=== PATIENT | female | born 1950 | race Caucasian/White ===

== ENCOUNTER → 2018-04-30 15:40 | Outpatient (CLI) | payer MEDICARE, SELFPAY ==
[2018-04-30 18:08] LABS: Add Manual Diff / Slide Review NO; Basophils Percent Auto 0.4 % (0-2); Eosinophils Percent Auto 0.7 % (2-4); Hematocrit 41.1 % (36-46); Hemoglobin 13.7 g/dL (12.0-16.0); Lymphocytes Percent Auto 19.8 % (25-40); Mean Corpuscular HGB Conc 33.4 % (30-36); Mean Corpuscular Volume 89.8 fL (80-100); Monocytes Percent Auto 6.5 % (3-14); Neutrophils Absolute Auto 6800 /uL (3000-5900); Neutrophils Percent Auto 72.6 % (50-75); Platelet Count 391 X10^3/uL (150-400); Red Blood Cell Count 4.57 X10^6/uL (4.0-5.2); Red Cell Distribution Width 14.4 % (11.6-14.8); White Blood Cell Count 9.4 X10^3/uL (4.5-11.0)
[2018-04-30 18:11] LABS: Alanine Aminotransferase 37 IU/L (9-52); Albumin 4.5 g/dL (3.5-5.0); Albumin Globulin Ratio 1.7 (1.0-2.8); Alkaline Phosphatase 82 U/L (38-126); Aspartate Aminotransferase 29 IU/L (14-36); BUN Creatinine Ratio 13.8 (6-22); Bilirubin Total 0.7 mg/dL (0.2-1.3); Blood Urea Nitrogen 11 mg/dL (7-17); Carbon Dioxide 25 mmol/L (22-32); Chloride 104 mmol/L (98-107); Estimated Glomerular Filt Rate > 60.0 mL/min (>60); Globulin 2.6 g/dL (1.7-4.1); Glucose 99 mg/dL (80-110); HEMOLYSIS < 15 (0-50); Potassium 3.8 mmol/L (3.4-5.1); Sodium 144 mmol/L (137-145); Total Protein 7.1 g/dL (6.3-8.2)
[2018-04-30 18:25] LABS: Free T4, Direct Thyroxine 0.94 ng/dL (0.78-2.19)
[2018-04-30 18:31] LABS: C-Reactive Protein Quant < 0.5 mg/dL (<1.0)
[2018-04-30 18:39] LABS: Thyroid Stimulating Hormone 0.97 uIU/mL (0.47-4.68)
[2018-04-30 18:42] LABS: Erythrocyte Sedimentation Rate 8 MM/HR (0-20)
[2018-04-30 18:57] LABS: Vitamin B12 402 pg/mL (239-931)
[2018-05-03 10:58] LABS: RPR Screen Nonreactive (Nonreactive)
[2018-05-03 16:28] LABS: Arsenic < 2 mcg/L (< 23); Lead, Blood < 1 mcg/dL (< 5)
[2018-05-07 13:38] LABS: Mercury, Blood < 2
== END ==
PROVIDERS: PCP Internal Medicine; Visit Provider Internal Medicine
DX: G93.40 Encephalopathy, unspecified (principal)
CPT/HCPCS: 36415; 80053; 82607; 83825; 84439; 84443; 85025; 85651; 86140; 86592

== ENCOUNTER → 2018-05-01 16:37 | Outpatient (CLI) | payer MEDICARE, SELFPAY ==
[2018-05-01 16:46] LABS: Bacteria Urine None Seen
[2018-05-01 17:18] LABS: Appearance Urine UA CLEAR; Bilirubin Urine UA NEGATIVE (NEGATIVE); Color Urine UA YELLOW; Glucose Urine UA NEGATIVE (Normal); Ketones Urine UA NEGATIVE (NEGATIVE); Leukocyte Esterase Urine UA NEGATIVE (NEGATIVE); Nitrite Urine UA NEGATIVE (Negative); Occult Blood Urine UA NEGATIVE (Negative); Protein Urine UA NEGATIVE (Negative); Specific Gravity Urine UA 1.015 (1.000-1.035); Urobilinogen Urine UA 0.2 E.U./dL (0.2); pH Urine UA 5.5 (4.5-8.0)
[2018-05-01 17:32] LABS: Culture Indicated Urine Cult Not Indicated; RBC Urine 0-1/HPF (0-5/HPF); Squamous Epithelial Cell Urine 0-1 /HPF; Urine Comments Microscopic Normal; WBC Urine 0-1/HPF (0-5/HPF)
[2018-05-01 17:40] LABS: Urine Tetrahydrocannabinol Negative (Negative)
[2018-05-01 17:41] LABS: Urine Amphetamines Negative (Negative); Urine Barbiturates Negative (Negative); Urine Benzodiazepines Positive (Negative); Urine Cocaine Negative (Negative); Urine MDMA Negative (Negative); Urine Methadone Negative (Negative); Urine Methamphetamines Negative (Negative); Urine Morphine/Opi cutoff 2000 Positive (Negative); Urine Oxycodone Positive (Negative); Urine Phencyclidine Negative (Negative); Urine Tricyclic Antidepressant Positive (Negative)
== END ==
PROVIDERS: PCP Internal Medicine; Visit Provider Internal Medicine
DX: G93.40 Encephalopathy, unspecified (principal)
CPT/HCPCS: 80305; 81001

== ENCOUNTER → 2018-05-02 16:01 | Outpatient (CLI) | payer MEDICARE, SELFPAY ==
--- NOTE | 2018-05-02 16:07 | DI.MRI.S_ITS ---
PROCEDURE: MR STROKE Pre- and post-contrast brain MRI, non-contrast brain MR angiogram, pre- and postcontrast neck MR angiogram INDICATIONS: memory loss TECHNIQUE: Brain: Noncontrast axial T1 spin echo, axial T2 fast spin echo, sagittal and axial FLAIR, coronal T2 fast spin echo, axial gradient echo, axial diffusion and ADC through the brain. After the administration of contrast, axial 3D VIBE of the cranial vasculature and brain. Brain MRA: Non-contrast 3-D time of flight MR angiogram, with multiple ouehupm-oxkcxrezo-koikfzmton (MIP) reformats performed. Neck MRA: Axial and sagittal TruFISP through the neck. Coronal dynamic MR angiogram during administration of contrast in the arterial and venous phases, with 3-dimenstional xhbpylk-ucnivfhwr-jnbaadjzgv (MIP) reformats constructed from subtraction images. COMPARISON: [facility], CT, HEAD WITHOUT CONTRAST, 11/14/2015, 4:52. FINDINGS: Image quality: Diagnostic, with note made of motion artifact. BRAIN: CSF spaces: Ventricles are normal in size and shape. Basal cisterns are patent. No extra-axial fluid collections. Brain: No intracranial bleeds or mass effects. Sagastume-white matter interface is normal. Diffusion weighted images show no acute ischemic insults. Brain parenchymal volume loss and chronic small vessel ischemic changes are seen. Brainstem appears normal. Normal intravascular flow voids are present. No abnormal intracranial enhancement. Skull and face: Calvarial marrow signal is normal. Orbits appear normal. Sinuses: Sinuses and mastoids are clear. BRAIN MR ANGIOGRAM: Anterior circulation: Intracranial internal carotid arteries are normal in size and enhancement. The flow within the paired anterior cerebral arteries is normal and symmetric. The flow within the middle cerebral arteries is normal and symmetric. The anterior communicating artery is seen. No stenoses, occlusions, or aneurysms. Posterior circulation: The visualized portions of the vertebral arteries demonstrate normal caliber, and join to form a normal appearing basilar artery. The flow within the posterior cerebral arteries is normal and symmetric. No stenoses, occlusions, or aneurysms. NECK MR ANGIOGRAM: Carotids: Great vessels demonstrate a conventional anatomy as they arise from the aortic arch. The origins of the common carotid arteries appear patent. There is an approximate 50% narrowing seen in the left common carotid artery, just beyond its origin. The calibers and courses of both common carotid arteries are otherwise normal. The bifurcation regions appear normal bilaterally. The internal carotid arteries demonstrate normal course and caliber. Posterior circulation: The origins of the vertebral arteries appear patent. More superior portions of both vertebral arteries demonstrate normal course, and join to form a normal appearing basilar artery. The proximal left vertebral artery is tortuous. Miscellaneous: Subclavian arteries appear patent. Pre-contrast images through the neck show no soft tissue abnormalities. IMPRESSION: BRAIN MRI: No findings of acute or subacute infarction can be seen. Note is made of age-appropriate brain parenchymal volume loss and chronic small vessel ischemic changes. No masses or abnormal enhancement can be seen. BRAIN MR ANGIOGRAM: No significant intracranial arterial abnormality is seen. NECK MR ANGIOGRAM: There is an approximate 50% narrowing seen involving the left proximal common carotid artery. No additional hemodynamically significant stenosis can be seen involving the arteries of the neck Dictated by: Denis Shaw M.D. on 05/02/2018 at 16:46 Approved by: Denis Shaw M.D. on 05/02/2018 at 16:52
== END ==
PROVIDERS: Family Provider Internal Medicine; PCP Internal Medicine; Visit Provider Internal Medicine
DX: R41.3 Other amnesia (principal)
CPT/HCPCS: 70553; A9579

== ENCOUNTER 2018-12-09 08:29 | Emergency (ER) | payer MEDICARE, SELFPAY ==
[2018-12-09 08:30] VITALS: BP 150/73; PULSE 71; RESP 18; TEMP 36.8; O2SAT 93; BMI 32.3
--- NOTE | 2018-12-09 09:13 | DI.RAD.S_ITS ---
PROCEDURE: XR LUMBAR SPINE 2-3V INDICATIONS: fall/pain TECHNIQUE: 2 views of the lumbar spine were acquired. COMPARISON: [facility], CT, ABDOMEN/PELVIS WITH CONTRAST, 07/26/2017, 12:00. [facility], CR, XR PELVIS 1-2V, 12/09/2018, 9:17. [facility], CR, L-SPINE 2-3 VIEWS, 06/16/2017, 8:33. FINDINGS: Bones: Postoperative changes are seen, with bilateral pedicle screws at the L4, L5, and S1 levels. The L4 screws are superiorly angulated and the right S1 screw protrudes beyond the anterior cortex of S1. Vertical fixation rods are seen. Lucency is seen adjacent to the L4 screws. No other findings of hardware failure or hardware loosening are seen. Bone cement can be seen at the L1 level, as before. 5 nonrib-bearing, lumbar type vertebral bodies are seen. No acute appearing fractures are seen. No suspicious lytic or blastic lesions can be seen. Mild loss of disc height can be seen at L2-L3 at L3-L4, moderate loss of disc height at L5-S1. A right hip arthroplasty is partially seen. Soft tissues: Overlying bowel gas pattern is normal. No suspicious soft tissue calcifications. Atherosclerotic calcification is noted. Cholecystectomy clips are seen. IMPRESSION: No acute fractures are seen. If there is point tenderness (or other clinical suspicion for a fracture not seen on these images) then a dedicated CT could be considered for further evaluation, as clinically appropriate. Stable postoperative changes, with lucency adjacent to the L4 screws, which is suggestive of loosening. Dictated by: Denis Shaw M.D. on 12/09/2018 at 8:47 Approved by: Denis Shaw M.D. on 12/09/2018 at 8:52
--- NOTE | 2018-12-09 09:13 | DI.RAD.S_ITS ---
PROCEDURE: XR PELVIS 1-2V INDICATIONS: fall/pain TECHNIQUE: 1 view(s) of the pelvis acquired. COMPARISON: [facility], , ABDOMEN 2 VIEW, 03/26/2016, 14:05. [facility], , XR LUMBAR SPINE 2-3V, 12/09/2018, 9:17. [facility], , PELVIS 1 OR 2 VIEWS, 06/16/2017, 8:33. FINDINGS: Bones: No fractures or dislocations. No suspicious bony lesions. Right hip arthroplasty hardware is seen. Lumbosacral fixation hardware is seen. No findings of hardware failure or hardware loosening are seen. Soft tissues: There is a moderate amount of stool seen within the colon. Visualized bowel gas pattern is normal. No suspicious soft tissue calcifications. IMPRESSION: No displaced fractures are seen. If there is focal tenderness, or other clinical concern for a fracture not seen on these images in this patient with a given history of trauma, please consider a dedicated CT or a short-term followup plain film series (in 1-2 weeks) for further evaluation. Unremarkable postoperative changes are seen. Dictated by: Denis Shaw M.D. on 12/09/2018 at 8:46 Approved by: Denis Shaw M.D. on 12/09/2018 at 8:47
--- NOTE | 2018-12-09 09:22 | ED_ITS ---
HPI - Fall General Chief Complaint: Fall Stated Complaint: Fall, rt hip and back pain Time Seen by Provider: 12/09/18 08:36 Source: patient Mode of arrival: ambulatory Limitations: no limitations History of Present Illness HPI Narrative: Patient comes emergency department complaining of back pain after a fall 1 week ago. Patient states that she normally walks with a walker, because she does not have good balance, and states that she was walking in her home and lost her balance and fell to the ground, striking her right hip/thigh on the floor. Patient states that she had some low back pain at the time, but that this has gotten worse and worse over the last week. She states it is not the hip that is hurting but actually the low back. She indicates that her sciatic area also hurts. Patient denies numbness or tingling in her right lower extremity. No weakness. Patient states the pain does shoot down her leg somewhat. No fever chills. No injuries anywhere else. She did not hit her head or lose consciousness. Patient states that she has a history of low back problems, including compression fracture and herniated disc. No other complaints at this time. Related Data Home Medications Medication Instructions Recorded Confirmed erenumab-aooe 70 mg/mL 70 mg SUBCUT QMONTH 01/25/18 10/12/18 subcutaneous auto-injector naloxone 4 mg/actuation nasal spray NASAL 1 Days #2 each 04/30/18 10/12/18 promethazine 25 mg tablet 50 mg PO Q4-6H 22 Days #264 tab 04/30/18 10/12/18 oxycodone 15 mg tablet See Rx Instructions PO Q6H PRN tab 08/28/18 10/12/18 Previous Rx's Medication Instructions Recorded albuterol sulfate [Ventolin HFA] 0 ea INH Q3HP PRN #1 03/16/16 aspirin 81 mg PO BID #60 03/16/16 ACETAMINOPHEN 325 - 650 mg PO Q4HP PRN #150 tab 03/30/16 docusate sodium 200 mg PO BID #60 cap 03/30/16 Disabled Parking Permit ea #1 10/31/16 rizatriptan 10 mg tablet 10 mg PO .COMPLEX PRN #6 tab 11/16/17 simvastatin 20 mg PO QDAY #90 tab 03/09/18 nystatin [Nystop] 100,000 unit TOPICAL TIDP PRN #60 01/28/19 gm hydrochlorothiazide 25 mg PO QDAY #90 tab 07/06/18 gabapentin 100 mg capsule 100 mg PO DAILY #14 cap 08/07/18 lisinopril 40 mg tablet 40 mg PO BID #180 tab 08/09/18 desipramine 50 mg tablet 100 mg PO QDAY #60 tab 08/13/18 escitalopram oxalate [Lexapro] 20 mg PO QDAY #90 tab 09/18/18 metoclopramide 10 mg tablet 10 mg PO ACHS #90 tab 10/16/18 prednisone 20 mg tablet See Rx Instructions PO .COMPLEX #8 10/24/18 tab ondansetron HCl 8 mg tablet 8 mg PO QID PRN #120 tab 11/05/18 quetiapine 1 - 3 tab PO HS PRN #90 tab 11/26/18 diazepam 5 mg tablet 5 mg PO Q8HP PRN #30 tab 12/04/18 verapamil ER (PM) 300 mg capsule 300 mg PO BEDTIME #30 cap 12/04/[address],ext.release Allergies Allergy/AdvReac Type Severity Reaction Status Date / Time adhesive Allergy Mild BLISTERS, Verified 12/09/18 08:43 PULL SKIN OFF codeine [CODEINE] AdvReac Severe nausea, Verified 12/09/18 08:43 triggers migraines hydrocodone [HYDROCODONE] AdvReac Severe triggers Verified 12/09/18 08:43 migraines morphine [MORPHINE] AdvReac Severe n&v, can Verified 12/09/18 08:43 take if premedicated Review of Systems Constitutional Denies chills, Denies fever(s), Denies lethargy and Denies weakness Eyes Denies change in vision, Denies eye discharge, Denies irritation and Denies loss of vision ENT Ears, Nose, Mouth, and Throat: Denies change in voice, Denies neck pain and Denies sore throat Cardiovascular Denies chest pain, Denies irregular heart rhythm, Denies lightheadedness, Denies palpitations, Denies dyspnea, Denies dyspnea on exertion and Denies orthopnea Respiratory Denies cough, Denies dyspnea, Denies dyspnea on exertion and Denies wheezing Gastrointestinal Gastrointestinal: Denies abdominal pain, Denies change in bowel habits, Denies diarrhea, Denies nausea and Denies vomiting Genitourinary Denies hematuria, Denies flank pain, Denies urinary incontinence and Denies urinary urgency Musculoskeletal Reports back pain and Denies neck pain Integumentary/Breasts Denies pruritus, Denies erythema, Denies rash and Denies wounds Neurologic Denies confusion, Denies loss of vision and Denies weakness Psychiatric Denies anxiety, Denies confusion, Denies depression, Denies homicidal ideation and Denies suicidal ideation Endocrine Denies palpitations Hematologic/Lymphatic Denies easy bruising Allergic/Immunologic Denies wheezing Exam Initial Vital Signs Initial Vital Signs: Vital Signs Temperature 98.3 F 12/09/18 08:30 Pulse Rate 71 12/09/18 08:30 Respiratory Rate 18 12/09/18 08:30 Blood Pressure 150/73 H 12/09/18 08:30 Pulse Oximetry 93 12/09/18 08:30 Const General: cooperative and well developed Nutritional Appearance: well nourished Orientation: alert, awake, oriented x3 and not confused HENMT Head: normocephalic and atraumatic Ears: external ears normal and TM's normal bilaterally Nose: external nose normal and No nasal discharge Face and sinus: sinuses nontender, face symmetric, no sinus tenderness and No dry mucous membranes Mouth: oral mucosae normal and moist mucous membranes Teeth and gingiva: dentition normal Throat: tonsils normal and uvula midline Eyes General: appearance normal, both eyes and all related structures Eyelids: eyelids normal Conjunctivae: conjunctivae normal Sclera: sclerae normal Pupils: PERRL EOM: EOM intact bilaterally Neck Neck: normal visual inspection, trachea midline, No lymphadenopathy, No midline deformity and No JVD Lymphatic: No lymphedema Chest Chest: normal inspection of the chest Resp Effort & Inspection: normal respiratory effort, able to speak in complete sentences, no respiratory distress and no use of accessory muscles Auscultation: clear to auscultation bilaterally, no rales, no rhonchi and no wheezes Cardio Rate: regular rate Rhythm: regular rhythm Heart Sounds: no click, no gallops, no murmurs and no rubs Pulses: normal peripheral pulses GI Inspection: non-distended Palpation: soft, no hepatosplenomegaly, No guarding, No pulsatile mass and No tender Auscultation: normal bowel sounds Back/Spine/Pelvis Back: No CVA tenderness Cervical Spine: cervical ROM normal and No pain with cervical ROM Thoracic/Lumbar Spine: thoracic and lumbar spine normal to inspection Other: No tenderness or step-off at any level of the spine. Patient does have tenderness just adjacent to the lumbar spine on the right, extending from the L3-4 area down to the sciatic joint on that side. Patient does also have te nderness in a similar distribution on the left. Skin General: no rashes or lesions noted, No jaundice and No petechiae Other: Large right lateral thigh contusion, as noted. Contusion is approximately 10 cm x 8 cm. Neuro General: alert, oriented x3, gait normal and no focal motor deficits Speech: speech normal Extrem General: full ROM, no pedal edema and no calf tenderness Other: Patient has no tenderness over the hip itself. There is a large contusion on the patient right lateral thigh, inferior to the hip. Psych Appearance: well kempt Mental Status: mental status grossly normal Attitude: cooperative Thought Content: normal and suicidality Judgment: judgment good ON LICENSE OF [facility] Medical History Dorsalgia (Chronic 07/28/15) Chronic pain syndrome (Chronic) Hypertension (Chronic) Recurrent major depressive disorder, in partial remission (Chronic 02/10/11) Acquired hypothyroidism (Chronic 02/10/11) Chronic migraine without aura without status migrainosus, not intractable (Chronic) Fibromyalgia (Chronic 09/06/13) Gastroesophageal reflux disease without esophagitis (Chronic 02/10/11) Spinal stenosis at L4-L5 level (Chronic) Systemic lupus erythematosus (Chronic 02/10/11) Osteoporosis (Chronic 05/07/15) Uncomplicated opioid dependence (Chronic 12/14/15) Loosening of hardware in spine (Inactive) Surgical History Anesthesia (Resolved) History of surgery (Resolved) History of hip replacement Status post appendectomy Status post tubal ligation Family History Father Family history of polycythemia Mother Family history of CHF (congestive heart failure) Social History marital status: number of children: 2 household members: spouse lives independently: Yes caregiver/support person: No housing: apartment pets and animals: Yes education level: college 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 status: other (Retired) Previous 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 history: [employer] bc/worship: [employer] 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, 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) Smoking Status: Never smoker Tobacco: How many years used: 0 quit status: quit date established (Never Started) second hand exposure: No alcohol intake: never substance use type: does not use Family History Father Family history of polycythemia Mother Family history of CHF (congestive heart failure) Social History marital status: number of children: 2 household members: spouse lives independently: Yes caregiver/support person: No housing: apartment pets and animals: Yes education level: college 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 status: other (Retired) Previous 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 history: [employer] bc/worship: [employer] 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 She was worked up with x-ray series, and she stated she ?may need an MRI?. I did explain to the patient that we do not have MRI available on Sundays, and that her symptoms do not indicate an emergent MRI, but that this could be performed by her primary care physician as an outpatient. The patient was found to be feeling better after symptomatic treatment. I have discussed the usual indications for return with her. Orders Ordered: Discontinued Medications Hydromorphone HCl (Dilaudid) 1 mg IM NOW ONE Stop: 12/09/18 09:15 Last Admin: 12/09/18 09:35 Dose: 1 mg Ketorolac Tromethamine (Toradol) 60 mg IM NOW ONE Stop: 12/09/18 09:15 Last Admin: 12/09/18 09:35 Dose: 60 mg Ondansetron HCl (Zofran Odt) 4 mg SL NOW ONE Stop: 12/09/18 09:15 Last Admin: 12/09/18 09:35 Dose: 4 mg Vital Signs - 8 hr 12/09/18 08:30 Temperature 98.3 F Pulse Rate 71 Respiratory Rate 18 Blood Pressure 150/73 H Pulse Oximetry 93 MDM - Fall Medical Records Attestation: I reviewed the patient's medical records. Imaging Data Lumbar x-ray: Radiologist's impression: PROCEDURE: XR LUMBAR SPINE 2-3V INDICATIONS: fall/pain TECHNIQUE: 2 views of the lumbar spine were acquired. COMPARISON: [facility], CT, ABDOMEN/PELVIS WITH CONTRAST, 07/26/2017, 12:00. [facility], CR, XR PELVIS 1-2V, 12/09/2018, 9:17. [facility], CR, L-SPINE 2-3 VIEWS, 06/16/2017, 8:33. FINDINGS: Bones: Postoperative changes are seen, with bilateral pedicle screws at the L4, L5, and S1 levels. The L4 screws are superiorly angulated and the right S1 screw protrudes beyond the anterior cortex of S1. Vertical fixation rods are seen. Lucency is seen adjacent to the L4 screws. No other findings of hardware failure or hardware loosening are seen. Bone cement can be seen at the L1 level, as before. 5 nonrib-bearing, lumbar type vertebral bodies are seen. No acute appearing fractures are seen. No suspicious lytic or blastic lesions can be seen. Mild loss of disc height can be seen at L2-L3 at L3-L4, moderate loss of disc height at L5-S1. A right hip arthroplasty is partially seen. Soft tissues: Overlying bowel gas pattern is normal. No suspicious soft tissue calcifications. Atherosclerotic calcification is noted. Cholecystectomy clips are seen. IMPRESSION: No acute fractures are seen. If there is point tenderness (or other clinical suspicion for a fracture not seen on these images) then a dedicated CT could be considered for further evaluation, as clinically appropriate. Stable postoperative changes, with lucency adjacent to the L4 screws, which is suggestive of loosening. Dictated by: Denis Shaw M.D. on 12/09/2018 at 8:47 Approved by: Denis Shaw M.D. on 12/09/2018 at 8:52 Discharge Plan Departure Patient Disposition: Home Clinical Impression: Lumbar strain Qualifiers: Encounter type: initial encounter Qualified Code(s): S39.012A - Strain of muscle, fascia and tendon of lower back, initial encounter Discharge Date/Time: 12/09/18 11:14 Interventions: ED Discharge Assessment Last Done: 12/09/18 11:12 Instructions: DI for Back Strain or Sprain Activity Restrictions/Additional Instructions: Your x-rays do not show any new injuries. You have most likely strained your back and inflamed old injuries. You will need to follow up with your primary doctor, and you may discuss whether an MRI is warranted. At this point, no emergent cause of back pain is identified. Please take your pain medications, as needed. Prescriptions: No Action aspirin 81 MG tablet,delayed release (DR/EC) 81 mg PO BID Qty: 60 RF: 0 albuterol sulfate [Ventolin HFA] 90 MCG/PUFF HFA aerosol inhaler INH Q3HP PRNQty: 1 RF: 0 docusate sodium 100 MG capsule 200 mg PO BID Qty: 60 RF: 0 ACETAMINOPHEN 325 - 650 mg PO Q4HP PRNQty: 150 RF: 0 Disabled Parking Permit Qty: 1 RF: 0 simvastatin 20 mg tablet 20 mg PO QDAY Qty: 90 RF: 3 nystatin [Nystop] 100,000 unit/gram powder 100,000 unit Topical TIDP PRNQty: 60 RF: 3 hydrochlorothiazide 25 mg tablet 25 mg PO QDAY Qty: 90 RF: 3 lisinopril 40 mg tablet 40 mg PO BID Qty: 180 RF: 3 desipramine 50 mg tablet 100 mg PO QDAY Qty: 60 RF: 6 escitalopram oxalate [Lexapro] 20 mg tablet 20 mg PO QDAY Qty: 90 RF: 3 metoclopramide HCl 10 mg tablet 10 mg PO ACHS Qty: 90 RF: 1 prednisone 20 mg tablet See Rx Instructions PO .COMPLEX Qty: 8 RF: 0 ondansetron HCl [Zofran] 8 mg tablet 8 mg PO QID PRN (Reason: nausea and vomiting) Qty: 120 RF: 1 quetiapine 25 mg tablet 1 - 3 tab PO HS PRNQty: 90 RF: 1 verapamil 300 mg capsule, [address] 300 mg PO BEDTIME Qty: 30 RF: 11 diazepam 5 mg tablet 5 mg PO Q8HP PRN (Reason: muscle spasm) Qty: 30 RF: 0 oxycodone 15 mg tablet See Patient Comments PO Q6H PRNRF: 0 erenumab-aooe [Aimovig Autoinjector] 70 mg/mL auto-injector 70 mg SUBCUT QMONTH RF: 0 promethazine 25 mg tablet 50 mg PO Q4-6H 22 Days Qty: 264 RF: 0 naloxone 4 mg/actuation spray,non-aerosol NASAL 1 Days Qty: 2 RF: 0 gabapentin 100 mg capsule 100 mg PO DAILY Qty: 14 RF: 0 rizatriptan 10 mg tablet 10 mg PO .COMPLEX PRN (Reason: migraine headache) Qty: 6 RF: 11 Referrals: Pasquale Segura MD [Primary Care Provider] -
[2018-12-09] MEDS: ONDANSETRON 4 MG ODT SL (09:35)
[2018-12-09] MEDS: HYDROMORPHONE 1 MG INJ IM (09:35)
[2018-12-09] MEDS: KETOROLAC 60 MG/2 ML VIAL IM (09:35)
[2018-12-09 10:48] VITALS: BP 157/97; PULSE 61; RESP 18; O2SAT 96
== END 2018-12-09 11:14 | disposition home or self-care (01) ==
PROVIDERS: Emergency Provider Emergency Medicine; PCP Internal Medicine
DX: S39.012A Strain of muscle, fascia and tendon of lower back, initial encounter (principal); W19.XXXA Unspecified fall, initial encounter
CPT/HCPCS: 72100; 72170; 96372; 99282; 99283; J1170; J1885

== ENCOUNTER → 2018-12-10 14:30 | Outpatient (CLI) | payer MEDICARE, SELFPAY ==
[2018-12-10 16:16] LABS: BUN Creatinine Ratio 15.6 (6-22); Blood Urea Nitrogen 14 mg/dL (7-17); Calcium 9.5 mg/dL (8.4-10.2); Carbon Dioxide 33 mmol/L (22-32); Chloride 96 mmol/L (98-107); Estimated Glomerular Filt Rate > 60.0 mL/min (>60); Glucose 86 mg/dL (80-110); HEMOLYSIS < 15 (0-50); Potassium 3.9 mmol/L (3.4-5.1); Sodium 138 mmol/L (137-145)
== END ==
PROVIDERS: Registered Nurse; PCP Internal Medicine; Visit Provider Internal Medicine
DX: Z01.812 Encounter for preprocedural laboratory examination (principal)
CPT/HCPCS: 36415; 80048

== ENCOUNTER → 2018-12-17 09:03 | Outpatient (CLI) | payer MEDICARE, SELFPAY ==
--- NOTE | 2018-12-17 09:07 | DI.MRI.S_ITS ---
PROCEDURE: MR LUMBAR SPINE WO/W CON INDICATIONS: Back pain s/p ground level fall, prior surgical hx TECHNIQUE: Noncontrast sagittal T1 spin echo and T2 fast spin echo, sagittal STIR, axial T1 and T2 fast spin echo through the lumbar spine. In cases with scoliosis, additional coronal T2 fast spin echo may be performed. After the administration of contrast, sagittal and axial T1 spin echo with fat saturation through the lumbar spine. COMPARISON: [facility], MR, L-SPINE WITHOUT CONTRAST, 10/21/2016, 10:03. [facility], MR, L-SPINE WITHOUT CONTRAST, 03/22/2016, 12:58. [facility], MR, L-SPINE W&WO CONTRAST, 01/26/2016, 7:03. FINDINGS: Image quality: Excellent. Alignment and curvature: Posterior fusion is present at L4-S1 and is overall unchanged. There is trace retrolisthesis of L1 on L2, L3 on L4, trace anterolisthesis of L2 on L3. Marrow: Marrow is of normal overall signal. There is hypointense T1 and hyper intense STIR signal along the inferior aspect of the L3 vertebral body. L1 compression deformity is stable. No suspicious marrow enhancement. Spinal cord: Conus medullaris terminates at the L1 level. Visualized spinal cord demonstrates normal signal, without suspicious enhancement. Paraspinous soft tissues: No paravertebral masses or abnormal enhancement. Partially visualized liver and renal cysts. Discs: Moderate desiccation is present throughout the lumbar spine. L1-L2: Mild disc bulge with moderate spinal stenosis. There is mild flattening along the ventral aspect of the cord, unchanged. Moderate bilateral foraminal narrowing, slightly progressive compared to prior exam. Facet and ligamentum flavum hypertrophy as well as epidural lipomatosis are present. Minimal epidural lipomatosis. L2-L3: Mild disc bulge with minimal canal narrowing. Minimal to mild left foraminal narrowing, slightly progressive compared to prior exam. Facet and ligamentum flavum hypertrophy are present. Minimal epidural lipomatosis. L3-L4: Minimal disc bulge with minimal narrowing of the spinal canal. Moderate right foraminal narrowing with facet and ligamentum flavum hypertrophy. L4-L5: Postsurgical changes are present at this level with minimal appearance of canal narrowing. Mild left and minimal right foraminal narrowing, stable compared to prior exam. L5-S1: Postsurgical changes are present. No spinal stenosis or foraminal narrowing. IMPRESSION: 1. Linear hyperintense STIR focus within the L3 vertebral body suspicious for subacute fracture. No discernible compression deformity is identified. 2. Multilevel disc bulges. 3. Multilevel foraminal narrowing most notable at L1-L2 as well as L3-4 secondary to facet arthropathy. Dictated by: Jen Park M.D. on 12/17/2018 at 14:34 Approved by: Jen Park M.D. on 12/17/2018 at 15:18
== END ==
PROVIDERS: Family Provider Orthopaedic Surgery Orthopaedic Surgery of the Spine; PCP Internal Medicine; Visit Provider Registered Nurse
DX: M54.5 Low back pain (principal); Z98.1 Arthrodesis status; M48.061 Spinal stenosis, lumbar region without neurogenic claudication; E88.2 Lipomatosis, not elsewhere classified; M47.816 Spondylosis without myelopathy or radiculopathy, lumbar region
CPT/HCPCS: 72158; A9579

== ENCOUNTER 2019-01-04 16:34 | Emergency (ER) | payer MEDICARE, SELFPAY ==
[2019-01-04] VITALS (10 sets, daily range): BP systolic 149–188; BP diastolic 75–94; PULSE 70–84; RESP 15–20; TEMP 37.3; O2SAT 93–99; BMI 69.7
--- NOTE | 2019-01-04 16:43 | DI.RAD.S_ITS ---
PROCEDURE: XR WRIST RT MIN 3V INDICATIONS: fall, R wrist pain, deformity TECHNIQUE: 4 views of the wrist were acquired. COMPARISON: None. FINDINGS: Bones: Acute fracture of the distal radial metaphysis. There is moderate impaction measuring approximately 1.1 cm. There is dorsal angulation of the distal fracture fragment. No dislocation of the radiocarpal joint. The proximal and distal carpal rows demonstrate near anatomic alignment. No suspicious bony lesions. Scaphoid view: No scaphoid fracture demonstrated. Soft tissues: Moderate soft tissue swelling of the proximal wrist. No suspicious soft tissue calcifications. IMPRESSION: Right radial metaphyseal fracture with impaction and dorsal angulation of the distal fracture fragment. Dictated by: Raphael Tsang M.D. on 01/04/2019 at 17:20 Approved by: Raphael Tsang M.D. on 01/04/2019 at 17:25
--- NOTE | 2019-01-04 16:56 | ED.FALL ---
HPI - Fall General Chief Complaint: Fall Stated Complaint: GLF, thinks her right wrist is fractured Time Seen by Provider: 01/04/19 16:35 Source: patient and family Mode of arrival: ambulatory Limitations: no limitations History of Present Illness HPI Narrative: 68-year-old female nonsmoker with extensive medical history complains of pain and deformity in her right wrist after ground level fall onto an outstretched hand. She denies other injury such as head, neck, or back pain. She is not dizzy nor weak or lightheaded. She has increased pain with motion and improved with rest. She denies any numbness, tingling or weakness. complaint: fall Onset (ago): hour(s) Fall from: standing Fall witnessed: yes, by family Place fall occurred: home Loss of consciousness: none Prolonged down time: no Symptoms prior to fall: none Context: tripped/slipped Location of injury - extremities: Right: hand Severity: moderate Quality: burning and sharp Related Data Home Medications Medication Instructions Recorded Confirmed Disabled Parking Permit 1 ea MISCELLANEOUS DIRECTED 01/04/19 01/04/19 acetaminophen 325 - 650 mg PO Q4H PRN 01/04/19 01/04/19 baclofen 5 mg PO TID 01/04/19 01/04/19 desipramine 100 mg PO DAILY 01/04/19 01/04/19 diazepam 5 mg PO Q8H PRN 01/04/19 01/04/19 diphenhydramine HCl [Allergy 25 mg PO PRN PRN 01/04/19 01/04/19 Relief(diphenhydramin)] escitalopram oxalate [Lexapro] 20 mg PO DAILY 01/04/19 01/04/19 hydrochlorothiazide 25 mg PO DAILY 01/04/19 01/04/19 meloxicam 7.5 - 15 mg PO DAILY 01/04/19 01/04/19 omeprazole magnesium [Prilosec OTC] 1 tab PO PRN PRN 01/04/19 01/04/19 oxycodone 15 mg PO Q4-6H PRN MDD 6 01/04/19 01/04/19 prednisone 40 mg PO DAILYX4 01/04/19 01/04/19 promethazine 50 mg PO Q8H 01/04/19 01/04/19 quetiapine 25 - 75 mg PO BEDTIME PRN 01/04/19 01/04/19 sennosides [senna] 8.6 mg PO PRN PRN 01/04/19 01/04/19 simvastatin 20 mg PO DAILY 01/04/19 01/04/19 Previous Rx's Medication Instructions Recorded docusate sodium 200 mg PO BID #60 cap 03/30/16 rizatriptan 10 mg tablet 10 mg PO .COMPLEX PRN #6 tab 11/16/17 nystatin [Nystop] 100,000 unit TOPICAL TIDP PRN #60 06/25/18 gm lisinopril 40 mg tablet 40 mg PO BID #180 tab 08/09/18 verapamil ER (PM) 300 mg capsule 300 mg PO BEDTIME #30 cap 12/04/[address],ext.release ondansetron HCl 8 mg tablet 8 mg PO QID PRN #120 tab 12/24/18 Allergies Allergy/AdvReac Type Severity Reaction Status Date / Time adhesive Allergy Mild BLISTERS, Verified 12/28/18 11:47 PULL SKIN OFF codeine [CODEINE] AdvReac Severe nausea, Verified 12/28/18 11:47 triggers migraines hydrocodone [HYDROCODONE] AdvReac Severe triggers Verified 12/28/18 11:47 migraines morphine [MORPHINE] AdvReac Severe n&v, can Verified 12/28/18 11:47 take if premedicated Review of Systems Constitutional Denies chills, Denies fever(s), Denies lethargy and Denies weakness Eyes Denies change in vision, Denies eye discharge, Denies irritation and Denies loss of vision ENT Ears, Nose, Mouth, and Throat: Denies change in voice, Denies neck pain and Denies sore throat Cardiovascular Denies chest pain, Denies irregular heart rhythm, Denies lightheadedness, Denies palpitations, Denies dyspnea, Denies dyspnea on exertion and Denies orthopnea Respiratory Denies cough, Denies dyspnea, Denies dyspnea on exertion and Denies wheezing Gastrointestinal Gastrointestinal: Denies abdominal pain, Denies change in bowel habits, Denies diarrhea, Denies nausea and Denies vomiting Genitourinary Denies hematuria, Denies flank pain, Denies urinary incontinence and Denies urinary urgency Musculoskeletal Reports joint swelling, Reports limited range of motion and Denies neck pain Integumentary/Breasts Denies pruritus, Denies erythema, Denies rash and Denies wounds Neurologic Denies confusion, Denies loss of vision and Denies weakness Psychiatric Denies anxiety, Denies confusion, Denies depression, Denies homicidal ideation and Denies suicidal ideation Endocrine Denies palpitations Hematologic/Lymphatic Denies easy bruising Allergic/Immunologic Denies wheezing Exam Narrative Exam Narrative: GENERAL: 68-year-old female appears stated age, obviously in pain, right arm in sling. GCS 15 HEAD: Atraumatic. Normocephalic. No temporal or scalp tenderness. EYES: Pupils equal round and reactive. Extraocular motions intact. No scleral icterus. No injection or drainage. ENT: Nose without bleeding, purulent drainage or septal hematoma. Throat without erythema, tonsillar hypertrophy or exudate. Uvula midline. Airway patent. NECK: Trachea midline. No JVD or lymphadenopathy. Supple, nontender, no meningeal signs. CARDIOVASCULAR: Regular rate and rhythm without murmurs, gallops, or rubs. RESPIRATORY: Clear to auscultation. Breath sounds equal bilaterally. No wheezes, rales, or rhonchi. GASTROINTESTINAL: Abdomen soft, non-tender, nondistended. No hepato-splenomegaly, or palpable masses. No guarding. EXTREMITIES: Obvious deformity of right wrist with tenderness over the distal radius, closed, isolated, neurovascularly intact BACK: Nontender without deformity or crepitance. No flank tenderness. NEURO: AOx3. SKIN: No rash or erythema. Initial Vital Signs Initial Vital Signs: Vital Signs Temperature 99.2 F 01/04/19 16:40 Pulse Rate 84 01/04/19 16:40 Respiratory Rate 15 01/04/19 16:40 Blood Pressure 163/94 H 01/04/19 16:40 Pulse Oximetry 94 01/04/19 16:40 [facility] Medical History Dorsalgia (Chronic 07/28/15) Chronic pain syndrome (Chronic) Hypertension (Chronic) Recurrent major depressive disorder, in partial remission (Chronic 02/10/11) Acquired hypothyroidism (Chronic 02/10/11) Chronic migraine without aura without status migrainosus, not intractable (Chronic) Fibromyalgia (Chronic 09/06/13) Gastroesophageal reflux disease without esophagitis (Chronic 02/10/11) Spinal stenosis at L4-L5 level (Chronic) Systemic lupus erythematosus (Chronic 02/10/11) Osteoporosis (Chronic 05/07/15) Uncomplicated opioid dependence (Chronic 12/14/15) Loosening of hardware in spine (Inactive) Surgical History Anesthesia (Resolved) History of surgery (Resolved) History of hip replacement Status post appendectomy Status post tubal ligation Family History Father Family history of polycythemia Mother Family history of CHF (congestive heart failure) Social History marital status: number of children: 2 household members: spouse lives independently: Yes caregiver/support person: No housing: apartment pets and animals: Yes education level: college 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 status: other (Retired) 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: [employer] 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, 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) Smoking Status: Never smoker Tobacco: How many years used: 0 quit status: quit date established (Never Started) second hand exposure: No alcohol intake: never substance use type: does not use Family History Father Family history of polycythemia Mother Family history of CHF (congestive heart failure) Social History marital status: number of children: 2 household members: spouse lives independently: Yes caregiver/support person: No housing: apartment pets and animals: Yes education level: college 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 status: other (Retired) 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[employer] 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, 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) Smoking Status: Never smoker Tobacco: How many years used: 0 quit status: quit date established (Never Started) second hand exposure: No alcohol intake: never substance use type: does not use Procedures Orthopedic Fracture Reduction Fracture #1: Time Out Performed: Yes Side: right Fracture Reduction Location: radius Analgesia: procedural sedation Technique: traction/counter-traction Post Reduction X-rays Demonstrate: anatomical reduction Post-reduction neuro exam: intact Post-reduction vascular exam: intact Splint Applied: Yes Patient Tolerated Procedure: Well Orthopedic Splinting/Casting Injury #1: Side: right Upper Extremity Injury Location: wrist Upper Extremity Immobilizer: sling/shoulder immobilizer and sugar tong splint Post splinting neuro exam: intact Post splinting vascular exam: intact Placed by: Nursing Procedural Sedation Patient Age: Patient is 5yrs or older Consent signed: Yes Time out performed: Yes Indication: fracture/dislocation reduction ASA Class: II Mallampati Airway Classification: Class II Preparation: cardiac catheterization technologist applied, pulse oximeter, capnometry used, supplemental O2 applied, suction/airway equipment at bedside and IV secured IV Propofol dose (mg): 80 Intraservice time/total sedation time (min): 10 ED Sedation Level: Moderate (Concious) Patient Tolerated Procedure: Well Complications: none Course Orders Ordered: ED Orders 01/04/19 16:43 XR wrist RT min 3V Stat 01/04/19 18:04 XR wrist RT 2V Stat Discontinued Medications Propofol (Diprivan) 100 mg 0.5 mg/kg (100 mg) IV NOW ONE Stop: 01/04/19 17:45 Last Admin: 01/04/19 17:55 Dose: 80 mg Consultations Consultation #1: Mike Time: 18:07 Vital Signs - 8 hr 01/04/19 16:40 01/04/19 17:48 01/04/19 17:55 Temperature 99.2 F Pulse Rate 84 70 80 Respiratory Rate 15 20 18 Blood Pressure 163/94 H Blood Pressure [Left Arm] 170/80 H 175/75 H Pulse Oximetry 94 96 96 01/04/19 18:00 01/04/19 18:05 01/04/19 18:10 Temperature Pulse Rate 75 77 76 Respiratory Rate 20 19 20 Blood Pressure Blood Pressure [Left Arm] 173/76 H 185/76 H 149/81 H Pulse Oximetry 99 94 95 01/04/19 18:23 01/04/19 18:30 Temperature Pulse Rate 76 76 Respiratory Rate 18 18 Blood Pressure Blood Pressure [Left Arm] 174/83 H 185/89 H Pulse Oximetry 95 95 MDM - Fall Lab Data Point of Care Testing Test Results Not applicable Imaging Data Wrist Xray: Radiologist's impression: [address] [address] XRay Report Signed Patient: Melanie Barclay BMR#: [id number] : 9Acct:[id number] Age/Sex: 68 / FDate of Service: 01/04/19 Loc: ED Accession Number: [id number] Procedure: XR wrist RT min 3V Ordering Provider: Dustin Albarado D.O. PROCEDURE: XR WRIST RT MIN 3V INDICATIONS: fall, R wrist pain, deformity TECHNIQUE: 4 views of the wrist were acquired. COMPARISON: None. FINDINGS: Bones: Acute fracture of the distal radial metaphysis. There is moderate impaction measuring approximately 1.1 cm. There is dorsal angulation of the distal fracture fragment. No dislocation of the radiocarpal joint. The proximal and distal carpal rows demonstrate near anatomic alignment. No suspicious bony lesions. Scaphoid view: No scaphoid fracture demonstrated. Soft tissues: Moderate soft tissue swelling of the proximal wrist. No suspicious soft tissue calcifications. IMPRESSION: Right radial metaphyseal fracture with impaction and dorsal angulation of the distal fracture fragment. Dictated by: Raphael Tsang M.D. on 01/04/2019 at 17:20 Approved by: Raphael Tsang M.D. on 01/04/2019 at 17:25 Discharge Plan Departure Patient Disposition: Home Clinical Impression: Distal radial fracture Qualifiers: Encounter type: initial encounter Fracture type: closed Fracture morphology: Colles' Laterality: right Qualified Code(s): S52.531A - Colles' fracture of right radius, initial encounter for closed fracture Instructions: DI for Distal Radius Fracture Activity Restrictions/Additional Instructions: *You have been diagnosed with [acute right distal radius fracture] *What to do: *Take medications as directed *Follow up with [facility], call Monday for follow-up *Return to ER if you should have any new, worsening or concerning symptoms, such as [increasing pain, numbness, tingling, discoloration of year fingers or other bothersome symptoms] Prescriptions: No Action docusate sodium 100 MG capsule 200 mg PO BID Qty: 60 RF: 0 nystatin [Nystop] 100,000 unit/gram powder 100,000 unit Topical TIDP PRNQty: 60 RF: 3 lisinopril 40 mg tablet 40 mg PO BID Qty: 180 RF: 3 verapamil 300 mg capsule, [address] 300 mg PO BEDTIME Qty: 30 RF: 11 ondansetron HCl [Zofran] 8 mg tablet 8 mg PO QID PRN (Reason: nausea and vomiting) Qty: 120 RF: 1 baclofen 5 mg tablet 5 mg PO TID RF: 0 desipramine 50 mg tablet 100 mg PO DAILY RF: 0 oxycodone 15 mg tablet 15 mg PO Q4-6H MDD 6 PRN (Reason: PAIN) RF: 0 meloxicam 7.5 mg tablet 7.5 - 15 mg PO DAILY RF: 0 diazepam 10 mg tablet 5 mg PO Q8H PRN (Reason: Muscle Spasm) RF: 0 quetiapine 25 mg tablet 25 - 75 mg PO BEDTIME PRN (Reason: Insomnia) RF: 0 prednisone 20 mg tablet 40 mg PO DAILYX4 RF: 0 simvastatin 20 mg tablet 20 mg PO DAILY RF: 0 escitalopram oxalate [Lexapro] 20 mg tablet 20 mg PO DAILY RF: 0 hydrochlorothiazide 25 mg tablet 25 mg PO DAILY RF: 0 Disabled Parking Permit 1 ea miscellaneous DIRECTED RF: 0 acetaminophen 325 mg Tablet 325 - 650 mg PO Q4H PRN (Reason: pain) RF: 0 promethazine 50 mg tablet 50 mg PO Q8H RF: 0 diphenhydramine HCl [Allergy Relief(diphenhydramin)] 25 mg Capsule 25 mg PO PRN PRN (Reason: Allergy Symptoms) RF: 0 sennosides [senna] 8.6 mg Tablet 8.6 mg PO PRN PRN (Reason: Constipation) RF: 0 Prilosec OTC 20 mg Tablet,Delayed Release (Dr/Ec) 1 tab PO PRN PRN (Reason: Acid Reflux) RF: 0 rizatriptan 10 mg tablet 10 mg PO .COMPLEX PRN (Reason: migraine headache) Qty: 6 RF: 11 Referrals: Pasquale Segura MD [Primary Care Provider] - Rigo Mckeon MD [Physician] -
--- NOTE | 2019-01-04 17:41 | PC.NURSE ---
right radial good pulses.
[2019-01-04] MEDS: PROPOFOL 200 MG/20 ML VIAL 100 MG IV (17:55)
--- NOTE | 2019-01-04 18:04 | DI.RAD.S_ITS ---
PROCEDURE: XR WRIST RT 2V INDICATIONS: post reduction TECHNIQUE: 2 views of the wrist were acquired. COMPARISON: [facility], CR, XR WRIST RT MIN 3V, 01/04/2019, 16:51. FINDINGS: New casting material obscures fine bony detail. Distal radial metaphyseal fracture. There is mild improvement in the impaction and improved alignment in the dorsal angulation. Ulnar styloid fracture is more conspicuous on this projection. No suspicious bony lesions. IMPRESSION: Interval improvement in the alignment and impaction of the distal radial fracture post casting. Ulnar styloid fracture is more conspicuous. Dictated by: Raphael Tsang M.D. on 01/04/2019 at 18:54 Approved by: Raphael Tsang M.D. on 01/04/2019 at 18:57
== END 2019-01-04 19:05 | disposition home or self-care (01) ==
PROVIDERS: Emergency Provider Emergency Medicine; Family Provider Orthopaedic Surgery Orthopaedic Surgery of the Spine; PCP Internal Medicine
DX: S52.501A Unspecified fracture of the lower end of right radius, initial encounter for closed fracture (principal); W18.30XA Fall on same level, unspecified, initial encounter
CPT/HCPCS: 25605; 29105; 29240; 73100; 73110; 94770; 96374; 99284; 99285; J2704

== ENCOUNTER 2019-01-09 14:01 | Day surgery (SDC) | payer MEDICARE, SELFPAY ==
[2019-01-08 10:47] VITALS: BMI 32.9
[2019-01-09] VITALS (8 sets, daily range): BP systolic 148–184; BP diastolic 63–85; PULSE 74–80; RESP 15–18; TEMP 36.4–37; O2SAT 88–98; BMI 32.9
[2019-01-09] MEDS: CEFAZOLIN VIAL 1 GM in SODIUM CHLORIDE 0.9% 100 ML 200 ML IV (15:46)
--- NOTE | 2019-01-09 16:23 | SUR.OPER ---
pillow under knees and head
--- NOTE | 2019-01-09 16:30 | SUR.OPER ---
right arm on hand table, left on armboard
[2019-01-09] MEDS: BUPIVACAINE 0.5% W/ EPI (PF) VIAL 10 ML INJ (16:44)
--- NOTE | 2019-01-09 16:46 | PM.OP.1 ---
Operative Date/Time/Diagnoses Date of procedure: 01/09/19 Time of procedure: 16:30 Pre-op diagnosis: Right closed displaced distal radius fracture Post-op diagnosis: same Procedure & Clinicians Procedure: Right wrist closed reduction and percutaneous pin fixation Same procedure as scheduled: Yes Indications: The patient is a 68-year-old woman who recently fell, injuring her right wrist. The radiographs revealed a displaced right wrist fracture. She has agreed to closed reduction and percutaneous pin fixation after discussion the risks benefits and alternatives. This is detailed in my history and physical note. Surgeon: Rigo Mckeon Click Yes if Unassisted: Yes Anesthesia Type: General and Local Operative Notes Findings: Dorsal angulation of the distal radius with very osteoporotic bone. After reduction an acceptable alignment was achieved. Closure Type: primary Specimen(s): none sent Prosthetic devices, grafts, tissues, transplants, or devices: Three 0.062 inch K-wires were used. Applied: implant(s) Estimated Blood Loss (mL): 1 Blood products transfused: none Tourniquet time (min): 0 Procedure in detail: The patient was seen in the preoperative area where she confirmed her right wrist was the operative site and her hand was marked with my initials distal to the splint. She received preoperative antibiotics and was taken to the operating room and placed on the operating room table in the supine position. She underwent the induction of a general anesthetic. A tourniquet was placed about her proximal right arm and the right arm was prepared from the fingertips to the tourniquet with ChloraPrep in the usual fashion and draped through sterile drapes. A reduction maneuver was performed. The position of the distal radius was confirmed as satisfactory on the AP and lateral views of fluoroscopy with the small C-arm. Three pins were then placed across the fracture. The initial pin was placed from Raheel's tubercle proximally with a volar directed force to load the fracture. The 2nd was placed from the ulnar distal radius to wards the radial side of the shaft. A 3rd pin was placed from the radial styloid. Each of these was placed by making a small skin incision with the scalpel and spreading to bone using the hemostats. The position of the fracture and all the pins was verified as being satisfactory in the AP and lateral views of fluoroscopy. The pins were bent and cut. Xeroform was used to dress the small incisions. Sterile 4x4s were then applied followed by cast padding and dorsal and volar slab splints. After the splints had hardened the patient was awaken from anesthesia and taken to the recovery room in good condition having tolerated the procedure well. Complications: none Condition: stable Disposition: PACU Plan for aftercare: The patient will be discharged today. She will be followed up in my office in 2 weeks at which time her wounds will be examined and a cast will be placed. The pins will be removed at 4 weeks in the office.
[2019-01-09] MEDS: fentaNYL 100 MCG/2 ML INJ IV ×2 (16:52→17:02)
[2019-01-09] MEDS: ONDANSETRON 4 MG/2 ML INJ IV (17:07)
[2019-01-09] MEDS: OXYCODONE IR 5 MG TABLET PO (17:16)
== END 2019-01-09 17:50 | disposition home or self-care (01) ==
PROVIDERS: Family Provider Orthopaedic Surgery Orthopaedic Surgery of the Spine; PCP Internal Medicine; Visit Provider Orthopaedic Surgery
PROC: (CPT 25606; principal; 2019-01-09 15:30)
DX: S52.501A Unspecified fracture of the lower end of right radius, initial encounter for closed fracture (principal); M81.0 Age-related osteoporosis without current pathological fracture; M32.9 Systemic lupus erythematosus, unspecified; J45.909 Unspecified asthma, uncomplicated; E03.9 Hypothyroidism, unspecified; M79.7 Fibromyalgia; K21.9 Gastro-esophageal reflux disease without esophagitis; I10 Essential (primary) hypertension; F32.9 Major depressive disorder, single episode, unspecified; W01.0XXA Fall on same level from slipping, tripping and stumbling without subsequent striking against object, initial encounter; Y92.019 Unspecified place in single-family (private) house as the place of occurrence of the external cause
CPT/HCPCS: 25606; J0690; J1100; J2405; J2704; J3010

== ENCOUNTER → 2019-01-15 09:03 | Outpatient (CLI) | payer MEDICARE, SELFPAY ==
--- NOTE | 2019-01-15 09:09 | DI.MRI.S_ITS ---
PROCEDURE: MR KNEE RT WO CON INDICATIONS: Right knee pain TECHNIQUE: Noncontrast sagittal PD fast spin echo and T2 fast spin echo with fat saturation, sagittal 3-D FLASH with fat saturation; coronal T1 spin echo and PD fast spin echo with fat saturation, and axial PD fast spin echo with fat saturation through the knee. COMPARISON: None. FINDINGS: Image quality: Excellent. Menisci: The is a stable and all wall is thickened and is in all as is the low as the expression of disease there is dried and an os and is thought to as a good os there is was perfect images of the BP at Cruciate ligaments: The anterior and posterior cruciate ligaments appear intact. The TLI procedure light there is a hiatus last is a slight oozing at the areas of lipoma or osteophyte or is so as might be added that is isolated and is not lower right renal assistance Kevin slight epicondyle is bibasilar ary are in good spirits is a 70-99 at peak and elevated lipase but is probably at the apices there is certainly is suspicious because age and he's had as they there is ECMO are in their lungs is worse as well there is a little difficult with a mean of pelvic bulky hilar or carotid arteries are all these are Medial structures: The medial collateral ligament appears intact. The posterior oblique ligament, semimembranosus tendon insertions, oblique popliteal ligament, and meniscocapsular junction appear intact. Visualized portions of the pes anserinus tendons appear normal. No abnormal bursal fluid. Lateral structures: The lateral collateral ligament, long and short heads of the biceps femoris tendon appear intact. The popliteus tendon appears normal; the popliteofibular ligament appears intact. The posterosuperior and anteroinferior popliteomeniscal fascicles appear intact. The arcuate and fabellofibular ligaments appear intact, on either side of the lateral inferior geniculate artery. Iliotibial band appears normal. Anterior structures: The quadriceps and patellar tendons appear intact. Patellar alignment is normal. No femoral trochlear dysplasia or ventral trochlear prominence. No edema in the infrapatellar fat pad. Bones and cartilage: No bone marrow contusions or fractures. The cartilage of the medial and lateral femorotibial compartments, as well as the patellofemoral compartment, appears normal in thickness. Joint space: There is physiologic knee joint fluid. No Gray's cyst. Normal appearing synovial plicae are incidentally noted. IMPRESSION: Knee and appear patent and well as a child or or sorry she received is in the ureter with lesion that it is just at he's tear and using surgery of right we do note there is a right cardiopulmonary and pulmonary muscle tear or sorry I have directly below she is No acute disease Dictated by: Marcos Rosario M.D. on 01/15/2019 at 12:56 Approved by: Marcos Rosario M.D. on 01/15/2019 at 13:01
== END ==
PROVIDERS: Family Provider Orthopaedic Surgery Orthopaedic Surgery of the Spine; PCP Internal Medicine; Visit Provider Registered Nurse
DX: S82.831A Other fracture of upper and lower end of right fibula, initial encounter for closed fracture (principal); S83.511A Sprain of anterior cruciate ligament of right knee, initial encounter; S83.241A Other tear of medial meniscus, current injury, right knee, initial encounter
CPT/HCPCS: 73721

== ENCOUNTER 2019-02-06 07:07 | Day surgery (SDC) | payer MEDICARE, SELFPAY ==
--- NOTE | 2019-02-04 18:12 | PM.PREOP ---
Pre-operative Note Interval Note History & Physical reviewed/Exam performed by Physician: Yes Changes to H&P: Yes H&P completed within 30 days and has changed as indicated here:: Patient fell in the last 30 days rebreaking her back, breaking right arm which had surgery and had a knee injury. She has a right arm cast. She states she has been cleared for surgery.
--- NOTE | 2019-02-04 18:30 | PM.OP.1 ---
Operative Date/Time/Diagnoses Date of procedure: 02/06/19 Time of procedure: 07:45 Procedure & Clinicians Procedure: Preoperative diagnoses: 1. Right nuclear sclerotic and cortical cataract. 2. S/p LASIK 3. Recent back fracture. 4. Anxiety 5. Osteporosis 6. Falling injury with right arm back and knee injuries and right arm fracture surgical repair with a cast in place. Postoperative diagnoses: 1. Cataract removed by phacoemulsification with placement of posterior chamber intraocular lens. Procedure: Phacoemulsification with posterior chamber intraocular lens implant Surgeon: Yeimi Barrera MD Complications: None Specimen: None Implant: ZCBOO+19.0 Blood loss: None Anesthesia: Retrobulbar with monitored standby Description of procedure: Patient presents with a complaint of decreased vision due to cataract which is affecting activities of daily living. This is preventing her from driving and she is having difficulty reading. She has had recent back fracture and states she is now clinically stable and can lie flat. She has also had previous LASIK surgery which could alter her ultimate result with a posterior chamber intraocular lens implant. The patient wants surgery to improve vision. She desires a distance target The patient was taken to the operating room and given IV sedation. A retrobulbar block consisting of 6 cc of 2% xylocaine without epinephrine mixed half and half with 0.5% Marcaine with 1 cc of hyaluronidase added is placed between the medial and lateral 1/3 of the inferior orbital rim. The eye is manually massaged for 30 sec, prepped using Betadine solution, and draped in the usual sterile fashion. Temporal approach was made, a 1 mm side-port incision was made 90? from the proposed clear corneal incision position. Phenylephrine 1.5% mixed with 1% xylocaine 0.2 cc was placed into the anterior chamber. Viscoat followed by Ivett was then placed. A 2.6 mm clear incision with a 2.6 mm blade was placed. A 360 degree capsulorrhexis style capsulotomy was then performed with a cystitome needle on a Perlstein Labon. Hydrodelineation and hydrodissection were performed. The phacoemulsification unit is introduced, and sculpting notice used to groove the central lens. It is then removed in chopping mode. Epi nucleus is removed with epinuclear mode and irrigation aspiration was used to remove the peripheral cortex. The posterior capsule is polished. The intraocular lens is selected, inspected, power confirmed, and placed in the posterior chamber. The wound was stromally hydrated and tested for leaks, there was none and it was left sutureless. Vigamox 0.1 cc was placed into the anterior chamber. Kenalog 0.2 cc was placed in the superior subconjunctival space. A drop of antibiotic and was placed and the eye was patched and shielded. The patient was stable and returned to the recovery room in excellent condition. She had persistent back pain through surgery and 3 doses of analgesia core given along with Zofran. She will continue her oral medication at home. Dictated by: Yeimi Barrera MD Copy to: [facility]
[2019-02-06] MEDS: PROPARACAINE 0.5% OPHTH SOL 2 DROPS EYE-OP (07:20)
[2019-02-06] MEDS: CATARACT EYE COMPOUND (10 DROPS/SYRINGE) 3 DROPS EYE-OP (07:34)
[2019-02-06 07:36] VITALS: BP 152/81; PULSE 79; RESP 16; TEMP 36.4; O2SAT 94
--- NOTE | 2019-02-06 07:59 | SUR.PREOP ---
PT DRANK TEA WITH CREAM WITH HER AM MEDS THIS AM AT 5:00 , DR DE GUZMAN AND DR PARIS NOTIFIED, WILL DELAY START OF PROCEDURE ACCORDINGLY.
[2019-02-06] MEDS: PHENYLEPHRINE/LIDOCAINE VIAL (OR) 0.2 ML EYE-OP (11:47)
[2019-02-06] MEDS: TRIAMCINOLONE 50 MG/5 ML VIAL INJ (11:48)
[2019-02-06] MEDS: BALANCED SALT IRRIG SOLN NO.2 15 ML IRR (11:48)
[2019-02-06] MEDS: CHONDROIDTIN/SOD HYALURONATE 1.05 ML SYRINGE INTRAOCULA (11:48)
[2019-02-06] MEDS: HYALURONATE SODIUM 10 MG/ML SYRINGE INJ (11:48)
[2019-02-06] MEDS: MOXIFLOXACIN INJ 5 MG/ML VIAL EYE-OP (11:48)
[2019-02-06] MEDS: BALANCED SALT IRRIG SOLN NO.2 500 ML, EPINEPHrine 1 MG IRR (11:49)
[2019-02-06] MEDS: LIDOCAINE 2% 4 ML, BUPIVACAINE 0.5% (PF) 4 ML, HYALURONIDASE 150 UNIT INJ (11:50)
[2019-02-06] MEDS: NEOMYCIN/POLY/DEX OPHTH OINT 1 APPLIC EYE-RIGHT (11:51)
[2019-02-06 12:27] VITALS: BP 160/79; PULSE 96; RESP 16; TEMP 36.7; O2SAT 99
== END 2019-02-06 12:27 | disposition home or self-care (01) ==
LOC: OR 07:10
PROVIDERS: Family Provider Orthopaedic Surgery Orthopaedic Surgery of the Spine; PCP Internal Medicine; Visit Provider Ophthalmology
PROC: (CPT 66984; principal; 2019-02-06 07:45)
DX: H25.811 Combined forms of age-related cataract, right eye (principal); F41.9 Anxiety disorder, unspecified
CPT/HCPCS: 66984; J0171; J2405; J2704; J3010; J3301; J3470

== ENCOUNTER 2019-02-20 06:44 | Day surgery (SDC) | payer MEDICARE, SELFPAY ==
--- NOTE | 2019-02-16 12:18 | PM.PREOP ---
Pre-operative Note Interval Note History & Physical reviewed/Exam performed by Physician: Yes Changes to H&P: No H&P completed within 30 days and has changed as indicated here:: Stable back pain
--- NOTE | 2019-02-16 12:19 | P.OP_ITS ---
Operative Date/Time/Diagnoses Date of procedure: 02/20/19 Time of procedure: 07:45 Procedure & Clinicians Procedure: Preoperative diagnoses: 1. Left nuclear sclerotic and cortical cataract. 2. Recent back fracture. 3. Right arm fracture in a cast. 4. Knee injury 5. Previous LASIK 6. Lupus 7. Pain from back fracture 8. Anxiety Postoperative diagnoses: 1. Cataract removed by phacoemulsification with placement of posterior chamber intraocular lens. Myopic target. Procedure: Phacoemulsification with posterior chamber intraocular lens implant Surgeon: Yeimi Barrera MD Complications: None Specimen: None Implant: ZCBOO+23.0 Blood loss: None Anesthesia: Retrobulbar with monitored standby Description of procedure: Patient presents with a complaint of decreased vision due to cataract which is affecting activities of daily living. She has had previous LASIK. She is recovering well from recent right cataract surgery although she has back pain from back knee and arm fractures from a recent fall. She has been cleared for surgery. She is having trouble with both distance and near vision but especially near with some myopic target. Her previous LASIK may affect the outcome of her intra-ocular lens calculation and she is aware of this . The patient wants surgery to improve vision. The patient was taken to the operating room and given IV sedation. She was prepped and draped in the usual sterile physician. A lid anesthetic using 1% xylocaine with epinephrine was infiltrated along the lateral lid margin A retrobulbar block consisting of 6 cc of 2% xylocaine without epinephrine mixed half and half with 0.5% Marcaine with 1 cc of hyaluronidase added is placed between the medial and lateral 1/3 of the inferior orbital rim. The eye is manually massaged for 30 sec, prepped using Betadine solution, and draped in the usual sterile fashion. Temporal approach was made, a 1 mm side-port incision was made 90? from the proposed clear corneal incision position. Phenylephrine 1.5% mixed with 1% xylocaine 0.2 cc was placed into the anterior chamber. Viscoat followed by Ivett was then placed. A 2.6 mm clear incision with a 2.6 mm blade was placed. A 360 degree capsulorrhexis style capsulotomy was then performed with a cysti tome needle on a Healon. Hydrodelineation and hydrodissection were performed. The phacoemulsification unit is introduced, and sculpting notice used to groove the central lens. It is then removed in chopping mode. Epi nucleus is removed with epinuclear mode and irrigation aspiration was used to remove the peripheral cortex. The posterior capsule is polished. The intraocular lens is selected, inspected, power confirmed, and placed in the posterior chamber. TThe wound was stromally hydrated and tested for leaks, there was none and it was left sutureless. Vigamox 0.1 cc was placed into the anterior chamber. Kenalog 0.2 cc was placed in the superior subconjunctival space. A drop of antibiotic and was placed and the eye was patched and shielded. The patient was stable and returned to the recovery room in excellent condition. She was given Zofran for nausea and 2 doses of pain medication due to her chronic back fracture but was otherwise comfortable during the procedure. Dictated by: Yeimi Barrera MD Copy to: [facility]
[2019-02-20] MEDS: PROPARACAINE 0.5% OPHTH SOL 2 DROPS EYE-OP (07:10)
[2019-02-20 07:11] VITALS: BMI 31.6
[2019-02-20 07:15] VITALS: BP 146/73; PULSE 74; RESP 12; TEMP 36.3; O2SAT 95
[2019-02-20] MEDS: CATARACT EYE COMPOUND (10 DROPS/SYRINGE) 3 DROPS EYE-OP (07:16)
[2019-02-20] MEDS: LIDOCAINE 2% 4 ML, BUPIVACAINE 0.5% (PF) 4 ML, HYALURONIDASE 150 UNIT INJ (08:01)
[2019-02-20] MEDS: BALANCED SALT IRRIG SOLN NO.2 15 ML IRR (08:16)
[2019-02-20] MEDS: CHONDROIDTIN/SOD HYALURONATE 1.05 ML SYRINGE INTRAOCULA (08:17)
[2019-02-20] MEDS: HYALURONATE SODIUM 10 MG/ML SYRINGE INJ (08:17)
[2019-02-20] MEDS: LIDOCAINE 1% W/EPI 20 ML INJ (08:18)
[2019-02-20] MEDS: MOXIFLOXACIN INJ 5 MG/ML VIAL EYE-OP (08:19)
[2019-02-20] MEDS: NEOMYCIN/POLY/DEX OPHTH OINT 1 APPLIC EYE-LEFT (08:19)
[2019-02-20] MEDS: PHENYLEPHRINE/LIDOCAINE VIAL (OR) 0.2 ML EYE-OP (08:20)
[2019-02-20] MEDS: TRIAMCINOLONE 50 MG/5 ML VIAL INJ (08:20)
[2019-02-20] MEDS: BALANCED SALT IRRIG SOLN NO.2 500 ML, EPINEPHrine 1 MG IRR (08:25)
[2019-02-20 08:44] VITALS: BP 154/79; PULSE 72; RESP 18; TEMP 36.2; O2SAT 98
== END 2019-02-20 08:52 | disposition home or self-care (01) ==
LOC: OR 06:46
PROVIDERS: PCP Internal Medicine; Visit Provider Ophthalmology
PROC: (CPT 66984; principal; 2019-02-20 07:45)
DX: H25.812 Combined forms of age-related cataract, left eye (principal)
CPT/HCPCS: 66984; J0171; J2405; J2704; J3010; J3301; J3470

== ENCOUNTER → 2019-03-13 07:06 | Outpatient (CLI) | payer MEDICARE, SELFPAY ==
[2019-03-13 08:34] LABS: Alanine Aminotransferase 36 IU/L (9-52); Albumin Globulin Ratio 1.4 (1.0-2.8); Alkaline Phosphatase 91 U/L (38-126); Aspartate Aminotransferase 37 IU/L (14-36); Bilirubin Total 0.4 mg/dL (0.2-1.3); Blood Urea Nitrogen 7 mg/dL (7-17); Calcium 9.3 mg/dL (8.4-10.2); Carbon Dioxide 34 mmol/L (22-32); Chloride 94 mmol/L (98-107); Cholesterol 209 mg/dL (140-199); Estimated Glomerular Filt Rate > 60.0 mL/min (>60); Globulin 2.8 g/dL (1.7-4.1); Glucose 95 mg/dL (80-110); HDL Cholesterol 81 mg/dL (40-60); HEMOLYSIS < 15 (0-50); LDL Cholesterol Calculated 110 mg/dL (<100); Potassium 4.4 mmol/L (3.4-5.1); Sodium 134 mmol/L (137-145); Total Protein 6.8 g/dL (6.3-8.2); Triglycerides 89 mg/dL (35-150)
[2019-03-13 11:30] LABS: Thyroid Stimulating Hormone 1.95 uIU/mL (0.47-4.68)
[2019-03-14 16:33] LABS: Free T4, Direct Thyroxine 1.03 ng/dL (0.78-2.19)
== END ==
PROVIDERS: PCP Internal Medicine; Visit Provider Internal Medicine
DX: Z13.6 Encounter for screening for cardiovascular disorders (principal); E03.9 Hypothyroidism, unspecified; M79.7 Fibromyalgia
CPT/HCPCS: 36415; 80053; 80061; 84439; 84443

== ENCOUNTER 2019-05-09 11:24 | Emergency (ER) | payer MEDICARE, SELFPAY ==
[2019-05-09 11:35] VITALS: BP 159/89; PULSE 81; RESP 18; TEMP 36.8; O2SAT 96; BMI 29.8
--- NOTE | 2019-05-09 12:23 | ED.HA ---
HPI - Headache <Sisi Galeano PA-C - Last Filed: 05/09/19 20:59> General Chief Complaint: Headache Stated Complaint: migrane Time Seen by Provider: 05/09/19 11:40 Source: patient and family Mode of arrival: Wheelchair Limitations: no limitations History of Present Illness HPI Narrative: This 69-year-old female comes to ED secondary to migraine headache. She states that /10 times, her Rizatriphtan works well for her headaches. She states this is day 2 of headache.. She took 2 doses of her medication yesterday, 2 hours apart, another this morning, but not helping. She states that she even tried a Percocet which she does not typically take for her headache but it will not break. She states this is very typical of her headaches with generalized pain, nausea, photo and phonophobia. She denies any vision changes or scotoma. She states she has vomited 3 times since yesterday due to nausea. She denies any new weakness, difficulty with speech or coordination. Her has not noted any focal weakness. She denies any chest pain or dyspnea, or other new features to her headache and feels like this is a typical bad migraine. She states that when headaches get this severe, she has been treated with success with fluids, Zofran, Dilaudid. Related Data Home Medications Medication Instructions Recorded Confirmed Disabled Parking Permit 1 ea MISCELLANEOUS DIRECTED 01/04/19 04/05/19 Prilosec OTC 1 tab PO PRN PRN 01/04/19 04/05/19 acetaminophen 325 - 650 mg PO Q4H PRN 01/04/19 04/05/19 baclofen 5 mg PO TID 01/04/19 04/05/19 diphenhydramine HCl [Allergy 25 mg PO PRN PRN 01/04/19 04/05/19 Relief(diphenhydramin)] escitalopram oxalate [Lexapro] 20 mg PO DAILY 01/04/19 04/05/19 hydrochlorothiazide 25 mg PO DAILY 01/04/19 04/05/19 meloxicam 7.5 - 15 mg PO DAILY 01/04/19 04/05/19 oxycodone 15 mg PO Q4-6H PRN MDD 6 01/04/19 04/05/19 sennosides [senna] 8.6 mg PO PRN PRN 01/04/19 04/05/19 Previous Rx's Medication Instructions Recorded docusate sodium 200 mg PO BID #60 cap 03/30/16 lisinopril 40 mg tablet 40 mg PO BID #180 tab 08/09/18 verapamil 300 mg capsule 24hr 300 mg PO BEDTIME #30 cap 12/04/[address],ext.release risedronate 150 mg tablet 150 mg PO QMONTH #12 tab 01/11/19 rizatriptan 10 mg tablet 10 mg PO .COMPLEX PRN #30 tab 01/11/19 nystatin 100,000 unit/gram topical 1 applictn TOP BID PRN #60 gram 01/25/19 powder simvastatin 20 mg tablet See Rx Instructions .ROUTE 02/25/19 .COMPLEX #90 tablet desipramine 50 mg tablet See Rx Instructions .ROUTE 03/18/19 .COMPLEX #60 tablet prednisone 20 mg tablet See Rx Instructions PO DAILY #16 04/05/19 tab metoclopramide HCl 5 mg tablet See Rx Instructions .ROUTE 04/16/19 .COMPLEX #90 tablet diazepam 5 mg tablet See Rx Instructions PO BID PRN #60 04/30/19 tab ondansetron HCl 8 mg tablet See Rx Instructions .ROUTE 04/30/19 .COMPLEX #120 tablet quetiapine 25 mg tablet 25 - 75 mg PO BEDTIME PRN #90 tab 05/07/19 Allergies Allergy/AdvReac Type Severity Reaction Status Date / Time adhesive Allergy Mild BLISTERS, Verified 04/05/19 10:30 PULL SKIN OFF codeine [CODEINE] AdvReac Severe nausea, Verified 04/05/19 10:30 triggers migraines hydrocodone [HYDROCODONE] AdvReac Severe triggers Verified 04/05/19 10:30 migraines morphine [MORPHINE] AdvReac Severe n&v, can Verified 04/05/19 10:30 take if premedicated alendronate sodium AdvReac Intermediate Stomach Verified 04/05/19 10:30 [From Fosamax] issues Review of Systems <Sisi Galeano PA-C - Last Filed: 05/09/19 20:59> Review of Systems ROS Unobtainable: All systems reviewed & are unremarkable except as noted in HPI and below Patient History <Sisi Galeano PA-C - Last Filed: 05/09/19 20:59> Medical History (Updated 05/09/19 @ 13:51 by Sisi Galeano PA-C) Acquired hypothyroidism (Chronic 02/10/11) Asthma (Acute) Chronic migraine without aura without status migrainosus, not intractable (Chronic) Chronic pain syndrome (Chronic) Depression (Acute) Dorsalgia (Chronic 07/28/15) Fibromyalgia (Chronic 09/06/13) Gastroesophageal reflux disease without esophagitis (Chronic 02/10/11) HLD (hyperlipidemia) (Acute) Hypertension (Chronic) Loosening of hardware in spine (Inactive) Osteoporosis (Chronic 05/07/15) Recurrent major depressive disorder, in partial remission (Chronic 02/10/11) Spinal stenosis at L4-L5 level (Chronic) Systemic lupus erythematosus (Chronic 02/10/11) Uncomplicated opioid dependence (Chronic 12/14/15) Surgical History (Updated 01/08/19 @ 10:53 by Josi Duval RN) Anesthesia (Resolved) History of arthroplasty of left shoulder (Acute ~2013) History of hip replacement (Deleted) History of surgery (Resolved) History of total right hip arthroplasty (Acute ~2009) Hx of arthroscopy of left knee (Acute) Hx of lumbosacral spine surgery (Acute ~05/2015) Hx of spinal fusion (Acute ~1984) S/P LASIK surgery of both eyes (Acute) Status post appendectomy Status post tubal ligation Social History marital status: number of children: 2 household members: spouse lives independently: Yes caregiver/support person: No housing: apartment pets and animals: Yes education level: college 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 status: other (Retired) Previous 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 history: [employer]: [employer] 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, 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) Smoking Status: Never smoker Tobacco: How many years used: 0 quit status: quit date established (Never Started) second hand exposure: No alcohol intake: never substance use type: does not use Smoking Status: Never smoker Substance Use Type: does not use Exam <Sisi Galeano PA-C - Last Filed: 05/09/19 20:59> Narrative Exam Narrative: GENERAL APPEARANCE: Patient sitting comfortably, in darkened room, in no distress. HEENT: PERRL, EOMI, normal TMs and oropharynx NECK: Supple, no masses LUNGS: Clear to auscultation bilaterally. HEART: Rate and rhythm regular without murmur, normal S1 and S2, no S3 or S4. ABDOMEN: Soft, NT, ND, + BS x 4 quadrants NEUROLOGIC: Alert and oriented, normal speech, and coordination. MUSCULOSKELETAL: Full Csp AROM Initial Vital Signs Initial Vital Signs: Vital Signs Temperature 98.3 F 05/09/19 11:35 Pulse Rate 81 05/09/19 11:35 Respiratory Rate 18 05/09/19 11:35 Blood Pressure 159/89 H 05/09/19 11:35 Pulse Oximetry 96 05/09/19 11:35 <Eugenia Tavares DO - Last Filed: 05/12/19 05:52> Initial Vital Signs Initial Vital Signs: Vital Signs Temperature 98.3 F 05/09/19 11:35 Pulse Rate 81 05/09/19 11:35 Respiratory Rate 18 05/09/19 11:35 Blood Pressure 159/89 H 05/09/19 11:35 Pulse Oximetry 96 05/09/19 11:35 Course <Sisi Galeano PA-C - Last Filed: 05/09/19 20:59> Course Additional Information: Patient is feeling markedly improved after fluids and medications, tolerating fluids and crackers and wishes to go home. She states she will rest as she usually does with her headaches. She agrees to return if acutely worsening again, or any new symptoms such as vision change, focal weakness, etc.. Orders Ordered: Discontinued Medications Dexamethasone (Decadron) 10 mg IV NOW ONE Stop: 05/09/19 12:49 Last Admin: 05/09/19 13:00 Dose: 10 mg Documented by: JOVANY Hydromorphone HCl (Dilaudid) 1 mg IV NOW ONE Stop: 05/09/19 12:49 Last Admin: 05/09/19 13:00 Dose: 1 mg Documented by: JOVANY Sodium Chloride (Normal Saline 0.9%) 1,000 mls @ 1,000 mls/hr IV BOLUS PRN PRN Reason: Fluid replacement Last Infusion: 05/09/19 14:05 Dose: 0 mls/hr Documented by: Admin: 05/09/19 12:59 Dose: 1,000 mls/hr Documented by: JOVANY Ondansetron HCl (Zofran) 4 mg IV NOW ONE Stop: 05/09/19 12:49 Last Admin: 05/09/19 13:00 Dose: 4 mg Documented by: JOVANY Vital Signs Vital signs: Vital Signs - 8 hr 05/09/19 14:12 Pulse Rate 77 Blood Pressure [Left Arm] 194/92 H Pulse Oximetry 98 <Eugenia Amena Tavares, - Last Filed: 05/12/19 05:52> Orders Ordered: Discontinued Medications Dexamethasone (Decadron) 10 mg IV NOW ONE Stop: 05/09/19 12:49 Last Admin: 05/09/19 13:00 Dose: 10 mg Documented by: JOVANY Hydromorphone HCl (Dilaudid) 1 mg IV NOW ONE Stop: 05/09/19 12:49 Last Admin: 05/09/19 13:00 Dose: 1 mg Documented by: JOVANY Sodium Chloride (Normal Saline 0.9%) 1,000 mls @ 1,000 mls/hr IV BOLUS PRN PRN Reason: Fluid replacement Last Infusion: 05/09/19 14:05 Dose: 0 mls/hr Documented by: Admin: 05/09/19 12:59 Dose: 1,000 mls/hr Documented by: JOVANY Ondansetron HCl (Zofran) 4 mg IV NOW ONE Stop: 05/09/19 12:49 Last Admin: 05/09/19 13:00 Dose: 4 mg Documented by: JOVANY Vital Signs Vital signs: Vital Signs - 8 hr 05/09/19 14:12 Pulse Rate 77 Blood Pressure [Left Arm] 194/92 H Pulse Oximetry 98 Discharge Plan Departure Patient Disposition: Home Clinical Impression: Migraine Qualifiers: Migraine type: unspecified Status migrainosus presence: without status migrainosus Intractability: not intractable Qualified Code(s): G43.909 - Migraine, unspecified, not intractable, without status migrainosus Discharge Date/Time: 05/09/19 14:20 Activity Restrictions/Additional Instructions: As we talked about, you should return if you have any acutely worsening symptoms again, or new symptoms such as weakness, vision change or difficulty with speech. Otherwise please rest in a dark quiet place today, avoid bright lights, screen time, etc. as you normally would take care of your migraine. Follow up with your PCP as planned Prescriptions: No Action docusate sodium 100 MG capsule 200 mg PO BID Qty: 60 RF: 0 lisinopril 40 mg tablet 40 mg PO BID Qty: 180 RF: 3 verapamil 300 mg capsule, [address] 300 mg PO BEDTIME Qty: 30 RF: 11 nystatin [Nystop] 100,000 unit/gram powder 1 applictn TOP BID PRN (Reason: Yeast infection) Qty: 60 RF: 3 simvastatin 20 mg tablet See Rx Instructions .ROUTE .COMPLEX Qty: 90 RF: 1 desipramine 50 mg tablet See Rx Instructions .ROUTE .COMPLEX Qty: 60 RF: 3 metoclopramide HCl 5 mg tablet See Rx Instructions .ROUTE .COMPLEX Qty: 90 RF: 0 ondansetron HCl 8 mg tablet See Rx Instructions .ROUTE .COMPLEX Qty: 120 RF: 0 diazepam 5 mg tablet See Rx Instructions PO BID PRN (Reason: sleep) Qty: 60 RF: 3 quetiapine 25 mg tablet 25 - 75 mg PO BEDTIME PRN (Reason: Insomnia) Qty: 90 RF: 3 prednisone 20 mg tablet See Rx Instructions PO DAILY Qty: 16 RF: 0 rizatriptan 10 mg tablet 10 mg PO .COMPLEX PRN (Reason: migraine headache) Qty: 30 RF: 11 risedronate 150 mg tablet 150 mg PO QMONTH Qty: 12 RF: 3 baclofen 5 mg tablet 5 mg PO TID RF: 0 oxycodone 15 mg tablet 15 mg PO Q4-6H MDD 6 PRN (Reason: PAIN) RF: 0 meloxicam 7.5 mg tablet 7.5 - 15 mg PO DAILY RF: 0 escitalopram oxalate [Lexapro] 20 mg tablet 20 mg PO DAILY RF: 0 hydrochlorothiazide 25 mg tablet 25 mg PO DAILY RF: 0 Disabled Parking Permit 1 ea miscellaneous DIRECTED RF: 0 acetaminophen 325 mg Tablet 325 - 650 mg PO Q4H PRN (Reason: pain) RF: 0 diphenhydramine HCl [Allergy Relief(diphenhydramin)] 25 mg Capsule 25 mg PO PRN PRN (Reason: Allergy Symptoms) RF: 0 sennosides [senna] 8.6 mg Tablet 8.6 mg PO PRN PRN (Reason: Constipation) RF: 0 Prilosec OTC 20 mg Tablet,Delayed Release (Dr/Ec) 1 tab PO PRN PRN (Reason: bedtime) RF: 0 Referrals: Segura,Pasquale R, MD [Primary Care Provider] -
[2019-05-09] MEDS: SODIUM CHLORIDE 0.9% 1,000 ML 1000 ML IV (12:59)
[2019-05-09] MEDS: ONDANSETRON 4 MG/2 ML INJ IV (13:00)
[2019-05-09] MEDS: HYDROMORPHONE 1 MG INJ IV (13:00)
[2019-05-09] MEDS: DEXAMETHASONE 10 MG/ML VIAL IV (13:00)
[2019-05-09 14:12] VITALS: BP 194/92; PULSE 77; O2SAT 98
== END 2019-05-09 14:20 | disposition home or self-care (01) ==
PROVIDERS: Emergency Provider Internal Medicine; PCP Internal Medicine
DX: G43.909 Migraine, unspecified, not intractable, without status migrainosus (principal); R11.2 Nausea with vomiting, unspecified
CPT/HCPCS: 36415; 96361; 96374; 96375; 99283; 99284; J1100; J1170; J2405

== ENCOUNTER → 2019-08-08 10:08 | Outpatient (CLI) | payer MEDICARE, SELFPAY | PROVIDERS: PCP Internal Medicine; Referring Provider Internal Medicine; Visit Provider Internal Medicine | DX: M81.0 Age-related osteoporosis without current pathological fracture (principal); Z78.0 Asymptomatic menopausal state; Z82.62 Family history of osteoporosis | CPT/HCPCS: 77080 ==

== ENCOUNTER → 2019-08-15 13:38 | Outpatient (CLI) | payer MEDICARE, SELFPAY ==
--- NOTE | 2019-08-15 | DI.CT.S_ITS ---
PROCEDURE: CT LUMBAR SPINE WO CON INDICATIONS: LUMBAR FRACTURE TECHNIQUE: Noncontrast 3 mm thick sections acquired from the T12 level to the sacrum. Sagittal and coronal reformats were constructed. For radiation dose reduction, the following was used: automated exposure control. COMPARISON: [facility], MR, MR LUMBAR SPINE WO/W CON, 12/17/2018, 9:29. [facility], MR, MR LUMBAR SPINE WO CON, 08/15/2019, 13:46. [facility], CT, L-SPINE WITHOUT CONTRAST, 03/11/2016, 12:25. FINDINGS: Image quality: Excellent. Bones: There is mild straightening of normal lumbar curvature. There is trace retrolisthesis of L1 on L2, L3 on L4, trace anterolisthesis of L2 on L3. Posterior fusion is present from L4-S1. There is no visualized hardware fracture. There is a slight appearance of periprosthetic lucency surrounding the pedicular screws, left greater than right at L4. Vertebral/kyphoplasty changes are present within previous L1 compression fracture. There is wedge deformity along the inferior endplate of L3 corresponding to area of minimally increased signal on MRI of 08/15/19. Mild disc bulges are present at L1-L2, L2-3, L3-4. Moderate spinal stenosis is present at L1-L2, mild L2-3, mild to moderate L3-4. Moderate bilateral foraminal narrowing is present at L1-L2, mild left L2-3, moderate right, mild to moderate left L3-4, mild left and minimal right L4-5. Multilevel uncovertebral hypertrophy is also present. Soft tissues: No retroperitoneal masses or hematomas. Visualized aorta is normal in caliber. IMPRESSION: 1. Old L1 compression fracture. Late subacute/early chronic compression fracture at L3. Please see MR report for further details. 2. Multilevel degenerative changes including spinal stenosis and foraminal narrowing as above. Dictated by: Jen Park M.D. on 08/16/2019 at 11:27 Approved by: Jen Park M.D. on 08/16/2019 at 12:30
--- NOTE | 2019-08-15 | DI.MRI.S_ITS ---
PROCEDURE: MR LUMBAR SPINE WO CON INDICATIONS: LUMBAR FRACTURE TECHNIQUE: Noncontrast sagittal T1 spin echo and T2 fast echo, sagittal STIR, axial T1 and T2 fast spin echo through the lumbar spine. In cases with scoliosis, additional coronal T2 fast spin echo may be performed. COMPARISON: [facility], CT, CT LUMBAR SPINE WO CON, 08/15/2019, 14:10. [facility], MR, L-SPINE WITHOUT CONTRAST, 10/21/2016, 10:03. [facility], MR, MR LUMBAR SPINE WO/W CON, 12/17/2018, 9:29. FINDINGS: Image quality: Excellent. Alignment and Curvature: There is retrolisthesis of L1 on L2, L3 on L4, trace anterolisthesis of L2 on L3, unchanged. Posterior fusion is present from L4-S1. Bone Marrow: Marrow is of normal overall signal. There is moderate reactive endplate changes at L3-4. L1 compression fracture is unchanged. Minimal appearance of wedge deformity along the inferior endplate of L3 appearing late subacute/early chronic. Spinal Cord: Conus medullaris terminates at the L1 level. Visualized cord demonstrates normal signal and size. Paraspinous Soft Tissues: No paravertebral masses. Hepatic and renal T2 hyperintensities are present most suggestive of cysts. Discs: Moderate to severe desiccation is present throughout the lumbar spine. L1-L2: The mild disc bulge with moderate final stenosis. Moderate bilateral foraminal narrowing with facet and ligamentum flavum hypertrophy. Epidural lipomatosis is present. No interval change. L2-L3: Mild disc bulge with mild spinal stenosis, slightly progressive. Mild left foraminal narrowing with facet and ligamentum flavum hypertrophy. Minimal epidural lipomatosis. L3-L4: Mild disc bulge with mild to moderate spinal stenosis, progressive. There is moderate right and mild to moderate left foraminal narrowing slightly progressive on the left with facet and ligamentum flavum hypertrophy. L4-L5: Postsurgical changes are present at this level. Minimal spinal stenosis. Mild left and minimal right foraminal narrowing, unchanged. L5-S1: Postsurgical changes are present. No spinal stenosis or foraminal narrowing. No interval change. IMPRESSION: 1. Multilevel degenerative changes and there is minimal progression as above. 2. Old L1 compression deformity unchanged. 3. Mild wedge deformity along the inferior endplate of L3 felt to be late subacute/early chronic. Dictated by: Jen Park M.D. on 08/15/2019 at 16:08 Approved by: Jen Park M.D. on 08/15/2019 at 16:16
== END ==
PROVIDERS: PCP Internal Medicine; Referring Provider Physician Assistant; Visit Provider Physician Assistant
DX: S32.038A Other fracture of third lumbar vertebra, initial encounter for closed fracture (principal); M51.26 Other intervertebral disc displacement, lumbar region; M48.061 Spinal stenosis, lumbar region without neurogenic claudication; Z98.1 Arthrodesis status
CPT/HCPCS: 72131; 72148

== ENCOUNTER → 2019-11-18 11:25 | Outpatient (CLI) | payer MEDICARE, SELFPAY ==
[2019-11-18 12:15] LABS: Add Manual Diff / Slide Review NO; Basophils Absolute Auto 0 /uL (0-100); Basophils Percent Auto 0.6 % (0-2); Eosinophils Absolute Auto 300 /uL (0-450); Eosinophils Percent Auto 4.4 % (2-4); Hematocrit 39.3 % (36-46); Hemoglobin 13.2 g/dL (12.0-16.0); Lymphocytes Absolute Auto 1200 /uL (1100-4500); Lymphocytes Percent Auto 15.5 % (25-40); Mean Corpuscular HGB Conc 33.7 % (30-36); Mean Corpuscular Hemoglobin 30.5 PG (26-34); Mean Corpuscular Volume 90.4 fL (80-100); Monocytes Absolute Auto 400 /uL (0-900); Monocytes Percent Auto 5.6 % (3-14); Neutrophils Absolute Auto 5500 /uL (1500-7000); Neutrophils Percent Auto 73.9 % (50-75); Platelet Count 282 X10^3/uL (150-400); Red Blood Cell Count 4.34 X10^6/uL (4.0-5.2); White Blood Cell Count 7.5 X10^3/uL (4.5-11.0)
[2019-11-18 12:39] LABS: Erythrocyte Sedimentation Rate 14 MM/HR (0-20)
[2019-11-18 12:58] LABS: Alanine Aminotransferase 24 IU/L (<35); Albumin 4.4 g/dL (3.5-5.0); Albumin Globulin Ratio 1.4 (1.0-2.8); Alkaline Phosphatase 74 U/L (38-126); Aspartate Aminotransferase 37 IU/L (14-36); BUN Creatinine Ratio 15.5 (6-22); Bilirubin Total 0.7 mg/dL (0.2-1.3); Blood Urea Nitrogen 11 mg/dL (7-17); Calcium 10.1 mg/dL (8.4-10.2); Carbon Dioxide 33 mmol/L (22-32); Chloride 97 mmol/L (98-107); Creatine Kinase 30 U/L (30-135); Estimated Glomerular Filt Rate > 60.0 mL/min (>60); Globulin 3.1 g/dL (1.7-4.1); Glucose 95 mg/dL (80-110); HEMOLYSIS < 15 (0-50); Potassium 3.6 mmol/L (3.4-5.1); Sodium 136 mmol/L (137-145); Total Protein 7.5 g/dL (6.3-8.2)
[2019-11-18 13:01] LABS: C-Reactive Protein Quant < 0.5 mg/dL (<1.0)
[2019-11-18 13:20] LABS: TSH w/ Reflex to FT4 1.75 uIU/mL (0.47-4.68)
== END ==
PROVIDERS: PCP Internal Medicine; Referring Provider Internal Medicine; Visit Provider Internal Medicine
DX: E03.9 Hypothyroidism, unspecified (principal); G24.01 Drug induced subacute dyskinesia; I10 Essential (primary) hypertension; K21.9 Gastro-esophageal reflux disease without esophagitis; M79.7 Fibromyalgia
CPT/HCPCS: 36415; 80053; 82550; 84443; 85025; 85651; 86140

== ENCOUNTER 2019-12-21 10:20 | Inpatient (IN) | payer MEDICARE, SELFPAY ==
[2019-12-21] VITALS (14 sets, daily range): BP systolic 142–200; BP diastolic 72–105; PULSE 76–86; RESP 17–51; TEMP 36.2–37.1; O2SAT 92–99; BMI 29.6
--- NOTE | 2019-12-21 10:34 | DI.RAD.S_ITS ---
PROCEDURE: XR CHEST 1V INDICATIONS: suspected sepsis TECHNIQUE: One view of the chest was acquired. COMPARISON: [facility], , CHEST 2 VIEW, 03/26/2016, 14:05. FINDINGS: Surgical changes and devices: Left shoulder arthroplasty. Lungs and pleura: Lungs are clear. No pleural effusions or pneumothorax. Mediastinum: Mediastinal contours appear normal. Heart size is normal. Bones and chest wall: No suspicious bony lesions. Overlying soft tissues appear unremarkable. IMPRESSION: No acute process. Dictated by: Preeti Lilly M.D. on 12/21/2019 at 10:10 Approved by: Preeti Lilly M.D. on 12/21/2019 at 10:11
--- NOTE | 2019-12-21 10:45 | DI.CT.S_ITS ---
PROCEDURE: CT HEAD/BRAIN WO CON INDICATIONS: acute confusion, agitation TECHNIQUE: Noncontrast 4.5 mm thick angled axial sections acquired from the foramen magnum to the vertex, with coronal and sagittal reformats. For radiation dose reduction, the following was used: automated exposure control, adjustment of mA and/or kV according to patient size. COMPARISON: [facility], CT, HEAD WITHOUT CONTRAST, 11/14/2015, 4:52. FINDINGS: Image quality: Partially degraded by motion artifact. CSF spaces: Basal cisterns are patent. No extra-axial fluid collections. The ventricles are symmetric in size and shape. Brain: No intracranial bleeds or masses. There is cerebral volume loss for age, with resultant ventricular and sulcal prominence. There are periventricular and deep white matter chronic small vessel ischemic changes. There is intracranial internal carotid artery atherosclerosis. Skull and face: Calvarium and visualized facial bones appear intact, without suspicious lesions. Sinuses: Visualized sinuses and mastoids are clear. IMPRESSION: No acute process. Dictated by: Preeti Lilly M.D. on 12/21/2019 at 10:30 Approved by: Preeti Lilly M.D. on 12/21/2019 at 10:31
[2019-12-21 10:47] LABS: Add Manual Diff / Slide Review NO; Basophils Absolute Auto 100 /uL (0-100); Basophils Percent Auto 1.1 % (0-2); Eosinophils Absolute Auto 100 /uL (0-450); Eosinophils Percent Auto 0.9 % (2-4); Hematocrit 40.6 % (36-46); Hemoglobin 13.6 g/dL (12.0-16.0); Lymphocytes Absolute Auto 1600 /uL (1100-4500); Lymphocytes Percent Auto 16.3 % (25-40); Mean Corpuscular HGB Conc 33.5 % (30-36); Mean Corpuscular Hemoglobin 29.9 PG (26-34); Mean Corpuscular Volume 89.3 fL (80-100); Monocytes Absolute Auto 600 /uL (0-900); Monocytes Percent Auto 6.4 % (3-14); Neutrophils Absolute Auto 7500 /uL (1500-7000); Neutrophils Percent Auto 75.3 % (50-75); Platelet Count 298 X10^3/uL (150-400); Red Blood Cell Count 4.54 X10^6/uL (4.0-5.2); Red Cell Distribution Width 14.5 % (11.6-14.8)
[2019-12-21] MEDS: LORazepam 2 MG/ML INJ 1 MG IV (10:51)
[2019-12-21 10:57] LABS: Prothrombin Time 11.7 SECONDS (10.1-12.7)
[2019-12-21 11:00] LABS: PTT Partial Thromboplastin Tim 27 SECONDS (26.4-36.2)
[2019-12-21 11:03] LABS: Lactate (Lactic Acid) 1.1 mmol/L (0.7-2.1)
[2019-12-21 11:04] LABS: Alanine Aminotransferase 32 IU/L (<35); Albumin 4.4 g/dL (3.5-5.0); Albumin Globulin Ratio 1.5 (1.0-2.8); Alkaline Phosphatase 87 U/L (38-126); Aspartate Aminotransferase 39 IU/L (14-36); BUN Creatinine Ratio 18.4 (6-22); Bilirubin Total 0.9 mg/dL (0.2-1.3); Blood Urea Nitrogen 14 mg/dL (7-17); Calcium 10.1 mg/dL (8.4-10.2); Carbon Dioxide 27 mmol/L (22-32); Chloride 96 mmol/L (98-107); Estimated Glomerular Filt Rate > 60.0 mL/min (>60); Glucose 106 mg/dL (80-110); HEMOLYSIS < 15 (0-50); Lipase 35 U/L (23-300); Potassium 2.8 mmol/L (3.4-5.1); Sodium 135 mmol/L (137-145); Total Protein 7.4 g/dL (6.3-8.2)
[2019-12-21] MEDS: BENZTROPINE 2 MG/2 ML AMPUL IV (11:19)
[2019-12-21 11:24] LABS: Procalcitonin < 0.05 ng/mL (<0.5)
--- NOTE | 2019-12-21 13:02 | ED.AMS ---
HPI - Altered Mental Status General Chief Complaint: Altered Mental Status Stated Complaint: Infection ability to function Time Seen by Provider: 12/21/19 10:35 Source: family Mode of arrival: Wheelchair Limitations: altered mental status History of Present Illness HPI narrative: CC: acute confusion and agitation HPI: The patient is a 69-year-old female who has recently been on terbinafine for a fungal infection. The patient is opioid dependent and has been on chronic oxycodone. On 2 days ago the patient became acutely agitated and confused. The patient has had severe back pain for the last 5 years and has been on oxycodone which has recently been discontinued because of her confusion and agitation. The patient has a rhythmic attic 0 movement of her head with bobbing as well as twitching of her feet and legs which is consistent with tardive dyskinesia. The patient has been on Seroquel which has been discontinued. The patient has never had a stroke or myocardial infarction. She is not a diabetic but has a history of hypertension. The family states that this is totally completely unlike her personality she has never been this confused and disoriented. The patient is unable to provide any history herself. The history is being provided by the patient's and peripherally by her daughter they deny that she has had any fever chills sweats complaints of headache cough shortness of breath palpitations or dizziness. There is some question that she has had chest pain. There has been no complaints of vomiting or abdominal pain as well as diarrhea but she has pain intensely nauseous. There has been no urinary frequency urgency or complaints. The patient is a former smoker does not drink alcohol or use any drugs or marijuana. Related Data Home Medications Medication Instructions Recorded Confirmed baclofen 5 mg PO TID 01/04/19 12/21/19 oxycodone 15 mg PO Q4-6H PRN MDD 6 01/04/19 12/21/19 desipramine 100 mg PO DAILY 12/21/19 12/21/19 lisinopril 40 mg PO BID 12/21/19 12/21/19 Previous Rx's Medication Instructions Recorded hydrochlorothiazide 25 mg tablet 25 mg PO DAILY #90 tab 08/07/19 escitalopram oxalate 10 mg tablet 30 mg PO DAILY #270 tab 10/31/19 diazepam 5 mg tablet 5 mg PO BID PRN #60 tab 11/18/19 nystatin 100,000 unit/gram topical 1 applictn TOP BID PRN #60 gram 11/18/19 powder nystatin 100,000 unit/mL oral 5 ml PO TID #250 ml 11/18/19 suspension ondansetron HCl 8 mg tablet 8 mg PO QID PRN #120 tab 11/25/19 metoprolol tartrate 25 mg tablet 25 mg PO BID #60 tab 12/13/19 Allergies Allergy/AdvReac Type Severity Reaction Status Date / Time adhesive Allergy Mild BLISTERS, Verified 12/21/19 10:35 PULL SKIN OFF codeine [CODEINE] AdvReac Severe nausea, Verified 12/21/19 10:35 triggers migraines hydrocodone [HYDROCODONE] AdvReac Severe triggers Verified 12/21/19 10:35 migraines morphine [MORPHINE] AdvReac Severe n&v, can Verified 12/21/19 10:35 take if premedicated trazodone AdvReac Severe nausea/altered Verified 12/21/19 10:35 mental status zolpidem [From Ambien] AdvReac Severe sleep Verified 12/21/19 10:35 eating, strange behavior alendronate sodium AdvReac Intermediate Stomach Verified 12/21/19 10:35 [From Fosamax] issues Review of Systems Review of Systems Narrative: Review of systems were all negative except for those mentioned in the history of present illness. Patient History Medical History Acquired hypothyroidism (Chronic 02/10/11) Asthma (Acute) Chronic migraine without aura without status migrainosus, not intractable (Chronic) Chronic pain syndrome (Chronic) Depression (Acute) Dorsalgia (Chronic 07/28/15) Fibromyalgia (Chronic 09/06/13) Gastroesophageal reflux disease without esophagitis (Chronic 02/10/11) Generalized anxiety disorder (Chronic) HLD (hyperlipidemia) (Acute) Hypertension (Chronic) Loosening of hardware in spine (Inactive) Osteoporosis (Chronic 05/07/15) Recurrent major depressive disorder, in partial remission (Chronic 02/10/11) Spinal stenosis at L4-L5 level (Chronic) Systemic lupus erythematosus (Chronic 02/10/11) Tardive dyskinesia (Chronic) Uncomplicated opioid dependence (Chronic 12/14/15) Surgical History Anesthesia (Resolved) History of arthroplasty of left shoulder (Acute ~2013) History of hip replacement (Deleted) History of surgery (Resolved) History of total right hip arthroplasty (Acute ~2009) Hx of arthroscopy of left knee (Acute) Hx of lumbosacral spine surgery (Acute ~05/2015) Hx of spinal fusion (Acute ~1984) S/P LASIK surgery of both eyes (Acute) Status post appendectomy Status post tubal ligation Family History Father Family history of polycythemia Mother Family history of CHF (congestive heart failure) Social History marital status: number of children: 2 household members: spouse lives independently: Yes caregiver/support person: No housing: apartment pets and animals: Yes education level: college 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 status: other (Retired) Previous 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 history: [employer]: [employer] 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, 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) Smoking Status: Never smoker Tobacco: How many years used: 0 quit status: quit date established (Never Started) second hand exposure: No alcohol intake: never substance use type: does not use Smoking Status: Never smoker alcohol intake frequency: 0-2 drinks per day Substance Use Type: does not use Exam Narrative Exam Narrative: PHYSICAL EXAM: CONSTITUTIONAL: Awake, disoriented but cooperative. The patient does not appear to be in any acute distress, does not appear to be toxic or ill. The patient has spontaneous rhythm at a cool head bobbing and movement and twitching of her feet and lower legs consistent with tardive dyskinesia. HEAD: AT/NC EENT: PERRL, FROM of eyes, no discharge, no nystagmus NOSE:No epistaxis or nasal drainage MOUTH:Oral mucosa is moist and pink. NECK: Supple, no obvious JVD, Trachea is midline without stridor,. SPINE: Palpation of the cervical, Thoracic, Lumbar or Sacral spine reveals no gross deformity or tenderness. There is mild left costovertebral angle tenderness. THORAX: No deformity, retractions, chest wall tenderness. LUNGS: Patient has crackles in both bases of her long with the upper lung dominguez being clear. Breath sounds are symmetrical.. HEART: Normal heart tones, regular rhythm and rate with a very soft grade 1/6 systolic ejection murmur. ABDOMEN: Soft, non-tender, normal bowel sounds without guarding, rebound, rigidity or palpable mass. EXTREMITIES: No edema, deformity, tenderness or cyanosis. SKIN: No rash, bruising, petechiae or purpura. NEURO: Awake, cranial nerves II-XII are symmetrical , moves all 4 extremities. Initial Vital Signs Initial Vital Signs: Vital Signs Temperature 98.8 F 12/21/19 10:30 Pulse Rate 78 12/21/19 10:30 Respiratory Rate 24 12/21/19 10:30 Blood Pressure 200/105 H 12/21/19 10:30 Pulse Oximetry 98 12/21/19 10:30 Course Course Course Narrative: 1255: CXR revealed: IMPRESSION: No acute process. CT of head revealed: IMPRESSION: No acute process 1305: Dr. Segura admits his own patients, Dr. Simeon rowley to admit observation status. 1400 patient has not provided a urine sample. The patient will be given a L of normal saline IV in an attempt to obtain urine to rule out a urinary tract infection. The family states that she was being admitted for further evaluation and workup the family states that this is totally completely out of character for her. Her tardive dyskinesia did not improve with the Cogentin. The patient's urinalysis and urine drug screen were not obtained before the patient was admitted to the hospital. The patient was unable to urinate. The patient was given a L of fluid and then placed on a continuous rate of 150 cc/hour. Orders Ordered: Acetaminophen (Tylenol) 650 mg PO Q4HR PRN PRN Reason: Fever/Mild Pain (1-3) Enoxaparin Sodium (Lovenox) 40 mg SUBCUT DAILY BETTIE Escitalopram Oxalate (Lexapro) 30 mg PO DAILY BETTIE Dextrose/Sodium Chloride (Dextrose 5%-0.9% Ns) 1,000 mls @ 100 mls/hr IV CONT BETTIE Last Admin: 12/22/19 02:32 Dose: 100 mls/hr Documented by: Infusion: 12/22/19 02:32 Dose: 100 mls/hr Documented by: Admin: 12/21/19 17:06 Dose: 100 mls/hr Documented by: ALVARO Lisinopril (Zestril) 40 mg PO BID [facility] Last Admin: 12/21/19 21:21 Dose: 40 mg Documented by: ALVARO Magnesium Hydroxide (Milk Of Magnesia) 30 ml PO DAILY PRN PRN Reason: Constipation Last Admin: 12/21/19 21:21 Dose: 30 ml Documented by: ALVARO Metoprolol Tartrate (Lopressor) 25 mg PO BID BETTIE Last Admin: 12/21/19 21:21 Dose: 25 mg Documented by: ALVARO Naloxone HCl (Narcan) 0.2 mg IV Q2MIN PRN PRN Reason: Opiate Reversal Ondansetron HCl (Zofran Odt) 8 mg PO QID PRN PRN Reason: nausea and vomiting Discontinued Medications Benztropine Mesylate (Cogentin) 2 mg IV NOW ONE Stop: 12/21/19 10:46 Last Admin: 12/21/19 11:19 Dose: 2 mg Documented by: MAXIMUS Sodium Chloride (Normal Saline 0.9%) 1,000 mls @ 1,000 mls/hr IV BOLUS ONE Stop: 12/21/19 15:04 Last Infusion: 12/21/19 15:05 Dose: 0 mls/hr Documented by: Admin: 12/21/19 14:13 Dose: 1,000 mls/hr Documented by: MAXIMUS Lorazepam (Ativan) 1 mg IV NOW ONE Stop: 12/21/19 10:46 Last Admin: 12/21/19 10:51 Dose: 1 mg Documented by: MAXIMUS Potassium Chloride (Klor-Con M20) 40 meq PO NOW ONE Stop: 12/21/19 13:08 Last Admin: 12/21/19 13:11 Dose: 40 meq Documented by: MAXIMUS Vital Signs Vital signs: Vital Signs - 8 hr 12/21/19 10:30 12/21/19 10:57 12/21/19 11:00 Temperature 98.8 F Pulse Rate 78 83 82 Respiratory Rate 24 39 H 28 H Blood Pressure 200/105 H Pulse Oximetry 98 95 92 12/21/19 11:30 12/21/19 12:00 12/21/19 12:16 Temperature Pulse Rate 81 79 Respiratory Rate 51 H 31 H Blood Pressure 142/98 H Pulse Oximetry 94 93 12/21/19 12:30 12/21/19 13:00 12/21/19 13:30 Temperature Pulse Rate 77 78 80 Respiratory Rate 39 H 38 H Blood Pressure 159/103 H 193/93 H 193/92 H Pulse Oximetry 94 94 99 MDM - Altered Mental Status Medical Records Attestation: I reviewed the patient's medical records. Lab Data Attestation: I reviewed the patient's lab results. Result diagrams: 12/21/19 10:27 12/22/19 05:18 Labs: Lab Results 12/21/19 12/21/19 12/21/19 Range/Units 10:22 10:27 10:27 WBC 10.0 (4.5-11.0) X10^3/uL RBC 4.54 (4.0-5.2) X10^6/uL Hgb 13.6 (12.0-16.0) g/dL Hct 40.6 (36-46) % MCV 89.3 (80-100) fL MCH 29.9 (26-34) PG MCHC 33.5 (30-36) % RDW 14.5 (11.6-14.8) % Plt Count 298 (150-400) X10^3/uL Neut % (Auto) 75.3 H (50-75) % Lymph % (Auto) 16.3 L (25-40) % Hettinger % (Auto) 6.4 (3-14) % Eos % (Auto) 0.9 L (2-4) % Baso % (Auto) 1.1 (0-2) % Neut # (Auto) 7500 H (3659-0626) /uL Lymph # (Auto) 1600 (4058-9221) /uL Hettinger # (Auto) 600 (0-900) /uL Eos # (Auto) 100 (0-450) /uL Baso # (Auto) 100 (0-100) /uL PT 11.7 (10.1-12.7) SECONDS INR 1.0 (0.9-1.3) APTT 27 (26.4-36.2) SECONDS Sodium (137-145) mmol/L Potassium (3.4-5.1) mmol/L Chloride (98-107) mmol/L Carbon Dioxide (22-32) mmol/L BUN (7-17) mg/dL Creatinine (0.52-1.04) mg/dL Estimated GFR (>60) mL/min BUN/Creatinine Ratio (6-22) Glucose (80-110) mg/dL Lactate (0.7-2.1) mmol/L Calcium (8.4-10.2) mg/dL Total Bilirubin (0.2-1.3) mg/dL AST (14-36) IU/L ALT (<35) IU/L Alkaline Phosphatase (38-126) U/L Total Protein (6.3-8.2) g/dL Albumin (3.5-5.0) g/dL Globulin (1.7-4.1) g/dL Albumin/Globulin Ratio (1.0-2.8) Lipase (23-300) U/L Procalcitonin (<0.5) ng/mL Ethyl Alcohol < 10 ( - 10) mg/dL 12/21/19 12/21/19 12/21/19 Range/Units 10:27 10:27 10:27 WBC (4.5-11.0) X10^3/uL RBC (4.0-5.2) X10^6/uL Hgb (12.0-16.0) g/dL Hct (36-46) % MCV (80-100) fL MCH (26-34) PG MCHC (30-36) % RDW (11.6-14.8) % Plt Count (150-400) X10^3/uL Neut % (Auto) (50-75) % Lymph % (Auto) (25-40) % Hettinger % (Auto) (3-14) % Eos % (Auto) (2-4) % Baso % (Auto) (0-2) % Neut # (Auto) (3893-0959) /uL Lymph # (Auto) (6715-8367) /uL Hettinger # (Auto) (0-900) /uL Eos # (Auto) (0-450) /uL Baso # (Auto) (0-100) /uL PT (10.1-12.7) SECONDS INR (0.9-1.3) APTT (26.4-36.2) SECONDS Sodium 135 L (137-145) mmol/L Potassium 2.8 L (3.4-5.1) mmol/L Chloride 96 L (98-107) mmol/L Carbon Dioxide 27 (22-32) mmol/L BUN 14 (7-17) mg/dL Creatinine 0.76 (0.52-1.04) mg/dL Estimated GFR > 60.0 (>60) mL/min BUN/Creatinine Ratio 18.4 (6-22) Glucose 106 (80-110) mg/dL Lactate 1.1 (0.7-2.1) mmol/L Calcium 10.1 (8.4-10.2) mg/dL Total Bilirubin 0.9 (0.2-1.3) mg/dL AST 39 H (14-36) IU/L ALT 32 (<35) IU/L Alkaline Phosphatase 87 (38-126) U/L Total Protein 7.4 (6.3-8.2) g/dL Albumin 4.4 (3.5-5.0) g/dL Globulin 3.0 (1.7-4.1) g/dL Albumin/Globulin Ratio 1.5 (1.0-2.8) Lipase 35 (23-300) U/L Procalcitonin < 0.05 (<0.5) ng/mL Ethyl Alcohol ( - 10) mg/dL ECG Data Attestation: I personally reviewed and interpreted this ECG as follows: Interpretation: The patient's EKG obtained at 10:54 a.m. reveals a sinus rhythm with a ventricular rate of 80. NH interval is 152 QRS is 82 milliseconds QTC is slightly prolonged at 461 milliseconds. Redford is normal. The patient has a left ventricular hypertrophy by voltage criteria. She has occasional premature supraventricular contractions. The patient has nonspecific nondiagnostic ST segment changes. She appears to have ST segment depressions in leads I II V2 V3 V4 V5 and V6 with questionable biphasic T-waves in leads V3 V4 V5 and V6 which may represent some lateral wall ischemia. Discharge Plan Departure Patient Disposition: Admitted as Observation Clinical Impression: Tardive dyskinesia, Acute confusion Opiate dependence Qualifiers: Substance use status: with unspecified opioid-induced disorder Qualified Code(s): F11.29 - Opioid dependence with unspecified opioid-induced disorder Altered mental status Qualifiers: Altered mental status type: unspecified Qualified Code(s): R41.82 - Altered mental status, unspecified Discharge Date/Time: 12/21/19 15:06 Referrals: Pasquale Segura MD [Primary Care Provider] - Admit Date/Time: 12/21/19 13:45 Admit Provider: Humphrey Hendrix
[2019-12-21] MEDS: POTASSIUM CHLORIDE 20 MEQ TAB 40 MEQ PO (13:11)
[2019-12-21 13:16] LABS: Ethanol (ETOH) < 10 mg/dL
[2019-12-21] MEDS: SODIUM CHLORIDE 0.9% 1,000 ML 1000 ML IV (14:13)
[2019-12-21 15:25] LABS: COVID19 -Nasal RAPID Negative (Negative)
--- NOTE | 2019-12-21 15:50 | PC.ADMIT ---
[id number] [facility] Admission Note: The patient,Melanie Barclay,69 y/o, was given written information regarding hospital policies, unit procedures and contact persons. Patient's smoking status: Never smoker. Pt arrived to Room 214 via stretcher. Able to transfer to bed with 2 PA. Unsteady gait noted. Confused and disoriented. Oriented to room and call system. Supportive spouse at bedside. Bed alarm placed on. Call light within reach. Vital Signs - 8 hr 12/21/19 10:30 12/21/19 10:57 12/21/19 11:00 Temperature 98.8 F Pulse Rate 78 83 82 Respiratory Rate 24 39 H 28 H Blood Pressure 200/105 H Pulse Oximetry 98 95 92 12/21/19 11:30 12/21/19 12:00 12/21/19 12:16 Temperature Pulse Rate 81 79 Respiratory Rate 51 H 31 H Blood Pressure 142/98 H Pulse Oximetry 94 93 12/21/19 12:30 12/21/19 13:00 12/21/19 13:30 Temperature Pulse Rate 77 78 80 Respiratory Rate 39 H 38 H Blood Pressure 159/103 H 193/93 H 193/92 H Pulse Oximetry 94 94 99 12/21/19 14:00 12/21/19 14:58 Temperature Pulse Rate 80 79 Respiratory Rate 36 H 18 Blood Pressure 200/98 H 193/100 H Pulse Oximetry 96 98
--- NOTE | 2019-12-21 16:51 | P.HP_ITS ---
History of Present Illness History of Present Illness Date Patient Seen: 12/21/19 Time Patient Seen: 16:52 Date of Onset of Symptoms: 12/19/19 Chief complaint: Infection ability to function Narrative: Confusion. Patient admitted through the ER this this afternoon because of change in mental status. History is basically from the . This past week she had been her usual self. On he left her to go cramping. Normally he is with her and dispense his medications. When he returned from [facility] [place] which was later in the day a he felt that she was confused disoriented and very lethargic. He thought perhaps this might well have been a extra oxycodone which she has done in the past so he withheld anymore oxycodone since then. Apparently in the past she has had difficulties with the medication usage. He did give her the nighttime Seroquel that is help her sleep and he has given her no other her medications since other than the nighttime Seroquel. On Monday she was unchanged still confused lethargic seemingly disoriented and this morning he brought her to the emergency room because it had persisted. He was hoping that was excess oxycodone and that eventually the effects wear off and her mental status would improve but apparently has not. He also thinks that there may well be a urinary tract infection that she has had these in the past and a affected her mental status. He mentions that she was supposed to be taking doxycycline for some unknown reason he wonders if that may have affected her mental status. Her baseline medications as best I can tell the chart include the following baclofen does it per main diazepam escitalopram hydrochlorothiazide lisinopril metoprolol she had been using nystatin swish and swallow and pallor for used apparently that is resolved. Zofran as needed nausea and oxycodone 15 mg every 4-6 hours as needed back pain. relates that she is basically nonambulatory she can walk with a walker from her bed to the bathroom and from her bed to the kitchen does not do this very often. When he needs her to move he has a wheelchair that she uses and he uses a. It is unclear to me what her psychiatric diagnosis is chart relates of severe depression apparently she has not seen any sort of neurologic/psychiatric providers. She does have chronic back pain apparently has had several back surgeries she has osteoporosis the screws of working himself lives in the really has no treatment options. There for the oxycodone. does admit that since she has been here as since she has not given any oxycodone on she has not complained of back pain Other medical history apparently includes hypertension, a muscle spasm,. He has been relates that she also has a off times a constipated which case he gets enema as needed. Patient History Medical History Acquired hypothyroidism (Chronic 02/10/11) Asthma (Acute) Chronic migraine without aura without status migrainosus, not intractable (Chronic) Chronic pain syndrome (Chronic) Depression (Acute) Dorsalgia (Chronic 07/28/15) Fibromyalgia (Chronic 09/06/13) Gastroesophageal reflux disease without esophagitis (Chronic 02/10/11) Generalized anxiety disorder (Chronic) HLD (hyperlipidemia) (Acute) Hypertension (Chronic) Loosening of hardware in spine (Inactive) Osteoporosis (Chronic 05/07/15) Recurrent major depressive disorder, in partial remission (Chronic 02/10/11) Spinal stenosis at L4-L5 level (Chronic) Systemic lupus erythematosus (Chronic 02/10/11) Tardive dyskinesia (Chronic) Uncomplicated opioid dependence (Chronic 12/14/15) Surgical History Anesthesia (Resolved) History of arthroplasty of left shoulder (Acute ~2013) History of hip replacement (Deleted) History of surgery (Resolved) History of total right hip arthroplasty (Acute ~2009) Hx of arthroscopy of left knee (Acute) Hx of lumbosacral spine surgery (Acute ~05/2015) Hx of spinal fusion (Acute ~1984) S/P LASIK surgery of both eyes (Acute) Status post appendectomy Status post tubal ligation Family & Social History Family History Father Family history of polycythemia Mother Family history of CHF (congestive heart failure) Social History: household members spouse lives independently Yes caregiver/support person No Safety & Behavioral: Feels Safe in Current Yes Environment Been Physically Hurt or No Threatened By a Person Tobacco & Substance use: Smoking Status Never smoker alcohol intake never alcohol intake frequency 0-2 drinks per day Substance Use Type does not use Meds Home Medications and Allergies Home Medications Medication Instructions Recorded Confirmed Type baclofen 5 mg PO TID 01/04/19 12/21/19 History oxycodone 15 mg PO Q4-6H PRN MDD 6 01/04/19 12/21/19 History hydrochlorothiazide 25 mg tablet 25 mg PO DAILY #90 tab 08/07/19 12/21/19 Rx escitalopram oxalate 10 mg tablet 30 mg PO DAILY #270 tab 10/31/19 12/21/19 Rx diazepam 5 mg tablet 5 mg PO BID PRN #60 tab 11/18/19 12/21/19 Rx nystatin 100,000 unit/gram topical 1 applictn TOP BID PRN #60 gram 11/18/19 12/21/19 Rx powder nystatin 100,000 unit/mL oral 5 ml PO TID #250 ml 11/18/19 12/21/19 Rx suspension ondansetron HCl 8 mg tablet 8 mg PO QID PRN #120 tab 11/25/19 12/21/19 Rx metoprolol tartrate 25 mg tablet 25 mg PO BID #60 tab 12/13/19 12/21/19 Rx desipramine 100 mg PO DAILY 12/21/19 12/21/19 History lisinopril 40 mg PO BID 12/21/19 12/21/19 History Allergies Allergy/AdvReac Type Severity Reaction Status Date / Time adhesive Allergy Mild BLISTERS, Verified 12/21/19 10:35 PULL SKIN OFF codeine [CODEINE] AdvReac Severe nausea, Verified 12/21/19 10:35 triggers migraines hydrocodone [HYDROCODONE] AdvReac Severe triggers Verified 12/21/19 10:35 migraines morphine [MORPHINE] AdvReac Severe n&v, can Verified 12/21/19 10:35 take if premedicated trazodone AdvReac Severe nausea/altered Verified 12/21/19 10:35 mental status zolpidem [From Ambien] AdvReac Severe sleep Verified 12/21/19 10:35 eating, strange behavior alendronate sodium AdvReac Intermediate Stomach Verified 12/21/19 10:35 [From Fosamax] issues Review of Systems Review of Systems ROS: Yes All systems reviewed with the patient and are negative except as otherwise documented Exam Vital Signs (past 8 hours): - 12/21/19 10:30 12/21/19 10:57 12/21/19 11:00 Temperature 98.8 F Pulse Rate 78 83 82 Respiratory Rate 24 39 H 28 H Blood Pressure 200/105 H Pulse Oximetry 98 95 92 12/21/19 11:30 12/21/19 12:00 12/21/19 12:16 Temperature Pulse Rate 81 79 Respiratory Rate 51 H 31 H Blood Pressure 142/98 H Pulse Oximetry 94 93 12/21/19 12:30 12/21/19 13:00 12/21/19 13:30 Temperature Pulse Rate 77 78 80 Respiratory Rate 39 H 38 H Blood Pressure 159/103 H 193/93 H 193/92 H Pulse Oximetry 94 94 99 12/21/19 14:00 12/21/19 14:58 Temperature Pulse Rate 80 79 Respiratory Rate 36 H 18 Blood Pressure 200/98 H 193/100 H Pulse Oximetry 96 98 Oxygen Delivery Method Room Air Narrative Exam Narrative: Gen.: Patient is resting quietly in hospital bed appears in no distress. She does have an irregular 2 to itching of her head arms and feet as certainly consistent with the diagnosis of tardive dyskinesia as per 's her report this is unchanged from her usual Skin: Warm well perfused. No prominent lesions. Nonicteric. HEENT: PERRL., normal EOM, external ears canals TMs normal, nasal mucosa normal and midline septum, oropharynx without lesions. Neck: Trachea midline. Thyroid nontender and not enlarged. Carotids without bruits. No lymphadenopathy Back: No obvious deformity or tenderness. Chest: Clear to P&A. Symmetric. CV: RRR no murmur or gallop. No JVD. Abdomen: No masses bruits tenderness or visceromegaly. Neuro: Cranial nerves II through XII grossly intact. Sensory and motor exams intact. Gait not tested Mental status: Confused as stated Extremities: No cyanosis clubbing or edema Musculoskeletal: No gross deformities Lymphatics: Negative for lymphadenopathy, supraclavicular axillary or inguinal Neurological exam she thinks the the the we are in [place] and unknown town or state nose at this hospital. Does not know the president. Did not does the month the date or the year. She was able to spell world backwards as she has done in the clinic apparently. She was unable to count backwards from 100 which was another performance that she was able to do normally. Objective Labs Result Diagrams: 12/21/19 10:27 12/21/19 10:27 Labs: Laboratory Results - last 24 hr 12/21/19 12/21/19 12/21/19 10:22 10:27 10:27 WBC 10.0 RBC 4.54 Hgb 13.6 Hct 40.6 MCV 89.3 MCH 29.9 MCHC 33.5 RDW 14.5 Plt Count 298 Neut % (Auto) 75.3 H Lymph % (Auto) 16.3 L [place] % (Auto) 6.4 Eos % (Auto) 0.9 L Baso % (Auto) 1.1 Neut # (Auto) 7500 H Lymph # (Auto) 1600 [place] # (Auto) 600 Eos # (Auto) 100 Baso # (Auto) 100 PT 11.7 INR 1.0 APTT 27 Sodium Potassium Chloride Carbon Dioxide BUN Creatinine Estimated GFR BUN/Creatinine Ratio Glucose Lactate Calcium Total Bilirubin AST ALT Alkaline Phosphatase Total Protein Albumin Globulin Albumin/Globulin Ratio Lipase Procalcitonin Ethyl Alcohol < 10 COVID-19 PCR 12/21/19 12/21/19 12/21/19 10:27 10:27 10:27 WBC RBC Hgb Hct MCV MCH MCHC RDW Plt Count Neut % (Auto) Lymph % (Auto) [place] % (Auto) Eos % (Auto) Baso % (Auto) Neut # (Auto) Lymph # (Auto) [place] # (Auto) Eos # (Auto) Baso # (Auto) PT INR APTT Sodium 135 L Potassium 2.8 L Chloride 96 L Carbon Dioxide 27 BUN 14 Creatinine 0.76 Estimated GFR > 60.0 BUN/Creatinine Ratio 18.4 Glucose 106 Lactate 1.1 Calcium 10.1 Total Bilirubin 0.9 AST 39 H ALT 32 Alkaline Phosphatase 87 Total Protein 7.4 Albumin 4.4 Globulin 3.0 Albumin/Globulin Ratio 1.5 Lipase 35 Procalcitonin < 0.05 Ethyl Alcohol COVID-19 PCR 12/21/19 14:15 WBC RBC Hgb Hct MCV MCH MCHC RDW Plt Count Neut % (Auto) Lymph % (Auto) [place] % (Auto) Eos % (Auto) Baso % (Auto) Neut # (Auto) Lymph # (Auto) [place] # (Auto) Eos # (Auto) Baso # (Auto) PT INR APTT Sodium Potassium Chloride Carbon Dioxide BUN Creatinine Estimated GFR BUN/Creatinine Ratio Glucose Lactate Calcium Total Bilirubin AST ALT Alkaline Phosphatase Total Protein Albumin Globulin Albumin/Globulin Ratio Lipase Procalcitonin Ethyl Alcohol COVID-19 PCR Negative labs reviewed of significance is a potassium 2.8. CBC was normal CMP was negative and normal head CT no acute changes chest x-ray normal Assessment & Plan Assessment & Plan narrative: 1. Patient with obvious mental status changes and encephalopathy a presumably is metabolic. Suspect the medication miss management on page patient's part. Yet to be determined. It is unclear but medication may be doing this but the she is certainly on several that could We have withheld her maintenance meds except for the antihypertensives and we will monitor her mental status over the next day or 2. MRI would be area at unsuccessful due to her tardive dyskinesia random motion of her head that she would not able to keep still. So this is put on hold for the time being. She may well have urinary tract infection which apparently she has had in the past catheter urine is is forthcoming. 2. Dr. mayorga they gave her some Cogentin in the ER did seem to help it is a chronic problem and is not affected by what is happening today. 3. She hypokalemia probably secondary to hydrochlorothiazide we will replace this pending the results of the recent blood test. We will withhold hydrochlorothiazide for the time being. 4. History of hypertension borderline right now. 5. Pre-existing neurologic/psychiatric diagnosis presumably some sort of severe depression unclear exactly. 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 aguilar to turn on Monday and assume care
[2019-12-21] MEDS: DEXTROSE 5%-0.9% NS 1,000 ML 100 ML IV (17:06)
[2019-12-21 17:59] LABS: RBC Urine None Seen (0-5/HPF)
[2019-12-21 18:05] LABS: Appearance Urine UA CLEAR; Bilirubin Urine UA NEGATIVE (NEGATIVE); Color Urine UA YELLOW; Glucose Urine UA NEGATIVE (Negative); Ketones Urine UA 1+ (NEGATIVE); Leukocyte Esterase Urine UA TRACE (NEGATIVE); Nitrite Urine UA NEGATIVE (Negative); Occult Blood Urine UA NEGATIVE (Negative); Protein Urine UA NEGATIVE (Negative); Urobilinogen Urine UA 0.2 E.U./dL (0.2)
[2019-12-21 18:11] LABS: UR Morphine/Opiate cutoff 300 Negative (Negative); Ur Creatinine Normal (Normal); Ur Specific Gravity Normal (Normal); Urine Cocaine Negative (Negative); Urine Tetrahydrocannabinol Negative (Negative); Urine pH Normal (Normal)
[2019-12-21 18:12] LABS: Urine Amphetamines Negative (Negative); Urine Barbiturates Negative (Negative); Urine Benzodiazepines Positive (Negative); Urine MDMA Negative (Negative); Urine Methadone Negative (Negative); Urine Methamphetamines Negative (Negative); Urine Oxycodone Negative (Negative); Urine Phencyclidine Negative (Negative); Urine Tricyclic Antidepressant Positive (Negative)
[2019-12-21 18:18] LABS: Bacteria Urine Many (>30); Culture Indicated Urine Cult Not Indicated; Squamous Epithelial Cell Urine 10-30 /HPF (0-5/HPF); WBC Urine 1-5/HPF (0-5/HPF)
[2019-12-21 19:19] LABS: BUN Creatinine Ratio 21.2 (6-22); Blood Urea Nitrogen 14 mg/dL (7-17); Calcium 9.9 mg/dL (8.4-10.2); Carbon Dioxide 28 mmol/L (22-32); Chloride 99 mmol/L (98-107); Estimated Glomerular Filt Rate > 60.0 mL/min (>60); Glucose 155 mg/dL (80-110); HEMOLYSIS 39 (0-50); Potassium 3.5 mmol/L (3.4-5.1); Sodium 136 mmol/L (137-145)
[2019-12-21] MEDS: METOPROLOL IR 25 MG TABLET PO (21:21)
[2019-12-21] MEDS: MAGNESIUM HYDROXIDE 30 ML UDC PO (21:21)
[2019-12-21] MEDS: lisinopriL 20 MG TABLET 40 MG PO (21:21)
--- NOTE | 2019-12-21 22:48 | PC.NURSE ---
Spouse has alerted this technical report writer that pt is having visual and auditory hallucinations. When pt quested by this technical report writer she does not give answer. Pt does note to continue to be confused and disoriented. Occasional Twitching of BUEs and face noted. Supportive spouse rooming in for the night.
[2019-12-22] VITALS (11 sets, daily range): BP systolic 122–207; BP diastolic 82–98; PULSE 58–89; RESP 15–18; TEMP 36.2–37.4; O2SAT 95–97
[2019-12-22] MEDS: DEXTROSE 5%-0.9% NS 1,000 ML 100 ML IV (02:32)
[2019-12-22 06:05] LABS: Blood Urea Nitrogen 13 mg/dL (7-17); Calcium 9.1 mg/dL (8.4-10.2); Carbon Dioxide 30 mmol/L (22-32); Chloride 104 mmol/L (98-107); Estimated Glomerular Filt Rate > 60.0 mL/min (>60); Glucose 119 mg/dL (80-110); HEMOLYSIS < 15 (0-50); Potassium 3.3 mmol/L (3.4-5.1); Sodium 136 mmol/L (137-145)
[2019-12-22] MEDS: ENOXAPARIN 40 MG/0.4 ML SYRINGE SUBCUT (07:54)
[2019-12-22] MEDS: ESCITALOPRAM 10 MG TABLET 30 MG PO (07:55)
[2019-12-22] MEDS: lisinopriL 20 MG TABLET 40 MG PO ×2 (07:55→20:05)
[2019-12-22] MEDS: METOPROLOL IR 25 MG TABLET PO ×2 (07:58→20:05)
[2019-12-22] MEDS: MAGNESIUM HYDROXIDE 30 ML UDC PO (08:12)
--- NOTE | 2019-12-22 09:52 | CM.DANOTE ---
Addendum entered by Tish Miranda LPN 12/22/19 10:07: Met with pt and her Pasquale after discussion this morning with Dr. Hendrix. Introduced self and role. Pt is a 69 year old female who admitted yesterday afternoon to care of A physician team. PCP: Dr. Segura. Dr. Hendrix is seeing pt today. PT and OT have been ordered. Pt and Pasquale confirm her prior level of function as very limited: she is basically bedbound. Uses a FWW when she wishes to go outside to sit. Gets up to go to the kitchen. She and Pasquale explain that she has been severely limited by pain: they attribute this to multiple back surgeries with Dr. Rosario/ last one 4 years ago which failed in part due to pt's severe osteoporosis. She also suffers from migraines. She does go to a [facility] Clinic in [facility]. Pt is expected to be here until at least tomorrow and at this point plan is return to home setting. Asked about HH history. Pt says she did have this after her last ortho/spinal surgery and is open to same. Pasquale says he would very much welcome this as she does not always take my suggestions. Dr. Hendrix agrees to same and the referral is now into [facility] for RN/OT/PT. (see DCP template below for more details) Face/Face will be completed and faxed along with the HH orders and clinical to [facility] this morning. P: home when stable for same with spouse support and [facility]. Original Note: Discharge Planning/Care Management DCP: assessment: case received. CM Discharge Assessment Start: 12/22/19 09:28 Freq: Status: Active Protocol: Document 12/22/19 09:28 ITV (Rec: 12/22/19 09:52 IT [id number]) Discharge Planning Assessment Advance Directives? Yes History Provided By Medical Record Has Patient been admitted in last 30 No days? Household Members spouse Type of transporation used prior to Relies on Others admit Is patient alert and oriented? No Document 12/22/19 09:49 ITV (Rec: 12/22/19 09:52 ITV [id number]) Discharge Planning Assessment Advance Directives? Yes History Provided By Patient,Family Member Has Patient been admitted in last 30 No days? Prior Living Arrangements House Comment address on [address] is correct/ not the [address] address Household Members spouse Type of transporation used prior to Relies on Others admit Needs Assistance With Managing Medications,Home Chores / Shopping Caregiver for Another No DME Already Rented / Owned Wheelchair,FWW / Walker Referrals Initiated Home Health If patient plan is home with home health Yes : Has signed face to face form been completed? Medicare Choice List Provided Yes SNF/HH Preference [facility] accepted by Mariela Jimenez Updated in Patient Room with Yes name and ext. # of Plaster Tender Review Status In Process
[2019-12-22] MEDS: ACETAMINOPHEN 325 MG TABLET 650 MG PO ×2 (09:58→16:33)
--- NOTE | 2019-12-22 10:33 | PM.PN.1 ---
Subjective Subjective Date Patient Seen: 12/22/19 Time Patient Seen: 10:34 Interval history: Confusion. Patient much more alert today. She does relate she had a difficult time sleeping because of all the racquet. apparently slept on the bed nearby. She is requesting return of her migraine headache pills she has migraine now would like 1. She takes Maxalt for that. Additionally requesting resuming of the use medication the oral nystatin and the topical nystatin as that seemed to help her improve significantly. Otherwise she is getting out of bed and and he going upright. She has a Lanier catheter in. thinks she is close to back to her usual. She feels like she is back to her usual. Exam Vital Signs (past 8 hours): - 12/22/19 04:00 12/22/19 07:55 12/22/19 08:00 Temperature 97.1 F L 98.1 F Pulse Rate 61 64 67 Respiratory Rate 18 18 Blood Pressure 153/89 H 122/82 122/82 Pulse Oximetry 95 97 12/22/19 08:17 Temperature Pulse Rate Respiratory Rate Blood Pressure Pulse Oximetry 95 Oxygen Delivery Method Room Air Oxygen Flow Rate 0 Narrative Exam Narrative: Patient is resting quietly in hospital bed appears in no distress has of mass got because the virus. Chest exam is entirely clear. Blood pressure elevation is no doubt normal. Cardiac exam regular rhythm no murmur gallop. Abdomen is benign. Her neurologic exam cranial nerves 2-12 intact. Mental status exam is clearly improved too much more alert and aware. She knew today's date the president is the [facility]. Objective Labs Result Diagrams: 12/21/19 10:27 12/22/19 05:18 Labs: Laboratory Results - last 24 hr 12/21/19 12/21/19 12/21/19 10:22 10:27 10:27 WBC 10.0 RBC 4.54 Hgb 13.6 Hct 40.6 MCV 89.3 MCH 29.9 MCHC 33.5 RDW 14.5 Plt Count 298 Neut % (Auto) 75.3 H Lymph % (Auto) 16.3 L [place] % (Auto) 6.4 Eos % (Auto) 0.9 L Baso % (Auto) 1.1 Neut # (Auto) 7500 H Lymph # (Auto) 1600 [place] # (Auto) 600 Eos # (Auto) 100 Baso # (Auto) 100 PT 11.7 INR 1.0 APTT 27 Sodium Potassium Chloride Carbon Dioxide BUN Creatinine Estimated GFR BUN/Creatinine Ratio Glucose Lactate Calcium Total Bilirubin AST ALT Alkaline Phosphatase Total Protein Albumin Globulin Albumin/Globulin Ratio Lipase Procalcitonin Urine Color Urine Appearance Urine pH Ur Specific [place] Urine Protein Urine Glucose (UA) Urine Ketones Urine Occult Blood Urine Nitrate Urine Bilirubin Urine Urobilinogen Ur Leukocyte Esterase Urine RBC Urine WBC Ur Squamous Epith Cells Urine Bacteria Ur Culture Indicated? U Opiates 300ng/mL cut Ur Oxycodone Screen Urine Methadone Screen Ur Barbiturates Screen U Tricyclic Antidepress Ur Phencyclidine Scrn Ur Amphetamines Screen U Methamphetamines Scrn Ur MDMA Scrn (Ecstasy) U Benzodiazepines Scrn Urine Cocaine Screen U Marijuana (THC) Screen Ethyl Alcohol < 10 COVID- [facility] 12/21/19 12/21/19 12/21/19 10:27 10:27 10:27 WBC RBC Hgb Hct MCV MCH MCHC RDW Plt Count Neut % (Auto) Lymph % (Auto) [place] % (Auto) Eos % (Auto) Baso % (Auto) Neut # (Auto) Lymph # (Auto) [place] # (Auto) Eos # (Auto) Baso # (Auto) PT INR APTT Sodium 135 L Potassium 2.8 L Chloride 96 L Carbon Dioxide 27 BUN 14 Creatinine 0.76 Estimated GFR > 60.0 BUN/Creatinine Ratio 18.4 Glucose 106 Lactate 1.1 Calcium 10.1 Total Bilirubin 0.9 AST 39 H ALT 32 Alkaline Phosphatase 87 Total Protein 7.4 Albumin 4.4 Globulin 3.0 Albumin/Globulin Ratio 1.5 Lipase 35 Procalcitonin < 0.05 Urine Color Urine Appearance Urine pH Ur Specific [place] Urine Protein Urine Glucose (UA) Urine Ketones Urine Occult Blood Urine Nitrate Urine Bilirubin Urine Urobilinogen Ur Leukocyte Esterase Urine RBC Urine WBC Ur Squamous Epith Cells Urine Bacteria Ur Culture Indicated? U Opiates 300ng/mL cut Ur Oxycodone Screen Urine Methadone Screen Ur Barbiturates Screen U Tricyclic Antidepress Ur Phencyclidine Scrn Ur Amphetamines Screen U Methamphetamines Scrn Ur MDMA Scrn (Ecstasy) U Benzodiazepines Scrn Urine Cocaine Screen U Marijuana (THC) Screen Ethyl Alcohol COVID- [facility] 12/21/19 12/21/19 12/21/19 14:15 15:40 15:40 WBC RBC Hgb Hct MCV MCH MCHC RDW Plt Count Neut % (Auto) Lymph % (Auto) [place] % (Auto) Eos % (Auto) Baso % (Auto) Neut # (Auto) Lymph # (Auto) [place] # (Auto) Eos # (Auto) Baso # (Auto) PT INR APTT Sodium Potassium Chloride Carbon Dioxide BUN Creatinine Estimated GFR BUN/Creatinine Ratio Glucose Lactate Calcium Total Bilirubin AST ALT Alkaline Phosphatase Total Protein Albumin Globulin Albumin/Globulin Ratio Lipase Procalcitonin Urine Color Yellow Urine Appearance Clear Urine pH 6.0 Ur Specific [place] 1.020 Urine Protein Negative Urine Glucose (UA) Negative Urine Ketones 1+ H Urine Occult Blood Negative Urine Nitrate Negative Urine Bilirubin Negative Urine Urobilinogen 0.2 Ur Leukocyte Esterase Trace H Urine RBC None seen Urine WBC 1-5/hpf Ur Squamous Epith Cells 10-30 /hpf H D Urine Bacteria Many (>30) H Ur Culture Indicated? Cult not indicated U Opiates 300ng/mL cut Negative Ur Oxycodone Screen Negative Urine Methadone Screen Negative Ur Barbiturates Screen Negative U Tricyclic Antidepress Positive H Ur Phencyclidine Scrn Negative Ur Amphetamines Screen Negative U Methamphetamines Scrn Negative Ur MDMA Scrn (Ecstasy) Negative U Benzodiazepines Scrn Positive H Urine Cocaine Screen Negative U Marijuana (THC) Screen Negative Ethyl Alcohol COVID-19 PCR Negative 12/21/19 12/22/19 18:48 05:18 WBC RBC Hgb Hct MCV MCH MCHC RDW Plt Count Neut % (Auto) Lymph % (Auto) [place] % (Auto) Eos % (Auto) Baso % (Auto) Neut # (Auto) Lymph # (Auto) [place] # (Auto) Eos # (Auto) Baso # (Auto) PT INR APTT Sodium 136 L 136 L Potassium 3.5 3.3 L Chloride 99 104 Carbon Dioxide 28 30 BUN 14 13 Creatinine 0.66 0.59 Estimated GFR > 60.0 > 60.0 BUN/Creatinine Ratio 21.2 22.0 Glucose 155 H 119 H Lactate Calcium 9.9 9.1 Total Bilirubin AST ALT Alkaline Phosphatase Total Protein Albumin Globulin Albumin/Globulin Ratio Lipase Procalcitonin Urine Color Urine Appearance Urine pH Ur Specific [place] Urine Protein Urine Glucose (UA) Urine Ketones Urine Occult Blood Urine Nitrate Urine Bilirubin Urine Urobilinogen Ur Leukocyte Esterase Urine RBC Urine WBC Ur Squamous Epith Cells Urine Bacteria Ur Culture Indicated? U Opiates 300ng/mL cut Ur Oxycodone Screen Urine Methadone Screen Ur Barbiturates Screen U Tricyclic Antidepress Ur Phencyclidine Scrn Ur Amphetamines Screen U Methamphetamines Scrn Ur MDMA Scrn (Ecstasy) U Benzodiazepines Scrn Urine Cocaine Screen U Marijuana (THC) Screen Ethyl Alcohol COVID-19 PCR Labs reviewed from this morning potassium has been loaded increasing we will replace potassium intravenously. Urine is noted of having benzos and tricyclics. Assessment & Plan Assessment & Plan narrative: 1. Encephalopathy improved significantly. She seems to be her usual self based on her reported . She is much more alert and aware and responds appropriate than she was yesterday. 2. It appears it was clearly a polypharmacy phenomenon unclear what medications she will be discharged on yet to be determined by Dr. Segura. 3. We get another urine culture as she may well have urinary tract infection. 4. Will resume the nystatin medications per patient request unclear however all it is but does he was convinced that made a big difference as is has not. Will change IV fluids to normal saline with potassium. Cut down on the rate. Anticipate being discharged 1 or 2 more days. As stated above because of her tardive dyskinesia and her movement disorder a MRI of the head would not be successful Quality VTE Deep Vein Thrombosis/Pulmonary Embolism Present on Admission: No
--- NOTE | 2019-12-22 11:12 | PT.IIE ---
Surgical History (Last Reviewed 12/21/19 @ 17:19 by Pasquale Bermudez MD) Anesthesia (Resolved) History of arthroplasty of left shoulder (Acute ~2013) History of hip replacement (Deleted) History of surgery (Resolved) History of total right hip arthroplasty (Acute ~2009) Hx of arthroscopy of left knee (Acute) Hx of lumbosacral spine surgery (Acute ~05/2015) Hx of spinal fusion (Acute ~1984) S/P LASIK surgery of both eyes (Acute) Status post appendectomy Status post tubal ligation Medical History (Last Reviewed 12/21/19 @ 17:19 by Pasquale Bermudez MD) Acquired hypothyroidism (Chronic 02/10/11) Asthma (Acute) Chronic migraine without aura without status migrainosus, not intractable (Chronic) Chronic pain syndrome (Chronic) Depression (Acute) Dorsalgia (Chronic 07/28/15) Fibromyalgia (Chronic 09/06/13) Gastroesophageal reflux disease without esophagitis (Chronic 02/10/11) Generalized anxiety disorder (Chronic) HLD (hyperlipidemia) (Acute) Hypertension (Chronic) Loosening of hardware in spine (Inactive) Osteoporosis (Chronic 05/07/15) Recurrent major depressive disorder, in partial remission (Chronic 02/10/11) Spinal stenosis at L4-L5 level (Chronic) Systemic lupus erythematosus (Chronic 02/10/11) Tardive dyskinesia (Chronic) Uncomplicated opioid dependence (Chronic 12/14/15) Physical Therapy Inpatient Evaluation/Re-Eval M1 PT/OT-IP Prior Functional Status Start: 12/22/19 08:53 Freq: NEEDED Status: Active Protocol: Document 12/22/19 10:29 AW (Rec: 12/22/19 11:12 AW [id number]) Medical Review Prior Functional Status Medical History Reviewed Yes Communication Pt is able to make needs known . Mobility and Gait Pt has limited mobility at baseline. She states and her confirms that she typically spends most of her time in the bed (which is adjustable). She is able to use a FWW to walk ~20 feet from the bed to the toilet. She is pushed in a manual wheelchair when she leaves the house. Activities of Daily Living and IADL's IND for dressing and toileting . The couple have a walk-in tub with a swing out door. The pt requires her 's assist to get in and out of the tub which she sits in and for washing. Prior Functional Level (Other details) Pt's does all driving, cooking, shopping. He typically manages her meds. Per H&P, pt is opioid dependent with a history of chronic back pain and depression. Social History Household Members spouse Living Arrangements House Number of Floors (Floors) One Floor Number of Stairs To Enter/Railing? 3 ELIZABETH through the garage with R rail ascending. Pt's provides assist for stairs. Home Environment Standard Height Toilet,Tub/ Shower Home Equipment Front Wheel Walker,Manual Wheelchair,Hospital Bed,Grab Bars In Shower Employment Status Retired Additional Social History Comment Pt lives in [place] with her supportive spouse who provides all care. Their daughter lives nearby. 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 M2 PT-IP Current Condition Start: 12/22/19 08:53 Freq: NEEDED Status: Active Protocol: Document 12/22/19 10:29 AW (Rec: 12/22/19 11:12 AW [id number]) Physical Therapy Current Condition Current Condition Evaluation Date 12/22/19 Treatment Diagnosis acute encephalopathy; difficulty in walking Onset Date 12/21/19 Precautions Other Precautions high falls risk, osteoporosis M3 PT-IP Subjective Start: 12/22/19 08:53 Freq: NEEDED Status: Active Protocol: Document 12/22/19 10:29 AW (Rec: 12/22/19 11:12 AW [id number]) Subjective Physical Therapy Visit Type Type Initial Evaluation Visit Start Time 09:46 Visit Stop Time 10:28 Total Visit Minutes 18 Notes Split visits to accommodate scheduled caregiver training with another patient. Physical Therapy Visit Comments Patient Comments I just want to stay in the bed. Patient Goals To return home Therapy Pain Assessment Pain When Pain Assessed At Rest Pain Present Pain Present Denied Pain M4 PT-IP Mobility and Gait Start: 12/22/19 08:53 Freq: NEEDED Status: Active Protocol: Document 12/22/19 10:29 AW (Rec: 12/22/19 11:12 AW [id number]) PT-Bed Mobility Assessment Sit to Supine Sit to Supine Minimal Assistance,1 Person Assistance,Head of Bed Elevated Scooting Scooting to Edge of Bed Minimal Assistance PT-Transfer Assessment Sit to and From Stand Sit to and from Stand Contact Guard Assistance,1 Person Assistance,Use of Upper Extremities Equipment Transfer Assistive Device Gait Belt,Front Wheeled Walker Transfers Transfer Destination Bed Transfer Technique Forward/Backward Scoot Transfer Ability Level of Assist Contact Guard Assistance Comments Mobility Comments With HOB elevated, pt completed supine to sit by swinging her legs to exit the bed to her left side. With her legs dangling, pt required min A x 1 to right her trunk and to scoot toward EOB. She was able to sit EOB with UE support during strength assessment. Pt then stood CGA and used the FWW to ambulate ~ 3 feet forward and backward before insisting she was going back to bed. Pt completed sit to supine SBA and was repositioned on the bed with call light within reach and her spouse at bedside. Gait Assessment Gait Gait Assistance Required: Contact Guard Assist Distance (Feet) 6 Assistive Devices Assistive Device Gait Belt,Front Wheeled Walker Gait Deviations General Gait Pattern Antalgic,Decreased Stride Length,Decreased Feet Clearance,Flexed Trunk Factors Limiting Gait Function Factors Limiting Gait Function Decreased Activity Tolerance, Decreased Sensation,Decreased Strength,Pain,Poor Balance, Poor Safety Awareness Comments Gait Comments Pt walked forward and backward with FWW CGA. According to her , her current movement and activity tolerance is 90% of her baseline. Stair Climbing Assessment Comments Stair Climbing Comments Not assessed. PT-Balance Assessment Sitting Balance and Reactions Static Sitting Balance Ability Good Dynamic Sitting Balance Ability Fair Standing Balance and Reactions Static Standing Balance Ability Fair Dynamic Standing Balance Ability Fair Device Used FWW M5 PT-IP Objective Assessments Start: 12/22/19 08:53 Freq: NEEDED Status: Active Protocol: Document 12/22/19 10:29 AW (Rec: 12/22/19 11:12 AW [id number]) Orientation Orientation/Cognition Level of Alertness Confusional State Orientation Name,Birthday,Year,Place Safety Awareness Decreased Safety Awareness Memory Description Short Term Impaired Comments Pt appears somewhat confused and lethargic. She is oriented to self, year, and could state she was in the hospital but not which hospital. Gross Range of Motion Lower Extremity ROM Assessment Within Functional Limits Strength Upper Extremity Strength Assessment Bilaterally Impaired Lower Extremity Strength Assessment Bilaterally Impaired Hip 3-/5 Knee 3+/5 Ankle 3+/5 Coordination Assessment Gross Coordination Gross Coordination Impaired Assessment Coordination Comments Pt with extraneous movements consistent with tardive dyskinesia. She was unable to perform finger to nose. Sensation Assessment Sensation Proprioception (Position) Impaired Comments Sensation Comments Intact light sensation on exam . Muscle Tone Muscle Tone WNL Yes Muscle Tone Location Bilateral Upper Extremity Severity of Tone Moderate Comments Muscle Tone Comments Extraneous uncontrolled movements consistent with tardive dyskinesia. M6 PT-IP Treatment Start: 12/22/19 08:53 Freq: NEEDED Status: Active Protocol: Document 12/22/19 10:29 AW (Rec: 12/22/19 11:12 AW [id number]) Physical Therapy Treatment Education Education Provided Safety Other Treatments Other Treatment Performed Provided education on the role of PT, rationale for selection of an assistive device, and the importance of continued mobility/risks of immobility. M7 PT-IP Assessment and Plan Start: 12/22/19 08:53 Freq: NEEDED Status: Active Protocol: Document 12/22/19 10:29 AW (Rec: 12/22/19 11:12 AW [id number]) PT Summary Assessment and Plan Potential Status of Condition at Evaluation Stable Summary Assessment Summary Eliza is a 69 yo woman with limited mobility at baseline. She presents to acute PT as a low complexity eval. She typically spends most of her time in the bed and has limited tolerance for sitting or walking. She is able to walk ~20 feet with FWW and has a wheelchair for community mobility. On evaluation, pt has significantly impaired strength and required min assist for bed mobility, CGA for short bout ambulation with FWW. Her spouse is able to provide all assist safely. He states her mobility on evaluation is 90% of baseline ability. No acute PT needs identified. PT will remain available for re-consult if pt 's condition should change. Frequency of Treatment Frequency Of Treatment Discharge Discharge Recommendations PT Discharge Recommendations Home with 19/12 Assist Transportation Needs at Discharge Private Vehicle
--- NOTE | 2019-12-22 11:16 | PT.IIE ---
Surgical History (Last Reviewed 12/21/19 @ 17:19 by Pasquale Bermudez MD) Anesthesia (Resolved) History of arthroplasty of left shoulder (Acute ~2013) History of hip replacement (Deleted) History of surgery (Resolved) History of total right hip arthroplasty (Acute ~2009) Hx of arthroscopy of left knee (Acute) Hx of lumbosacral spine surgery (Acute ~05/2015) Hx of spinal fusion (Acute ~1984) S/P LASIK surgery of both eyes (Acute) Status post appendectomy Status post tubal ligation Medical History (Last Reviewed 12/21/19 @ 17:19 by Pasquale Bermudez MD) Acquired hypothyroidism (Chronic 02/10/11) Asthma (Acute) Chronic migraine without aura without status migrainosus, not intractable (Chronic) Chronic pain syndrome (Chronic) Depression (Acute) Dorsalgia (Chronic 07/28/15) Fibromyalgia (Chronic 09/06/13) Gastroesophageal reflux disease without esophagitis (Chronic 02/10/11) Generalized anxiety disorder (Chronic) HLD (hyperlipidemia) (Acute) Hypertension (Chronic) Loosening of hardware in spine (Inactive) Osteoporosis (Chronic 05/07/15) Recurrent major depressive disorder, in partial remission (Chronic 02/10/11) Spinal stenosis at L4-L5 level (Chronic) Systemic lupus erythematosus (Chronic 02/10/11) Tardive dyskinesia (Chronic) Uncomplicated opioid dependence (Chronic 12/14/15) Physical Therapy Inpatient Evaluation/Re-Eval M1 PT/OT-IP Prior Functional Status Start: 12/22/19 08:53 Freq: NEEDED Status: Active Protocol: Document 12/22/19 10:29 AW (Rec: 12/22/19 11:12 AW [id number]) Medical Review Prior Functional Status Medical History Reviewed Yes Communication Pt is able to make needs known . Mobility and Gait Pt has limited mobility at baseline. She states and her confirms that she typically spends most of her time in the bed (which is adjustable). She is able to use a FWW to walk ~20 feet from the bed to the toilet. She is pushed in a manual wheelchair when she leaves the house. Activities of Daily Living and IADL's IND for dressing and toileting . The couple have a walk-in tub with a swing out door. The pt requires her 's assist to get in and out of the tub which she sits in and for washing. Prior Functional Level (Other details) Pt's does all driving, cooking, shopping. He typically manages her meds. Per H&P, pt is opioid dependent with a history of chronic back pain and depression. Social History Household Members spouse Living Arrangements House Number of Floors (Floors) One Floor Number of Stairs To Enter/Railing? 3 ELIZABETH through the garage with R rail ascending. Pt's provides assist for stairs. Home Environment Standard Height Toilet,Tub/ Shower Home Equipment Front Wheel Walker,Manual Wheelchair,Hospital Bed,Grab Bars In Shower Employment Status Retired Additional Social History Comment Pt lives in [place] with her supportive spouse who provides all care. Their daughter lives nearby. 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 M2 PT-IP Current Condition Start: 12/22/19 08:53 Freq: NEEDED Status: Active Protocol: Document 12/22/19 10:29 AW (Rec: 12/22/19 11:12 AW [id number]) Physical Therapy Current Condition Current Condition Evaluation Date 12/22/19 Treatment Diagnosis acute encephalopathy; difficulty in walking Onset Date 12/21/19 Precautions Other Precautions high falls risk, osteoporosis M3 PT-IP Subjective Start: 12/22/19 08:53 Freq: NEEDED Status: Active Protocol: Document 12/22/19 10:29 AW (Rec: 12/22/19 11:12 AW [id number]) Subjective Physical Therapy Visit Type Type Initial Evaluation Visit Start Time 09:46 Visit Stop Time 10:28 Total Visit Minutes 18 Notes Split visits to accommodate scheduled caregiver training with another patient. Physical Therapy Visit Comments Patient Comments I just want to stay in the bed. Patient Goals To return home Therapy Pain Assessment Pain When Pain Assessed At Rest Pain Present Pain Present Denied Pain M4 PT-IP Mobility and Gait Start: 12/22/19 08:53 Freq: NEEDED Status: Active Protocol: Document 12/22/19 10:29 AW (Rec: 12/22/19 11:12 AW [id number]) PT-Bed Mobility Assessment Sit to Supine Sit to Supine Minimal Assistance,1 Person Assistance,Head of Bed Elevated Scooting Scooting to Edge of Bed Minimal Assistance PT-Transfer Assessment Sit to and From Stand Sit to and from Stand Contact Guard Assistance,1 Person Assistance,Use of Upper Extremities Equipment Transfer Assistive Device Gait Belt,Front Wheeled Walker Transfers Transfer Destination Bed Transfer Technique Forward/Backward Scoot Transfer Ability Level of Assist Contact Guard Assistance Comments Mobility Comments With HOB elevated, pt completed supine to sit by swinging her legs to exit the bed to her left side. With her legs dangling, pt required min A x 1 to right her trunk and to scoot toward EOB. She was able to sit EOB with UE support during strength assessment. Pt then stood CGA and used the FWW to ambulate ~ 3 feet forward and backward before insisting she was going back to bed. Pt completed sit to supine SBA and was repositioned on the bed with call light within reach and her spouse at bedside. Gait Assessment Gait Gait Assistance Required: Contact Guard Assist Distance (Feet) 6 Assistive Devices Assistive Device Gait Belt,Front Wheeled Walker Gait Deviations General Gait Pattern Antalgic,Decreased Stride Length,Decreased Feet Clearance,Flexed Trunk Factors Limiting Gait Function Factors Limiting Gait Function Decreased Activity Tolerance, Decreased Sensation,Decreased Strength,Pain,Poor Balance, Poor Safety Awareness Comments Gait Comments Pt walked forward and backward with FWW CGA. According to her , her current movement and activity tolerance is 90% of her baseline. Stair Climbing Assessment Comments Stair Climbing Comments Not assessed. PT-Balance Assessment Sitting Balance and Reactions Static Sitting Balance Ability Good Dynamic Sitting Balance Ability Fair Standing Balance and Reactions Static Standing Balance Ability Fair Dynamic Standing Balance Ability Fair Device Used FWW M5 PT-IP Objective Assessments Start: 12/22/19 08:53 Freq: NEEDED Status: Active Protocol: Document 12/22/19 10:29 AW (Rec: 12/22/19 11:12 AW [id number]) Orientation Orientation/Cognition Level of Alertness Confusional State Orientation Name,Birthday,Year,Place Safety Awareness Decreased Safety Awareness Memory Description Short Term Impaired Comments Pt appears somewhat confused and lethargic. She is oriented to self, year, and could state she was in the hospital but not which hospital. Gross Range of Motion Lower Extremity ROM Assessment Within Functional Limits Strength Upper Extremity Strength Assessment Bilaterally Impaired Lower Extremity Strength Assessment Bilaterally Impaired Hip 3-/5 Knee 3+/5 Ankle 3+/5 Coordination Assessment Gross Coordination Gross Coordination Impaired Assessment Coordination Comments Pt with extraneous movements consistent with tardive dyskinesia. She was unable to perform finger to nose. Sensation Assessment Sensation Proprioception (Position) Impaired Comments Sensation Comments Intact light sensation on exam . Muscle Tone Muscle Tone WNL Yes Muscle Tone Location Bilateral Upper Extremity Severity of Tone Moderate Comments Muscle Tone Comments Extraneous uncontrolled movements consistent with tardive dyskinesia. M6 PT-IP Treatment Start: 12/22/19 08:53 Freq: NEEDED Status: Active Protocol: Document 12/22/19 10:29 AW (Rec: 12/22/19 11:12 AW [id number]) Physical Therapy Treatment Education Education Provided Safety Other Treatments Other Treatment Performed Provided education on the role of PT, rationale for selection of an assistive device, and the importance of continued mobility/risks of immobility. M7 PT-IP Assessment and Plan Start: 12/22/19 08:53 Freq: NEEDED Status: Active Protocol: Document 12/22/19 10:29 AW (Rec: 12/22/19 11:12 AW [id number]) PT Summary Assessment and Plan Potential Status of Condition at Evaluation Stable Summary Assessment Summary Eliza is a 69 yo woman with limited mobility at baseline. She presents to acute PT as a low complexity eval. She typically spends most of her time in the bed and has limited tolerance for sitting or walking. She is able to walk ~20 feet with FWW and has a wheelchair for community mobility. On evaluation, pt has significantly impaired strength and required min assist for bed mobility, CGA for short bout ambulation with FWW. Her spouse is able to provide all assist safely. He states her mobility on evaluation is 90% of baseline ability. No acute PT needs identified. PT will remain available for re-consult if pt 's condition should change. Pt would possibly benefit from PT if she is amenable. Frequency of Treatment Frequency Of Treatment Discharge Discharge Recommendations PT Discharge Recommendations Home with 19/12 Assist,Home Health Transportation Needs at Discharge Private Vehicle
[2019-12-22] MEDS: KCL 40 MEQ IN NS 1,000 ML 84 MEQ IV (11:21)
--- NOTE | 2019-12-22 12:01 | PC.NURSE ---
Patient did not want to eat her Breakfast, stated that she was having a Migraine Attack.
--- NOTE | 2019-12-22 12:03 | PC.NURSE ---
Patient does not want her Lunch Tray, not hungry.
[2019-12-22] MEDS: NYSTATIN POWDER 15GM 1 APPLIC TOP ×2 (12:14→20:05)
[2019-12-22] MEDS: NYSTATIN SUSP 500,000 UNIT/5 ML UDC 500000 UNIT PO ×3 (12:14→20:08)
[2019-12-22] MEDS: SUMAtriptan 25 MG TABLET 50 MG PO ×2 (12:49→16:34)
--- NOTE | 2019-12-22 13:16 | PC.NURSE ---
Addendum entered by Linda Antonio R.N. 12/22/19 13:20: Patients Left AC IV infiltrated. Removed. Started IV in Right wrist. Patient tolerated. 40K/NS restarted at 84ml/hour. Patient had large BM. Reports she is not hungry r/t oral thrush. Nystatin PO given. Patient c/o headache, given prescribed migraine medication, room darkened. Call light in reach, remains at bedside, bed alarm on. Original Note: Patient resting in bed this AM. A/O to self and situation. C/O headache, 01/05. Tylenol given. Patient on RA, 95%, denies chest pain, pulses equal bilaterally, bowel sounds active x3, hypoactive in LLQ, patient reports LLQ tenderness when palpitated. Gave patient PRN mirilax. Spontaneous movement of head and feet has lessened. Patient appears to be resting comfortably. Lanier in place, draining clear dark yellow urine, UA sent to lab. This RN set patient up with bed bath to be preformed by .
--- NOTE | 2019-12-22 23:59 | PC.NURSE ---
[employer] DEVEL[employer] note: bed alarm not on, patient's spouse is at bed side.
[2019-12-23] MEDS: KCL 40 MEQ IN NS 1,000 ML 84 MEQ IV (00:22)
[2019-12-23 04:39] VITALS: BP 185/88; PULSE 56; RESP 16; TEMP 36.9; O2SAT 96
[2019-12-23 06:12] LABS: BUN Creatinine Ratio 13.8 (6-22); Blood Urea Nitrogen 8 mg/dL (7-17); Calcium 9.1 mg/dL (8.4-10.2); Carbon Dioxide 27 mmol/L (22-32); Chloride 105 mmol/L (98-107); Estimated Glomerular Filt Rate > 60.0 mL/min (>60); Glucose 109 mg/dL (80-110); HEMOLYSIS < 15 (0-50); Potassium 3.6 mmol/L (3.4-5.1); Sodium 135 mmol/L (137-145)
[2019-12-23] MEDS: ENOXAPARIN 40 MG/0.4 ML SYRINGE SUBCUT (07:29)
[2019-12-23] MEDS: ACETAMINOPHEN 325 MG TABLET 650 MG PO (07:30)
[2019-12-23] MEDS: METOPROLOL IR 25 MG TABLET PO (07:30)
[2019-12-23] MEDS: lisinopriL 20 MG TABLET 40 MG PO (07:30)
[2019-12-23] MEDS: AMLODIPINE 5 MG TABLET PO (07:30)
[2019-12-23] MEDS: SUMAtriptan 25 MG TABLET 50 MG PO (07:30)
[2019-12-23] MEDS: hydroCHLOROthiazide 25 MG TABLET PO (07:30)
[2019-12-23 07:37] VITALS: BP 164/90; PULSE 72; RESP 18; TEMP 36.4; O2SAT 94
--- NOTE | 2019-12-23 08:28 | PM.DS.1 ---
History of Present Illness History of Present Illness Date Patient Seen: 12/23/19 Time Patient Seen: 08:28 Chief complaint: Infection ability to function Narrative: History is basically from the . This past week she had been her usual self. On he left her to go cramping. Normally he is with her and dispense his medications. When he returned from [facility] which was later in the day a he felt that she was confused disoriented and very lethargic. He thought perhaps this might well have been a extra oxycodone which she has done in the past so he withheld anymore oxycodone since then. Apparently in the past she has had difficulties with the medication usage. He did give her the nighttime Seroquel that is help her sleep and he has given her no other her medications since other than the nighttime Seroquel. On Monday she was unchanged still confused lethargic seemingly disoriented and this morning he brought her to the emergency room because it had persisted. He was hoping that was excess oxycodone and that eventually the effects wear off and her mental status would improve but apparently has not. He also thinks that there may well be a urinary tract infection that she has had these in the past and a affected her mental status. He mentions that she was supposed to be taking doxycycline for some unknown reason he wonders if that may have affected her mental status. Her baseline medications as best I can tell the chart include the following baclofen does it per main diazepam escitalopram hydrochlorothiazide lisinopril metoprolol she had been using nystatin swish and swallow and pallor for used apparently that is resolved. Zofran as needed nausea and oxycodone 15 mg every 4-6 hours as needed back pain. relates that she is basically nonambulatory she can walk with a walker from her bed to the bathroom and from her bed to the kitchen does not do this very often. When he needs her to move he has a wheelchair that she uses and he uses a. It is unclear to me what her psychiatric diagnosis is chart relates of severe depression apparently she has not seen any sort of neurologic/psychiatric providers. She does have chronic back pain apparently has had several back surgeries she has osteoporosis the screws of working himself lives in the really has no treatment options. There for the oxycodone. does admit that since she has been here as since she has not given any oxycodone on she has not complained of back pain {from Dr. Hendrix's H&P 12/21/19} Discharge Providers Provider Date of admission: 12/21/19 13:45 Discharge Date: 12/23/19 Primary care physician: Pasquale Segura MD Consults: 12/21/19 16:34 Consult to Discharge Planning Routine Comment: Consult to Occupational Therapy Evaluate & Treat Comment: Physician Instructions: Evaluate and treat Consult to Physical Therapy Evaluate & Treat Comment: Physician Instructions: Evaluate and Treat 12/21/19 17:59 Consult to Dietitian, Adult Routine Comment: Reason For Exam: Mini nutritional score 12/22/19 10:21 Consult to Home Health Routine Comment: [facility] has accepted the referral Reason For Exam: RN/OT/PT at d/c Discharge provider: Pasquale Segura MD Summary Hospital Course Discharge Diagnosis: 1. Metabolic encephalopathy 2. Opiate dependence 3. Tardive dyskinesia 4. Chronic migraine disorder 5. Generalized anxiety disorder 6. Hypertension 7. Depression 8. Hypothyroidism on replacement 9. Chronic back pain with spinal stenosis 10. Systemic lupus 11. Osteoporosis 12. UTI with gram-negative bacilli 13. Insomnia, chronic, primary Hospital Course: Patient was admitted to the hospital after presenting basically with a altered mental status. Workup in the ER and subsequent did not show any evidence of any specific etiology other than patient's probable polypharmacy or medication mismanagement. Of note this is the 3rd or 4th time patient has presented in this fashion although certainly this is the most severe. Has been felt in the past to be due to probably her opiates although perhaps a combination of medication. Patient does far better when spouse is controlling medications but as in this case at times she has access to meds and then seems to become incoherent/altered. Any event after sufficient time in the hospital and some rehydration patient became much much improved. She returned to baseline as far as cognitive function. All of her opiates and other potentially REDUCING SALON ATTENDANT affecting medications were held. Patient did not have issues with significant back pain that was uncontrolled did not have issues with anxiety or other particular problems. She was not having difficulty with sleep. Her tardive dyskinesia was present and did not change much Patient had Lanier catheter placed upon admission to monitor fluids and sample obtained did grow Gram-negative rods. This was empirically treated with nitrofurantoin and final culture is pending at time of discharge but will be treated. Has not felt as though this infection contributed to her cognitive dysfunction since antibiotic therapy was not started until after she had return of normal mental status Patient was also hypertensive throughout the course of her hospital stay. Has not felt as though she had a malignant hypertension that was the cause of her mental status changes given that she improved without any real significant change in blood pressure. Additional antihypertensive therapy was initiated will be continued as an outpatient as well with close follow-up Upon discharge patient's medications will be minimized entirely and in the future drugs only be restarted when the benefit is felt to clearly outweigh risk! Exam Vital Signs (past 8 hours): - 12/23/19 04:39 Temperature 98.5 F Pulse Rate 56 L Respiratory Rate 16 Blood Pressure 185/88 H Pulse Oximetry 96 Oxygen Delivery Method Room Air Oxygen Flow Rate 0 Objective Labs Result Diagrams: 12/21/19 10:27 12/23/19 05:31 Labs: Laboratory Results - last 24 hr 12/23/19 05:31 Sodium 135 L Potassium 3.6 Chloride 105 Carbon Dioxide 27 BUN 8 Creatinine 0.58 Estimated GFR > 60.0 BUN/Creatinine Ratio 13.8 Glucose 109 Calcium 9.1 Discharge Assessment & Plan Assessment and Plan Plan of Treatment: Patient will remain off of her oxycodone. Should remain off of her diazepam. She remain off of her generic Seroquel which is used for sleep. She will remain off of her baclofen. She will continue on her April for bladder issues and ondansetron for chronic nausea. Nitrofurantoin was initiated on day of discharge and will be continued for a 1 week course in total. Final cultures were still pending but will be evaluated when available Patient also be started on additional antihypertensive therapy given her persistent hypertension in the hospital. Patient be seen in the outpatient clinic by her PCP Dr. Segura in approximately 1 weeks time Discharge Plan Discharge Plan Patient Disposition: Home Discharge orders & Medications Prescriptions: New amlodipine [Norvasc] 5 mg Tablet 5 mg PO DAILY Qty: 30 RF: 3 nitrofurantoin macrocrystal 100 mg capsule 100 mg PO BID Qty: 13 RF: 0 Continued hydrochlorothiazide 25 mg tablet 25 mg PO DAILY Qty: 90 RF: 3 escitalopram oxalate 10 mg tablet 30 mg PO DAILY Qty: 270 RF: 3 ondansetron HCl 8 mg tablet 8 mg PO QID PRN (Reason: nausea and vomiting) Qty: 120 RF: 0 rizatriptan 10 mg tablet 10 mg PO .COMPLEX PRN (Reason: migraine headache) Qty: 6 RF: 11 nystatin [Nystop] 100,000 unit/gram powder 1 applictn TOP BID PRN (Reason: Yeast infection) Qty: 60 RF: 3 nystatin 100,000 unit/mL suspension 5 ml PO TID Qty: 250 RF: 3 metoprolol tartrate 25 mg tablet 25 mg PO BID Qty: 60 RF: 3 desipramine 50 mg tablet 100 mg PO DAILY RF: 0 lisinopril 40 mg tablet 40 mg PO BID RF: 0 Discontinued quetiapine 100 mg tablet 100 mg PO BEDTIME Qty: 90 RF: 3 diazepam 5 mg tablet 5 mg PO BID PRN (Reason: sleep/anxiety) Qty: 60 RF: 3 baclofen 5 mg tablet 5 mg PO TID RF: 0 oxycodone 15 mg tablet 15 mg PO Q4-6H MDD 6 PRN (Reason: PAIN) RF: 0 Follow up/Referrals: Pasquale Segura MD [Primary Care Provider] - 1 Week (tell [facility] staff 15 min appt okay) Discharge Health Status Multidrug resistant organism: No MDRO Diet/Activity/Treatments Diet: Diet as Tolerated Visit Report/Discharge Packet Visit Report Forms: Patient Portal/API, Stroke Signs & Symptoms Discharge Data Primary Care Provider: Pasquale Segura Quality VTE Deep Vein Thrombosis/Pulmonary Embolism Present on Admission: No
[2019-12-23] MEDS: NITROFURANTOIN ER 100 MG CAPSULE PO (09:09)
[2019-12-23] MEDS: NYSTATIN POWDER 15GM 1 APPLIC TOP (09:09)
[2019-12-23] MEDS: NYSTATIN SUSP 500,000 UNIT/5 ML UDC 500000 UNIT PO (09:10)
[2019-12-23] MEDS: ESCITALOPRAM 10 MG TABLET 30 MG PO (09:11)
--- NOTE | 2019-12-23 09:20 | CM.DPC ---
DCP Cont: Patient is being discharged home today. Went ahead and left a message with Mariela at [facility] to give her an update. Faxed over DC summary, orders, and face to face to [facility]. She will be getting nursing, P.T, O.T. P: Patient is discharging home today with [facility]. Kelly Gray RN/Patrol Commander
--- NOTE | 2019-12-23 09:29 | OT.IP.EVAL ---
Current Diagnoses Metabolic encephalopathy (12/21/19) Past Medical History (Last Reviewed 12/21/19 @ 17:19 by Pasquale Bermudez MD) Acquired hypothyroidism (Chronic 02/10/11) Asthma (Acute) Chronic migraine without aura without status migrainosus, not intractable (Chronic) Chronic pain syndrome (Chronic) Depression (Acute) Dorsalgia (Chronic 07/28/15) Fibromyalgia (Chronic 09/06/13) Gastroesophageal reflux disease without esophagitis (Chronic 02/10/11) Generalized anxiety disorder (Chronic) HLD (hyperlipidemia) (Acute) Hypertension (Chronic) Loosening of hardware in spine (Inactive) Osteoporosis (Chronic 05/07/15) Recurrent major depressive disorder, in partial remission (Chronic 02/10/11) Spinal stenosis at L4-L5 level (Chronic) Systemic lupus erythematosus (Chronic 02/10/11) Tardive dyskinesia (Chronic) Uncomplicated opioid dependence (Chronic 12/14/15) Surgical History (Last Reviewed 12/21/19 @ 17:19 by Pasquale Bermudez MD) Anesthesia (Resolved) History of arthroplasty of left shoulder (Acute ~2013) History of hip replacement (Deleted) History of surgery (Resolved) History of total right hip arthroplasty (Acute ~2009) Hx of arthroscopy of left knee (Acute) Hx of lumbosacral spine surgery (Acute ~05/2015) Hx of spinal fusion (Acute ~1984) S/P LASIK surgery of both eyes (Acute) Status post appendectomy Status post tubal ligation Occupational Therapy Inpatient Evaluation/Re-Eval M1 PT/OT-IP Prior Functional Status Start: 12/22/19 08:53 Freq: NEEDED Status: Active Protocol: Document 12/23/19 10:16 CGR (Rec: 12/23/19 10:24 CGR [email or web address]) Medical Review Prior Functional Status Medical History Reviewed Yes Communication Pt is able to make needs known . Mobility and Gait Pt has limited mobility at baseline. She states and her confirms that she typically spends most of her time in the bed (which is adjustable). She is able to use a FWW to walk ~20 feet from the bed to the toilet. She is pushed in a manual wheelchair when she leaves the house. Activities of Daily Living and IADL's IND for dressing and toileting . The couple have a walk-in tub with a swing out door. The pt requires her 's assist to get in and out of the tub which she sits in and for washing. Prior Functional Level (Other details) Pt's does all driving, cooking, shopping. He typically manages her meds. Per H&P, pt is opioid dependent with a history of chronic back pain and depression. All information obtained from P.T. note and pt confirmed. Social History Household Members spouse Living Arrangements House Number of Floors (Floors) One Floor Number of Stairs To Enter/Railing? 3 ELIZABETH through the garage with R rail ascending. Pt's provides assist for stairs. Home Environment Standard Height Toilet,Tub/ Shower Home Equipment Front Wheel Walker,Manual Wheelchair,Hospital Bed,Grab Bars In Shower Employment Status Retired Additional Social History Comment Pt lives in [place] with her supportive spouse who provides all care. Their daughter lives nearby. 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 M2 OT-IP Current Condition Start: 12/23/19 10:16 Freq: Status: Active Protocol: Document 12/23/19 10:16 CGR (Rec: 12/23/19 10:24 CGR [email or web address]) Occupational Therapy Current Condition Current Condition Evaluation Date 12/23/19 Treatment Diagnosis AMS Diagnosis Onset Date 12/21/19 M3 OT- IP Subjective and Pain Start: 12/23/19 10:16 Freq: Status: Active Protocol: Document 12/23/19 10:16 CGR (Rec: 12/23/19 10:24 CGR [email or web address]) OT- Subjective Occupational Therapy Visit Type Type Initial Evaluation Visit Start Time 09:21 Visit Stop Time 09:29 Total Visit Minutes 8 Occupational Therapy Visit Comments Patient Comments I can do all of this stuff without help but the nurses want me to call for them. OT Pain Assessment Pain When Pain Assessed At Rest Pain Present Pain Present Denied Pain M4 OT- IP ADL's Start: 12/23/19 10:16 Freq: Status: Active Protocol: Document 12/23/19 10:16 CGR (Rec: 12/23/19 10:24 CGR [email or web address]) OT GSP-[id number] Comments OT Self-Feeding Comments Not meal time OT ADL-Grooming Comments OT Grooming Comments Pt declined, states she will do when she gets home. OT ADL-Oral Care Comments Oral Care Comments Pt declined, states that she will do when she gets home. OT ADL-Dressing General Eval Lower Body Dressing Ability Independent Areas Needing Assistance Socks Comments OT Dressing Comments Demonstrated to BLE seated EOB OT ADL-Toileting General Evaluation Toileting Ability Standby Assistance Devices Toileting Assistive Devices Grab Bars Comments OT Toileting Comments seated on toilet OT ADL-Bathing Comments OT Bathing Comments Pt declined, states she plans to shower when she gets home. M5 OT- IP IADL's Start: 12/23/19 10:16 Freq: Status: Active Protocol: Document 12/23/19 10:16 CGR (Rec: 12/23/19 10:24 CGR [email or web address]) OT-Instrumental Activities of Daily Living Deficits IADL Deficits Identified Deficits Home Safety Awareness Awareness of Need for Assistance at Home Decreased Awareness Medication Management Medication Management Caregiver Administers Money Management Money Management Caregiver Provides Assistance Meal Preparation Meal Preparation Caregiver Provides Assist Assistant Store Director Assistant Store Director Caregiver Provides Assist M6 OT- IP Functional Cognition Start: 12/23/19 10:16 Freq: Status: Active Protocol: Document 12/23/19 10:16 CGR (Rec: 12/23/19 10:24 CGR [email or web address]) Cognitive Factors Limiting Selfcare Function Cognitive Ability Level of Alertness Alert Patient Orientation Name Attention Span Ability Capable of Focused Attention, Capable of Sustained Attention Ability to Follow Commands Able to Follow One Step Commands OT- Vision and Hearing OT- Hearing Assessment OT- Hearing Assessment WFL OT- Vision Assessment Visual Acuity WFL Visual Attentiveness WFL Occular Pursuits WFL M7 OT- IP Mobility and Balance Start: 12/23/19 10:16 Freq: Status: Active Protocol: Document 12/23/19 10:16 CGR (Rec: 12/23/19 10:24 CGR [email or web address]) OT- Bed Mobility Assessment Supine to Sit Supine to Sit Assist Standby Assistance Sit to Supine Sit to Supine Assist Standby Assistance Scooting Scooting to Edge of Bed Standby Assistance OT-Transfer Assessment Sit to and From Stand Sit to and from Stand Standby Assistance Transfers Transfer Ability Standby Assistance Technique Transfer Destination Bed,Toilet Transfer Technique Stand Step Pivot Devices Transfer Assistive Devices Gait Belt,Front Wheeled Walker Comments Mobility Comments Pt with poor safety using walker with toileting. Educated on safety. OT- Gait Assessment Gait Gait Assistance Required: Standby Assistance Assistive Devices Assistive Device Gait Belt,Front Wheeled Walker Comments Gait Ability Comments Mobility around the room and bathroom only. OT- Balance Assessment Sitting Balance and Reactions Static Sitting Balance Ability Good Dynamic Sitting Balance Ability Good M8 OT- IP Objective Assessments Start: 12/23/19 10:16 Freq: Status: Active Protocol: Document 12/23/19 10:16 CGR (Rec: 12/23/19 10:24 CGR [email or web address]) OT Strength Upper Extremity Strength Assessment Within Functional Limits Comments Strength Comments 4/5 throughout except shoulders 4 -/5 OT- Coordination Assessment Upper Extremity Finger to Nose Test Within Functional Limits Finger Tapping Test Within Functional Limits OT-Muscle Tone Assessment Muscle Tone WNL Yes OT Sensation Assessment Edema Edema Absent M9 OT- IP Assessment and Plan Start: 12/23/19 10:16 Freq: Status: Active Protocol: Document 12/23/19 10:16 CGR (Rec: 12/23/19 10:24 CGR [email or web address]) OT Summary Assessment and Plan Potential Rehabilitation Potential Excellent Analytic Complexity at Evaluation Low Summary OT Impairments Strength,Activity Tolerance Progress Towards Goals Safe For Discharge Assessment Summary Pt presents at her baseline for ADLs and functional mobility at this time. Pt is a low complexity evaluation. Pt safe for discharge home with family support. Frequency of Treatment Frequency Of Treatment Discharge Discharge Recommendations OT Discharge Recommendations Home with Assistance Transportation Needs at Discharge Private Vehicle
--- NOTE | 2019-12-23 10:38 | DIET.PN ---
Dietary Progress Note Assessment: 69y F admitted for changes in mental status found due to polypharmacy referred to nutrition for MNA score 9 (at risk for malnutrition). Pt is d/c'ing without opioids or benzodiazepines as px was well controlled without them during stay. Pt has chronic back px and OA in spine. Pt transfers from bed to bathroom or kitchen but otherwise using wheelchair for mobility or in bed. HT: 167.6cm WT: 82kg BMI: 29.2 Labs:high tricyclic antidepressants, high benzodiazepines MNA: 9 Cory: 17 Interventions: 1. Educated pt on anti-inflammatory diet using patient education handout. This is indicated for her chronic px c hx of opioid dependence secondary to multiple back surgeries and OA as well as her dx of the autoimmune dz Lupus. Encouraged high intake colorful F/V, fiber, omega 3s and olive oil while avoiding most ultraprocessed foods. Diet Order: General
--- NOTE | 2019-12-23 10:44 | PC.NURSE ---
Day shift: Pt taken to car by ELECTRICAL PROSPECTING OBSERVER in . Pt driven home by spouse. Paperwork signed and all questions answered. Pt has all personal belongings. MD scripts sent by electronic to Pt's pharmacy. Pt and spouse said they did not want home health services at this time. They feel they can handle things. Pt and her spouse also said they would make f/u appointment today and ask Dr Segura what med to take for sleeping as the narc was discontinued.
== END 2019-12-23 10:47 | disposition home or self-care (01) | DRG 92 ==
LOC: ED 13:25 → AC 13:56
PROVIDERS: Admitting Provider Family Medicine; Emergency Provider Emergency Medicine; PCP Internal Medicine; Referring Provider Emergency Medicine; Visit Provider Internal Medicine
DX: G92 Toxic encephalopathy (principal); N39.0 Urinary tract infection, site not specified; F11.20 Opioid dependence, uncomplicated; G24.01 Drug induced subacute dyskinesia; E87.6 Hypokalemia; B96.20 Unspecified Escherichia coli [E. coli] as the cause of diseases classified elsewhere; G89.4 Chronic pain syndrome; F32.9 Major depressive disorder, single episode, unspecified; K21.9 Gastro-esophageal reflux disease without esophagitis; E78.5 Hyperlipidemia, unspecified; I10 Essential (primary) hypertension; G43.809 Other migraine, not intractable, without status migrainosus; F41.9 Anxiety disorder, unspecified; E03.8 Other specified hypothyroidism; M32.9 Systemic lupus erythematosus, unspecified; B96.89 Other specified bacterial agents as the cause of diseases classified elsewhere
CPT/HCPCS: 36415; 70450; 71045; 80048; 80053; 80305; 80320; 81001; 83605; 83690; 84145; 85025; 85610; 85730; 87040; 87077; 87086; 87186; 87635; 93005; 96361; 96374; 96375; 97161; 97165; 99223; 99233; 99238; 99285; 99406; J0515; J1650; J2060; J3480

== ENCOUNTER → 2020-01-06 15:17 | Outpatient (CLI) | payer MEDICARE, SELFPAY ==
[2019-12-25 14:35] VITALS: BMI 29.6
== END ==
PROVIDERS: PCP Internal Medicine; Visit Provider Internal Medicine
DX: R30.0 Dysuria (principal)
CPT/HCPCS: 87077; 87086; 87186

== ENCOUNTER 2020-01-17 15:26 | Emergency (ER) | payer MEDICARE, SELFPAY ==
[2019-12-25 14:35] VITALS: BMI 29.6
[2020-01-17] VITALS (24 sets, daily range): BP systolic 118–206; BP diastolic 61–86; PULSE 62–80; RESP 14–37; TEMP 36.4; O2SAT 94–99; BMI 28.8
--- NOTE | 2020-01-17 16:52 | DI.CT.S_ITS ---
PROCEDURE: CT LUMBAR SPINE WO CON INDICATIONS: fall, back pain with ecchymosis on left lower back TECHNIQUE: Noncontrast 3 mm thick sections acquired from the T12 level to the sacrum. Sagittal and coronal reformats were constructed. For radiation dose reduction, the following was used: automated exposure control. COMPARISON: [facility], CT, CT LUMBAR SPINE WO CON, 08/15/2019, 14:10. FINDINGS: Image quality: Excellent. Postsurgical changes of L4-S1 posterior fixation by means of bilateral rods and pedicle screws with interbody device at the L4-L5 level. There is no osseous fusion across the intervertebral disc spaces. Morselized bone graft material was placed amongst the posterior elements with varying degrees of mild osseous fusion between the facets. There is no hardware fracture or other acute complicating hardware feature. There is also postprocedural change of C mint augmentation at L1. Height loss of the L1 vertebral body is similar to the August 15, 2019 exam. Remaining vertebral body heights are also unchanged with regard to height. There is mild wedging of the L3 vertebral body which is unchanged. The remaining vertebral bodies are normal in height. There is diffuse osteopenia with no evidence of an acute compression fracture. No suspicious lytic or blastic osseous lesion. Extensive degenerative changes in the lumbar spine are similar. Varying degrees of spinal canal or neural foraminal stenosis have not significantly progressed when compared with 08/15/2019 exam. Prevertebral and paraspinous soft tissues unremarkable other than edema and hematoma in the subcutaneous fat overlying the left paraspinal musculature, consistent with provided history. IMPRESSION: No lumbar spine fracture or acute finding of the vertebral column. Soft tissue edema and small hematoma consistent with provided history of left flank ecchymosis. Dictated by: Tree Cano M.D. on 01/17/2020 at 17:40 Approved by: Tree Cano M.D. on 01/17/2020 at 17:45
--- NOTE | 2020-01-17 16:53 | DI.CT.S_ITS ---
PROCEDURE: CT HEAD/BRAIN WO CON INDICATIONS: falls x4 last 5 days, dizziness TECHNIQUE: Noncontrast 4.5 mm thick angled axial sections acquired from the foramen magnum to the vertex, with coronal and sagittal reformats. For radiation dose reduction, the following was used: automated exposure control, adjustment of mA and/or kV according to patient size. COMPARISON: [facility], CT, HEAD WITHOUT CONTRAST, 11/14/2015, 4:52. [facility], MR, MR STROKE, 05/02/2018, 16:22 age. [facility], CT, CT LUMBAR SPINE WO CON, , 17:02[facility], CT, CT HEAD/BRAIN WO CON, 12/21/2019, 10:56. FINDINGS: Image quality: This examination is limited by involuntary motion artifact. Streak artifact from the patient's hearing aids can be seen. CSF spaces: Basal cisterns are patent. No extra-axial fluid collections. The ventricles are symmetric in size and shape. Brain: No intracranial bleeds or masses. There is cerebral volume loss for age, with resultant ventricular and sulcal prominence. There are periventricular and deep white matter chronic small vessel ischemic changes. There is intracranial internal carotid artery atherosclerosis. Skull and face: Calvarium and visualized facial bones appear intact, without suspicious lesions. Incidental note is made of hyperostosis frontalis. This is not considered to be pathologic in a woman of this age. Sinuses: Visualized sinuses and mastoids are clear. IMPRESSION: Limited study demonstrating no yesenia intracranial hemorrhage. No definite intracranial abnormality is seen for age. Dictated by: Denis Shaw M.D. on 01/17/2020 at 16:47 Approved by: Denis Shaw M.D. on 01/17/2020 at 16:48
[2020-01-17] MEDS: SODIUM CHLORIDE 0.9% 1,000 ML 150 ML IV (17:30)
[2020-01-17] MEDS: LIDOCAINE VISCOUS 2% 15 ML SOLUTION 10 ML PO (17:31)
[2020-01-17] MEDS: MAG HYDROX/ALUM/SIMETH 30 ML UDC 15 ML PO (17:31)
[2020-01-17 17:44] LABS: Add Manual Diff / Slide Review NO; Basophils Absolute Auto 100 /uL (0-100); Basophils Percent Auto 0.6 % (0-2); Eosinophils Absolute Auto 300 /uL (0-450); Eosinophils Percent Auto 2.1 % (2-4); Hematocrit 37.5 % (36-46); Hemoglobin 12.9 g/dL (12.0-16.0); Lymphocytes Absolute Auto 1500 /uL (1100-4500); Lymphocytes Percent Auto 8.8 % (25-40); Mean Corpuscular HGB Conc 34.3 % (30-36); Mean Corpuscular Volume 87.3 fL (80-100); Monocytes Absolute Auto 1000 /uL (0-900); Monocytes Percent Auto 6.2 % (3-14); Neutrophils Absolute Auto 13800 /uL (1500-7000); Neutrophils Percent Auto 82.3 % (50-75); Platelet Count 475 X10^3/uL (150-400); Red Cell Distribution Width 14.8 % (11.6-14.8); White Blood Cell Count 16.7 X10^3/uL (4.5-11.0)
[2020-01-17 17:51] LABS: INR 0.9 (0.9-1.3); Prothrombin Time 10.6 SECONDS (10.1-12.7)
[2020-01-17 17:54] LABS: PTT Partial Thromboplastin Tim 27 SECONDS (26.4-36.2)
[2020-01-17 17:55] LABS: Alanine Aminotransferase 17 IU/L (<35); Albumin 4.2 g/dL (3.5-5.0); Albumin Globulin Ratio 1.3 (1.0-2.8); Alkaline Phosphatase 79 U/L (38-126); Aspartate Aminotransferase 21 IU/L (14-36); BUN Creatinine Ratio 15.8 (6-22); Bilirubin Total 0.4 mg/dL (0.2-1.3); Blood Urea Nitrogen 18 mg/dL (7-17); Calcium 10.5 mg/dL (8.4-10.2); Carbon Dioxide 25 mmol/L (22-32); Chloride 94 mmol/L (98-107); Estimated Glomerular Filt Rate 47.1 mL/min (>60); Globulin 3.2 g/dL (1.7-4.1); Glucose 106 mg/dL (80-110); HEMOLYSIS < 15 (0-50); Total Protein 7.4 g/dL (6.3-8.2)
[2020-01-17 17:59] LABS: Sodium 131 mmol/L (137-145)
[2020-01-17 18:18] LABS: Procalcitonin < 0.05 ng/mL (<0.5)
[2020-01-17] MEDS: POTASSIUM CHLORIDE 20 MEQ TAB 40 MEQ PO (18:24)
[2020-01-17] MEDS: POTASSIUM CHLORIDE 40 MEQ in SODIUM CHLORIDE 0.9% 500 ML 130 ML IV (18:25)
--- NOTE | 2020-01-17 18:35 | ED_ITS ---
HPI - Fall <[place] MADAI Hensley - Last Filed: 01/18/20 00:34> General Chief Complaint: Fall Stated Complaint: FALL HURT BACK Time Seen by Provider: 01/17/20 16:07 Source: patient Mode of arrival: Wheelchair Limitations: altered mental status History of Present Illness HPI Narrative: This is a 6-year-old female, nonsmoker, who has history of UTI for last 3 months and is currently being treated with Cipro, osteoporosis, back surgery presents to ED with chief complain of low back pain after had 4 falls during last 5 days with dizziness, balance difficulty and shakiness. Patient is not currently on anticoagulants or aspirin. Patient also currently has oral lesion/thrush in her mouth and has not been able to tolerate p.o. fluids or food much due to discomfort in her mouth. She reports currently taking terbinafine fine, Diflucan, nystatin for last couple of weeks without much improvement. Patient denies fever, chills and no acute urinary symptoms at this time. According to urine culture in the past had E coli growth and was treated with nitrofurantoin. Also reports has been having nausea for last 4 months and has been experiencing some confusion and short-term memory last several months. She was hospitalized for 4 days with acute confusion in end of November. Related Data Home Medications Medication Instructions Recorded Confirmed desipramine 100 mg PO DAILY 12/21/19 01/17/20 lisinopril 40 mg PO BID 12/21/19 01/17/20 quetiapine [Seroquel] 100 mg PO BEDTIME 01/17/20 01/17/20 Previous Rx's Medication Instructions Recorded hydrochlorothiazide 25 mg tablet 25 mg PO DAILY #90 tab 08/07/19 escitalopram oxalate 10 mg tablet 30 mg PO DAILY #270 tab 10/31/19 nystatin 100,000 unit/gram topical 1 applictn TOP BID PRN #60 gram 11/18/19 powder metoprolol tartrate 25 mg tablet 25 mg PO BID #60 tab 12/13/19 nitrofurantoin macrocrystal 100 mg PO BID #13 cap 12/23/19 ondansetron HCl 8 mg tablet 8 mg PO QID PRN #120 tab 12/23/19 simvastatin 20 mg tablet See Rx Instructions .ROUTE 12/24/19 .COMPLEX #90 tablet fluconazole 150 mg tablet 150 mg PO DAILY #14 tab 08/10/20 ciprofloxacin HCl 500 mg tablet 500 mg PO BID #20 tab 01/08/20 terbinafine HCl 250 mg tablet 250 mg PO DAILY #14 tab 01/08/20 amlodipine 10 mg tablet 10 mg PO DAILY #90 tab 01/13/20 rizatriptan 10 mg tablet 10 mg PO .COMPLEX PRN #6 tab 01/13/20 nystatin 100,000 unit/mL oral 5 ml PO TID #250 ml 01/14/20 suspension Allergies Allergy/AdvReac Type Severity Reaction Status Date / Time adhesive Allergy Mild BLISTERS, Verified 01/13/20 15:55 PULL SKIN OFF codeine [CODEINE] AdvReac Severe nausea, Verified 01/13/20 15:55 triggers migraines hydrocodone [HYDROCODONE] AdvReac Severe triggers Verified 01/13/20 15:55 migraines morphine [MORPHINE] AdvReac Severe n&v, can Verified 01/13/20 15:55 take if premedicated trazodone AdvReac Severe nausea/altered Verified 01/13/20 15:55 mental status zolpidem [From Ambien] AdvReac Severe sleep Verified 01/13/20 15:55 eating, strange behavior alendronate sodium AdvReac Intermediate Stomach Verified 01/13/20 15:55 [From Fosamax] issues Review of Systems <MADAI Lama - Last Filed: 01/18/20 00:34> Review of Systems Narrative: General: Denies fever, chills, fatigue, malaise, sweats. HEENT: Denies sinus pain, ear pain, sore throat, (+) difficulty swallowing from discomfort in her mouth, dizziness. Respiratory: Denies dyspnea, cough, wheezing, hemoptysis, sputum. Cardiovascular: Denies chest pain, palpitations, orthopnea, edema. Gastrointestinal: Denies (+) nausea, vomiting, abdominal pain, diarrhea, constipation, melena. : Denies dysuria, frequency, incontinence, hematuria, urinary retention. Musculoskeletal: See HPI Skin: Denies rash, skin lesions, or other. Neurologic: Denies weakness, headache, numbness, change in speech, (+) confusion, seizures, incoordination. Psychiatric: No concerning psychosocial issues. 12-point review of systems is negative except for those stated above. Patient History <MADAI Lama - Last Filed: 01/18/20 00:34> Medical History (Updated 01/17/20 @ 22:04 by MADAI Lama) Acquired hypothyroidism (Chronic 02/10/11) Asthma (Acute) Chronic migraine without aura without status migrainosus, not intractable (Chronic) Chronic pain syndrome (Chronic) Depression (Acute) Dorsalgia (Chronic 07/28/15) Fibromyalgia (Chronic 09/06/13) Gastroesophageal reflux disease without esophagitis (Chronic 02/10/11) Generalized anxiety disorder (Chronic) HLD (hyperlipidemia) (Acute) Hypertension (Chronic) Loosening of hardware in spine (Inactive) Osteoporosis (Chronic 05/07/15) Recurrent major depressive disorder, in partial remission (Chronic 02/10/11) Spinal stenosis at L4-L5 level (Chronic) Systemic lupus erythematosus (Chronic 02/10/11) Tardive dyskinesia (Chronic) Uncomplicated opioid dependence (Chronic 12/14/15) Surgical History Anesthesia (Resolved) History of arthroplasty of left shoulder (Acute ~2013) History of hip replacement (Deleted) History of surgery (Resolved) History of total right hip arthroplasty (Acute ~2009) Hx of arthroscopy of left knee (Acute) Hx of lumbosacral spine surgery (Acute ~05/2015) Hx of spinal fusion (Acute ~1984) S/P LASIK surgery of both eyes (Acute) Status post appendectomy Status post tubal ligation Family History Father Family history of polycythemia Mother Family history of CHF (congestive heart failure) Social History marital status: number of children: 2 household members: spouse lives independently: Yes caregiver/support person: No housing: apartment pets and animals: Yes education level: college 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 status: other Previous 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 history: [employer] 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 Head: Normal cephalic, atraumatic. No scalp or temporal tenderness, palpable mass or rash. EYES: Pupils are equal, round, and reactive to light and accommodation. Extraocular muscles are intact bilaterally. There is no subconjunctival hemorrhage, exudate and sclera non-icteric. ENT: Bilateral auditory canals and tympanic membranes clear but hematoma panel more drainage. Hearing difficulty. Nose without bleeding, purulent discharge or deviation. Facial sinuses nontender to palpate. Mucous membrane dry, scant white mucosal lesion which appears to be thrush on the tongue. Throat without erythema, tonsillar hypertrophy or exudate. Uvula in midline, airway patent. Neck: Trachea in midline. No JVD, non-tender without lymphadenopathy. No masses or thyroid megaly. Supple, non-tender and no meningeal signs. CARDIAC: Normal regular rate and rhythm without murmurs, gallops, or rubs. No chest wall tenderness. No peripheral edema, cyanosis or pallor. Capillary refill is less than 2 seconds. RESPIRATORY: Lungs are clear to auscultate bilaterally. No cough, wheezes, rales, or rhonchi. No stridor, respiratory distress, increase work of breathing, or accessary muscle used. ABD: Abdomen soft, nontender and non-distended. No guarding or rebound tenderness to palpate. Bowel sounds are normal in all 4 quadrants. There is no palpable masses or organomegaly. EXT: Full painless ROM of all extremities with no loss of sensation, strength, effusion or edema. SKIN: Warm, dry, normal color for patient. No erythema, lesions or rash over visible areas. BACK: Tender to palpate in left low back without deformity or crepitance. Purplish ecchymosis on left lower back. NEUROLOGICAL: Alert and oriented to place, time and person. Sensation and motor function intact bilaterally. No facial droops, dysphasia. PSYCHIATRIC: Good judgement and reason, without hallucinations, abnormal affect or abnormal behaviors during the examination. Patient is not suicidal. Initial Vital Signs Initial Vital Signs: Vital Signs Temperature 97.5 F L 01/17/20 15:45 Pulse Rate 63 01/17/20 15:45 Respiratory Rate 20 01/17/20 15:45 Blood Pressure 118/61 01/17/20 15:45 Pulse Oximetry 98 01/17/20 15:45 <Emilee Elizalde DO - Last Filed: 01/18/20 07:21> Initial Vital Signs Initial Vital Signs: Vital Signs Temperature 97.5 F L 01/17/20 15:45 Pulse Rate 63 01/17/20 15:45 Respiratory Rate 20 01/17/20 15:45 Blood Pressure 118/61 01/17/20 15:45 Pulse Oximetry 98 01/17/20 15:45 Scores <MADAI Lama - Last Filed: 01/18/20 00:34> GCS [place] coma scale eye opening: Spontaneous [place] coma scale verbal response: Confused (Not oriented to time) Yuriy coma scale motor response: Obey commands [place] coma scale total score: 14 qSOFA Altered Mental Status (GCS <15): Yes Respiratory rate greater than/equal to 22: No Systolic blood pressure less than or equal to 100: No qSOFA Total: 1 0-1 Not High Risk 1-3 High risk Course <MADAI Lama - Last Filed: 01/18/20 00:34> Orders Ordered: Discontinued Medications Acetaminophen (Tylenol) 650 mg PO NOW ONE Stop: 01/17/20 18:43 Last Admin: 01/17/20 18:55 Dose: 650 mg Documented by: NEO Al Hydrox/Mg Hydrox/Simethicone (Maalox Plus) 15 ml PO NOW ONE Stop: 01/17/20 16:57 Last Admin: 01/17/20 17:31 Dose: 15 ml Documented by: NEO Fluconazole (Diflucan) 250 mg PO NOW ONE Stop: 01/17/20 21:24 Last Admin: 01/17/20 21:53 Dose: Not Given Documented by: RMARTIN Sodium Chloride (Normal Saline 0.9%) 1,000 mls @ 150 mls/hr IV CONT BETTIE Last Infusion: 01/17/20 22:56 Dose: 0 mls/hr Documented by: Infusion: 01/17/20 19:50 Dose: 150 mls/hr Documented by: Infusion: 01/17/20 18:30 Dose: 500 mls/hr Documented by: Admin: 01/17/20 17:30 Dose: 150 mls/hr Documented by: NEO Potassium Chloride 40 meq/ (Sodium Chloride) 520 mls @ 130 mls/hr IV NOW ONE Stop: 01/17/20 21:58 Last Infusion: 01/17/20 22:56 Dose: 0 mls/hr Documented by: PRINCE Cosigned by: ARNIE Admin: 01/17/20 18:25 Dose: 130 mls/hr Documented by: NEO Cosigned by: CHARLETTE Sodium Chloride (Normal Saline 0.9%) 1,000 mls @ 125 mls/hr IV CONT BETTIE Last Infusion: 01/18/20 00:48 Dose: 0 mls/hr Documented by: Admin: 01/17/20 23:48 Dose: 125 mls/hr Documented by: PRINCE Lidocaine HCl (Viscous Lidocaine 2%) 10 ml PO NOW ONE Stop: 01/17/20 16:57 Last Admin: 01/17/20 17:31 Dose: 10 ml Documented by: NEO Lidocaine HCl (Viscous Lidocaine 2%) 15 ml PO NOW ONE Stop: 01/17/20 23:35 Last Admin: 01/17/20 23:48 Dose: 15 ml Documented by: PRINCE Morphine Sulfate (Morphine) 2 mg IV NOW ONE Stop: 01/17/20 19:36 Last Admin: 01/17/20 19:50 Dose: 2 mg Documented by: ARNIE Ondansetron HCl (Zofran) 4 mg IV NOW ONE Stop: 01/17/20 19:36 Last Admin: 01/17/20 19:50 Dose: 4 mg Documented by: ARNIE Ondansetron HCl (Zofran) 4 mg IV NOW ONE Stop: 01/17/20 20:46 Last Admin: 01/17/20 20:52 Dose: 4 mg Documented by: PRINCE Potassium Chloride (Klor-Con M20) 40 meq PO NOW ONE Stop: 01/17/20 18:00 Last Admin: 01/17/20 18:24 Dose: 40 meq Documented by: NEO Reevaluation(s) Reevaluation #1: Patient declined ice strips for hydration due to discomfort in her mouth. Lidocaine was offered again. Patient reports her back pain has improved. Patient is waiting for ALS transfer team Time: 23:50 Consultations Consultation #1: Dr. Segura consulted for an admission and he recommended patient be transferred to acute facility with ENT specialty evaluation and possible GI scope over the weekend and reports patient is not able to managed at [facility]. Dr. Segura attempted to manage patient's oral lesion and to hydrate patient at home but this has failed and appears to be patient's dehydrated with acute renal injury and fluid electrolytes imbalance. Time: 19:10 Consultation #2: Dr. Wing (ENT) specialist, Dr. Braun (GI specialist) and (hospitalist) consulted at [facility] for transfer but is not accepted. Time: 21:10 Consultation #3: Spoke with Dr. Segura once again for an admission but he declined and requesting a transfer to higher level of care with GI specialist for upper GI scope or ENT specialist evaluation which [facility] could not provide. The patient is receiving treatments with nystatin, terbinifine, and Diflucan treatments without improvement for thrush and the oral lesions may not have fungal/yeast etiology. Time: 21:25 Additional Consultation(s): 2199-Spoke with Dr. Montes at [facility] kindly accepted the patient's care for admission for dehydration and acute renal injury with abnormal electrolytes likely from oral lesions and pain. 2204-[facility] called back to inform that no Tele bed is available at this time. 2254-Dr. Emmanuel (hospitalist) at [facility] consulted and he kindly accepted patient's care as long as GI specialist agrees with the plan for scope. Waiting for GI specialist call. 4-[facility] GI specialist, Dr. Ngo consulted for possible endoscope procedure and he kindly agrees to assess her tomorrow with hospitalist's acceptance and requests for consult. Vital Signs Vital signs: Vital Signs - 8 hr 01/17/20 23:31 01/18/20 00:01 Pulse Rate 68 Respiratory Rate 29 H Blood Pressure 193/82 H 178/77 H Pulse Oximetry 96 <Emilee Elizalde DO - Last Filed: 01/18/20 07:21> Orders Ordered: Discontinued Medications Acetaminophen (Tylenol) 650 mg PO NOW ONE Stop: 01/17/20 18:43 Last Admin: 01/17/20 18:55 Dose: 650 mg Documented by: NEO Flowers Hydrox/Mg Hydrox/Simethicone (Maalox Plus) 15 ml PO NOW ONE Stop: 01/17/20 16:57 Last Admin: 01/17/20 17:31 Dose: 15 ml Documented by: NEO Fluconazole (Diflucan) 250 mg PO NOW ONE Stop: 01/17/20 21:24 Last Admin: 01/17/20 21:53 Dose: Not Given Documented by: PRINCE Sodium Chloride (Normal Saline 0.9%) 1,000 mls @ 150 mls/hr IV CONT BETTIE Last Infusion: 01/17/20 22:56 Dose: 0 mls/hr Documented by: Infusion: 01/17/20 19:50 Dose: 150 mls/hr Documented by: Infusion: 01/17/20 18:30 Dose: 500 mls/hr Documented by: Admin: 01/17/20 17:30 Dose: 150 mls/hr Documented by: NEO Potassium Chloride 40 meq/ (Sodium Chloride) 520 mls @ 130 mls/hr IV NOW ONE Stop: 01/17/20 21:58 Last Infusion: 01/17/20 22:56 Dose: 0 mls/hr Documented by: PRINCE Cosigned by: ARNIE Admin: 01/17/20 18:25 Dose: 130 mls/hr Documented by: NEO Cosigned by: CHARLETTE Sodium Chloride (Normal Saline 0.9%) 1,000 mls @ 125 mls/hr IV CONT BETTIE Last Infusion: 01/18/20 00:48 Dose: 0 mls/hr Documented by: Admin: 01/17/20 23:48 Dose: 125 mls/hr Documented by: PRINCE Lidocaine HCl (Viscous Lidocaine 2%) 10 ml PO NOW ONE Stop: 01/17/20 16:57 Last Admin: 01/17/20 17:31 Dose: 10 ml Documented by: NEO Lidocaine HCl (Viscous Lidocaine 2%) 15 ml PO NOW ONE Stop: 01/17/20 23:35 Last Admin: 01/17/20 23:48 Dose: 15 ml Documented by: PRINCE Morphine Sulfate (Morphine) 2 mg IV NOW ONE Stop: 01/17/20 19:36 Last Admin: 01/17/20 19:50 Dose: 2 mg Documented by: ARNIE Ondansetron HCl (Zofran) 4 mg IV NOW ONE Stop: 01/17/20 19:36 Last Admin: 01/17/20 19:50 Dose: 4 mg Documented by: ARNIE Ondansetron HCl (Zofran) 4 mg IV NOW ONE Stop: 01/17/20 20:46 Last Admin: 01/17/20 20:52 Dose: 4 mg Documented by: PRINCE Potassium Chloride (Klor-Con M20) 40 meq PO NOW ONE Stop: 01/17/20 18:00 Last Admin: 01/17/20 18:24 Dose: 40 meq Documented by: NEO Vital Signs Vital signs: Vital Signs - 8 hr 01/17/20 23:31 01/18/20 00:01 Pulse Rate 68 Respiratory Rate 29 H Blood Pressure 193/82 H 178/77 H Pulse Oximetry 96 MDM - Fall <[place] MADAI Hensley - Last Filed: 01/18/20 00:34> Differential Diagnosis Differential diagnosis: Likely other (fall, lumbar strain/fracture, dehydration, acute kidney injury, intracranial hemorrhage, altered mental status, UTI, thrush) Medical Records Attestation: I reviewed the patient's medical records. Lab Data Attestation: I reviewed the patient's lab results. Result diagrams: 01/17/20 17:38 01/17/20 17:38 Labs: Lab Results 01/17/20 01/17/20 01/17/20 Range/Units 17:38 17:38 17:38 WBC 16.7 H (4.5-11.0) X10^3/uL RBC 4.30 (4.0-5.2) X10^6/uL Hgb 12.9 (12.0-16.0) g/dL Hct 37.5 (36-46) % MCV 87.3 (80-100) fL MCH 30.0 (26-34) PG MCHC 34.3 (30-36) % RDW 14.8 (11.6-14.8) % Plt Count 475 H (150-400) X10^3/uL Neut % (Auto) 82.3 H (50-75) % Lymph % (Auto) 8.8 L (25-40) % [place] % (Auto) 6.2 (3-14) % Eos % (Auto) 2.1 (2-4) % Baso % (Auto) 0.6 (0-2) % Neut # (Auto) 62124 H (7474-0363) /uL Lymph # (Auto) 1500 (7534-8618) /uL [place] # (Auto) 1000 H (0-900) /uL Eos # (Auto) 300 (0-450) /uL Baso # (Auto) 100 (0-100) /uL PT 10.6 (10.1-12.7) SECONDS INR 0.9 (0.9-1.3) APTT 27 (26.4-36.2) SECONDS Sodium (137-145) mmol/L Potassium (3.4-5.1) mmol/L Chloride (98-107) mmol/L Carbon Dioxide (22-32) mmol/L BUN (7-17) mg/dL Creatinine (0.52-1.04) mg/dL Estimated GFR (>60) mL/min BUN/Creatinine Ratio (6-22) Glucose (80-110) mg/dL Lactate (0.7-2.1) mmol/L Calcium (8.4-10.2) mg/dL Total Bilirubin (0.2-1.3) mg/dL AST (14-36) IU/L ALT (<35) IU/L Alkaline Phosphatase (38-126) U/L NT-Pro-B Natriuret Pep (<125) pg/mL Total Protein (6.3-8.2) g/dL Albumin (3.5-5.0) g/dL Globulin (1.7-4.1) g/dL Albumin/Globulin Ratio (1.0-2.8) Procalcitonin < 0.05 (<0.5) ng/mL Urine RBC (0-5/HPF) Urine WBC (0-5/HPF) Ur Squamous Epith Cells (0-5/HPF) Urine Bacteria (None) Ur Culture Indicated? COVID-19 PCR (Negative) 01/17/20 01/17/20 01/17/20 Range/Units 17:38 17:38 17:38 WBC (4.5-11.0) X10^3/uL RBC (4.0-5.2) X10^6/uL Hgb (12.0-16.0) g/dL Hct (36-46) % MCV (80-100) fL MCH (26-34) PG MCHC (30-36) % RDW (11.6-14.8) % Plt Count (150-400) X10^3/uL Neut % (Auto) (50-75) % Lymph % (Auto) (25-40) % [place] % (Auto) (3-14) % Eos % (Auto) (2-4) % Baso % (Auto) (0-2) % Neut # (Auto) (3709-2643) /uL Lymph # (Auto) (3007-0100) /uL [place] # (Auto) (0-900) /uL Eos # (Auto) (0-450) /uL Baso # (Auto) (0-100) /uL PT (10.1-12.7) SECONDS INR (0.9-1.3) APTT (26.4-36.2) SECONDS Sodium 131 L (137-145) mmol/L Potassium 2.5 L* (3.4-5.1) mmol/L Chloride 94 L (98-107) mmol/L Carbon Dioxide 25 (22-32) mmol/L BUN 18 H (7-17) mg/dL Creatinine 1.14 H (0.52-1.04) mg/dL Estimated GFR 47.1 L (>60) mL/min BUN/Creatinine Ratio 15.8 (6-22) Glucose 106 (80-110) mg/dL Lactate 1.0 (0.7-2.1) mmol/L Calcium 10.5 H (8.4-10.2) mg/dL Total Bilirubin 0.4 (0.2-1.3) mg/dL AST 21 (14-36) IU/L ALT 17 (<35) IU/L Alkaline Phosphatase 79 (38-126) U/L NT-Pro-B Natriuret Pep 231 H (<125) pg/mL Total Protein 7.4 (6.3-8.2) g/dL Albumin 4.2 (3.5-5.0) g/dL Globulin 3.2 (1.7-4.1) g/dL Albumin/Globulin Ratio 1.3 (1.0-2.8) Procalcitonin (<0.5) ng/mL Urine RBC (0-5/HPF) Urine WBC (0-5/HPF) Ur Squamous Epith Cells (0-5/HPF) Urine Bacteria (None) Ur Culture Indicated? COVID-19 PCR (Negative) 01/17/20 01/17/20 Range/Units 18:52 19:27 WBC (4.5-11.0) X10^3/uL RBC (4.0-5.2) X10^6/uL Hgb (12.0-16.0) g/dL Hct (36-46) % MCV (80-100) fL MCH (26-34) PG MCHC (30-36) % RDW (11.6-14.8) % Plt Count (150-400) X10^3/uL Neut % (Auto) (50-75) % Lymph % (Auto) (25-40) % [place] % (Auto) (3-14) % Eos % (Auto) (2-4) % Baso % (Auto) (0-2) % Neut # (Auto) (1116-4837) /uL Lymph # (Auto) (3951-1507) /uL [place] # (Auto) (0-900) /uL Eos # (Auto) (0-450) /uL Baso # (Auto) (0-100) /uL PT (10.1-12.7) SECONDS INR (0.9-1.3) APTT (26.4-36.2) SECONDS Sodium (137-145) mmol/L Potassium (3.4-5.1) mmol/L Chloride (98-107) mmol/L Carbon Dioxide (22-32) mmol/L BUN (7-17) mg/dL Creatinine (0.52-1.04) mg/dL Estimated GFR (>60) mL/min BUN/Creatinine Ratio (6-22) Glucose (80-110) mg/dL Lactate (0.7-2.1) mmol/L Calcium (8.4-10.2) mg/dL Total Bilirubin (0.2-1.3) mg/dL AST (14-36) IU/L ALT (<35) IU/L Alkaline Phosphatase (38-126) U/L NT-Pro-B Natriuret Pep (<125) pg/mL Total Protein (6.3-8.2) g/dL Albumin (3.5-5.0) g/dL Globulin (1.7-4.1) g/dL Albumin/Globulin Ratio (1.0-2.8) Procalcitonin (<0.5) ng/mL Urine RBC 0-1/hpf (0-5/HPF) Urine WBC None seen (0-5/HPF) Ur Squamous Epith Cells 1-5 /hpf D (0-5/HPF) Urine Bacteria None seen (None) Ur Culture Indicated? Cult not indicated COVID-19 PCR Negative (Negative) Urine Dip Bedside Urine Glucose Negative Bedside Urine Bilirubin - Negative Bedside Urine Ketone - Negative Urine Specific [place] 1.015 Bedside Urine Occult Blood - Negative Bedside Urine pH 6.0 Bedside Urine Protein +/- 15 Bedside Urine Urobilinogen - Negative Bedside Urine Nitrite - Negative Bedside Urine Leukocytes +/- [address] scan - head: Radiologist's Impression: [address] [address] [address] Scan Report Signed Patient: Melanie Barclay BMR#: [id number] : [id number]:[id number] Age/Sex: 69 / FDate of Service: 01/17/20 Loc: ED Accession Number: [id number] Procedure: CT head/brain wo con Ordering Provider: London Hensley PROCEDURE: CT HEAD/BRAIN WO CON INDICATIONS: falls x4 last 5 days, dizziness TECHNIQUE: Noncontrast 4.5 mm thick angled axial sections acquired from the foramen magnum to the vertex, with coronal and sagittal reformats. For radiation dose reduction, the following was used: automated exposure control, adjustment of mA and/or kV according to patient size. COMPARISON: [facility], CT, HEAD WITHOUT CONTRAST, 11/14/2015, 4:52. [facility], MR, MR STROKE, 05/02/2018, 16:22 age. [facility], CT, CT LUMBAR SPINE WO CON, , 17:02[facility], CT, CT HEAD/BRAIN WO CON, 12/21/2019, 10:56. FINDINGS: Image quality: This examination is limited by involuntary motion artifact. Streak artifact from the patient's hearing aids can be seen. CSF spaces: Basal cisterns are patent. No extra-axial fluid collections. The ventricles are symmetric in size and shape. Brain: No intracranial bleeds or masses. There is cerebral volume loss for age, with resultant ventricular and sulcal prominence. There are periventricular and deep white matter chronic small vessel ischemic changes. There is intracranial internal carotid artery atherosclerosis. Skull and face: Calvarium and visualized facial bones appear intact, without suspicious lesions. Incidental note is made of hyperostosis frontalis. This is not considered to be pathologic in a woman of this age. Sinuses: Visualized sinuses and mastoids are clear. IMPRESSION: Limited study demonstrating no yesenia intracranial hemorrhage. No definite intracranial abnormality is seen for age. Dictated by: Denis Shaw M.D. on 01/17/2020 at 16:47 Approved by: Denis Shaw M.D. on 01/17/2020 at 16:48 CT-Lumbar: Radiologist's Impression: [place] [address] CT Scan Report Signed Patient: Melanie Barclay BMR#: [id number] : [id number]:[id number] Age/Sex: 69 / FDate of Service: 01/17/20 Loc: ED Accession Number: [id number] Procedure: CT lumbar spine wo con Ordering Provider: London Hensley PROCEDURE: CT LUMBAR SPINE WO CON INDICATIONS: fall, back pain with ecchymosis on left lower back TECHNIQUE: Noncontrast 3 mm thick sections acquired from the T12 level to the sacrum. Sagittal and coronal reformats were constructed. For radiation dose reduction, the following was used: automated exposure control. COMPARISON: [facility], CT, CT LUMBAR SPINE WO CON, 08/15/2019, 14:10. FINDINGS: Image quality: Excellent. Postsurgical changes of L4-S1 posterior fixation by means of bilateral rods and pedicle screws with interbody device at the L4-L5 level. There is no osseous fusion across the intervertebral disc spaces. Morselized bone graft material was placed amongst the posterior elements with varying degrees of mild osseous fusion between the facets. There is no hardware fracture or other acute complicating hardware feature. There is also postprocedural change of C mint augmentation at L1. Height loss of the L1 vertebral body is similar to the August 15, 2019 exam. Remaining vertebral body heights are also unchanged with regard to height. There is mild wedging of the L3 vertebral body which is unchanged. The remaining vertebral bodies are normal in height. There is diffuse osteopenia with no evidence of an acute compression fracture. No suspicious lytic or blastic osseous lesion. Extensive degenerative changes in the lumbar spine are similar. Varying degrees of spinal canal or neural foraminal stenosis have not significantly progressed when compared with 08/15/2019 exam. Prevertebral and paraspinous soft tissues unremarkable other than edema and hematoma in the subcutaneous fat overlying the left paraspinal musculature, consistent with provided history. IMPRESSION: No lumbar spine fracture or acute finding of the vertebral column. Soft tissue edema and small hematoma consistent with provided history of left flank ecchymosis. Dictated by: Tree Cano M.D. on 01/17/2020 at 17:40 Approved by: Tree Cano M.D. on 01/17/2020 at 17:45 ECG Data Attestation: I personally reviewed and interpreted this ECG as follows: Prior ECG tracings: available for review Interpretation: Sinus rhythm with sinus arrhythmia. Normal [place]. CO interval 169, QRS duration 99, QT/QTC 307/319 Left ventricular hypertrophy MDM Narrative Medical decision making narrative: This is a 69-year-old female who presents to ED with chief complain of low back pain after frequent fall this week with dizz iness, balance problem, shakiness. Patient is currently being treated with Cipro for frequent UTI and 3 different antifungal medications for oral adrien for last a couple of weeks. Patient denies fever or chills. Patient has history of multiple back surgeries in the past, osteoporosis and back pain. The patient is oriented to place and person but not time. According to patient has been having trouble with memory/confusion last 3 months. No focal neurological deficit appreciated. qSOFA score is 1. Back exam appreciated ecchymotic contusion on left lower back. No acute findings in head CT. Lumbar CT test was obtained and shows no new lumbar spine fractures but small appreci ated soft tissue edema and hematoma on left flank with postsurgical changes. EKG shows sinus rhythm with sinus arrhythmia with left ventricular. ProBNP is 231. Leukocytosis of 16.7 with neutrophil of 82.3%. Normal lactate of 1.0 and procalcitonin of less than 0.05. Patient is afebrile. Slight hypertensive with within normal heart rate. Hypokalemia of 2.5, hyponatremia of 131 with hypo chloride of 94. Acutely decreased renal function today with Creatinine level is 1.14 with estimated GFR of 47.1 and BUN of 18 and the previous Cr range is from 0.58-0.90 with normal eGFR. It is likely patient is dehydrated from not taking p.o. fluids or food due to oral lesions and discomfort in her mouth. Patient's states it is difficulty to have her drink or eat because of the pain. Patient was medicated with IV potassium 40 mEq and oral potassium 40 mEq to replace hypo kalemia and had received 1 L IV fluid infusion. She is currently receiving gentle IV hydration 150 mL/hour. She had small amount of urine ouput. Today's urine test still shows small amount of leukoesterase of +/- 15 without nitrite. Urine culture is pending. Patient received 2 mg of morphine for pain and GI cocktail for oral discomfort. Covid 19 test was negative in anticipation for admission. Multiple phone called made for admission/transfer for this patient. Dr. Emmanuel kindly accepted patient's care with Dr. Ngo's consultation for possible upper GI scope for dehydration, decreased renal function, hypokalemia and oral lesion and pain. Micro urine test shows no WBC or bacteria. Appears to be urine is not a source of infection or elevated WBC of 16.7 and it is likely related to oral lesion/GI infection. [id number] transfer is being arranged and informed the patient of pending transfer to [facility] for continuation of care. Patient reports she is feeling improved at this time. <Emilee Elizalde, - Last Filed: 01/18/20 07:21> Lab Data Labs: Lab Results 01/17/20 01/17/20 01/17/20 Range/Units 17:38 17:38 17:38 WBC 16.7 H (4.5-11.0) X10^3/uL RBC 4.30 (4.0-5.2) X10^6/uL Hgb 12.9 (12.0-16.0) g/dL Hct 37.5 (36-46) % MCV 87.3 (80-100) fL MCH 30.0 (26-34) PG MCHC 34.3 (30-36) % RDW 14.8 (11.6-14.8) % Plt Count 475 H (150-400) X10^3/uL Neut % (Auto) 82.3 H (50-75) % Lymph % (Auto) 8.8 L (25-40) % [place] % (Auto) 6.2 (3-14) % Eos % (Auto) 2.1 (2-4) % Baso % (Auto) 0.6 (0-2) % Neut # (Auto) 06895 H (5252-0979) /uL Lymph # (Auto) 1500 (9701-2478) /uL [place] # (Auto) 1000 H (0-900) /uL Eos # (Auto) 300 (0-450) /uL Baso # (Auto) 100 (0-100) /uL PT 10.6 (10.1-12.7) SECONDS INR 0.9 (0.9-1.3) APTT 27 (26.4-36.2) SECONDS Sodium (137-145) mmol/L Potassium (3.4-5.1) mmol/L Chloride (98-107) mmol/L Carbon Dioxide (22-32) mmol/L BUN (7-17) mg/dL Creatinine (0.52-1.04) mg/dL Estimated GFR (>60) mL/min BUN/Creatinine Ratio (6-22) Glucose (80-110) mg/dL Lactate (0.7-2.1) mmol/L Calcium (8.4-10.2) mg/dL Total Bilirubin (0.2-1.3) mg/dL AST (14-36) IU/L ALT (<35) IU/L Alkaline Phosphatase (38-126) U/L NT-Pro-B Natriuret Pep (<125) pg/mL Total Protein (6.3-8.2) g/dL Albumin (3.5-5.0) g/dL Globulin (1.7-4.1) g/dL Albumin/Globulin Ratio (1.0-2.8) Procalcitonin < 0.05 (<0.5) ng/mL Urine RBC (0-5/HPF) Urine WBC (0-5/HPF) Ur Squamous Epith Cells (0-5/HPF) Urine Bacteria (None) Ur Culture Indicated? COVID-19 PCR (Negative) 01/17/20 01/17/20 01/17/20 Range/Units 17:38 17:38 17:38 WBC (4.5-11.0) X10^3/uL RBC (4.0-5.2) X10^6/uL Hgb (12.0-16.0) g/dL Hct (36-46) % MCV (80-100) fL MCH (26-34) PG MCHC (30-36) % RDW (11.6-14.8) % Plt Count (150-400) X10^3/uL Neut % (Auto) (50-75) % Lymph % (Auto) (25-40) % [place] % (Auto) (3-14) % Eos % (Auto) (2-4) % Baso % (Auto) (0-2) % Neut # (Auto) (2242-9335) /uL Lymph # (Auto) (1453-3251) /uL [place] # (Auto) (0-900) /uL Eos # (Auto) (0-450) /uL Baso # (Auto) (0-100) /uL PT (10.1-12.7) SECONDS INR (0.9-1.3) APTT (26.4-36.2) SECONDS Sodium 131 L (137-145) mmol/L Potassium 2.5 L* (3.4-5.1) mmol/L Chloride 94 L (98-107) mmol/L Carbon Dioxide 25 (22-32) mmol/L BUN 18 H (7-17) mg/dL Creatinine 1.14 H (0.52-1.04) mg/dL Estimated GFR 47.1 L (>60) mL/min BUN/Creatinine Ratio 15.8 (6-22) Glucose 106 (80-110) mg/dL Lactate 1.0 (0.7-2.1) mmol/L Calcium 10.5 H (8.4-10.2) mg/dL Total Bilirubin 0.4 (0.2-1.3) mg/dL AST 21 (14-36) IU/L ALT 17 (<35) IU/L Alkaline Phosphatase 79 (38-126) U/L NT-Pro-B Natriuret Pep 231 H (<125) pg/mL Total Protein 7.4 (6.3-8.2) g/dL Albumin 4.2 (3.5-5.0) g/dL Globulin 3.2 (1.7-4.1) g/dL Albumin/Globulin Ratio 1.3 (1.0-2.8) Procalcitonin (<0.5) ng/mL Urine RBC (0-5/HPF) Urine WBC (0-5/HPF) Ur Squamous Epith Cells (0-5/HPF) Urine Bacteria (None) Ur Culture Indicated? COVID-19 PCR (Negative) 01/17/20 01/17/20 Range/Units 18:52 19:27 WBC (4.5-11.0) X10^3/uL RBC (4.0-5.2) X10^6/uL Hgb (12.0-16.0) g/dL Hct (36-46) % MCV (80-100) fL MCH (26-34) PG MCHC (30-36) % RDW (11.6-14.8) % Plt Count (150-400) X10^3/uL Neut % (Auto) (50-75) % Lymph % (Auto) (25-40) % [place] % (Auto) (3-14) % Eos % (Auto) (2-4) % Baso % (Auto) (0-2) % Neut # (Auto) (2751-4541) /uL Lymph # (Auto) (0185-6312) /uL [place] # (Auto) (0-900) /uL Eos # (Auto) (0-450) /uL Baso # (Auto) (0-100) /uL PT (10.1-12.7) SECONDS INR (0.9-1.3) APTT (26.4-36.2) SECONDS Sodium (137-145) mmol/L Potassium (3.4-5.1) mmol/L Chloride (98-107) mmol/L Carbon Dioxide (22-32) mmol/L BUN (7-17) mg/dL Creatinine (0.52-1.04) mg/dL Estimated GFR (>60) mL/min BUN/Creatinine Ratio (6-22) Glucose (80-110) mg/dL Lactate (0.7-2.1) mmol/L Calcium (8.4-10.2) mg/dL Total Bilirubin (0.2-1.3) mg/dL AST (14-36) IU/L ALT (<35) IU/L Alkaline Phosphatase (38-126) U/L NT-Pro-B Natriuret Pep (<125) pg/mL Total Protein (6.3-8.2) g/dL Albumin (3.5-5.0) g/dL Globulin (1.7-4.1) g/dL Albumin/Globulin Ratio (1.0-2.8) Procalcitonin (<0.5) ng/mL Urine RBC 0-1/hpf (0-5/HPF) Urine WBC None seen (0-5/HPF) Ur Squamous Epith Cells 1-5 /hpf D (0-5/HPF) Urine Bacteria None seen (None) Ur Culture Indicated? Cult not indicated COVID-19 PCR Negative (Negative) Urine Dip Bedside Urine Glucose Negative Bedside Urine Bilirubin - Negative Bedside Urine Ketone - Negative Urine Specific [place] 1.015 Bedside Urine Occult Blood - Negative Bedside Urine pH 6.0 Bedside Urine Protein +/- 15 Bedside Urine Urobilinogen - Negative Bedside Urine Nitrite - Negative Bedside Urine Leukocytes +/- 15 Esterase Discharge Plan Departure Patient Disposition: [facility] Clinical Impression: Dehydration, Lesion of mouth, Hypokalemia, Decreased renal function Discharge Date/Time: 01/18/20 00:20 Prescriptions: No Action hydrochlorothiazide 25 mg tablet 25 mg PO DAILY Qty: 90 RF: 3 escitalopram oxalate 10 mg tablet 30 mg PO DAILY Qty: 270 RF: 3 ondansetron HCl 8 mg tablet 8 mg PO QID PRN (Reason: nausea and vomiting) Qty: 120 RF: 0 simvastatin 20 mg tablet See Rx Instructions .ROUTE .COMPLEX Qty: 90 RF: 1 terbinafine HCl 250 mg tablet 250 mg PO DAILY Qty: 14 RF: 0 ciprofloxacin HCl 500 mg tablet 500 mg PO BID Qty: 20 RF: 0 rizatriptan 10 mg tablet 10 mg PO .COMPLEX PRN (Reason: migraine headache) Qty: 6 RF: 11 nystatin 100,000 unit/mL suspension 5 ml PO TID Qty: 250 RF: 3 amlodipine 10 mg tablet 10 mg PO DAILY Qty: 90 RF: 3 fluconazole 150 mg tablet 150 mg PO DAILY Qty: 14 RF: 0 nystatin [Nystop] 100,000 unit/gram powder 1 applictn TOP BID PRN (Reason: Yeast infection) Qty: 60 RF: 3 metoprolol tartrate 25 mg tablet 25 mg PO BID Qty: 60 RF: 3 quetiapine [Seroquel] 100 mg Tablet 100 mg PO BEDTIME RF: 0 desipramine 50 mg tablet 100 mg PO DAILY RF: 0 lisinopril 40 mg tablet 40 mg PO BID RF: 0 nitrofurantoin macrocrystal 100 mg capsule 100 mg PO BID Qty: 13 RF: 0 Referrals: Pasquale Segura MD [Primary Care Provider] - <Emilee Elizalde DO - Last Filed: 01/18/20 07:21> Cosign ED Attending Cosignature Attestation: I was immediately available in the de partment for consultation. Documentation has been reviewed. I agree with assessment and plan.
[2020-01-17] MEDS: ACETAMINOPHEN 325 MG TABLET 650 MG PO (18:55)
[2020-01-17] MEDS: ONDANSETRON 4 MG/2 ML INJ IV ×2 (19:50→20:52)
[2020-01-17] MEDS: MORPHINE 2 MG/ML INJ IV (19:50)
[2020-01-17 20:16] LABS: NT-proBNP (BNP-Adult 18+) 231 pg/mL (<125)
[2020-01-17 20:34] LABS: COVID19 -Nasal RAPID Negative (Negative)
[2020-01-17 23:12] LABS: Bacteria Urine None Seen
[2020-01-17 23:20] LABS: Culture Indicated Urine Cult Not Indicated; RBC Urine 0-1/HPF (0-5/HPF); Squamous Epithelial Cell Urine 1-5 /HPF (0-5/HPF); WBC Urine None Seen (0-5/HPF)
[2020-01-17] MEDS: LIDOCAINE VISCOUS 2% 15 ML SOLUTION PO (23:48)
[2020-01-17] MEDS: SODIUM CHLORIDE 0.9% 1,000 ML 125 ML IV (23:48)
[2020-01-18 00:01] VITALS: BP 178/77; PULSE 68; RESP 29; O2SAT 96
[2020-02-11 18:26] LABS: Potassium 2.5 mmol/L (3.4-5.1)
== END 2020-01-18 00:20 | disposition short-term general hospital (02) ==
PROVIDERS: Emergency Provider Nurse Practitioner Family; PCP Internal Medicine
DX: E87.6 Hypokalemia (principal); E86.0 Dehydration; K13.70 Unspecified lesions of oral mucosa; N28.9 Disorder of kidney and ureter, unspecified; R42 Dizziness and giddiness
CPT/HCPCS: 36415; 70450; 72131; 80053; 81003; 81015; 83605; 83880; 84145; 85025; 85610; 85730; 87635; 93005; 93010; 96361; 96365; 96366; 96375; 96376; 99284; J2270; J2405; J3480

== ENCOUNTER → 2020-01-21 15:45 | Outpatient (CLI) | payer MEDICARE, SELFPAY ==
[2019-12-25 14:35] VITALS: BMI 29.6
[2020-01-21 17:00] LABS: BUN Creatinine Ratio 19.2 (6-22); Blood Urea Nitrogen 14 mg/dL (7-17); Calcium 10.8 mg/dL (8.4-10.2); Carbon Dioxide 23 mmol/L (22-32); Chloride 98 mmol/L (98-107); Estimated Glomerular Filt Rate > 60.0 mL/min (>60); Glucose 114 mg/dL (80-110); HEMOLYSIS 16 (0-50); Potassium 3.4 mmol/L (3.4-5.1); Sodium 133 mmol/L (137-145)
== END ==
PROVIDERS: PCP Internal Medicine; Referring Provider Internal Medicine; Visit Provider Internal Medicine
DX: E86.0 Dehydration (principal); E87.6 Hypokalemia; N28.9 Disorder of kidney and ureter, unspecified
CPT/HCPCS: 36415; 80048

== ENCOUNTER → 2020-02-17 10:30 | Outpatient (CLI) | payer MEDICARE, SELFPAY ==
[2019-12-25 14:35] VITALS: BMI 29.6
[2020-02-17 11:09] LABS: Add Manual Diff / Slide Review NO; Basophils Absolute Auto 100 /uL (0-100); Basophils Percent Auto 0.6 % (0-2); Eosinophils Absolute Auto 200 /uL (0-450); Eosinophils Percent Auto 1.7 % (2-4); Hematocrit 39.4 % (36-46); Hemoglobin 13.3 g/dL (12.0-16.0); Lymphocytes Absolute Auto 1300 /uL (1100-4500); Lymphocytes Percent Auto 10.9 % (25-40); Mean Corpuscular HGB Conc 33.6 % (30-36); Mean Corpuscular Hemoglobin 30.1 PG (26-34); Mean Corpuscular Volume 89.6 fL (80-100); Monocytes Absolute Auto 800 /uL (0-900); Monocytes Percent Auto 6.6 % (3-14); Neutrophils Absolute Auto 9900 /uL (1500-7000); Neutrophils Percent Auto 80.2 % (50-75); Platelet Count 347 X10^3/uL (150-400); Red Cell Distribution Width 15.4 % (11.6-14.8); White Blood Cell Count 12.4 X10^3/uL (4.5-11.0)
[2020-02-17 11:30] LABS: Alanine Aminotransferase 18 IU/L (<35); Albumin 4.1 g/dL (3.5-5.0); Albumin Globulin Ratio 1.4 (1.0-2.8); Alkaline Phosphatase 78 U/L (38-126); Amylase 31 U/L (30-110); Aspartate Aminotransferase 26 IU/L (14-36); BUN Creatinine Ratio 13.6 (6-22); Bilirubin Total 0.6 mg/dL (0.2-1.3); Blood Urea Nitrogen 11 mg/dL (7-17); Calcium 10.5 mg/dL (8.4-10.2); Carbon Dioxide 27 mmol/L (22-32); Chloride 100 mmol/L (98-107); Estimated Glomerular Filt Rate > 60.0 mL/min (>60); Globulin 2.9 g/dL (1.7-4.1); Glucose 98 mg/dL (80-110); HEMOLYSIS 26 (0-50); Potassium 3.2 mmol/L (3.4-5.1); Sodium 138 mmol/L (137-145)
[2020-02-17 11:36] LABS: C-Reactive Protein Quant < 0.5 mg/dL (<1.0)
[2020-02-17 11:57] LABS: Erythrocyte Sedimentation Rate 17 MM/HR (0-20)
== END ==
PROVIDERS: PCP Internal Medicine; Referring Provider Internal Medicine; Visit Provider Internal Medicine
DX: I10 Essential (primary) hypertension (principal); R10.11 Right upper quadrant pain; R10.9 Unspecified abdominal pain
CPT/HCPCS: 36415; 80053; 82150; 85025; 85651; 86140

== ENCOUNTER → 2020-02-24 10:56 | Outpatient (CLI) | payer MEDICARE, SELFPAY ==
[2019-12-25 14:35] VITALS: BMI 29.6
--- NOTE | 2020-02-24 11:48 | DI.CT.S_ITS ---
PROCEDURE: CT ABDOMEN PELVIS W CON INDICATIONS: ruq abd pain TECHNIQUE: After the administration of intravenous contrast, 5 mm thick sections acquired from the diaphragm to the symphysis. 5 mm coronal and sagittal reformats were acquired. For radiation dose reduction, the following was used: automated exposure control, adjustment of mA and/or kV according to patient size. COMPARISON: [facility], CT, ABDOMEN/PELVIS WITH CONTRAST, 07/26/2017, 12:00. FINDINGS: Image quality: Excellent. ABDOMEN: Lung bases: Lung bases are clear. Heart size is normal. Solid organs: Liver is normal in size and enhancement. Gallbladder surgically absent. . Prominence of the intra and extra extrahepatic bile ducts although grossly unchanged appearance and could be related to prior surgery Ill-defined peripancreatic hazy attenuation in the region of the tail. Spleen is normal in size and enhancement. No adrenal nodules. Kidneys demonstrate normal size and enhancement, without hydronephrosis. A presumed simple appearing left renal cyst. Large amount of stool is present. No bowel wall thickening identified. No free fluid or air. Appendix is not clearly identified however no suspicious pericecal inflammatory changes are seen. Nodes and vessels: No retroperitoneal or mesenteric adenopathy by size criteria. Aorta and inferior vena cava are normal in size. Miscellaneous: No ventral hernias. PELVIS: Genitourinary: Bladder wall thickness is normal. Miscellaneous: No inguinal hernias or adenopathy. Unchanged L1 compression fracture. Spondylosis and facet arthropathy IMPRESSION: Ill-defined peripancreatic hazy attenuation in the region of the tail raising possibility of acute pancreatitis. Please correlate with pancreatic enzymes. Status post cholecystectomy. Intra and extrahepatic bile duct dilatation although grossly unchanged since 2018 could be related to prior cholecystectomy Additional chronic and incidental findings as above. Dictated by: Marcos Rosario M.D. on 02/24/2020 at 13:02 Approved by: Marcos Rosario M.D. on 02/24/2020 at 13:11
== END ==
PROVIDERS: PCP Internal Medicine; Referring Provider Internal Medicine; Visit Provider Internal Medicine
DX: R10.11 Right upper quadrant pain (principal); Z90.49 Acquired absence of other specified parts of digestive tract
CPT/HCPCS: 74177; Q9967

== ENCOUNTER 2020-05-05 07:55 | Emergency (ER) | payer MEDICARE, SELFPAY ==
[2019-12-25 14:35] VITALS: BMI 29.6
[2020-05-05 08:11] VITALS: BP 152/83; PULSE 90; RESP 20; TEMP 37; O2SAT 100; BMI 24.2
--- NOTE | 2020-05-05 08:22 | DI.RAD.S_ITS ---
PROCEDURE: XR CHEST 1V INDICATIONS: Shortness of breath with chest tightness TECHNIQUE: One view of the chest was acquired. COMPARISON: [facility], CHEST 1 VIEW, 03/14/2016, 14:35. [facility], CHEST 1 VIEW, 03/22/2016, 12:51. [facility], , XR CHEST 1V, 12/21/2019, 10:51. FINDINGS: Surgical changes and devices: Left shoulder arthroplasty hardware is seen. Upper lumbar vertebroplasty cement is seen. Lungs and pleura: Lungs are clear. No pleural effusions or pneumothorax. Mediastinum: The cardiac contours are within normal limits. The aorta demonstrates calcification and tortuosity. Bones and chest wall: Age-appropriate bony degenerative changes are seen. No suspicious bony lesions. Overlying soft tissues appear unremarkable. IMPRESSION: No acute abnormality is detected. Postoperative and degenerative changes are seen. Dictated by: Denis Shaw M.D. on 05/05/2020 at 8:20 Approved by: Denis Shaw M.D. on 05/05/2020 at 8:21
[2020-05-05 08:28] VITALS: PULSE 87; O2SAT 98
[2020-05-05 08:30] VITALS: PULSE 87; O2SAT 99
[2020-05-05 08:49] LABS: COVID19 -Nasal RAPID Negative (Negative)
[2020-05-05 09:00] VITALS: PULSE 83; O2SAT 98
--- NOTE | 2020-05-05 09:06 | ED.GENADULT ---
HPI - General Adult General Chief complaint: Shortness of Breath/Dyspnea Stated complaint: coughing/chest tightness Time Seen by Provider: 05/05/20 08:22 Source: patient Mode of arrival: Wheelchair Limitations: no limitations Related Data Previous Rx's Medication Instructions Recorded escitalopram oxalate 10 mg tablet 30 mg PO DAILY #270 tab 10/31/19 nystatin 100,000 unit/gram topical 1 applictn TOP BID PRN #60 gram 11/18/19 powder simvastatin 20 mg tablet See Rx Instructions .ROUTE 12/24/19 .COMPLEX #90 tablet amlodipine 10 mg tablet 10 mg PO DAILY #90 tab 01/13/20 rizatriptan 10 mg tablet 10 mg PO .COMPLEX PRN #6 tab 01/13/20 potassium chloride 8 mEq 8 meq PO BID #60 tab 02/18/20 tablet,extended release desipramine 50 mg tablet 100 mg PO DAILY #180 tab 02/21/20 lisinopril 40 mg tablet 40 mg PO BID #180 tab 02/21/20 ondansetron HCl 8 mg tablet 8 mg PO QID PRN #120 tab 03/16/20 oxycodone 10 mg tablet 10 mg PO QID PRN #180 tab 03/16/20 prednisone 20 mg tablet See Rx Instructions PO .COMPLEX #8 03/16/20 tab quetiapine 100 mg tablet 100 mg PO BEDTIME #90 tab 03/16/20 metoprolol tartrate 25 mg tablet 25 mg PO BID #60 tab 03/19/20 Allergies Allergy/AdvReac Type Severity Reaction Status Date / Time adhesive Allergy Mild BLISTERS, Verified 05/05/20 08:15 PULL SKIN OFF codeine [CODEINE] AdvReac Severe nausea, Verified 05/05/20 08:15 triggers migraines hydrocodone [HYDROCODONE] AdvReac Severe triggers Verified 05/05/20 08:15 migraines morphine [MORPHINE] AdvReac Severe n&v, can Verified 05/05/20 08:15 take if premedicated trazodone AdvReac Severe nausea/altered Verified 05/05/20 08:15 mental status zolpidem [From Ambien] AdvReac Severe sleep Verified 05/05/20 08:15 eating, strange behavior alendronate sodium AdvReac Intermediate Stomach Verified 05/05/20 08:15 [From Fosamax] issues Patient History Medical History (Updated 02/02/20 @ 00:01 by ) Acquired hypothyroidism (02/10/11) Asthma Chronic migraine without aura without status migrainosus, not intractable Chronic pain syndrome Depression Dorsalgia (07/28/15) Fibromyalgia (09/06/13) Gastroesophageal reflux disease without esophagitis (02/10/11) Generalized anxiety disorder HLD (hyperlipidemia) Hypertension Loosening of hardware in spine Osteoporosis (05/07/15) Recurrent major depressive disorder, in partial remission (02/10/11) Spinal stenosis at L4-L5 level Systemic lupus erythematosus (02/10/11) Tardive dyskinesia Uncomplicated opioid dependence (12/14/15) Surgical History (Updated 02/17/20 @ 10:15 by Pasquale Segura MD) Anesthesia History of arthroplasty of left shoulder (~2013) History of hip replacement History of surgery History of total right hip arthroplasty (~2009) Hx of arthroscopy of left knee Hx of lumbosacral spine surgery (~05/2015) Hx of spinal fusion (~1984) S/P cholecystectomy (~1993) S/P LASIK surgery of both eyes Status post appendectomy Status post tubal ligation Family History Father Family history of polycythemia Mother Family history of CHF (congestive heart failure) Social History marital status: number of children: 2 household members: spouse lives independently: Yes caregiver/support person: No housing: apartment pets and animals: Yes education level: college 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 status: other Previous 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 history: zerved bc/religious: Confucianism leisure activities: other Smoking Status: Never smoker Tobacco: How many years used: 0 quit status: quit date established second hand exposure: No alcohol intake: never substance use type: does not use Smoking Status: Never smoker alcohol intake frequency: 0-2 drinks per day Substance Use Type: does not use Exam Initial Vital Signs Initial Vital Signs: Vital Signs Temperature 98.6 F 05/05/20 08:11 Pulse Rate 90 05/05/20 08:11 Respiratory Rate 20 05/05/20 08:11 Blood Pressure 152/83 H 05/05/20 08:11 Pulse Oximetry 100 05/05/20 08:11 Course Orders Ordered: ED Orders 12/08/20 08:00 COVID19 Stat 05/05/20 08:20 EKG-12 Lead Stat 05/05/20 08:22 XR chest 1V Stat Complete Blood Count AUTO DIFF Stat Comprehensive Metabolic Panel Stat Lipase Stat NT-proBNP (BNP-Adult 18+) Stat Partial Thromboplastin Time Stat Prothrombin Time INR Stat Troponin & CK Cardiac Panel Stat Vital Signs Vital signs: Vital Signs - 8 hr 05/05/20 08:11 Temperature 98.6 F Pulse Rate 90 Respiratory Rate 20 Blood Pressure 152/83 H Pulse Oximetry 100 Medical Decision Making Lab Data Labs: Lab Results 05/05/20 Range/Units 08:00 COVID-19 PCR Negative (Negative) Discharge Plan Departure Prescriptions: No Action escitalopram oxalate 10 mg tablet 30 mg PO DAILY Qty: 270 RF: 3 simvastatin 20 mg tablet See Rx Instructions .ROUTE .COMPLEX Qty: 90 RF: 1 rizatriptan 10 mg tablet 10 mg PO .COMPLEX PRN (Reason: migraine headache) Qty: 6 RF: 11 potassium chloride 8 mEq tablet extended release 8 meq PO BID Qty: 60 RF: 3 desipramine 50 mg tablet 100 mg PO DAILY Qty: 180 RF: 1 lisinopril 40 mg tablet 40 mg PO BID Qty: 180 RF: 1 metoprolol tartrate 25 mg tablet 25 mg PO BID Qty: 60 RF: 3 amlodipine 10 mg tablet 10 mg PO DAILY Qty: 90 RF: 3 quetiapine [Seroquel] 100 mg tablet 100 mg PO BEDTIME Qty: 90 RF: 3 oxycodone 10 mg tablet 10 mg PO QID PRN (Reason: pain) Qty: 180 RF: 0 prednisone 20 mg tablet See Rx Instructions PO .COMPLEX Qty: 8 RF: 0 ondansetron HCl 8 mg tablet 8 mg PO QID PRN (Reason: nausea and vomiting) Qty: 120 RF: 0 nystatin [Nystop] 100,000 unit/gram powder 1 applictn TOP BID PRN (Reason: Yeast infection) Qty: 60 RF: 3
--- NOTE | 2020-05-05 09:09 | ED.GENADULT ---
HPI - General Adult General Chief complaint: Shortness of Breath/Dyspnea Stated complaint: coughing/chest tightness Time Seen by Provider: 05/05/20 08:22 Source: patient Mode of arrival: Wheelchair Limitations: no limitations History of Present Illness HPI narrative: Patient is a 70-year-old female here for evaluation of cough chest tightness. She states has been going on for the past several weeks. She did recently have travel from [place] however the symptoms were present prior to that. She also has longstanding history of lesions in her mouth for which she is seeing multiple providers at the [facility]. She was supposed to have a consultation yesterday however this was canceled secondary to her reported cough. She was told to come to the emergency department for evaluation. She denies any fevers. Has been using [id number] guaifenesin without any improvement. Related Data Previous Rx's Medication Instructions Recorded escitalopram oxalate 10 mg tablet 30 mg PO DAILY #270 tab 10/31/19 nystatin 100,000 unit/gram topical 1 applictn TOP BID PRN #60 gram 11/18/19 powder simvastatin 20 mg tablet See Rx Instructions .ROUTE 12/24/19 .COMPLEX #90 tablet amlodipine 10 mg tablet 10 mg PO DAILY #90 tab 01/13/20 rizatriptan 10 mg tablet 10 mg PO .COMPLEX PRN #6 tab 01/13/20 potassium chloride 8 mEq 8 meq PO BID #60 tab 02/18/20 tablet,extended release desipramine 50 mg tablet 100 mg PO DAILY #180 tab 02/21/20 lisinopril 40 mg tablet 40 mg PO BID #180 tab 02/21/20 ondansetron HCl 8 mg tablet 8 mg PO QID PRN #120 tab 03/16/20 oxycodone 10 mg tablet 10 mg PO QID PRN #180 tab 03/16/20 prednisone 20 mg tablet See Rx Instructions PO .COMPLEX #8 03/16/20 tab quetiapine 100 mg tablet 100 mg PO BEDTIME #90 tab 03/16/20 metoprolol tartrate 25 mg tablet 25 mg PO BID #60 tab 03/19/20 benzonatate [Tessalon Perles] 100 mg PO TID PRN #30 cap 05/05/20 Allergies Allergy/AdvReac Type Severity Reaction Status Date / Time adhesive Allergy Mild BLISTERS, Verified 05/05/20 08:15 PULL SKIN OFF codeine [CODEINE] AdvReac Severe nausea, Verified 05/05/20 08:15 triggers migraines hydrocodone [HYDROCODONE] AdvReac Severe triggers Verified 05/05/20 08:15 migraines morphine [MORPHINE] AdvReac Severe n&v, can Verified 05/05/20 08:15 take if premedicated trazodone AdvReac Severe nausea/altered Verified 05/05/20 08:15 mental status zolpidem [From Ambien] AdvReac Severe sleep Verified 05/05/20 08:15 eating, strange behavior alendronate sodium AdvReac Intermediate Stomach Verified 05/05/20 08:15 [From Fosamax] issues Review of Systems Constitutional Constitutional: Denies fever(s) ENT Comments: Sores on her tongue Cardiovascular Comments: Chest tightness causing her to cough Respiratory Respiratory: Reports cough Gastrointestinal Gastrointestinal: Denies abdominal pain, Denies nausea and Denies vomiting Musculoskeletal Musculoskeletal: Denies arthralgias and Denies myalgias Integumentary/Breasts Skin/Breast: Denies rash Neurologic Neurologic: Denies behavioral changes Psychiatric Psychiatric: Denies behavioral changes Hematologic/Lymphatic Hematologic/Lymphatic: Denies easy bleeding and Denies easy bruising Allergic/Immunologic Allergic/Immunologic: Denies urticaria Patient History Medical History Acquired hypothyroidism (02/10/11) Asthma Chronic migraine without aura without status migrainosus, not intractable Chronic pain syndrome Depression Dorsalgia (07/28/15) Fibromyalgia (09/06/13) Gastroesophageal reflux disease without esophagitis (02/10/11) Generalized anxiety disorder HLD (hyperlipidemia) Hypertension Loosening of hardware in spine Osteoporosis (05/07/15) Recurrent major depressive disorder, in partial remission (02/10/11) Spinal stenosis at L4-L5 level Systemic lupus erythematosus (02/10/11) Tardive dyskinesia Uncomplicated opioid dependence (12/14/15) Surgical History (Updated 02/17/20 @ 10:15 by Pasquale Segura MD) Anesthesia History of arthroplasty of left shoulder (~2013) History of hip replacement History of surgery History of total right hip arthroplasty (~2009) Hx of arthroscopy of left knee Hx of lumbosacral spine surgery (~05/2015) Hx of spinal fusion (~1984) S/P cholecystectomy (~1993) S/P LASIK surgery of both eyes Status post appendectomy Status post tubal ligation Family History Father Family history of polycythemia Mother Family history of CHF (congestive heart failure) Social History marital status: number of children: 2 household members: spouse lives independently: Yes caregiver/support person: No housing: apartment pets and animals: Yes education level: college 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 status: other Previous 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 history: [employer]/budd[employer]: [employer] leisure activities: other Smoking Status: Never smoker Tobacco: How many years used: 0 quit status: quit date established second hand exposure: No alcohol intake: never substance use type: does not use Smoking Status: Never smoker alcohol intake frequency: 0-2 drinks per day Substance Use Type: does not use Exam Initial Vital Signs Initial Vital Signs: Vital Signs Temperature 98.6 F 05/05/20 08:11 Pulse Rate 90 05/05/20 08:11 Respiratory Rate 20 05/05/20 08:11 Blood Pressure 152/83 H 05/05/20 08:11 Pulse Oximetry 100 05/05/20 08:11 Const General: cooperative and comfortable Limitations: mental status not altered HENMT Head: normal to inspection and normocephalic Mouth: No tongue normal Resp Effort & Inspection: normal respiratory effort Auscultation: clear to auscultation bilaterally Cardio Rate: regular rate Heart Sounds: murmur Skin Lesions: no lesions Rashes: no rashes Neuro General: patient alert, patient awake and patient oriented x3 Extrem General: capillary refill normal and No edema Psych Appearance: grossly normal and well kempt Course Orders Ordered: ED Orders 05/05/20 08:00 COVID19 Stat 05/05/20 08:20 EKG-12 Lead Stat 05/05/20 08:22 XR chest 1V Stat Complete Blood Count AUTO DIFF Stat Comprehensive Metabolic Panel Stat Lipase Stat NT-proBNP (BNP-Adult 18+) Stat Partial Thromboplastin Time Stat Prothrombin Time INR Stat Troponin & CK Cardiac Panel Stat Vital Signs Vital signs: Vital Signs - 8 hr 05/05/20 08:11 Temperature 98.6 F Pulse Rate 90 Respiratory Rate 20 Blood Pressure 152/83 H Pulse Oximetry 100 Medical Decision Making Lab Data Labs: Lab Results 05/05/20 Range/Units 08:00 COVID-19 PCR Negative (Negative) Imaging Data Chest x-ray: Radiologist's Impression: No acute changes, postoperative degenerative changes ECG Data Attestation: I personally reviewed and interpreted this ECG as follows: Prior ECG tracings: not available for review Interpretation: Sinus rhythm Ventricular rate 85 Normal axis QTC [address] T wave changes MDM Narrative Medical decision making narrative: Patient states the symptoms she is having today are not new and have been going on for the past several weeks. Cough is not any better after [id number] medications. She is here for a coronavirus test so that she can follow up with her providers at the [facility]. Has nonspecific changes on her EKG and no acute changes on her chest x-ray however patient states she would like to just go home since her coronavirus test is negative. We did discuss return precautions and follow-up instructions. She is taking lisinopril and was told that if the Tessalon Perles do not help that she should talk with her primary doctor about potentially switching her off of this medication. She expressed understanding and agreement. Discharge Plan Departure Patient Disposition: Home Clinical Impression: Cough Instructions: DI for Cough -- Adult Activity Restrictions/Additional Instructions: Your coronavirus test was negative. Recommend that you take the Tessalon Perle/benzoate prescription as directed. If this does not improve your symptoms I do recommend that you talk with your primary doctor about switching you off of your lisinopril. This medication can cause you to have a cough. Return to the emergency department for any new or worsening symptoms Prescriptions: New benzonatate [Tessalon Perles] 100 mg capsule 100 mg PO TID PRN (Reason: cough) Qty: 30 RF: 0 No Action escitalopram oxalate 10 mg tablet 30 mg PO DAILY Qty: 270 RF: 3 simvastatin 20 mg tablet See Rx Instructions .ROUTE .COMPLEX Qty: 90 RF: 1 rizatriptan 10 mg tablet 10 mg PO .COMPLEX PRN (Reason: migraine headache) Qty: 6 RF: 11 potassium chloride 8 mEq tablet extended release 8 meq PO BID Qty: 60 RF: 3 desipramine 50 mg tablet 100 mg PO DAILY Qty: 180 RF: 1 lisinopril 40 mg tablet 40 mg PO BID Qty: 180 RF: 1 metoprolol tartrate 25 mg tablet 25 mg PO BID Qty: 60 RF: 3 amlodipine 10 mg tablet 10 mg PO DAILY Qty: 90 RF: 3 quetiapine [Seroquel] 100 mg tablet 100 mg PO BEDTIME Qty: 90 RF: 3 oxycodone 10 mg tablet 10 mg PO QID PRN (Reason: pain) Qty: 180 RF: 0 prednisone 20 mg tablet See Rx Instructions PO .COMPLEX Qty: 8 RF: 0 ondansetron HCl 8 mg tablet 8 mg PO QID PRN (Reason: nausea and vomiting) Qty: 120 RF: 0 nystatin [Nystop] 100,000 unit/gram powder 1 applictn TOP BID PRN (Reason: Yeast infection) Qty: 60 RF: 3 Referrals: Pasquale Segura MD [Primary Care Provider] -
[2020-05-05 09:40] VITALS: BP 136/68
--- NOTE | 2020-05-05 09:40 | PC.NURSE ---
provider verbal stop on IV placement and labs.
== END 2020-05-05 09:49 | disposition home or self-care (01) ==
PROVIDERS: Emergency Provider Emergency Medicine; PCP Internal Medicine
DX: R05 Cough (principal); R07.9 Chest pain, unspecified
CPT/HCPCS: 71045; 87635; 93005; 93010; 99283; 99284

== ENCOUNTER → 2020-05-19 11:13 | Outpatient (CLI) | payer MEDICARE, SELFPAY ==
[2019-12-25 14:35] VITALS: BMI 29.6
[2020-05-19 11:35] LABS: Add Manual Diff / Slide Review NO; Basophils Absolute Auto 100 /uL (0-100); Basophils Percent Auto 0.5 % (0-2); Eosinophils Absolute Auto 500 /uL (0-450); Eosinophils Percent Auto 3.8 % (2-4); Hematocrit 39.4 % (36-46); Hemoglobin 13.1 g/dL (12.0-16.0); Lymphocytes Absolute Auto 2100 /uL (1100-4500); Lymphocytes Percent Auto 15.8 % (25-40); Mean Corpuscular HGB Conc 33.4 % (30-36); Mean Corpuscular Hemoglobin 29.8 PG (26-34); Mean Corpuscular Volume 89.5 fL (80-100); Monocytes Absolute Auto 1000 /uL (0-900); Monocytes Percent Auto 7.3 % (3-14); Neutrophils Absolute Auto 9800 /uL (1500-7000); Neutrophils Percent Auto 72.6 % (50-75); Platelet Count 293 X10^3/uL (150-400); Red Cell Distribution Width 14.5 % (11.6-14.8); White Blood Cell Count 13.5 X10^3/uL (4.5-11.0)
[2020-05-19 11:53] LABS: Alanine Aminotransferase 17 IU/L (<35); Albumin 3.8 g/dL (3.5-5.0); Albumin Globulin Ratio 1.3 (1.0-2.8); Alkaline Phosphatase 65 U/L (38-126); Aspartate Aminotransferase 19 IU/L (14-36); BUN Creatinine Ratio 16.7 (6-22); Bilirubin Total 0.2 mg/dL (0.2-1.3); Blood Urea Nitrogen 12 mg/dL (7-17); Calcium 9.4 mg/dL (8.4-10.2); Carbon Dioxide 31 mmol/L (22-32); Chloride 100 mmol/L (98-107); Estimated Glomerular Filt Rate > 60.0 mL/min (>60); Glucose 105 mg/dL (80-110); HEMOLYSIS 17 (0-50); Sodium 134 mmol/L (137-145); Total Protein 6.8 g/dL (6.3-8.2)
== END ==
PROVIDERS: PCP Internal Medicine; Referring Provider Internal Medicine; Visit Provider Internal Medicine
DX: R05 Cough (principal)
CPT/HCPCS: 36415; 80053; 85025

== ENCOUNTER → 2020-05-20 10:43 | Outpatient (CLI) | payer MEDICARE, SELFPAY ==
[2019-12-25 14:35] VITALS: BMI 29.6
--- NOTE | 2020-05-20 10:44 | DI.CT.S_ITS ---
PROCEDURE: CT ANGIO CHEST INDICATIONS: cough TECHNIQUE: After the administration of intravenous contrast, 2 mm thick sections acquired from the pulmonary apices to the posterior costophrenic angles. 3-dimensional maximum intensity projection (MIP) coronal and sagittal reformats were then acquired through the thorax. For radiation dose reduction, the following was used: automated exposure control, adjustment of mA and/or kV according to patient size. COMPARISON: None. FINDINGS: Image quality: Degraded by suboptimal contrast bolus . Pulmonary arteries: Pulmonary arteries are normal in size, and demonstrate no definite intraluminal filling defects to suggest central pulmonary embolism. Lungs and pleura: There is a mild degree of scattered ground-glass pulmonary densities within the bilateral lungs, predominantly affecting the bilateral upper lobes.. No pleural effusions or pneumothorax. Central and peripheral airways are patent. Mediastinum: Heart size is enlarged, without pericardial effusion. There is calcification of the coronary vasculature. No mediastinal or hilar adenopathy. Thoracic aorta is normal in caliber and enhancement. Esophagus is normal in caliber. Small hiatal hernia. Bones and chest wall: No suspicious bony lesions. Ribs and thoracic spine appear intact throughout. Thyroid gland demonstrates calcified bilateral nodules . No axillary or supraclavicular adenopathy. Abdomen: Visualized upper abdominal solid organs appear normal in the early arterial phase of enhancement. IMPRESSION: 1. Mild bilateral upper lobe predominant atypical pneumonia. 2. No pulmonary embolus. 3. Coronary artery disease. Dictated by: Preeti Lilly M.D. on 05/20/2020 at 11:40 Approved by: Preeti Lilly M.D. on 05/20/2020 at 11:43
== END ==
PROVIDERS: PCP Internal Medicine; Referring Provider Internal Medicine; Visit Provider Internal Medicine
DX: R05 Cough (principal); J18.9 Pneumonia, unspecified organism; I25.10 Atherosclerotic heart disease of native coronary artery without angina pectoris; I51.7 Cardiomegaly; K44.9 Diaphragmatic hernia without obstruction or gangrene
CPT/HCPCS: 71275; Q9967

== ENCOUNTER → 2020-07-02 17:18 | Outpatient (CLI) | payer MEDICARE, SELFPAY ==
[2019-12-25 14:35] VITALS: BMI 29.6
[2020-07-02 19:51] LABS: COVID19 -Nasal RAPID Negative (Negative)
== END ==
PROVIDERS: PCP Internal Medicine; Visit Provider Physician Assistant
DX: R05 Cough (principal); R06.02 Shortness of breath; R09.89 Other specified symptoms and signs involving the circulatory and respiratory systems; Z20.822 Contact with and (suspected) exposure to COVID-19
CPT/HCPCS: 87635

== ENCOUNTER → 2020-07-03 09:28 | Outpatient (CLI) | payer MEDICARE, SELFPAY ==
[2019-12-25 14:35] VITALS: BMI 29.6
--- NOTE | 2020-07-03 09:30 | DI.RAD.S_ITS ---
PROCEDURE: XR CHEST 2V INDICATIONS: cough TECHNIQUE: 2 views of the chest were acquired. COMPARISON: [facility], CR, XR CHEST 1V, 05/05/2020, 9:07. [facility], CR, XR CHEST 1V, 12/21/2019, 10:51. FINDINGS: Surgical changes and devices: Humeral arthroplasty on the left. Lungs and pleura: Lungs are mildly abnormal with a mild interstitial prominence previously present. No pleural effusions or pneumothorax. Mediastinum: Mediastinal contours are normal. Heart size is normal. Bones and chest wall: No suspicious bony abnormalities. Soft tissues appear unremarkable. IMPRESSION: Mild chronic interstitial prominence, no sign of pneumonia, source of new cough is not identified. Dictated by: Osmar Healy M.D. on 07/03/2020 at 10:21 Approved by: Osmar Healy M.D. on 07/03/2020 at 11:08
== END ==
PROVIDERS: PCP Internal Medicine; Referring Provider Internal Medicine; Visit Provider Internal Medicine
DX: R05 Cough (principal)
CPT/HCPCS: 71046

== ENCOUNTER → 2020-07-17 10:39 | Outpatient (CLI) | payer MEDICARE, SELFPAY ==
[2019-12-25 14:35] VITALS: BMI 29.6
--- NOTE | 2020-07-17 10:52 | DI.CT.S_ITS ---
PROCEDURE: CT CHEST WO CON INDICATIONS: Atypical pneumonia TECHNIQUE: Noncontrast 5 mm thick sections acquired from the pulmonary apices to the posterior costophrenic angles. 1 mm lung window, 5 mm thick coronal and sagittal and 7 mm axial MIP reformats were then acquired. For radiation dose reduction, the following was used: automated exposure control, adjustment of mA and/or kV according to patient size. COMPARISON: [facility], CR, XR CHEST 1V, 12/21/2019, 10:51. [facility], CT, CT ANGIO CHEST, 05/20/2020, 11:16. FINDINGS: Image quality: Excellent. Lungs and pleura: Patchy ground-glass infiltrates are decreased but not resolved. There is a 7 mm cavitary ground-glass nodule in the superior segment of the right lower lobe (image 3/153). A 5 mm nodule with ground-glass halo is seen in the left upper lobe (image 3/76). Both nodules are stable in size. No acute air space opacities. No pleural effusions or pneumothorax. Central and peripheral airways are patent and normal in caliber. Mediastinum: Heart size is normal. No pericardial effusion. Mild coronary artery calcification. Mildly enlarged mediastinal lymph nodes are present. For example, there is a 1 cm precarinal lymph node. Thoracic aorta and central pulmonary arteries are normal in size. Esophagus is normal in caliber. Small hiatal hernia. Bones and chest wall: No suspicious bony lesions. No vertebral body compression fractures. No axillary or supraclavicular adenopathy by size criteria. Bilateral thyroid nodules are present. Abdomen: Visualized upper abdominal solid organs and bowel loops appear normal in the absence of contrast. IMPRESSION: 1. Decreased but not resolved bilateral atypical pneumonia. 2. A 7 mm cavitary ground-glass nodule in the right lower lobe and a 5 mm ground-glass nodule in the left upper lobe. Recommend continued CT follow-up. Next follow-up CT may be obtained in 3 months. 3. Mild mediastinal lymphadenopathy is most likely reactive. 4. Mild coronary artery calcification. 5. Small hiatal hernia. Dictated by: Ange Beck M.D. on 07/17/2020 at 13:05 Approved by: Ange Beck M.D. on 07/17/2020 at 13:31
== END ==
PROVIDERS: PCP Internal Medicine; Referring Provider Internal Medicine; Visit Provider Internal Medicine
DX: J18.9 Pneumonia, unspecified organism (principal); R91.8 Other nonspecific abnormal finding of lung field; R59.0 Localized enlarged lymph nodes; I25.10 Atherosclerotic heart disease of native coronary artery without angina pectoris; K44.9 Diaphragmatic hernia without obstruction or gangrene
CPT/HCPCS: 71250

== ENCOUNTER → 2021-03-29 14:01 | Outpatient (CLI) | payer MEDICARE, SELFPAY ==
[2019-12-25 14:35] VITALS: BMI 29.6
[2021-03-29 14:29] LABS: Add Manual Diff / Slide Review NO; Basophils Absolute Auto 0 /uL (0-100); Basophils Percent Auto 0.4 % (0-2); Eosinophils Absolute Auto 200 /uL (0-450); Eosinophils Percent Auto 2.5 % (2-4); Hematocrit 39.4 % (36-46); Hemoglobin 12.9 g/dL (12.0-16.0); Lymphocytes Absolute Auto 1800 /uL (1100-4500); Lymphocytes Percent Auto 19.1 % (25-40); Mean Corpuscular HGB Conc 32.8 % (30-36); Mean Corpuscular Hemoglobin 26.8 PG (26-34); Monocytes Absolute Auto 600 /uL (0-900); Monocytes Percent Auto 6.4 % (3-14); Neutrophils Absolute Auto 6700 /uL (1500-7000); Neutrophils Percent Auto 71.6 % (50-75); Platelet Count 305 X10^3/uL (150-400); Red Cell Distribution Width 15.9 % (11.6-14.8); White Blood Cell Count 9.4 X10^3/uL (4.5-11.0)
[2021-03-29 14:45] LABS: Appearance Urine UA CLEAR; Bilirubin Urine UA NEGATIVE (NEGATIVE); Color Urine UA YELLOW; Glucose Urine UA NEGATIVE (Negative); Ketones Urine UA NEGATIVE (NEGATIVE); Leukocyte Esterase Urine UA NEGATIVE (NEGATIVE); Nitrite Urine UA NEGATIVE (Negative); Occult Blood Urine UA NEGATIVE (Negative); Protein Urine UA TRACE (Negative); Urobilinogen Urine UA 0.2 E.U./dL (0.2)
[2021-03-29 14:48] LABS: Bacteria Urine None Seen; Culture Indicated Urine Cult Not Indicated; RBC Urine None Seen (0-5/HPF); Urine Comments Microscopic Normal; WBC Urine None Seen (0-5/HPF)
[2021-03-29 14:55] LABS: Alanine Aminotransferase 16 IU/L (<35); Albumin 4.4 g/dL (3.5-5.0); Albumin Globulin Ratio 1.4 (1.0-2.8); Alkaline Phosphatase 96 U/L (38-126); Aspartate Aminotransferase 24 IU/L (14-36); BUN Creatinine Ratio 18.5 (6-22); Bilirubin Total 0.4 mg/dL (0.2-1.3); Blood Urea Nitrogen 15 mg/dL (7-17); C-Reactive Protein Quant < 0.5 mg/dL (<1.0); Calcium 9.7 mg/dL (8.4-10.2); Carbon Dioxide 25 mmol/L (22-32); Chloride 104 mmol/L (98-107); Estimated Glomerular Filt Rate > 60.0 mL/min (>60); Globulin 3.1 g/dL (1.7-4.1); Glucose 123 mg/dL (80-110); HEMOLYSIS < 15 (0-50); Potassium 3.7 mmol/L (3.4-5.1); Sodium 138 mmol/L (137-145); Total Protein 7.5 g/dL (6.3-8.2)
[2021-03-29 15:12] LABS: TSH w/ Reflex to FT4 1.86 uIU/mL (0.47-4.68)
[2021-03-29 15:42] LABS: Erythrocyte Sedimentation Rate 12 MM/HR (0-20)
== END ==
PROVIDERS: PCP Internal Medicine; Referring Provider Internal Medicine; Visit Provider Internal Medicine
DX: E03.9 Hypothyroidism, unspecified (principal); F33.41 Major depressive disorder, recurrent, in partial remission; F41.1 Generalized anxiety disorder; I10 Essential (primary) hypertension
CPT/HCPCS: 36415; 80053; 81001; 84443; 85025; 85651; 86140

== ENCOUNTER 2021-04-03 05:32 | Inpatient (IN) | payer MEDICARE, SELFPAY ==
[2019-12-25 14:35] VITALS: BMI 29.6
[2021-04-03] VITALS (25 sets, daily range): BP systolic 117–229; BP diastolic 74–107; PULSE 70–103; RESP 15–20; TEMP 35.8–37.3; O2SAT 92–99; BMI 30.5
--- NOTE | 2021-04-03 05:37 | DI.CT.S_ITS ---
PROCEDURE: CT HEAD/BRAIN WO CON INDICATIONS: confusion TECHNIQUE: Noncontrast 4.5 mm thick angled axial sections acquired from the foramen magnum to the vertex, with coronal and sagittal reformats. For radiation dose reduction, the following was used: automated exposure control, adjustment of mA and/or kV according to patient size. COMPARISON: [facility]ed With [facility], MR, MR STROKE, 05/02/2018, 16:22. Merged With [facility], CT, CT HEAD/BRAIN WO CON, 12/21/2019, 10:56. Merged With [facility], CT, HEAD WITHOUT CONTRAST, 11/14/2015, 4:52. Merged With [facility], CR, XR CHEST 1V, 04/03/2021, 5:34. Merged With [facility], CT, CT HEAD/BRAIN WO CON, 01/17/2020, 17:02. FINDINGS: Image quality: This examination is limited by involuntary motion artifact. CSF spaces: Basal cisterns are patent. No extra-axial fluid collections. The ventricles are symmetric in size and shape. Brain: No intracranial bleeds or masses. There is cerebral volume loss for age, with resultant ventricular and sulcal prominence. There are periventricular and deep white matter chronic small vessel ischemic changes. There is intracranial internal carotid artery atherosclerosis. Skull and face: Calvarium and visualized facial bones appear intact, without suspicious lesions. Incidental note is made of hyperostosis frontalis. This is not considered to be pathologic in a woman of this age. Sinuses: Visualized sinuses and mastoids are clear. IMPRESSION: Limited study demonstrating no acute intracranial process. Note is made of age-appropriate brain parenchymal volume loss and chronic small vessel ischemic changes. No significant active paranasal sinus disease is now seen. Note: No significant discrepancy from the preliminary report. Dictated by: Denis Shaw M.D. on 04/03/2021 at 7:36 Approved by: Denis Shaw M.D. on 04/03/2021 at 7:39
--- NOTE | 2021-04-03 05:37 | DI.RAD.S_ITS ---
PROCEDURE: XR CHEST 1V INDICATIONS: confusion TECHNIQUE: One view of the chest was acquired. COMPARISON: [facility], CT, CT CHEST WO CON, 07/17/2020, 10:43. [facility], CT, CT ANGIO CHEST, 05/20/2020, 11:16. [facility], CT, CT HEAD/BRAIN WO CON, 04/03/2021, 6:06. [facility], CR, XR CHEST 2V, 07/03/2020, 10:28. FINDINGS: Surgical changes and devices: Since the prior examination, a thoracic spine stimulator has been placed. There is partial visualization of left shoulder arthroplasty hardware. Lungs and pleura: Generalized interstitial prominence can be seen. Low lung volumes are noted. This causes a crowded appearance to the lung markings and limits evaluation. No pneumothorax or large pleural effusion can be seen. Mediastinum: The cardiac contours are mildly enlarged. The aorta demonstrates calcification and tortuosity. Bones and chest wall: No suspicious bony lesions. Age-appropriate bony degenerative changes are seen. Overlying soft tissues appear unremarkable. IMPRESSION: Low lung volumes with generalized interstitial prominence. Please consider COVID pneumonia versus pulmonary edema. Artifact and fibrosis are also possible. Mild cardiomegaly. If clinically appropriate, a short-term followup chest series (with PA and lateral views) performed in deep inspiration is suggested for further evaluation. Postoperative and degenerative changes are seen. Note: No significant discrepancy from the preliminary report. Dictated by: Denis Shaw M.D. on 04/03/2021 at 7:33 Approved by: Denis Shaw M.D. on 04/03/2021 at 7:35
--- NOTE | 2021-04-03 05:38 | ED.AMS ---
HPI - Altered Mental Status <Eugenia Tavares, DO - Last Filed: 04/11/21 09:43> General Chief Complaint: Altered Mental Status Stated Complaint: Confusion Time Seen by Provider: 04/03/21 05:34 Source: patient and EMS Mode of arrival: EMS Limitations: altered mental status History of Present Illness HPI narrative: This is a 71-year-old female who is unable to give history. She can tell me her name although she gives her made name but confirms that she does go by her name as well. She can tell me her date of . She otherwise denies pain, fevers chills, nausea or vomiting, GI or urinary symptoms but when asked specific questions about her past medical history she is quite confused and answers with nonsensical answers. Her arrive and states that for about a day she had a sudden decline and seemed to become more confused. She had 1 episode in the past when she had some luck to light abnormalities and UTI and he thought this may be the case. He contacted her primary care physician and she had a lab drawn urine sample on MondayMarch 29. He was contacted with results on Monday and was told they were negative. He states she was quite confused this evening. She was able to ambulate around the house without any issue but he would have to try to hurt her and at times was difficult to control. He states she does seem to have had some cognitive issues but this is a significant change from her normal baseline. She is normally conversant and he states quite with it. He has not appreciated any other symptoms such as fevers or chills. She has not had complaints of chest pain or shortness of breath. She has not had any nausea or vomiting. No diarrhea constipation. No urinary symptoms. She does have a history of chronic back pain and has a stimulator in place. She has depressive disorder, generalized anxiety and thyroid disorder. Related Data Previous Rx's Medication Instructions Recorded quetiapine 100 mg tablet (Seroquel) 100 mg PO BEDTIME #90 tab 03/16/20 risedronate 150 mg tablet 150 mg PO QMONTH #12 tab 08/10/20 rizatriptan 10 mg tablet 10 mg PO .COMPLEX PRN #6 tab 11/24/20 potassium chloride 8 mEq 8 meq PO BID #60 tab 12/01/20 tablet,extended release omeprazole 40 mg capsule,delayed 40 mg PO BID #60 cap 12/10/20 release verapamil 180 mg 24 hr 180 mg PO DAILY #90 cap 12/10/20 capsule,extended release valsartan 160 mg tablet 160 mg PO DAILY #90 tab 01/22/21 nystatin 100,000 unit/gram topical 1 applic TOP BID PRN #60 gram 02/08/21 powder (Nystop) benzonatate 100 mg capsule 100 mg PO TID PRN #60 cap 02/24/21 (Tessalon Perles) simvastatin 20 mg tablet See Rx Instructions .ROUTE 02/24/21 .COMPLEX #90 tablet desipramine 50 mg tablet 50 mg PO DAILY #180 tab 04/06/21 escitalopram oxalate 10 mg tablet 10 mg PO DAILY #270 tab 04/06/21 metoprolol tartrate 25 mg tablet 25 mg PO TID #90 tab 04/06/21 oxycodone 10 mg tablet 10 mg PO BID #180 tab 04/06/21 ondansetron HCl 8 mg tablet 8 mg PO QID PRN #30 tab 04/07/21 Allergies Allergy/AdvReac Type Severity Reaction Status Date / Time adhesive Allergy Mild BLISTERS, Verified 03/17/21 18:58 PULL SKIN OFF codeine [CODEINE] AdvReac Severe nausea, Verified 03/17/21 18:58 triggers migraines hydrocodone [HYDROCODONE] AdvReac Severe triggers Verified 03/17/21 18:58 migraines morphine [MORPHINE] AdvReac Severe n&v, can Verified 03/17/21 18:58 take if premedicated trazodone AdvReac Severe nausea/altered Verified 03/17/21 18:58 mental status zolpidem [From Ambien] AdvReac Severe sleep Verified 03/17/21 18:58 eating, strange behavior alendronate sodium AdvReac Intermediate Stomach Verified 03/17/21 18:58 [From Fosamax] issues Review of Systems <Eugenia Tavares DO - Last Filed: 04/11/21 09:43> Review of Systems ROS Unobtainable: All systems reviewed & are unremarkable except as noted in HPI and below Patient History <Eugenia Tavares DO - Last Filed: 04/11/21 09:43> Medical History Acquired hypothyroidism (02/10/11) Asthma Chronic migraine without aura without status migrainosus, not intractable Chronic pain syndrome Depression Depression Dorsalgia (07/28/15) Fibromyalgia (09/06/13) Gastroesophageal reflux disease without esophagitis (02/10/11) Generalized anxiety disorder HLD (hyperlipidemia) Hypertension Loosening of hardware in spine Osteoporosis (05/07/15) Recurrent major depressive disorder, in partial remission (02/10/11) Spinal stenosis at L4-L5 level Systemic lupus erythematosus (02/10/11) Tardive dyskinesia Uncomplicated opioid dependence (12/14/15) Surgical History Anesthesia History of arthroplasty of left shoulder (~2013) History of hip replacement History of surgery History of total right hip arthroplasty (~2009) Hx of arthroscopy of left knee Hx of lumbosacral spine surgery (~05/2015) Hx of spinal fusion (~1984) S/P cholecystectomy (~1993) S/P LASIK surgery of both eyes Status post appendectomy Status post tubal ligation Family History Father Family history of polycythemia Mother Family history of CHF (congestive heart failure) Social History marital status: number of children: 2 household members: spouse lives independently: Yes caregiver/support person: No housing: apartment pets and animals: Yes education level: college 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 status: other Previous 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 history: [employer]ism: [employer] leisure activities: other Smoking Status: Never smoker Tobacco: How many years used: 0 quit status: quit date established second hand exposure: No alcohol intake: never substance use type: does not use Smoking Status: Never smoker alcohol intake frequency: 0-2 drinks per day Substance Use Type: does not use Exam <Eugenia Tavares, - Last Filed: 04/11/21 09:43> Narrative Exam Narrative: GEN: Elderly female, alert, confused,patient appears to be in mild distress. HEENT: Atraumatic, pupils are equal round reactive to light, extraocular movements are intact, nares are clear, TMs are clear with no fluid, there is no conjunctival pallor. Throat is clear without any exudates, erythema, tonsillar enlargement or uvular deviation, no facial droop. HEART: Regular rate and rhythm without murmur, clicks, rubs. Pulses are equal in upper and lower extremities LUNGS:Lungs clear to auscultation, no wheezes, rales, crackles, chest moves symmetrically, no tachypnea accessory muscle use. 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 NEURO:CN 2-12 intact, sensation normal, reflexes 2/4 upper and lower extremities. SKIN: No rash, erythema or other skin changes noted. Initial Vital Signs Initial Vital Signs: Vital Signs Temperature 97.0 F L 04/03/21 05:33 Pulse Rate 73 04/03/21 05:33 Respiratory Rate 18 04/03/21 05:33 Blood Pressure 177/79 H 04/03/21 05:33 Pulse Oximetry 97 04/03/21 05:33 <Emilee Elizalde DO - Last Filed: 04/03/21 14:17> Initial Vital Signs Initial Vital Signs: Vital Signs Temperature 97.0 F L 04/03/21 05:33 Pulse Rate 73 04/03/21 05:33 Respiratory Rate 18 04/03/21 05:33 Blood Pressure 177/79 H 04/03/21 05:33 Pulse Oximetry 97 04/03/21 05:33 Scores <Eugenia Tavares DO - Last Filed: 04/11/21 09:43> GCS Yuriy coma scale eye opening: Spontaneous [place] coma scale verbal response: Confused [place] coma scale motor response: Obey commands (some commands, requires a lot of prompting.) Yuriy coma scale total score: 14 <Emilee Elizalde DO - Last Filed: 04/03/21 14:17> GCS Yuriy coma scale total score: 14 Course <Eugenia Tavares DO - Last Filed: 04/11/21 09:43> Orders Ordered: Discontinued Medications Acetaminophen (Acetaminophen 325 Mg Tablet) 650 mg PO Q6HR PRN PRN Reason: Fever/Mild Pain (1-3) Calcium Carbonate (Calcium Carbonate 500 Mg Tab) 1,000 mg PO Q4HR PRN PRN Reason: Dyspepsia Desipramine HCl (Desipramine 25 Mg Tablet) 50 mg PO DAILY [facility] Last Admin: 04/04/21 10:04 Dose: Not Given Documented by: BLATAZAR Diazepam (Diazepam 5 Mg Tablet) 5 mg PO BID PRN PRN Reason: sleep/anxiety Last Admin: 04/03/21 20:53 Dose: 5 mg Documented by: RAFAEL Escitalopram Oxalate (Escitalopram 10 Mg Tablet) 30 mg PO DAILY [facility] Last Admin: 04/03/21 14:42 Dose: 30 mg Documented by: JAYESH Escitalopram Oxalate (Escitalopram 10 Mg Tablet) 20 mg PO DAILY [facility] Last Admin: 04/05/21 08:53 Dose: 20 mg Documented by: Admin: 04/04/21 09:59 Dose: 20 mg Documented by: BALTAZAR Escitalopram Oxalate (Escitalopram 10 Mg Tablet) 10 mg PO DAILY [facility] Last Admin: 04/06/21 09:10 Dose: 10 mg Documented by: BALTAZAR Haloperidol (Haloperidol 5 Mg/Ml Vial) 1 mg IV Q4HR PRN PRN Reason: Delerium Sodium Chloride (Normal Saline 0.9%) 1,000 mls @ 150 mls/hr IV CONT BETTIE Stop: 04/03/21 12:39 Last Infusion: 04/03/21 13:30 Dose: 0 mls/hr Documented by: Admin: 04/03/21 08:20 Dose: 150 mls/hr Documented by: MAXIMUS Dextrose/Sodium Chloride (Dextrose 5%-0.45% Ns) 1,000 mls @ 100 mls/hr IV CONT BETTIE Last Infusion: 04/03/21 22:24 Dose: 0 mls/hr Documented by: Infusion: 04/03/21 20:45 Dose: 125 mls/hr Documented by: Admin: 04/03/21 14:37 Dose: 100 mls/hr Documented by: JAYESH Potassium Chloride/Dextrose/Sod Cl (Dextrose 5%-0.45%Ns W/Kcl 10meq) 1,000 mls @ 125 mls/hr IV CONT BETTIE Last Infusion: 04/04/21 05:33 Dose: 125 mls/hr Documented by: Admin: 04/03/21 22:25 Dose: 125 mls/hr Documented by: CTRNORBERTO Potassium Chloride 10 meq/ (Sodium Chloride) 1,005 mls @ 100 mls/hr IV CONT [facility] Last Admin: 04/04/21 21:41 Dose: 100 mls/hr Documented by: MADELEINE Cosigned by: BELLO Infusion: 04/04/21 21:41 Dose: 100 mls/hr Documented by: MADELEINE Cosigned by: BELLO Admin: 04/04/21 11:52 Dose: 100 mls/hr Documented by: MADELEINE Cosigned by: JEROMY Ibuprofen (Ibuprofen 600 Mg Tablet) 600 mg PO Q6HR PRN PRN Reason: Fever/Mild Pain (1-3) Last Admin: 04/04/21 16:11 Dose: 600 mg Documented by: MADELEINE Metoprolol Succinate (Metoprolol Er 25 Mg Tablet) 25 mg PO NOW ONE Stop: 04/03/21 09:59 Last Admin: 04/03/21 10:27 Dose: 25 mg Documented by: MAXIMUS Metoprolol Tartrate (Metoprolol Ir 25 Mg Tablet) 25 mg PO BID [facility] Last Admin: 04/06/21 09:10 Dose: 25 mg Documented by: Admin: 04/05/21 21:12 Dose: 25 mg Documented by: Admin: 04/05/21 08:53 Dose: 25 mg Documented by: Admin: 04/04/21 20:30 Dose: 25 mg Documented by: Admin: 04/04/21 09:59 Dose: 25 mg Documented by: Admin: 04/03/21 20:53 Dose: 25 mg Documented by: Admin: 04/03/21 13:37 Dose: Not Given Documented by: JAYESH Naloxone HCl (Naloxone 0.4 Mg/Ml Vial) 0.2 mg IV Q2MIN PRN PRN Reason: Opiate Reversal Nf - Desipramine 50 (Mg) 50 mg PO DAILY [facility] Last Admin: 04/06/21 09:10 Dose: Not Given Documented by: Admin: 04/05/21 08:48 Dose: Not Given Documented by: BALTAZAR Nystatin (Nystatin Powder 15gm) 1 applic TOP BID [facility] Last Admin: 04/06/21 09:11 Dose: 1 applic Documented by: Admin: 04/05/21 21:12 Dose: 1 applic Documented by: Admin: 04/05/21 08:55 Dose: 1 applic Documented by: Admin: 04/04/21 20:31 Dose: 1 applic Documented by: Admin: 04/04/21 10:00 Dose: 1 applic Documented by: Admin: 04/03/21 14:42 Dose: 1 applic Documented by: JAYESH Ondansetron HCl (Ondansetron 4 Mg/2 Ml Inj) 4 mg IV Q8HR PRN PRN Reason: Nausea And Vomiting Oxycodone HCl (Oxycodone Ir 5 Mg Tablet) 10 mg PO NOW ONE Stop: 04/03/21 10:24 Last Admin: 04/03/21 11:38 Dose: 10 mg Documented by: ABIMAEL Oxycodone HCl (Oxycodone Ir 10 Mg Tablet) 10 mg PO QID PRN PRN Reason: pain Last Admin: 04/05/21 19:09 Dose: 10 mg Documented by: Admin: 04/05/21 08:54 Dose: 10 mg Documented by: Admin: 04/05/21 02:36 Dose: 10 mg Documented by: Admin: 04/04/21 20:30 Dose: 10 mg Documented by: Admin: 04/04/21 14:45 Dose: 10 mg Documented by: Admin: 04/04/21 09:58 Dose: 10 mg Documented by: Admin: 04/03/21 22:12 Dose: 10 mg Documented by: Admin: 04/03/21 16:10 Dose: 10 mg Documented by: JAYESH Quetiapine Fumarate (Quetiapine 100 Mg Tablet) 100 mg PO BEDTIME [facility] Last Admin: 04/05/21 21:13 Dose: 100 mg Documented by: Admin: 04/04/21 20:30 Dose: 100 mg Documented by: Admin: 04/03/21 20:53 Dose: 100 mg Documented by: RAFAEL Sumatriptan Succinate (Sumatriptan 25 Mg Tablet) 100 mg PO Q4H PRN PRN Reason: Headache Last Admin: 04/06/21 09:10 Dose: 100 mg Documented by: Admin: 04/05/21 13:06 Dose: 100 mg Documented by: BALTAZAR Valsartan (Valsartan 80 Mg Tablet) 160 mg PO DAILY [facility] Last Admin: 04/06/21 09:10 Dose: 160 mg Documented by: Admin: 04/05/21 08:53 Dose: 160 mg Documented by: Admin: 04/04/21 09:59 Dose: 160 mg Documented by: Admin: 04/03/21 14:41 Dose: 160 mg Documented by: JAYESH Verapamil HCl (Verapamil Sr 180 Mg Tablet) 180 mg PO DAILY [facility] Last Admin: 04/06/21 09:10 Dose: 180 mg Documented by: Admin: 04/05/21 08:53 Dose: 180 mg Documented by: Admin: 04/04/21 09:59 Dose: 180 mg Documented by: Admin: 04/03/21 10:28 Dose: 180 mg Documented by: MAXIMUS Vital Signs Vital signs: Vital Signs - 8 hr 04/03/21 06:44 04/03/21 07:00 04/03/21 07:30 Pulse Rate 76 77 80 Blood Pressure Pulse Oximetry 96 96 04/03/21 08:02 04/03/21 08:39 04/03/21 09:00 Pulse Rate 74 81 74 Blood Pressure Pulse Oximetry 95 99 93 04/03/21 09:30 04/03/21 09:49 04/03/21 10:00 Pulse Rate 84 103 H 85 Blood Pressure 229/107 H Pulse Oximetry 97 96 99 04/03/21 10:06 Pulse Rate 82 Blood Pressure Pulse Oximetry 98 <Emilee Elizalde, - Last Filed: 04/03/21 14:17> Orders Ordered: Discontinued Medications Acetaminophen (Acetaminophen 325 Mg Tablet) 650 mg PO Q6HR PRN PRN Reason: Fever/Mild Pain (1-3) Calcium Carbonate (Calcium Carbonate 500 Mg Tab) 1,000 mg PO Q4HR PRN PRN Reason: Dyspepsia Desipramine HCl (Desipramine 25 Mg Tablet) 50 mg PO DAILY [facility] Last Admin: 04/04/21 10:04 Dose: Not Given Documented by: BALTAZAR Diazepam (Diazepam 5 Mg Tablet) 5 mg PO BID PRN PRN Reason: sleep/anxiety Last Admin: 04/03/21 20:53 Dose: 5 mg Documented by: RAFAEL Escitalopram Oxalate (Escitalopram 10 Mg Tablet) 30 mg PO DAILY [facility] Last Admin: 04/03/21 14:42 Dose: 30 mg Documented by: JAYESH Escitalopram Oxalate (Escitalopram 10 Mg Tablet) 20 mg PO DAILY [facility] Last Admin: 04/05/21 08:53 Dose: 20 mg Documented by: Admin: 04/04/21 09:59 Dose: 20 mg Documented by: BALTAZAR Escitalopram Oxalate (Escitalopram 10 Mg Tablet) 10 mg PO DAILY [facility] Last Admin: 04/06/21 09:10 Dose: 10 mg Documented by: BALTAZAR Haloperidol (Haloperidol 5 Mg/Ml Vial) 1 mg IV Q4HR PRN PRN Reason: Delerium Sodium Chloride (Normal Saline 0.9%) 1,000 mls @ 150 mls/hr IV CONT BETTIE Stop: 04/03/21 12:39 Last Infusion: 04/03/21 13:30 Dose: 0 mls/hr Documented by: Admin: 04/03/21 08:20 Dose: 150 mls/hr Documented by: MAXIMUS Dextrose/Sodium Chloride (Dextrose 5%-0.45% Ns) 1,000 mls @ 100 mls/hr IV CONT BETTIE Last Infusion: 04/03/21 22:24 Dose: 0 mls/hr Documented by: Infusion: 04/03/21 20:45 Dose: 125 mls/hr Documented by: [email or web address] Admin: 04/03/21 14:37 Dose: 100 mls/hr Documented by: JAYESH Potassium Chloride/Dextrose/Sod Cl (Dextrose 5%-0.45%Ns W/Kcl 10meq) 1,000 mls @ 125 mls/hr IV CONT BETTIE Last Infusion: 04/04/21 05:33 Dose: 125 mls/hr Documented by: Admin: 04/03/21 22:25 Dose: 125 mls/hr Documented by: RAFAEL Potassium Chloride 10 meq/ (Sodium Chloride) 1,005 mls @ 100 mls/hr IV CONT [facility] Last Admin: 04/04/21 21:41 Dose: 100 mls/hr Documented by: MADELEINE Cosigned by: CWHITE Infusion: 04/04/21 21:41 Dose: 100 mls/hr Documented by: MADELEINE Cosigned by: CWHITE Admin: 04/04/21 11:52 Dose: 100 mls/hr Documented by: MADELEINE Cosigned by: TPIERSO Ibuprofen (Ibuprofen 600 Mg Tablet) 600 mg PO Q6HR PRN PRN Reason: Fever/Mild Pain (1-3) Last Admin: 04/04/21 16:11 Dose: 600 mg Documented by: MADELEINE Metoprolol Succinate (Metoprolol Er 25 Mg Tablet) 25 mg PO NOW ONE Stop: 04/03/21 09:59 Last Admin: 04/03/21 10:27 Dose: 25 mg Documented by: MAXIMUS Metoprolol Tartrate (Metoprolol Ir 25 Mg Tablet) 25 mg PO BID [facility] Last Admin: 04/06/21 09:10 Dose: 25 mg Documented by: Admin: 04/05/21 21:12 Dose: 25 mg Documented by: Admin: 04/05/21 08:53 Dose: 25 mg Documented by: Admin: 04/04/21 20:30 Dose: 25 mg Documented by: Admin: 04/04/21 09:59 Dose: 25 mg Documented by: Admin: 04/03/21 20:53 Dose: 25 mg Documented by: WWENDTam Admin: 04/03/21 13:37 Dose: Not Given Documented by: JAYESH Naloxone HCl (Naloxone 0.4 Mg/Ml Vial) 0.2 mg IV Q2MIN PRN PRN Reason: Opiate Reversal Nf - Desipramine 50 (Mg) 50 mg PO DAILY [facility] Last Admin: 04/06/21 09:10 Dose: Not Given Documented by: Admin: 04/05/21 08:48 Dose: Not Given Documented by: BALTAZAR Nystatin (Nystatin Powder 15gm) 1 applic TOP BID [facility] Last Admin: 04/06/21 09:11 Dose: 1 applic Documented by: Admin: 04/05/21 21:12 Dose: 1 applic Documented by: Admin: 04/05/21 08:55 Dose: 1 applic Documented by: Admin: 04/04/21 20:31 Dose: 1 applic Documented by: Admin: 04/04/21 10:00 Dose: 1 applic Documented by: Admin: 04/03/21 14:42 Dose: 1 applic Documented by: JAYESH Ondansetron HCl (Ondansetron 4 Mg/2 Ml Inj) 4 mg IV Q8HR PRN PRN Reason: Nausea And Vomiting Oxycodone HCl (Oxycodone Ir 5 Mg Tablet) 10 mg PO NOW ONE Stop: 04/03/21 10:24 Last Admin: 04/03/21 11:38 Dose: 10 mg Documented by: ABIMAEL Oxycodone HCl (Oxycodone Ir 10 Mg Tablet) 10 mg PO QID PRN PRN Reason: pain Last Admin: 04/05/21 19:09 Dose: 10 mg Documented by: Admin: 04/05/21 08:54 Dose: 10 mg Documented by: Admin: 04/05/21 02:36 Dose: 10 mg Documented by: Admin: 04/04/21 20:30 Dose: 10 mg Documented by: Admin: 04/04/21 14:45 Dose: 10 mg Documented by: Admin: 04/04/21 09:58 Dose: 10 mg Documented by: Admin: 04/03/21 22:12 Dose: 10 mg Documented by: Admin: 04/03/21 16:10 Dose: 10 mg Documented by: JAYESH Quetiapine Fumarate (Quetiapine 100 Mg Tablet) 100 mg PO BEDTIME [facility] Last Admin: 04/05/21 21:13 Dose: 100 mg Documented by: Admin: 04/04/21 20:30 Dose: 100 mg Documented by: Admin: 04/03/21 20:53 Dose: 100 mg Documented by: [email or web address] Sumatriptan Succinate (Sumatriptan 25 Mg Tablet) 100 mg PO Q4H PRN PRN Reason: Headache Last Admin: 04/06/21 09:10 Dose: 100 mg Documented by: Admin: 04/05/21 13:06 Dose: 100 mg Documented by: BALTAZAR Valsartan (Valsartan 80 Mg Tablet) 160 mg PO DAILY [facility] Last Admin: 04/06/21 09:10 Dose: 160 mg Documented by: Admin: 04/05/21 08:53 Dose: 160 mg Documented by: Admin: 04/04/21 09:59 Dose: 160 mg Documented by: Admin: 04/03/21 14:41 Dose: 160 mg Documented by: JAYESH Verapamil HCl (Verapamil Sr 180 Mg Tablet) 180 mg PO DAILY [facility] Last Admin: 04/06/21 09:10 Dose: 180 mg Documented by: Admin: 04/05/21 08:53 Dose: 180 mg Documented by: Admin: 04/04/21 09:59 Dose: 180 mg Documented by: Admin: 04/03/21 10:28 Dose: 180 mg Documented by: MAXIMUS Vital Signs Vital signs: Vital Signs - 8 hr 04/03/21 06:44 04/03/21 07:00 04/03/21 07:30 Pulse Rate 76 77 80 Blood Pressure Pulse Oximetry 96 96 04/03/21 08:02 04/03/21 08:39 04/03/21 09:00 Pulse Rate 74 81 74 Blood Pressure Pulse Oximetry 95 99 93 04/03/21 09:30 04/03/21 09:49 04/03/21 10:00 Pulse Rate 84 103 H 85 Blood Pressure 229/107 H Pulse Oximetry 97 96 99 04/03/21 10:06 Pulse Rate 82 Blood Pressure Pulse Oximetry 98 MDM - Altered Mental Status <Eugenia Tavares, - Last Filed: 04/11/21 09:43> Lab Data Result diagrams: 04/06/21 04:50 04/06/21 04:50 Labs: Lab Results 04/03/21 04/03/21 04/03/21 Range/Units 05:45 05:45 05:45 WBC 7.0 (4.5-11.0) X10^3/uL RBC 4.43 (4.0-5.2) X10^6/uL Hgb 11.8 L (12.0-16.0) g/dL Hct 36.4 (36-46) % MCV 82.2 (80-100) fL MCH 26.6 (26-34) PG MCHC 32.4 (30-36) % RDW 16.6 H (11.6-14.8) % Plt Count 282 (150-400) X10^3/uL Neut % (Auto) 74.6 (50-75) % Lymph % (Auto) 15.8 L (25-40) % [place] % (Auto) 6.8 (3-14) % Eos % (Auto) 2.4 (2-4) % Baso % (Auto) 0.4 (0-2) % Neut # (Auto) 5200 (5977-3004) /uL Lymph # (Auto) 1100 (0253-4969) /uL [place] # (Auto) 500 (0-900) /uL Eos # (Auto) 200 (0-450) /uL Baso # (Auto) 0 (0-100) /uL Sodium 136 L (137-145) mmol/L Potassium 3.7 (3.4-5.1) mmol/L Chloride 103 (98-107) mmol/L Carbon Dioxide 26 (22-32) mmol/L BUN 13 (7-17) mg/dL Creatinine 0.76 (0.52-1.04) mg/dL Estimated GFR > 60.0 (>60) mL/min BUN/Creatinine Ratio 17.1 (6-22) Glucose 108 (80-110) mg/dL Lactate 1.2 (0.7-2.1) mmol/L Calcium 9.6 (8.4-10.2) mg/dL Phosphorus (2.8-4.1) mg/dL Magnesium (1.6-2.3) mg/dL Total Bilirubin 0.3 (0.2-1.3) mg/dL AST 21 (14-36) IU/L ALT 15 (<35) IU/L Alkaline Phosphatase 90 (38-126) U/L Total Creatine Kinase (30-135) U/L CK-MB (CK-2) CK-MB (CK-2) Rel Index Troponin I (0.01-0.034) ng/mL NT-Pro-B Natriuret Pep (<125) pg/mL Total Protein 6.7 (6.3-8.2) g/dL Albumin 4.0 (3.5-5.0) g/dL Globulin 2.7 (1.7-4.1) g/dL Albumin/Globulin Ratio 1.5 (1.0-2.8) Procalcitonin (<0.5) ng/mL TSH (0.47-4.68) uIU/mL Urine Color Urine Appearance Urine pH (4.5-8.0) Ur Specific [place] (1.000-1.035) Urine Protein (Negative) Urine Glucose (UA) (Negative) g/dL Urine Ketones (NEGATIVE) Urine Occult Blood (Negative) Urine Nitrate (Negative) Urine Bilirubin (NEGATIVE) Urine Urobilinogen (0.2) E.U./dL Ur Leukocyte Esterase (NEGATIVE) Urine RBC (0-5/HPF) Urine WBC (0-5/HPF) Urine Bacteria (None) Ur Culture Indicated? U Opiates 300ng/mL cut (Negative) Ur Oxycodone Screen (Negative) Urine Methadone Screen (Negative) Ur Barbiturates Screen (Negative) U Tricyclic Antidepress (Negative) Ur Phencyclidine Scrn (Negative) Ur Amphetamines Screen (Negative) U Methamphetamines Scrn (Negative) Ur MDMA Scrn (Ecstasy) (Negative) U Benzodiazepines Scrn (Negative) Urine Cocaine Screen (Negative) U Marijuana (THC) Screen (Negative) Ethyl Alcohol < 10 ( - 10) mg/dL SARS-CoV-2 (PCR) (Negative) 04/03/21 04/03/21 04/03/21 Range/Units 05:45 05:45 05:45 WBC (4.5-11.0) X10^3/uL RBC (4.0-5.2) X10^6/uL Hgb (12.0-16.0) g/dL Hct (36-46) % MCV (80-100) fL MCH (26-34) PG MCHC (30-36) % RDW (11.6-14.8) % Plt Count (150-400) X10^3/uL Neut % (Auto) (50-75) % Lymph % (Auto) (25-40) % [place] % (Auto) (3-14) % Eos % (Auto) (2-4) % Baso % (Auto) (0-2) % Neut # (Auto) (6275-4939) /uL Lymph # (Auto) (5095-1250) /uL [place] # (Auto) (0-900) /uL Eos # (Auto) (0-450) /uL Baso # (Auto) (0-100) /uL Sodium (137-145) mmol/L Potassium (3.4-5.1) mmol/L Chloride (98-107) mmol/L Carbon Dioxide (22-32) mmol/L BUN (7-17) mg/dL Creatinine (0.52-1.04) mg/dL Estimated GFR (>60) mL/min BUN/Creatinine Ratio (6-22) Glucose (80-110) mg/dL Lactate (0.7-2.1) mmol/L Calcium (8.4-10.2) mg/dL Phosphorus (2.8-4.1) mg/dL Magnesium (1.6-2.3) mg/dL Total Bilirubin (0.2-1.3) mg/dL AST (14-36) IU/L ALT (<35) IU/L Alkaline Phosphatase (38-126) U/L Total Creatine Kinase 35 (30-135) U/L CK-MB (CK-2) TNP CK-MB (CK-2) Rel Index TNP Troponin I < 0.012 (0.01-0.034) ng/mL NT-Pro-B Natriuret Pep 97 (<125) pg/mL Total Protein (6.3-8.2) g/dL Albumin (3.5-5.0) g/dL Globulin (1.7-4.1) g/dL Albumin/Globulin Ratio (1.0-2.8) Procalcitonin 0.04 (<0.5) ng/mL TSH 1.77 (0.47-4.68) uIU/mL Urine Color Urine Appearance Urine pH (4.5-8.0) Ur Specific [place] (1.000-1.035) Urine Protein (Negative) Urine Glucose (UA) (Negative) g/dL Urine Ketones (NEGATIVE) Urine Occult Blood (Negative) Urine Nitrate (Negative) Urine Bilirubin (NEGATIVE) Urine Urobilinogen (0.2) E.U./dL Ur Leukocyte Esterase (NEGATIVE) Urine RBC (0-5/HPF) Urine WBC (0-5/HPF) Urine Bacteria (None) Ur Culture Indicated? U Opiates 300ng/mL cut (Negative) Ur Oxycodone Screen (Negative) Urine Methadone Screen (Negative) Ur Barbiturates Screen (Negative) U Tricyclic Antidepress (Negative) Ur Phencyclidine Scrn (Negative) Ur Amphetamines Screen (Negative) U Methamphetamines Scrn (Negative) Ur MDMA Scrn (Ecstasy) (Negative) U Benzodiazepines Scrn (Negative) Urine Cocaine Screen (Negative) U Marijuana (THC) Screen (Negative) Ethyl Alcohol ( - 10) mg/dL SARS-CoV-2 (PCR) (Negative) 04/03/21 04/03/21 04/03/21 Range/Units 05:45 06:09 06:15 WBC (4.5-11.0) X10^3/uL RBC (4.0-5.2) X10^6/uL Hgb (12.0-16.0) g/dL Hct (36-46) % MCV (80-100) fL MCH (26-34) PG MCHC (30-36) % RDW (11.6-14.8) % Plt Count (150-400) X10^3/uL Neut % (Auto) (50-75) % Lymph % (Auto) (25-40) % [place] % (Auto) (3-14) % Eos % (Auto) (2-4) % Baso % (Auto) (0-2) % Neut # (Auto) (9320-1003) /uL Lymph # (Auto) (8727-0287) /uL [place] # (Auto) (0-900) /uL Eos # (Auto) (0-450) /uL Baso # (Auto) (0-100) /uL Sodium (137-145) mmol/L Potassium (3.4-5.1) mmol/L Chloride (98-107) mmol/L Carbon Dioxide (22-32) mmol/L BUN (7-17) mg/dL Creatinine (0.52-1.04) mg/dL Estimated GFR (>60) mL/min BUN/Creatinine Ratio (6-22) Glucose (80-110) mg/dL Lactate (0.7-2.1) mmol/L Calcium (8.4-10.2) mg/dL Phosphorus 3.2 (2.8-4.1) mg/dL Magnesium 1.8 (1.6-2.3) mg/dL Total Bilirubin (0.2-1.3) mg/dL AST (14-36) IU/L ALT (<35) IU/L Alkaline Phosphatase (38-126) U/L Total Creatine Kinase (30-135) U/L CK-MB (CK-2) CK-MB (CK-2) Rel Index Troponin I (0.01-0.034) ng/mL NT-Pro-B Natriuret Pep (<125) pg/mL Total Protein (6.3-8.2) g/dL Albumin (3.5-5.0) g/dL Globulin (1.7-4.1) g/dL Albumin/Globulin Ratio (1.0-2.8) Procalcitonin (<0.5) ng/mL TSH (0.47-4.68) uIU/mL Urine Color Yellow Urine Appearance Clear Urine pH 6.5 (4.5-8.0) Ur Specific [place] 1.010 (1.000-1.035) Urine Protein Negative (Negative) Urine Glucose (UA) Negative (Negative) g/dL Urine Ketones Negative (NEGATIVE) Urine Occult Blood Negative (Negative) Urine Nitrate Negative (Negative) Urine Bilirubin Negative (NEGATIVE) Urine Urobilinogen 0.2 (0.2) E.U./dL Ur Leukocyte Esterase Trace H (NEGATIVE) Urine RBC 0-1/hpf (0-5/HPF) Urine WBC 0-1/hpf (0-5/HPF) Urine Bacteria None seen (None) Ur Culture Indicated? Cult not indicated U Opiates 300ng/mL cut (Negative) Ur Oxycodone Screen (Negative) Urine Methadone Screen (Negative) Ur Barbiturates Screen (Negative) U Tricyclic Antidepress (Negative) Ur Phencyclidine Scrn (Negative) Ur Amphetamines Screen (Negative) U Methamphetamines Scrn (Negative) Ur MDMA Scrn (Ecstasy) (Negative) U Benzodiazepines Scrn (Negative) Urine Cocaine Screen (Negative) U Marijuana (THC) Screen (Negative) Ethyl Alcohol ( - 10) mg/dL SARS-CoV-2 (PCR) Negative (Negative) 04/03/21 Range/Units 06:15 WBC (4.5-11.0) X10^3/uL RBC (4.0-5.2) X10^6/uL Hgb (12.0-16.0) g/dL Hct (36-46) % MCV (80-100) fL MCH (26-34) PG MCHC (30-36) % RDW (11.6-14.8) % Plt Count (150-400) X10^3/uL Neut % (Auto) (50-75) % Lymph % (Auto) (25-40) % [place] % (Auto) (3-14) % Eos % (Auto) (2-4) % Baso % (Auto) (0-2) % Neut # (Auto) (3136-6756) /uL Lymph # (Auto) (8063-7952) /uL [place] # (Auto) (0-900) /uL Eos # (Auto) (0-450) /uL Baso # (Auto) (0-100) /uL Sodium (137-145) mmol/L Potassium (3.4-5.1) mmol/L Chloride (98-107) mmol/L Carbon Dioxide (22-32) mmol/L BUN (7-17) mg/dL Creatinine (0.52-1.04) mg/dL Estimated GFR (>60) mL/min BUN/Creatinine Ratio (6-22) Glucose (80-110) mg/dL Lactate (0.7-2.1) mmol/L Calcium (8.4-10.2) mg/dL Phosphorus (2.8-4.1) mg/dL Magnesium (1.6-2.3) mg/dL Total Bilirubin (0.2-1.3) mg/dL AST (14-36) IU/L ALT (<35) IU/L Alkaline Phosphatase (38-126) U/L Total Creatine Kinase (30-135) U/L CK-MB (CK-2) CK-MB (CK-2) Rel Index Troponin I (0.01-0.034) ng/mL NT-Pro-B Natriuret Pep (<125) pg/mL Total Protein (6.3-8.2) g/dL Albumin (3.5-5.0) g/dL Globulin (1.7-4.1) g/dL Albumin/Globulin Ratio (1.0-2.8) Procalcitonin (<0.5) ng/mL TSH (0.47-4.68) uIU/mL Urine Color Urine Appearance Urine pH (4.5-8.0) Ur Specific [place] (1.000-1.035) Urine Protein (Negative) Urine Glucose (UA) (Negative) g/dL Urine Ketones (NEGATIVE) Urine Occult Blood (Negative) Urine Nitrate (Negative) Urine Bilirubin (NEGATIVE) Urine Urobilinogen (0.2) E.U./dL Ur Leukocyte Esterase (NEGATIVE) Urine RBC (0-5/HPF) Urine WBC (0-5/HPF) Urine Bacteria (None) Ur Culture Indicated? U Opiates 300ng/mL cut Positive H (Negative) Ur Oxycodone Screen Positive H (Negative) Urine Methadone Screen Negative (Negative) Ur Barbiturates Screen Negative (Negative) U Tricyclic Antidepress Positive H (Negative) Ur Phencyclidine Scrn Negative (Negative) Ur Amphetamines Screen Negative (Negative) U Methamphetamines Scrn Negative (Negative) Ur MDMA Scrn (Ecstasy) Negative (Negative) U Benzodiazepines Scrn Positive H (Negative) Urine Cocaine Screen Negative (Negative) U Marijuana (THC) Screen Negative (Negative) Ethyl Alcohol ( - 10) mg/dL SARS-CoV-2 (PCR) (Negative) Imaging Data CT scan - head: Radiologist's Impression: Generalized involutional changes and chronic microvascular changes noted. No acute abnormality to find. Chest x-ray: Radiologist's Impression: cardiomegaly, nonspecific increased attenuation of lungs may represent fibrosis, acute infiltrate or combination. ECG Data Attestation: I personally reviewed and interpreted this ECG as follows: Interpretation: Sinus rhythm rate of 69 CT 154 QRS of 92 and QTC 475. Nonspecific change. No acute ST elevation. Patient has prior from 05/05/2020 with no acute changes. <Emilee Elizalde DO - Last Filed: 04/03/21 14:17> Lab Data Labs: Lab Results 04/03/21 04/03/21 04/03/21 Range/Units 05:45 05:45 05:45 WBC 7.0 (4.5-11.0) X10^3/uL RBC 4.43 (4.0-5.2) X10^6/uL Hgb 11.8 L (12.0-16.0) g/dL Hct 36.4 (36-46) % MCV 82.2 (80-100) fL MCH 26.6 (26-34) PG MCHC 32.4 (30-36) % RDW 16.6 H (11.6-14.8) % Plt Count 282 (150-400) X10^3/uL Neut % (Auto) 74.6 (50-75) % Lymph % (Auto) 15.8 L (25-40) % [place] % (Auto) 6.8 (3-14) % Eos % (Auto) 2.4 (2-4) % Baso % (Auto) 0.4 (0-2) % Neut # (Auto) 5200 (1580-6207) /uL Lymph # (Auto) 1100 (4259-7033) /uL [place] # (Auto) 500 (0-900) /uL Eos # (Auto) 200 (0-450) /uL Baso # (Auto) 0 (0-100) /uL Sodium 136 L (137-145) mmol/L Potassium 3.7 (3.4-5.1) mmol/L Chloride 103 (98-107) mmol/L Carbon Dioxide 26 (22-32) mmol/L BUN 13 (7-17) mg/dL Creatinine 0.76 (0.52-1.04) mg/dL Estimated GFR > 60.0 (>60) mL/min BUN/Creatinine Ratio 17.1 (6-22) Glucose 108 (80-110) mg/dL Lactate 1.2 (0.7-2.1) mmol/L Calcium 9.6 (8.4-10.2) mg/dL Phosphorus (2.8-4.1) mg/dL Magnesium (1.6-2.3) mg/dL Total Bilirubin 0.3 (0.2-1.3) mg/dL AST 21 (14-36) IU/L ALT 15 (<35) IU/L Alkaline Phosphatase 90 (38-126) U/L Total Creatine Kinase (30-135) U/L CK-MB (CK-2) CK-MB (CK-2) Rel Index Troponin I (0.01-0.034) ng/mL NT-Pro-B Natriuret Pep (<125) pg/mL Total Protein 6.7 (6.3-8.2) g/dL Albumin 4.0 (3.5-5.0) g/dL Globulin 2.7 (1.7-4.1) g/dL Albumin/Globulin Ratio 1.5 (1.0-2.8) Procalcitonin (<0.5) ng/mL TSH (0.47-4.68) uIU/mL Urine Color Urine Appearance Urine pH (4.5-8.0) Ur Specific [place] (1.000-1.035) Urine Protein (Negative) Urine Glucose (UA) (Negative) g/dL Urine Ketones (NEGATIVE) Urine Occult Blood (Negative) Urine Nitrate (Negative) Urine Bilirubin (NEGATIVE) Urine Urobilinogen (0.2) E.U./dL Ur Leukocyte Esterase (NEGATIVE) Urine RBC (0-5/HPF) Urine WBC (0-5/HPF) Urine Bacteria (None) Ur Culture Indicated? U Opiates 300ng/mL cut (Negative) Ur Oxycodone Screen (Negative) Urine Methadone Screen (Negative) Ur Barbiturates Screen (Negative) U Tricyclic Antidepress (Negative) Ur Phencyclidine Scrn (Negative) Ur Amphetamines Screen (Negative) U Methamphetamines Scrn (Negative) Ur MDMA Scrn (Ecstasy) (Negative) U Benzodiazepines Scrn (Negative) Urine Cocaine Screen (Negative) U Marijuana (THC) Screen (Negative) Ethyl Alcohol < 10 ( - 10) mg/dL SARS-CoV-2 (PCR) (Negative) 04/03/21 04/03/21 04/03/21 Range/Units 05:45 05:45 05:45 WBC (4.5-11.0) X10^3/uL RBC (4.0-5.2) X10^6/uL Hgb (12.0-16.0) g/dL Hct (36-46) % MCV (80-100) fL MCH (26-34) PG MCHC (30-36) % RDW (11.6-14.8) % Plt Count (150-400) X10^3/uL Neut % (Auto) (50-75) % Lymph % (Auto) (25-40) % [place] % (Auto) (3-14) % Eos % (Auto) (2-4) % Baso % (Auto) (0-2) % Neut # (Auto) (1497-2213) /uL Lymph # (Auto) (1088-0084) /uL [place] # (Auto) (0-900) /uL Eos # (Auto) (0-450) /uL Baso # (Auto) (0-100) /uL Sodium (137-145) mmol/L Potassium (3.4-5.1) mmol/L Chloride (98-107) mmol/L Carbon Dioxide (22-32) mmol/L BUN (7-17) mg/dL Creatinine (0.52-1.04) mg/dL Estimated GFR (>60) mL/min BUN/Creatinine Ratio (6-22) Glucose (80-110) mg/dL Lactate (0.7-2.1) mmol/L Calcium (8.4-10.2) mg/dL Phosphorus (2.8-4.1) mg/dL Magnesium (1.6-2.3) mg/dL Total Bilirubin (0.2-1.3) mg/dL AST (14-36) IU/L ALT (<35) IU/L Alkaline Phosphatase (38-126) U/L Total Creatine Kinase 35 (30-135) U/L CK-MB (CK-2) TNP CK-MB (CK-2) Rel Index TNP Troponin I < 0.012 (0.01-0.034) ng/mL NT-Pro-B Natriuret Pep 97 (<125) pg/mL Total Protein (6.3-8.2) g/dL Albumin (3.5-5.0) g/dL Globulin (1.7-4.1) g/dL Albumin/Globulin Ratio (1.0-2.8) Procalcitonin 0.04 (<0.5) ng/mL TSH 1.77 (0.47-4.68) uIU/mL Urine Color Urine Appearance Urine pH (4.5-8.0) Ur Specific [place] (1.000-1.035) Urine Protein (Negative) Urine Glucose (UA) (Negative) g/dL Urine Ketones (NEGATIVE) Urine Occult Blood (Negative) Urine Nitrate (Negative) Urine Bilirubin (NEGATIVE) Urine Urobilinogen (0.2) E.U./dL Ur Leukocyte Esterase (NEGATIVE) Urine RBC (0-5/HPF) Urine WBC (0-5/HPF) Urine Bacteria (None) Ur Culture Indicated? U Opiates 300ng/mL cut (Negative) Ur Oxycodone Screen (Negative) Urine Methadone Screen (Negative) Ur Barbiturates Screen (Negative) U Tricyclic Antidepress (Negative) Ur Phencyclidine Scrn (Negative) Ur Amphetamines Screen (Negative) U Methamphetamines Scrn (Negative) Ur MDMA Scrn (Ecstasy) (Negative) U Benzodiazepines Scrn (Negative) Urine Cocaine Screen (Negative) U Marijuana (THC) Screen (Negative) Ethyl Alcohol ( - 10) mg/dL SARS-CoV-2 (PCR) (Negative) 04/03/21 04/03/21 04/03/21 Range/Units 05:45 06:09 06:15 WBC (4.5-11.0) X10^3/uL RBC (4.0-5.2) X10^6/uL Hgb (12.0-16.0) g/dL Hct (36-46) % MCV (80-100) fL MCH (26-34) PG MCHC (30-36) % RDW (11.6-14.8) % Plt Count (150-400) X10^3/uL Neut % (Auto) (50-75) % Lymph % (Auto) (25-40) % [place] % (Auto) (3-14) % Eos % (Auto) (2-4) % Baso % (Auto) (0-2) % Neut # (Auto) (3565-3569) /uL Lymph # (Auto) (2599-4115) /uL [place] # (Auto) (0-900) /uL Eos # (Auto) (0-450) /uL Baso # (Auto) (0-100) /uL Sodium (137-145) mmol/L Potassium (3.4-5.1) mmol/L Chloride (98-107) mmol/L Carbon Dioxide (22-32) mmol/L BUN (7-17) mg/dL Creatinine (0.52-1.04) mg/dL Estimated GFR (>60) mL/min BUN/Creatinine Ratio (6-22) Glucose (80-110) mg/dL Lactate (0.7-2.1) mmol/L Calcium (8.4-10.2) mg/dL Phosphorus 3.2 (2.8-4.1) mg/dL Magnesium 1.8 (1.6-2.3) mg/dL Total Bilirubin (0.2-1.3) mg/dL AST (14-36) IU/L ALT (<35) IU/L Alkaline Phosphatase (38-126) U/L Total Creatine Kinase (30-135) U/L CK-MB (CK-2) CK-MB (CK-2) Rel Index Troponin I (0.01-0.034) ng/mL NT-Pro-B Natriuret Pep (<125) pg/mL Total Protein (6.3-8.2) g/dL Albumin (3.5-5.0) g/dL Globulin (1.7-4.1) g/dL Albumin/Globulin Ratio (1.0-2.8) Procalcitonin (<0.5) ng/mL TSH (0.47-4.68) uIU/mL Urine Color Yellow Urine Appearance Clear Urine pH 6.5 (4.5-8.0) Ur Specific [place] 1.010 (1.000-1.035) Urine Protein Negative (Negative) Urine Glucose (UA) Negative (Negative) g/dL Urine Ketones Negative (NEGATIVE) Urine Occult Blood Negative (Negative) Urine Nitrate Negative (Negative) Urine Bilirubin Negative (NEGATIVE) Urine Urobilinogen 0.2 (0.2) E.U./dL Ur Leukocyte Esterase Trace H (NEGATIVE) Urine RBC 0-1/hpf (0-5/HPF) Urine WBC 0-1/hpf (0-5/HPF) Urine Bacteria None seen (None) Ur Culture Indicated? Cult not indicated U Opiates 300ng/mL cut (Negative) Ur Oxycodone Screen (Negative) Urine Methadone Screen (Negative) Ur Barbiturates Screen (Negative) U Tricyclic Antidepress (Negative) Ur Phencyclidine Scrn (Negative) Ur Amphetamines Screen (Negative) U Methamphetamines Scrn (Negative) Ur MDMA Scrn (Ecstasy) (Negative) U Benzodiazepines Scrn (Negative) Urine Cocaine Screen (Negative) U Marijuana (THC) Screen (Negative) Ethyl Alcohol ( - 10) mg/dL SARS-CoV-2 (PCR) Negative (Negative) 04/03/21 Range/Units 06:15 WBC (4.5-11.0) X10^3/uL RBC (4.0-5.2) X10^6/uL Hgb (12.0-16.0) g/dL Hct (36-46) % MCV (80-100) fL MCH (26-34) PG MCHC (30-36) % RDW (11.6-14.8) % Plt Count (150-400) X10^3/uL Neut % (Auto) (50-75) % Lymph % (Auto) (25-40) % [place] % (Auto) (3-14) % Eos % (Auto) (2-4) % Baso % (Auto) (0-2) % Neut # (Auto) (3783-3360) /uL Lymph # (Auto) (2294-1904) /uL [place] # (Auto) (0-900) /uL Eos # (Auto) (0-450) /uL Baso # (Auto) (0-100) /uL Sodium (137-145) mmol/L Potassium (3.4-5.1) mmol/L Chloride (98-107) mmol/L Carbon Dioxide (22-32) mmol/L BUN (7-17) mg/dL Creatinine (0.52-1.04) mg/dL Estimated GFR (>60) mL/min BUN/Creatinine Ratio (6-22) Glucose (80-110) mg/dL Lactate (0.7-2.1) mmol/L Calcium (8.4-10.2) mg/dL Phosphorus (2.8-4.1) mg/dL Magnesium (1.6-2.3) mg/dL Total Bilirubin (0.2-1.3) mg/dL AST (14-36) IU/L ALT (<35) IU/L Alkaline Phosphatase (38-126) U/L Total Creatine Kinase (30-135) U/L CK-MB (CK-2) CK-MB (CK-2) Rel Index Troponin I (0.01-0.034) ng/mL NT-Pro-B Natriuret Pep (<125) pg/mL Total Protein (6.3-8.2) g/dL Albumin (3.5-5.0) g/dL Globulin (1.7-4.1) g/dL Albumin/Globulin Ratio (1.0-2.8) Procalcitonin (<0.5) ng/mL TSH (0.47-4.68) uIU/mL Urine Color Urine Appearance Urine pH (4.5-8.0) Ur Specific [place] (1.000-1.035) Urine Protein (Negative) Urine Glucose (UA) (Negative) g/dL Urine Ketones (NEGATIVE) Urine Occult Blood (Negative) Urine Nitrate (Negative) Urine Bilirubin (NEGATIVE) Urine Urobilinogen (0.2) E.U./dL Ur Leukocyte Esterase (NEGATIVE) Urine RBC (0-5/HPF) Urine WBC (0-5/HPF) Urine Bacteria (None) Ur Culture Indicated? U Opiates 300ng/mL cut Positive H (Negative) Ur Oxycodone Screen Positive H (Negative) Urine Methadone Screen Negative (Negative) Ur Barbiturates Screen Negative (Negative) U Tricyclic Antidepress Positive H (Negative) Ur Phencyclidine Scrn Negative (Negative) Ur Amphetamines Screen Negative (Negative) U Methamphetamines Scrn Negative (Negative) Ur MDMA Scrn (Ecstasy) Negative (Negative) U Benzodiazepines Scrn Positive H (Negative) Urine Cocaine Screen Negative (Negative) U Marijuana (THC) Screen Negative (Negative) Ethyl Alcohol ( - 10) mg/dL SARS-CoV-2 (PCR) (Negative) Imaging Data CTA - brain/neck: Radiologist's Impression: PROCEDURE:? CT ANGIO HEAD AND NECK ? INDICATIONS:? word confusion ? TECHNIQUE:? Noncontrast images were performed earlier in the day and not repeated.? ? After the administration of intravenous contrast, 1 mm thick sections acquired from the aortic arch through the [place] of [place].? Post-contrast 4.5 mm thick sections then re-acquired from the foramen magnum to the vertex.? 3-dimensional pbkluyp-kmrstninl-iptbbimnkj (MIP) and/or volume rendering reformats were acquired of the central intracranial vasculature and neck separately. ? COMPARISON:? [facility], CR, XR CHEST 1V, 04/03/2021, 5:34.? [facility], MR, MR STROKE, 05/02/2018, 16:22.? [facility], CT, CT HEAD/BRAIN WO CON, 04/03/2021, 6:06. ? FINDINGS:? Image quality:? There is artifact associated with the metallic hardware. ? ? BRAIN:? CSF spaces:? Ventricles are normal in size and shape.? Basal cisterns are patent.? No extra-axial fluid collections.? ? Brain:? No midline shift.? No intracranial bleeds or masses.? Sagastume-white matter interface appears intact.? ? Skull and face:? Calvarium and facial bones appear intact, without suspicious lesions.? Orbits appear normal.? ? Sinuses:? Sinuses and mastoids are clear.? ? HEAD CT ANGIOGRAPHY:? Anterior circulation:? Intracranial internal carotid arteries are normal in size and flow.? There is a diminutive left A1 segment, with a corresponding robust right A1 segment.? This is considered to be a normal developmental variant of the [place], of typically no clinical consequence.? The flow within the paired anterior cerebral arteries is otherwise normal and symmetric.? The flow within the middle cerebral arteries is normal and symmetric.? The anterior communicating artery is seen.? No aneurysms are seen.? ? Posterior circulation:? Visualized portions of the vertebral arteries demonstrate normal caliber, and join to form a normal appearing basilar artery.? Flow within the posterior cerebral arteries is normal and symmetric.? No aneurysms are seen.? ? NECK CT ANGIOGRAPHY:? Carotid system:? The great vessels demonstrate a conventional anatomy as they arise from the aortic arch.? The origins of the common carotid arteries appear patent.? There is again seen approximately 50% narrowing at the origin of the left common carotid artery.? The common carotid arteries demonstrate normal caliber and courses.? The bifurcation regions are both widely patent.? The internal carotid arteries demonstrate normal calibers and courses.? ? Posterior circulation:? The origins of the vertebral arteries both appear widely patent.? The more superior extracranial portions of both vertebral arteries also demonstrate normal courses and calibers.? They join to form a normal appearing basilar artery.? ? Soft tissues:? Visualized neck soft tissues demonstrate no suspicious abnormalities.? Several thyroid nodules are seen, with the largest seen on the left inferiorly, measuring up to 1.8 cm. ? Bones:? No suspicious bony lesions.? Visualized cervical spine appears normally aligned.? At least moderate cervical spine degenerative changes can be seen. ? ? IMPRESSION:? No hemodynamically significant stenosis can be seen intracranial circulation. ? No significant internal carotid artery stenosis can be seen. ? Stable approximately 50% narrowing involving the origin of the left common carotid artery. ? If there is strong clinical suspicion for an acute stroke, please consider a brain MRI for further evaluation, as it is more sensitive (assuming that there is no contraindication to MRI). ? ? Incidental note is made of: At least moderate cervical spine degenerative change ? Any quantitative measurements of stenosis were performed using NASCET criteria.? ? ? Dictated by: Denis Shaw M.D. on 04/03/2021 at 8:11 ? ? MDM Narrative Medical decision making narrative: I received sign-out from Dr. Tavares. I have seen and evaluated patient myself. Currently sleeping but easily aroused. Repeatedly says that she is in the hospital her brought her. When asked to move her right leg she says she is in the hospital. She is moving both toes and feet all long with equal roulette dealer strength bilaterally. She is overall very confused. Blood work unknown workup is overall unremarkable. It looks as though she had a similar episode in November of 2019 polypharmacy seem to be problem at that time. At this time will add CT angio she certainly is having some word finding difficulty but moving all extremities. Possible CVA versus polypharmacy. Patient is noticed to become progressively more hypertensive in the emergency department. She is given morning doses of hypertension medication. She also is a chronic opiate user usually takes oxycodone oxycodone doses also ordered and given to her. [id number] Dr. Landis updated patient's symptoms test results. In the ED to see and evaluate patient.Accepts patient. Patient remains confused. Discharge Plan Departure Patient Disposition: Admitted as Observation Clinical Impression: Acute metabolic encephalopathy Admit Date/Time: 04/03/21 10:10 Admit Provider: Julia Landis
[2021-04-03 06:03] LABS: Add Manual Diff / Slide Review NO; Basophils Absolute Auto 0 /uL (0-100); Basophils Percent Auto 0.4 % (0-2); Eosinophils Absolute Auto 200 /uL (0-450); Eosinophils Percent Auto 2.4 % (2-4); Hematocrit 36.4 % (36-46); Hemoglobin 11.8 g/dL (12.0-16.0); Lymphocytes Absolute Auto 1100 /uL (1100-4500); Lymphocytes Percent Auto 15.8 % (25-40); Mean Corpuscular HGB Conc 32.4 % (30-36); Mean Corpuscular Hemoglobin 26.6 PG (26-34); Mean Corpuscular Volume 82.2 fL (80-100); Monocytes Absolute Auto 500 /uL (0-900); Monocytes Percent Auto 6.8 % (3-14); Neutrophils Absolute Auto 5200 /uL (1500-7000); Neutrophils Percent Auto 74.6 % (50-75); Platelet Count 282 X10^3/uL (150-400); Red Blood Cell Count 4.43 X10^6/uL (4.0-5.2); Red Cell Distribution Width 16.6 % (11.6-14.8)
[2021-04-03 06:08] LABS: Lactate (Lactic Acid) 1.2 mmol/L (0.7-2.1)
[2021-04-03 06:09] LABS: Alanine Aminotransferase 15 IU/L (<35); Albumin Globulin Ratio 1.5 (1.0-2.8); Alkaline Phosphatase 90 U/L (38-126); Aspartate Aminotransferase 21 IU/L (14-36); BUN Creatinine Ratio 17.1 (6-22); Bilirubin Total 0.3 mg/dL (0.2-1.3); Blood Urea Nitrogen 13 mg/dL (7-17); Calcium 9.6 mg/dL (8.4-10.2); Carbon Dioxide 26 mmol/L (22-32); Chloride 103 mmol/L (98-107); Estimated Glomerular Filt Rate > 60.0 mL/min (>60); Ethanol (ETOH) < 10 mg/dL; Globulin 2.7 g/dL (1.7-4.1); Glucose 108 mg/dL (80-110); HEMOLYSIS < 15 (0-50); Potassium 3.7 mmol/L (3.4-5.1); Sodium 136 mmol/L (137-145); Total Protein 6.7 g/dL (6.3-8.2)
[2021-04-03 06:49] LABS: Appearance Urine UA CLEAR; Bilirubin Urine UA NEGATIVE (NEGATIVE); Color Urine UA YELLOW; Glucose Urine UA NEGATIVE (Negative); Ketones Urine UA NEGATIVE (NEGATIVE); Leukocyte Esterase Urine UA TRACE (NEGATIVE); Nitrite Urine UA NEGATIVE (Negative); Occult Blood Urine UA NEGATIVE (Negative); Protein Urine UA NEGATIVE (Negative); Ur Creatinine Normal (Normal); Ur Specific Gravity Normal (Normal); Urine pH Normal (Normal); Urobilinogen Urine UA 0.2 E.U./dL (0.2)
[2021-04-03 06:50] LABS: UR Morphine/Opiate cutoff 300 Positive (Negative); Urine Amphetamines Negative (Negative); Urine Barbiturates Negative (Negative); Urine Benzodiazepines Positive (Negative); Urine Cocaine Negative (Negative); Urine MDMA Negative (Negative); Urine Methadone Negative (Negative); Urine Methamphetamines Negative (Negative); Urine Oxycodone Positive (Negative); Urine Phencyclidine Negative (Negative); Urine Tetrahydrocannabinol Negative (Negative); Urine Tricyclic Antidepressant Positive (Negative)
[2021-04-03 06:51] LABS: pH Urine UA 6.5 (4.5-8.0)
[2021-04-03 06:59] LABS: Bacteria Urine None Seen; Culture Indicated Urine Cult Not Indicated; RBC Urine 0-1/HPF (0-5/HPF); WBC Urine 0-1/HPF (0-5/HPF)
[2021-04-03 07:14] LABS: Thyroid Stimulating Hormone 1.77 uIU/mL (0.47-4.68)
[2021-04-03 07:28] LABS: Procalcitonin 0.04 ng/mL (<0.5)
[2021-04-03 07:35] LABS: Creatine Kinase 35 U/L (30-135)
[2021-04-03 07:48] LABS: NT-proBNP (BNP-Adult 18+) 97 pg/mL (<125); Troponin I < 0.012 ng/mL (0.01-0.034)
--- NOTE | 2021-04-03 07:57 | DI.CT.S_ITS ---
PROCEDURE: CT ANGIO HEAD AND NECK INDICATIONS: word confusion TECHNIQUE: Noncontrast images were performed earlier in the day and not repeated. After the administration of intravenous contrast, 1 mm thick sections acquired from the aortic arch through the [place]. Post-contrast 4.5 mm thick sections then re-acquired from the foramen magnum to the vertex. 3-dimensional vyqlgvw-lpjdyeexq-sssnwppipo (MIP) and/or volume rendering reformats were acquired of the central intracranial vasculature and neck separately. COMPARISON: [facility], CR, XR CHEST 1V, 04/03/2021, 5:34. [facility], MR, MR STROKE, 05/02/2018, 16:22. [facility], CT, CT HEAD/BRAIN WO CON, 04/03/2021, 6:06. FINDINGS: Image quality: There is artifact associated with the metallic hardware. BRAIN: CSF spaces: Ventricles are normal in size and shape. Basal cisterns are patent. No extra-axial fluid collections. Brain: No midline shift. No intracranial bleeds or masses. Sagastume-white matter interface appears intact. Skull and face: Calvarium and facial bones appear intact, without suspicious lesions. Orbits appear normal. Sinuses: Sinuses and mastoids are clear. HEAD CT ANGIOGRAPHY: Anterior circulation: Intracranial internal carotid arteries are normal in size and flow. There is a diminutive left A1 segment, with a corresponding robust right A1 segment. This is considered to be a normal developmental variant of the [place], of typically no clinical consequence. The flow within the paired anterior cerebral arteries is otherwise normal and symmetric. The flow within the middle cerebral arteries is normal and symmetric. The anterior communicating artery is seen. No aneurysms are seen. Posterior circulation: Visualized portions of the vertebral arteries demonstrate normal caliber, and join to form a normal appearing basilar artery. Flow within the posterior cerebral arteries is normal and symmetric. No aneurysms are seen. NECK CT ANGIOGRAPHY: Carotid system: The great vessels demonstrate a conventional anatomy as they arise from the aortic arch. The origins of the common carotid arteries appear patent. There is again seen approximately 50% narrowing at the origin of the left common carotid artery. The common carotid arteries demonstrate normal caliber and courses. The bifurcation regions are both widely patent. The internal carotid arteries demonstrate normal calibers and courses. Posterior circulation: The origins of the vertebral arteries both appear widely patent. The more superior extracranial portions of both vertebral arteries also demonstrate normal courses and calibers. They join to form a normal appearing basilar artery. Soft tissues: Visualized neck soft tissues demonstrate no suspicious abnormalities. Several thyroid nodules are seen, with the largest seen on the left inferiorly, measuring up to 1.8 cm. Bones: No suspicious bony lesions. Visualized cervical spine appears normally aligned. At least moderate cervical spine degenerative changes can be seen. IMPRESSION: No hemodynamically significant stenosis can be seen intracranial circulation. No significant internal carotid artery stenosis can be seen. Stable approximately 50% narrowing involving the origin of the left common carotid artery. If there is strong clinical suspicion for an acute stroke, please consider a brain MRI for further evaluation, as it is more sensitive (assuming that there is no contraindication to MRI). Incidental note is made of: At least moderate cervical spine degenerative change Any quantitative measurements of stenosis were performed using NASCET criteria. Dictated by: Denis Shaw M.D. on 04/03/2021 at 8:11 Approved by: Denis Shaw M.D. on 04/03/2021 at 8:17
[2021-04-03 08:13] LABS: COVID19 - ADMIT (NP swab/PCR) Negative (Negative)
[2021-04-03] MEDS: SODIUM CHLORIDE 0.9% 1,000 ML 150 ML IV (08:20)
[2021-04-03] MEDS: METOPROLOL ER 25 MG TABLET PO (10:27)
[2021-04-03] MEDS: VERAPAMIL SR 180 MG TABLET PO (10:28)
[2021-04-03] MEDS: OXYCODONE IR 5 MG TABLET 10 MG PO (11:38)
[2021-04-03 13:48] LABS: Magnesium 1.8 mg/dL (1.6-2.3); Phosphorous 3.2 mg/dL (2.8-4.1)
[2021-04-03] MEDS: DEXTROSE 5%-0.45% NS 1,000 ML 100 ML IV (14:37)
[2021-04-03] MEDS: VALSARTAN 80 MG TABLET 160 MG PO (14:41)
[2021-04-03] MEDS: NYSTATIN POWDER 15GM 1 APPLIC TOP (14:42)
[2021-04-03] MEDS: ESCITALOPRAM 10 MG TABLET 30 MG PO (14:42)
[2021-04-03] MEDS: OXYCODONE IR 10 MG TABLET PO ×2 (16:10→22:12)
--- NOTE | 2021-04-03 16:52 | P.HP_ITS ---
History of Present Illness History of Present Illness Date Patient Seen: 04/03/21 Time Patient Seen: 11:30 Chief complaint: Confusion Narrative: This 71 year-old female patient of Dr. Segura' is admitted from the ED for acute metabolic encephalopathy of unknown etiology. History is obtained from her and the chart as she is unable to give any history. S he is pulling at her lines and EKG leads and completely removing everything at time of interview. She is writhing around on the bed. is at the bedside and reports that this is an acute change. She was in her usual state of health approximately 1 week ago and then started becoming more confused. They reported this to their primary care office and labs and urine drawn 5 days prior to presentation were essentially unremarkable. Today in the ED, they are also essentially unremarkable with vital signs significant only for an elevated blood pressure although she did miss her morning medications. Yesterday, she started chasing her around the house and was out of it. reports that there are no other sick family members. denies any recent medication changes, travel, or new foods but it does appear that her oxycodone may have been reduced from 15 mg PO 4-5 times daily to 10 mg PO qid in the last 2 weeks. They live in a new house with no recent move. has not noticed any chest pain, shortness of breath, fevers, chills, nausea, vomiting, diarrhea, constipation, or urinary symptoms. Upon chart review, it does appear that she has been under the recent care of Dr. Denise (03/15/21) and there is concern about polypharmacy of her psychiatric medications and a high MME of 105. She has a history of polypharmacy resulting in metabolic encephalopathy with multiple inpatient hospitalizations for the same, most recently 12/15. Usually, her manages her medications but if he is gone or for some reason, she takes the wrong medication, she has a history of becoming delirious. She is opioid dependent due to chronic back pain with spinal stenosis and, as mentioned above, it does appear that her oxycodone was recently decreased from 15 mg p.o. 4-5 times daily to 10 mg PO q.i.d. She also takes diazepam 5 mg p.o. b.i.d.. She is on quetiapine 100 mg p.o. q.h.s., desipiramine 100 mg p.o. q.day, and escitalopram [address] Denise noted at her last visit that these could all prolong the QT interval. Her QTc is in in the 99th percentile today at 475; it was previously 461 on 12/21/19 during her last admission. Patient History Medical History Acquired hypothyroidism (02/10/11) Asthma Chronic migraine without aura without status migrainosus, not intractable Chronic pain syndrome Depression Depression Dorsalgia (07/28/15) Fibromyalgia (09/06/13) Gastroesophageal reflux disease without esophagitis (02/10/11) Generalized anxiety disorder HLD (hyperlipidemia) Hypertension Loosening of hardware in spine Osteoporosis (05/07/15) Recurrent major depressive disorder, in partial remission (02/10/11) Spinal stenosis at L4-L5 level Systemic lupus erythematosus (02/10/11) Tardive dyskinesia Uncomplicated opioid dependence (12/14/15) Surgical History Anesthesia History of arthroplasty of left shoulder (~2013) History of hip replacement History of surgery History of total right hip arthroplasty (~2009) Hx of arthroscopy of left knee Hx of lumbosacral spine surgery (~05/2015) Hx of spinal fusion (~1984) S/P cholecystectomy (~1993) S/P LASIK surgery of both eyes Status post appendectomy Status post tubal ligation Family & Social History Family History Father Family history of polycythemia Mother Family history of CHF (congestive heart failure) Social History: household members spouse lives independently Yes caregiver/support person No Safety & Behavioral: Feels Safe in Current Unwilling to Answer Environment Been Physically Hurt or Unwilling to Answer Threatened By a Person Suicidal Ideation Description None Tobacco & Substance use: Smoking Status Never smoker alcohol intake never alcohol intake frequency 0-2 drinks per day Substance Use Type does not use Meds Home Medications and Allergies Home Medications Medication Instructions Recorded Confirmed Type oxycodone 10 mg tablet 10 mg PO QID PRN #180 tab 03/16/20 03/17/21 Rx quetiapine 100 mg tablet (Seroquel) 100 mg PO BEDTIME #90 tab 03/16/20 03/17/21 Rx escitalopram oxalate 10 mg tablet 30 mg PO DAILY #270 tab 07/09/20 03/17/21 Rx risedronate 150 mg tablet 150 mg PO QMONTH #12 tab 08/10/20 03/17/21 Rx desipramine 50 mg tablet 100 mg PO DAILY #180 tab 11/12/20 03/17/21 Rx rizatriptan 10 mg tablet 10 mg PO .COMPLEX PRN #6 tab 11/24/20 03/17/21 Rx potassium chloride 8 mEq 8 meq PO BID #60 tab 12/01/20 03/17/21 Rx tablet,extended release metoprolol tartrate 25 mg tablet 25 mg PO BID #60 tab 12/10/20 03/17/21 Rx omeprazole 40 mg capsule,delayed 40 mg PO BID #60 cap 12/10/20 03/17/21 Rx release verapamil 180 mg 24 hr 180 mg PO DAILY #90 cap 12/10/20 03/17/21 Rx capsule,extended release valsartan 160 mg tablet 160 mg PO DAILY #90 tab 01/22/21 03/17/21 Rx nystatin 100,000 unit/gram topical 1 applic TOP BID PRN #60 gram 02/08/21 03/17/21 Rx powder (Nystop) benzonatate 100 mg capsule 100 mg PO TID PRN #60 cap 02/24/21 03/17/21 Rx (Tessalon Perles) diazepam 5 mg tablet 5 mg PO BID PRN #60 tab 02/24/21 03/17/21 Rx simvastatin 20 mg tablet See Rx Instructions .ROUTE 02/24/21 03/17/21 Rx .COMPLEX #90 tablet ondansetron HCl 8 mg tablet 8 mg PO QID PRN #30 tab 02/25/21 03/17/21 Rx Allergies Allergy/AdvReac Type Severity Reaction Status Date / Time adhesive Allergy Mild BLISTERS, Verified 03/17/21 18:58 PULL SKIN OFF codeine [CODEINE] AdvReac Severe nausea, Verified 03/17/21 18:58 triggers migraines hydrocodone [HYDROCODONE] AdvReac Severe triggers Verified 03/17/21 18:58 migraines morphine [MORPHINE] AdvReac Severe n&v, can Verified 03/17/21 18:58 take if premedicated trazodone AdvReac Severe nausea/altered Verified 03/17/21 18:58 mental status zolpidem [From Ambien] AdvReac Severe sleep Verified 03/17/21 18:58 eating, strange behavior alendronate sodium AdvReac Intermediate Stomach Verified 03/17/21 18:58 [From Fosamax] issues Review of Systems Review of Systems Narrative: All remaining ROS were reviewed and negative except as addressed. Exam Vital Signs (past 8 hours): - 04/03/21 09:00 04/03/21 09:30 04/03/21 09:49 Temperature Pulse Rate 74 84 103 H Respiratory Rate Blood Pressure 229/107 H Pulse Oximetry 93 97 96 04/03/21 10:00 04/03/21 10:06 04/03/21 10:16 Temperature Pulse Rate 85 82 80 Respiratory Rate Blood Pressure 204/98 H Pulse Oximetry 99 98 98 04/03/21 10:27 04/03/21 10:30 04/03/21 10:45 Temperature Pulse Rate 80 80 81 Respiratory Rate Blood Pressure 204/98 H 204/96 H 197/91 H Pulse Oximetry 97 95 04/03/21 11:00 04/03/21 11:30 04/03/21 11:31 Temperature Pulse Rate 78 87 Respiratory Rate 19 Blood Pressure 126/88 Pulse Oximetry 92 99 04/03/21 11:46 04/03/21 12:00 04/03/21 12:01 Temperature Pulse Rate 80 83 82 Respiratory Rate 20 15 20 Blood Pressure 193/94 H 174/84 H Pulse Oximetry 97 95 96 04/03/21 12:23 04/03/21 13:30 Temperature 99.1 F Pulse Rate 81 80 Respiratory Rate 19 17 Blood Pressure 196/90 H 117/74 Pulse Oximetry 96 Oxygen Delivery Method Room Air Oxygen Flow Rate 0 Narrative Exam Narrative: GENERAL: Alert and disoriented, appearing stated age and writhing around on her bed. HEENT: Head normocephalic/atraumatic. Extraocular movements intact. LUNGS: Clear to ausculation bilaterally, no wheezes, rhonchi or rales. CV: Normal S1 and S2 with regular rate and rhythm, no audible murmurs, rubs or gallops. ABDOMEN: Soft, non-tender, non-distended, no organomegaly. Positive bowel sounds. EXTREMITIES: No clubbing, cyanosis, or edema. NEURO: Cranial nerves II through XII grossly intact, no focal deficits. PSYCH: Talking gibberish, pulling at lines. SKIN: Beefy red rash inferior to breasts and on groin. Objective Labs Result Diagrams: 04/03/21 05:45 04/03/21 05:45 Labs: Laboratory Results - last 24 hr 04/03/21 04/03/21 04/03/21 05:45 05:45 05:45 WBC 7.0 RBC 4.43 Hgb 11.8 L Hct 36.4 MCV 82.2 MCH 26.6 MCHC 32.4 RDW 16.6 H Plt Count 282 Neut % (Auto) 74.6 Lymph % (Auto) 15.8 L [place] % (Auto) 6.8 Eos % (Auto) 2.4 Baso % (Auto) 0.4 Neut # (Auto) 5200 Lymph # (Auto) 1100 [place] # (Auto) 500 Eos # (Auto) 200 Baso # (Auto) 0 Sodium 136 L Potassium 3.7 Chloride 103 Carbon Dioxide 26 BUN 13 Creatinine 0.76 Estimated GFR > 60.0 BUN/Creatinine Ratio 17.1 Glucose 108 Lactate 1.2 Calcium 9.6 Phosphorus Magnesium Total Bilirubin 0.3 AST 21 ALT 15 Alkaline Phosphatase 90 Total Creatine Kinase CK-MB (CK-2) CK-MB (CK-2) Rel Index Troponin I NT-Pro-B Natriuret Pep Total Protein 6.7 Albumin 4.0 Globulin 2.7 Albumin/Globulin Ratio 1.5 Procalcitonin TSH Urine Color Urine Appearance Urine pH Ur Specific [place] Urine Protein Urine Glucose (UA) Urine Ketones Urine Occult Blood Urine Nitrate Urine Bilirubin Urine Urobilinogen Ur Leukocyte Esterase Urine RBC Urine WBC Urine Bacteria Ur Culture Indicated? U Opiates 300ng/mL cut Ur Oxycodone Screen Urine Methadone Screen Ur Barbiturates Screen U Tricyclic Antidepress Ur Phencyclidine Scrn Ur Amphetamines Screen U Methamphetamines Scrn Ur MDMA Scrn (Ecstasy) U Benzodiazepines Scrn Urine Cocaine Screen U Marijuana (THC) Screen Ethyl Alcohol < 10 SARS-CoV-2 (PCR) 04/03/21 04/03/21 04/03/21 05:45 05:45 05:45 WBC RBC Hgb Hct MCV MCH MCHC RDW Plt Count Neut % (Auto) Lymph % (Auto) [place] % (Auto) Eos % (Auto) Baso % (Auto) Neut # (Auto) Lymph # (Auto) [place] # (Auto) Eos # (Auto) Baso # (Auto) Sodium Potassium Chloride Carbon Dioxide BUN Creatinine Estimated GFR BUN/Creatinine Ratio Glucose Lactate Calcium Phosphorus Magnesium Total Bilirubin AST ALT Alkaline Phosphatase Total Creatine Kinase 35 CK-MB (CK-2) TNP CK-MB (CK-2) Rel Index TNP Troponin I < 0.012 NT-Pro-B Natriuret Pep 97 Total Protein Albumin Globulin Albumin/Globulin Ratio Procalcitonin 0.04 TSH 1.77 Urine Color Urine Appearance Urine pH Ur Specific [place] Urine Protein Urine Glucose (UA) Urine Ketones Urine Occult Blood Urine Nitrate Urine Bilirubin Urine Urobilinogen Ur Leukocyte Esterase Urine RBC Urine WBC Urine Bacteria Ur Culture Indicated? U Opiates 300ng/mL cut Ur Oxycodone Screen Urine Methadone Screen Ur Barbiturates Screen U Tricyclic Antidepress Ur Phencyclidine Scrn Ur Amphetamines Screen U Methamphetamines Scrn Ur MDMA Scrn (Ecstasy) U Benzodiazepines Scrn Urine Cocaine Screen U Marijuana (THC) Screen Ethyl Alcohol SARS-CoV-2 (PCR) 04/03/21 04/03/21 04/03/21 05:45 06:09 06:15 WBC RBC Hgb Hct MCV MCH MCHC RDW Plt Count Neut % (Auto) Lymph % (Auto) [place] % (Auto) Eos % (Auto) Baso % (Auto) Neut # (Auto) Lymph # (Auto) [place] # (Auto) Eos # (Auto) Baso # (Auto) Sodium Potassium Chloride Carbon Dioxide BUN Creatinine Estimated GFR BUN/Creatinine Ratio Glucose Lactate Calcium Phosphorus 3.2 Magnesium 1.8 Total Bilirubin AST ALT Alkaline Phosphatase Total Creatine Kinase CK-MB (CK-2) CK-MB (CK-2) Rel Index Troponin I NT-Pro-B Natriuret Pep Total Protein Albumin Globulin Albumin/Globulin Ratio Procalcitonin TSH Urine Color Yellow Urine Appearance Clear Urine pH 6.5 Ur Specific [place] 1.010 Urine Protein Negative Urine Glucose (UA) Negative Urine Ketones Negative Urine Occult Blood Negative Urine Nitrate Negative Urine Bilirubin Negative Urine Urobilinogen 0.2 Ur Leukocyte Esterase Trace H Urine RBC 0-1/hpf Urine WBC 0-1/hpf Urine Bacteria None seen Ur Culture Indicated? Cult not indicated U Opiates 300ng/mL cut Ur Oxycodone Screen Urine Methadone Screen Ur Barbiturates Screen U Tricyclic Antidepress Ur Phencyclidine Scrn Ur Amphetamines Screen U Methamphetamines Scrn Ur MDMA Scrn (Ecstasy) U Benzodiazepines Scrn Urine Cocaine Screen U Marijuana (THC) Screen Ethyl Alcohol SARS-CoV-2 (PCR) Negative 04/03/21 06:15 WBC RBC Hgb Hct MCV MCH MCHC RDW Plt Count Neut % (Auto) Lymph % (Auto) [place] % (Auto) Eos % (Auto) Baso % (Auto) Neut # (Auto) Lymph # (Auto) [place] # (Auto) Eos # (Auto) Baso # (Auto) Sodium Potassium Chloride Carbon Dioxide BUN Creatinine Estimated GFR BUN/Creatinine Ratio Glucose Lactate Calcium Phosphorus Magnesium Total Bilirubin AST ALT Alkaline Phosphatase Total Creatine Kinase CK-MB (CK-2) CK-MB (CK-2) Rel Index Troponin I NT-Pro-B Natriuret Pep Total Protein Albumin Globulin Albumin/Globulin Ratio Procalcitonin TSH Urine Color Urine Appearance Urine pH Ur Specific [place] Urine Protein Urine Glucose (UA) Urine Ketones Urine Occult Blood Urine Nitrate Urine Bilirubin Urine Urobilinogen Ur Leukocyte Esterase Urine RBC Urine WBC Urine Bacteria Ur Culture Indicated? U Opiates 300ng/mL cut Positive H Ur Oxycodone Screen Positive H Urine Methadone Screen Negative Ur Barbiturates Screen Negative U Tricyclic Antidepress Positive H Ur Phencyclidine Scrn Negative Ur Amphetamines Screen Negative U Methamphetamines Scrn Negative Ur MDMA Scrn (Ecstasy) Negative U Benzodiazepines Scrn Positive H Urine Cocaine Screen Negative U Marijuana (THC) Screen Negative Ethyl Alcohol SARS-CoV-2 (PCR) Assessment & Plan Assessment & Plan narrative: 1. Acute metabolic encephalopathy Plan: It is unclear if patient has missed certain doses of her medications and is going through an acute withdrawal versus dehydration versus polypharmacy. Will rehydrate her in the acute period and start to taper her usual psychiatric medications as she responded well to that during her last hospitalization. Will decrease desipiramine from 100 to 50 mg and escitalopram from 30 to 20 mg daily. Will continue seroquel at usual dose of 100 mg PO qhs. EKG in the morning to recheck QTc. Acute delierium could be from her excessive opioid use and she will likely benefit in a reduction in her MME in the outpatient setting. 2. Chronic back pain Plan: Patient is complaining of acute pain now, will treat with her usual dose of oxycodone and try to restore a steady state and then begin the process of possibly cutting back on her MME as an outpatient. 3. Polypharmacy, risk for QT prolongation Plan: Patient is at the upper limit of a normal QTc, will attempt a taper/change of her psychiatric medications over the next 2-4 weeks as noted in #1. Continue telemetry. Repeat EKG in am. 4. Tardive dyskinesia, chronic, at baseline Plan: Please see above. 5. Generalized anxiety disorder Plan: Will continue diazepam 5 mg p.o. b.i.d. for now. Will have patient follow-up with outpatient psychiatry for medication management. 6. Hypertension, chronic Plan: Controlled after restarting home medications, will continue. 7. Hypothyroidism, chronic, controlled Plan: Continue home levothyroxine. 8. Chronic migraine syndrome Plan: Continue rizatriptan as needed. 9. Insomnia, chronic Plan: Continue Seroqel. 10. Major depression, severe, chronic Plan: Patient is now connected with Dr. Denise, open to counseling. Will acutely manage psychiatric medications as noted in #1 and reevaluate in the morning with intention for tapering over the next 2-4 weeks to reduce risk of QTc prolongation. 11. Candidiasis, chronic Plan: Continue home nystatin. Code: Full FEN: heart healty diet, D51/2 NS + 10 KCl at 125 cc DVT: SCDs COVID: negative Dispo: Anticipate 2 nights Time Spent With Patient Critical Care time: I spent a total of 35 minutes of care time on this patient's care today; this time is exclusive of procedural time. Quality VTE Deep Vein Thrombosis/Pulmonary Embolism Present on Admission: No
[2021-04-03] MEDS: QUETIAPINE 100 MG TABLET PO (20:53)
[2021-04-03] MEDS: diazePAM 5 MG TABLET PO (20:53)
[2021-04-03] MEDS: METOPROLOL IR 25 MG TABLET PO (20:53)
[2021-04-03] MEDS: DEXTROSE 5%-0.45NS W/KCL 10MEQ 1,000 ML 125 MEQ IV (22:25)
[2021-04-04] VITALS (8 sets, daily range): BP systolic 132–205; BP diastolic 59–95; PULSE 63–75; RESP 18; TEMP 36.3–36.6; O2SAT 91–99
--- NOTE | 2021-04-04 00:47 | PC.NURSE ---
1951 04/03/2021 Patient is aware of situation (in a hospital) and calendar date but can not answer any other time question with any answer other than repeating date: Q:What month are we in? A:6 Q:What year is it? A: 6. Tardive dyskinesia presentation, mild. 221304/03/2021 Patient hallucinates that is on the unit. is not present. Patient reoriented.
--- NOTE | 2021-04-04 07:22 | PM.PN.1 ---
Subjective Subjective Date Patient Seen: 04/04/21 Time Patient Seen: 07:22 Interval history: Patient reports that she is feeling better this morning. and daughter are at the bedside and state that she is much improved but still not at her baseline. would like to discuss her going to a SNF after discharge, he does not feel that he can take care of her anymore. She does have chronic pain and states that she is not getting as much pain medication in the hospital as she is used to. Reports that she gets her pain medications through the [facility] in [place]. She has been on oxycodone 15 mg p.o. 5 times daily and that is what she has at home. Per outpatient [facility] chart review, it does appear that she just had her oxycodone decreased to 10 mg p.o. q.i.d. but she states that she is not actually taking the reduced dose at home. She has been receiving only 10 mg of oxycodone in the hospital though and reports that this is okay but does not completely cover her pain. She does feel more like herself yesterday. She is able to ambulate in the room. Can not remember if she ate dinner last night. Exam Vital Signs (past 8 hours): - 04/04/21 01:00 PST 04/04/21 04:35 Temperature 97.8 F 97.4 F L Pulse Rate 72 66 Respiratory Rate 18 18 Blood Pressure 164/59 H 154/81 H Pulse Oximetry 98 99 Oxygen Delivery Method Room Air Oxygen Flow Rate 0 Narrative Exam Narrative: GENERAL:? Alert and oriented to person and place only, appearing stated age. HEENT:? Head normocephalic/atraumatic.? Extraocular movements intact. LUNGS:? Clear to ausculation bilaterally, no wheezes, rhonchi or rales. CV:? Normal S1 and S2 with regular rate and rhythm, no audible murmurs, rubs or gallops. ABDOMEN:? Soft, non-tender, non-distended, no organomegaly.? Positive bowel sounds. EXTREMITIES:? No clubbing, cyanosis, or edema. NEURO:? Orolabial movements are hyperkinetic with some choreaform movements of her upper extremities. PSYCH: Very little ability to listen and follow the conversation, talks to herself or no one at all. Thoughts are sometimes coherent and sometimes random. SKIN:? Beefy red rash inferior to breasts and on groin. Objective Labs Result Diagrams: 04/04/21 08:25 04/04/21 08:25 Labs: Laboratory Results - last 24 hr 04/03/21 05:45 Phosphorus 3.2 Magnesium 1.8 PFS Medical History Acquired hypothyroidism (02/10/11) Asthma Chronic migraine without aura without status migrainosus, not intractable Chronic pain syndrome Depression Depression Dorsalgia (07/28/15) Fibromyalgia (09/06/13) Gastroesophageal reflux disease without esophagitis (02/10/11) Generalized anxiety disorder HLD (hyperlipidemia) Hypertension Loosening of hardware in spine Osteoporosis (05/07/15) Recurrent major depressive disorder, in partial remission (02/10/11) Spinal stenosis at L4-L5 level Systemic lupus erythematosus (02/10/11) Tardive dyskinesia Uncomplicated opioid dependence (12/14/15) Surgical History Anesthesia History of arthroplasty of left shoulder (~2013) History of hip replacement History of surgery History of total right hip arthroplasty (~2009) Hx of arthroscopy of left knee Hx of lumbosacral spine surgery (~05/2015) Hx of spinal fusion (~1984) S/P cholecystectomy (~1993) S/P LASIK surgery of both eyes Status post appendectomy Status post tubal ligation Family History Father Family history of polycythemia Mother Family history of CHF (congestive heart failure) Social History marital status: number of children: 2 household members: spouse lives independently: Yes caregiver/support person: No housing: apartment pets and animals: Yes education level: college 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 status: other Previous 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 history: [employer] bc/protestant: [employer] leisure activities: other Smoking Status: Never smoker Tobacco: How many years used: 0 quit status: quit date established second hand exposure: No alcohol intake: never substance use type: does not use Assessment & Plan Assessment & Plan narrative: 1. Acute metabolic encephalopathy, suspect secondary to polypharmacy, excessive narcotics, and dehydration -EKG this morning shows improving QTc 475 --> 430 Plan:? ?Continue maintenance fluids and reduced doses of desipiramine 50 mg and escitalopram 20 mg daily.? Will continue seroquel at usual dose of 100 mg PO qhs.? Has had 30 mg of oxycodone in the last 20 hours, MED of 45 rather than her prescribed 60 (recent MED of 110), delirium improved. Will watch tapering closely. 2.? Chronic back pain Plan:? ? Please see #1. 3.? Polypharmacy, risk for QT prolongation Plan:? Please see #1. Plan for psychiatric follow-up upon discharge for full management over the next 2-4 weeks. Continue telemetry.? 4.? ? Tardive dyskinesia, chronic, at baseline Plan:? Please see above. 5.? ? Generalized anxiety disorder Plan:? Will continue diazepam 5 mg p.o. b.i.d. 6. ? Hypertension, chronic Plan:? Controlled after restarting home medications yesterday afternoon. Now, up overnight; possibly anxiety component versus activation with less than usual opioid in her system. Will watch closely while adjusting psychotropics and opioids. 7.? Hypothyroidism, chronic, controlled Plan: Continue home levothyroxine. 8.? ? ? Chronic migraine syndrome Plan:? Continue rizatriptan as needed. 9.? ? Insomnia, chronic Plan:? Continue Seroqel. 10. ? Major depression, severe, chronic Plan:? Please see #1. Counseling in the outpatient setting. 11.? Candidiasis, chronic Plan:? Continue home nystatin. Code:? Full FEN:? heart healty diet, 1/2 NS + 10 KCl at 100 cc DVT:? SCDs COVID:? negative Dispo:? Possibly one more day. Greater than 35 minutes total time was spent on day of service, evaluating the patient on the floor, including examining the patient, discussing clinical course with clinical and nursing staff, reviewing clinical course in the computer, preparing documentation and writing orders for continued management of care, discussing status with family as appropriate, reviewing plans for the next 24 hours with both patient/family and nursing staff as appropriate. Quality VTE Deep Vein Thrombosis/Pulmonary Embolism Present on Admission: No
[2021-04-04 08:48] LABS: Add Manual Diff / Slide Review NO; Basophils Absolute Auto 0 /uL (0-100); Basophils Percent Auto 0.6 % (0-2); Eosinophils Absolute Auto 100 /uL (0-450); Eosinophils Percent Auto 2.7 % (2-4); Hematocrit 36.1 % (36-46); Hemoglobin 11.8 g/dL (12.0-16.0); Lymphocytes Absolute Auto 1100 /uL (1100-4500); Lymphocytes Percent Auto 23.1 % (25-40); Mean Corpuscular HGB Conc 32.8 % (30-36); Mean Corpuscular Volume 82.3 fL (80-100); Monocytes Absolute Auto 300 /uL (0-900); Monocytes Percent Auto 6.6 % (3-14); Neutrophils Absolute Auto 3300 /uL (1500-7000); Platelet Count 271 X10^3/uL (150-400); Red Blood Cell Count 4.38 X10^6/uL (4.0-5.2); Red Cell Distribution Width 16.2 % (11.6-14.8); White Blood Cell Count 4.9 X10^3/uL (4.5-11.0)
[2021-04-04 09:04] LABS: Alanine Aminotransferase 16 IU/L (<35); Albumin 3.9 g/dL (3.5-5.0); Albumin Globulin Ratio 1.5 (1.0-2.8); Alkaline Phosphatase 82 U/L (38-126); Aspartate Aminotransferase 24 IU/L (14-36); BUN Creatinine Ratio 8.9 (6-22); Bilirubin Total 0.6 mg/dL (0.2-1.3); Blood Urea Nitrogen 5 mg/dL (7-17); Calcium 9.6 mg/dL (8.4-10.2); Carbon Dioxide 25 mmol/L (22-32); Chloride 106 mmol/L (98-107); Estimated Glomerular Filt Rate > 60.0 mL/min (>60); Globulin 2.6 g/dL (1.7-4.1); Glucose 126 mg/dL (80-110); HEMOLYSIS < 15 (0-50); Potassium 3.7 mmol/L (3.4-5.1); Sodium 137 mmol/L (137-145); Total Protein 6.5 g/dL (6.3-8.2)
[2021-04-04] MEDS: OXYCODONE IR 10 MG TABLET PO ×3 (09:58→20:30)
[2021-04-04] MEDS: VALSARTAN 80 MG TABLET 160 MG PO (09:59)
[2021-04-04] MEDS: VERAPAMIL SR 180 MG TABLET PO (09:59)
[2021-04-04] MEDS: METOPROLOL IR 25 MG TABLET PO ×2 (09:59→20:30)
[2021-04-04] MEDS: ESCITALOPRAM 10 MG TABLET 20 MG PO (09:59)
[2021-04-04] MEDS: NYSTATIN POWDER 15GM 1 APPLIC TOP ×2 (10:00→20:31)
[2021-04-04] MEDS: POTASSIUM CHLORIDE 10 MEQ in SODIUM CHLORIDE 0.45% 1,000 ML 100 MEQ IV ×2 (11:52→21:41)
[2021-04-04] MEDS: IBUPROFEN 600 MG TABLET PO (16:11)
--- NOTE | 2021-04-04 16:32 | CM.DANOTE ---
DCP/Assessment: Reviewed chart. Patient is a 71yr old female admitted to [facility] with altered mental status. PCP is Dr. Segura. Primary payor is 1)Medicare 2)[facility]. Met with patient and spouse/Pasquale at bedside explained CM/SW role. Patient currently appears confused and rambles on if she is asked question. Spouse reports that patient spends most of her time in bed at home. Per spouse patient is w/c bound secondary to chronic back pain. Patient goes to [facility] for pain management. Spouse reports that he is having more difficult time caring for patient and reports a rapid decline in both her mental and physical status. During interview patient interrupted questions and spoke over her spouse. EQUIPMENT HIRE MANAGER informed spouse that CM team would be following up with patient and spouse once Dr. Segura has seen her and provided his recommendations for next steps. Per notes patient sees Dr. Denise as outpatient for mental health. Patient may benefit from psychiatric consult during hospitalization to assist with medications as outpatient. It remains unclear on whether or not patient took her medications appropriately? Patient on medication for her MH and pain medication for her chronic back pain. Patient with confusion and signs of paranoia at time of EQUIPMENT HIRE MANAGER visit. At this time unclear of d/c recommendations and/or what services could help patient and spouse the most? Patient clearly would be a difficult patient to place secondary to being w/c bound and argumentative. P: Pending. CM team to follow closely. Hopeful that patient will mentally clear enough to assist in her d/c planning. Spouse reports that he is having more difficult time at home caring for her. ANYI Discharge Planning/Care Management CM Discharge Assessment Start: 04/04/21 16:29 Freq: Status: Active Protocol: Document 04/04/21 16:29 [facility] (Rec: 04/04/21 16:32 [facility] [id number]) Discharge Planning Assessment Assigned Esl Professor Zoraida Liao MSW Contact Information Pasquale Barclay (spouse) ph# Advance Directives? No History Provided By Patient,Family Member Prior Living Arrangements House Household Members spouse Type of transporation used prior to Relies on Others admit Independent with ADL's No: Per spouse w/c bound at baseline. Is patient alert and oriented? No: Currently confused. Caregiver for Another No DME Already Rented / Owned Wheelchair Comment D/C plan pending per needs. If patient plan is home with home health Yes : Has signed face to face form been completed? Whiteboard Updated in Patient Room with Yes name and ext. # of Esl Professor Review Status In Process Next Review Type Continued Stay Review
[2021-04-04] MEDS: QUETIAPINE 100 MG TABLET PO (20:30)
[2021-04-05] VITALS (9 sets, daily range): BP systolic 140–194; BP diastolic 75–106; PULSE 58–71; RESP 16–19; TEMP 36.2–36.9; O2SAT 96–98
[2021-04-05] MEDS: OXYCODONE IR 10 MG TABLET PO ×3 (02:36→19:09)
[2021-04-05 05:43] LABS: Add Manual Diff / Slide Review NO; Basophils Absolute Auto 0 /uL (0-100); Basophils Percent Auto 0.7 % (0-2); Eosinophils Absolute Auto 300 /uL (0-450); Eosinophils Percent Auto 4.5 % (2-4); Hematocrit 37.2 % (36-46); Hemoglobin 12.1 g/dL (12.0-16.0); Lymphocytes Absolute Auto 2100 /uL (1100-4500); Lymphocytes Percent Auto 34.2 % (25-40); Mean Corpuscular HGB Conc 32.5 % (30-36); Mean Corpuscular Hemoglobin 26.8 PG (26-34); Mean Corpuscular Volume 82.4 fL (80-100); Monocytes Absolute Auto 500 /uL (0-900); Monocytes Percent Auto 8.8 % (3-14); Neutrophils Absolute Auto 3200 /uL (1500-7000); Neutrophils Percent Auto 51.8 % (50-75); Platelet Count 290 X10^3/uL (150-400); Red Blood Cell Count 4.51 X10^6/uL (4.0-5.2); Red Cell Distribution Width 16.5 % (11.6-14.8); White Blood Cell Count 6.2 X10^3/uL (4.5-11.0)
[2021-04-05 06:00] LABS: Alanine Aminotransferase 17 IU/L (<35); Albumin 3.8 g/dL (3.5-5.0); Albumin Globulin Ratio 1.4 (1.0-2.8); Alkaline Phosphatase 83 U/L (38-126); Aspartate Aminotransferase 26 IU/L (14-36); BUN Creatinine Ratio 8.3 (6-22); Bilirubin Total 0.6 mg/dL (0.2-1.3); Blood Urea Nitrogen 5 mg/dL (7-17); Calcium 9.6 mg/dL (8.4-10.2); Carbon Dioxide 25 mmol/L (22-32); Chloride 105 mmol/L (98-107); Estimated Glomerular Filt Rate > 60.0 mL/min (>60); Globulin 2.7 g/dL (1.7-4.1); Glucose 103 mg/dL (80-110); HEMOLYSIS < 15 (0-50); Sodium 137 mmol/L (137-145); Total Protein 6.5 g/dL (6.3-8.2)
[2021-04-05] MEDS: VALSARTAN 80 MG TABLET 160 MG PO (08:53)
[2021-04-05] MEDS: METOPROLOL IR 25 MG TABLET PO ×2 (08:53→21:12)
[2021-04-05] MEDS: ESCITALOPRAM 10 MG TABLET 20 MG PO (08:53)
[2021-04-05] MEDS: VERAPAMIL SR 180 MG TABLET PO (08:53)
--- NOTE | 2021-04-05 08:54 | P.PN_ITS ---
Subjective Subjective Date Patient Seen: 04/05/21 Time Patient Seen: 08:55 Interval history: Patient reviewed with both her spouse is in the room with her as well as Dr. Landis who admitted her. She was quite agitated and delirious upon admission. Is much improved now although certainly not at baseline. She certainly recognizes me and has some idea what is happened the last couple of days but is still perseverating on some things really make no sense Has no real complaints other than her mouth sores have returned apparently. Her IV in her left arm is also leaking. Medications have been adjusted she is on lower dose desipramine as well as escitalopram currently. Continues on her previous dose of quetiapine for sleep as well as the diazepam. She is also has a lower quantity or amount of oxycodone ordered and she is actually not even taking that much. Exam Vital Signs (past 8 hours): - 04/05/21 00:56 04/05/21 05:15 04/05/21 08:53 Temperature 97.2 F L 97.9 F Pulse Rate 71 70 Respiratory Rate 19 18 Blood Pressure 140/75 166/85 H Pulse Oximetry 97 96 98 Oxygen Delivery Method Room Air Oxygen Flow Rate 0 Objective Labs Result Diagrams: 04/05/21 04:58 04/05/21 04:58 Labs: Laboratory Results - last 24 hr 04/04/21 04/05/21 04/05/21 08:25 04:58 04:58 WBC 6.2 RBC 4.51 Hgb 12.1 Hct 37.2 MCV 82.4 MCH 26.8 MCHC 32.5 RDW 16.5 H Plt Count 290 Neut % (Auto) 51.8 Lymph % (Auto) 34.2 Warren % (Auto) 8.8 Eos % (Auto) 4.5 H Baso % (Auto) 0.7 Neut # (Auto) 3200 Lymph # (Auto) 2100 Warren # (Auto) 500 Eos # (Auto) 300 Baso # (Auto) 0 Sodium 137 137 Potassium 3.7 4.0 Chloride 106 105 Carbon Dioxide 25 25 BUN 5 L 5 L Creatinine 0.56 0.60 Estimated GFR > 60.0 > 60.0 BUN/Creatinine Ratio 8.9 8.3 Glucose 126 H 103 Calcium 9.6 9.6 Total Bilirubin 0.6 0.6 AST 24 26 ALT 16 17 Alkaline Phosphatase 82 83 Total Protein 6.5 6.5 Albumin 3.9 3.8 Globulin 2.6 2.7 Albumin/Globulin Ratio 1.5 1.4 [facility] Medical History Acquired hypothyroidism (02/10/11) Asthma Chronic migraine without aura without status migrainosus, not intractable Chronic pain syndrome Depression Depression Dorsalgia (07/28/15) Fibromyalgia (09/06/13) Gastroesophageal reflux disease without esophagitis (02/10/11) Generalized anxiety disorder HLD (hyperlipidemia) Hypertension Loosening of hardware in spine Osteoporosis (05/07/15) Recurrent major depressive disorder, in partial remission (02/10/11) Spinal stenosis at L4-L5 level Systemic lupus erythematosus (02/10/11) Tardive dyskinesia Uncomplicated opioid dependence (12/14/15) Surgical History Anesthesia History of arthroplasty of left shoulder (~2013) History of hip replacement History of surgery History of total right hip arthroplasty (~2009) Hx of arthroscopy of left knee Hx of lumbosacral spine surgery (~05/2015) Hx of spinal fusion (~1984) S/P cholecystectomy (~1993) S/P LASIK surgery of both eyes Status post appendectomy Status post tubal ligation Family History Father Family history of polycythemia Mother Family history of CHF (congestive heart failure) Social History marital status: number of children: 2 household members: spouse lives independently: Yes caregiver/support person: No housing: apartment pets and animals: Yes education level: college 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 status: other Previous 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 history: [employer] bc/sabianist: [employer] leisure activities: other Smoking Status: Never smoker Tobacco: How many years used: 0 quit status: quit date established second hand exposure: No alcohol intake: never substance use type: does not use Assessment & Plan Assessment & Plan narrative: 1. Metabolic encephalopathy-improving with time hydration and maybe some adjustment of medications. I have to believe this is like it was earlier in the year a polypharmacy situation. Will appreciate input from behavioral health regarding adjustment of medications but I would like to minimize any psychoactive drugs including her opioid narcotics. Does not appear to me that she really requires them for symptom control is more taking them for habit an psychological reasons. Do not have a lot of solutions to her chronic pain issues and frankly I think she does as well without as she does with medications 2. QT prolongation-much improved with lower doses of meds. I think perhaps even getting her off of something like that desipramine would make sense. 3. Hypertension-adequate control for now. A bit more elevated today is I think she is a bit more agitated and her mental status is improving. She also may have somewhat under treated pain but I think that is certainly okay for now 4. Disposition-will have skilled therapies including physical therapy and 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 therapy see here to establish what her real requirements are for care management in the home setting. Her spouse I think is willing to take her home if her mental status returned to normal but in this state she was in upon admission is not willing. This would create a difficult situation. Overall patient is improved but I think we need to trying come up with a better plan for managing her chronic medications as this is the 2nd admission within 6 months for polypharmacy obviously there is something going on home setting with her medications I believe that is causing this. My plan would be to minimize all psychoactive drugs including her opiate narcotics probably continue her on very low-dose benzodiazepines for anxiety continue on the SSRI but probably discontinue the tricyclic antidepressant and quetiapine for sleep. However would appreciate input from Psychiatry as well. I will reach out to Dr. Denise who is been helping through the [facility] program to review her meds and care. Note: Greater than 30 minutes total time was spent on day of service, evaluating the patient on the floor, including examining the patient, discussing clinical course with clinical and nursing staff, reviewing clinical course in the computer, preparing documentation and writing orders for continued management of care, discussing status with family as appropriate, reviewing plans for the next 24 hours with both patient/family and nursing staff as appropriate. Time Spent With Patient Critical Care time: I spent a total of [] minutes of critical care time on this patient's care today; this time is exclusive of procedural time. Quality VTE Deep Vein Thrombosis/Pulmonary Embolism Present on Admission: No
[2021-04-05] MEDS: NYSTATIN POWDER 15GM 1 APPLIC TOP ×2 (08:55→21:12)
--- NOTE | 2021-04-05 09:37 | PT.IIE ---
Current Diagnoses Metabolic encephalopathy (04/03/21) Surgical History (Last Reviewed 04/05/21 @ 08:56 by Pasquale Segura MD) Anesthesia History of hip replacement Status post appendectomy Status post tubal ligation Medical History (Last Reviewed 04/05/21 @ 08:56 by Pasquale Segura MD) Acquired hypothyroidism (02/10/11) Asthma Chronic migraine without aura without status migrainosus, not intractable Chronic pain syndrome Depression Depression Dorsalgia (07/28/15) Fibromyalgia (09/06/13) Gastroesophageal reflux disease without esophagitis (02/10/11) Generalized anxiety disorder HLD (hyperlipidemia) Hypertension Loosening of hardware in spine Osteoporosis (05/07/15) Recurrent major depressive disorder, in partial remission (02/10/11) Spinal stenosis at L4-L5 level Systemic lupus erythematosus (02/10/11) Tardive dyskinesia Uncomplicated opioid dependence (12/14/15) Physical Therapy Inpatient Evaluation/Re-Eval M1 PT/OT-IP Prior Functional Status Start: 04/05/21 08:50 Freq: NEEDED Status: Active Protocol: Document 04/05/21 09:37 AW (Rec: 04/05/21 11:07 AW [id number]) Medical Review Prior Functional Status Medical History Reviewed Yes Communication Pt presents with increased confusion but is able to make her needs known. Mobility and Gait Pt has limited mobility at baseline. Per her spouse, she spends the majority of her time in the bed which is adjustable. She uses a FWW or 4WW to ambulate in the house. She depends on a manual w/c which she does not self-propel when she leaves the house. Activities of Daily Living and IADL's Pt's spouse provides assist for getting in and out of the walk-in tub. She manages dressing and toileting without assist. Spouse does all the driving, cooking, shopping, and manages her medications but he admits the medications are not locked up. Prior Functional Level (Other details) Pt has chronic back pain and is opioid dependent. She is also on psychiatric medications. Social History Household Members spouse Living Arrangements House Number of Floors (Floors) One Floor Number of Stairs To Enter/Railing? 3 ELIZABETH with R rail ascending. Spouse assist with stairs. 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 She lives with her spouse in [place]. Their supportive daughter also lives nearby. M2 PT-IP Current Condition Start: 04/05/21 08:50 Freq: NEEDED Status: Active Protocol: Document 04/05/21 09:37 AW (Rec: 04/05/21 11:07 AW [id number]) Physical Therapy Current Condition Current Condition Evaluation Date 04/05/21 M3 PT-IP Subjective Start: 04/05/21 08:50 Freq: NEEDED Status: Active Protocol: Document 04/05/21 09:37 AW (Rec: 04/05/21 11:07 AW [id number]) Subjective Physical Therapy Visit Type Type Initial Evaluation Visit Start Time 09:19 Visit Stop Time 09:37 Total Visit Minutes 18 Notes Much history was gathered from EMR and confirmed by pt's spouse. Physical Therapy Visit Comments Patient Comments Pt is willing to participate with PT Patient Goals Return home with family support. Therapy Pain Assessment Pain When Pain Assessed During Mobility Pain Present Pain Present Denied Pain M4 PT-IP Mobility and Gait Start: 04/05/21 08:50 Freq: NEEDED Status: Active Protocol: Document 04/05/21 09:37 AW (Rec: 04/05/21 11:07 AW [id number]) PT-Bed Mobility Assessment Supine to Sit Supine to Sit Contact Guard Assistance,Head of Bed Elevated,Bedrails PT-Transfer Assessment Sit to and From Stand Sit to and from Stand Standby Assistance,Contact Guard Assistance,1 Person Assistance,Use of Upper Extremities Equipment Transfer Assistive Device Gait Belt,Front Wheeled Walker Orthotic/Prosthetic Devices or Brace: No Transfers Transfer Destination Chair Transfer Technique Stand Step Pivot Transfer Ability Level of Assist Standby Assistance,Use of Upper Extremities Comments Mobility Comments Pt was lying in bed as PT arrived. She has an adjustable bed at home and was able to complete supine to sit CGA with HOB elevated. She sat EOB and stood using FWW for support CGA. She ambulated around the room a total of 40 feet with FWW CGA and sat on the chair, transferring SBA. She was able to complete sit to stand SBA. She was then positioned with legs elevated, chair alarm on, call light and tray table in reach. Gait Assessment Gait Gait Assistance Required: Contact Guard Assist Distance (Feet) 40 Assistive Devices Assistive Device Gait Belt,Front Wheeled Walker Orthotic/Prosthetic Devices or Brace: No Gait Deviations General Gait Pattern Antalgic,Decreased Feet Clearance,Flexed Trunk Factors Limiting Gait Function Factors Limiting Gait Function Decreased Activity Tolerance, Decreased Sensation,Decreased Strength,Pain,Poor Safety Awareness Comments Gait Comments See mobility comments for details. Stair Climbing Assessment Comments Stair Climbing Comments Not assessed. PT-Balance Assessment Sitting Balance and Reactions Static Sitting Balance Ability Good Dynamic Sitting Balance Ability Good Standing Balance and Reactions Static Standing Balance Ability Fair Dynamic Standing Balance Ability Fair Device Used FWW M5 PT-IP Objective Assessments Start: 04/05/21 08:50 Freq: NEEDED Status: Active Protocol: Document 04/05/21 09:37 AW (Rec: 04/05/21 11:07 AW [id number]) Orientation Orientation/Cognition Level of Alertness Confusional State Orientation Name Safety Awareness Decreased Safety Awareness Memory Description Short Term Impaired Comments Pt presents with increased confusion. She was oriented to self but not to time, place, or situation. Gross Range of Motion Lower Extremity ROM Assessment Within Functional Limits Strength Lower Extremity Strength Assessment Bilaterally Impaired Hip 3-/5 Knee 3+/5 Ankle 3/5 Coordination Assessment Assessment Coordination Comments Pt has symptoms consistent with tardive dyskinesia, extraneous head and neck movements. Sensation Assessment Sensation Gross Sensation Right LE Impaired,Left LE Impaired Proprioception (Position) Impaired Muscle Tone Comments Muscle Tone Comments Uncontrolled head and neck movement consistent with tardive dyskinesia. M6 PT-IP Treatment Start: 04/05/21 08:50 Freq: NEEDED Status: Active Protocol: Document 04/05/21 09:37 AW (Rec: 04/05/21 11:07 AW [id number]) Physical Therapy Treatment Education Education Provided Safety M7 PT-IP Assessment and Plan Start: 04/05/21 08:50 Freq: NEEDED Status: Active Protocol: Document 04/05/21 09:37 AW (Rec: 04/05/21 11:07 AW [id number]) PT Summary Assessment and Plan Potential Rehabilitation Potential Good Status of Condition at Evaluation Evolving Summary Impairments Pain,Strength,Balance, Sensation,Cognition,Bed Mobility,Transfers,Gait, Activity Tolerance Assessment Summary Lavon is a 71 yo woman seen for PT evaluation with admitting diagnosis of metabolic encephalopathy of unknown etiology. Her baseline mobility is limited. She spends most of her time in a hospital bed but is typically able to ambulate from bed to toilet with FWW. She uses a wheelchair for community mobility and her spouse provides assist with ADL and IADL needs. On evaluation, pt required no more than CGA for bed mobility and short bout ambulation in the room with FWW. Her spouse is able to provide all necessary assist at home. Her mobility is consistent with her baseline today. Main barriers are cognition. No acute PT needs identified. PT remains available for re-consult if pt 's condition should change. Pt would possibly benefit from PT if she is amenable. Frequency of Treatment Frequency Of Treatment Discharge Recommendations To Nursing Amount of Assist Needed 1 Person Assist Discharge Recommendations PT Discharge Recommendations Home with 19/12 Assist Available,Home Health Transportation Needs at Discharge Private Vehicle
--- NOTE | 2021-04-05 11:14 | OT.IP.EVAL ---
Current Diagnoses Metabolic encephalopathy (04/03/21) Past Medical History (Last Reviewed 04/05/21 @ 08:56 by Pasquale Segura MD) Acquired hypothyroidism (02/10/11) Asthma Chronic migraine without aura without status migrainosus, not intractable Chronic pain syndrome Depression Depression Dorsalgia (07/28/15) Fibromyalgia (09/06/13) Gastroesophageal reflux disease without esophagitis (02/10/11) Generalized anxiety disorder History of arthroplasty of left shoulder (~2013) History of surgery History of total right hip arthroplasty (~2009) HLD (hyperlipidemia) Hx of arthroscopy of left knee Hx of lumbosacral spine surgery (~05/2015) Hx of spinal fusion (~1984) Hypertension Loosening of hardware in spine Osteoporosis (05/07/15) Recurrent major depressive disorder, in partial remission (02/10/11) S/P cholecystectomy (~1993) S/P LASIK surgery of both eyes Spinal stenosis at L4-L5 level Systemic lupus erythematosus (02/10/11) Tardive dyskinesia Uncomplicated opioid dependence (12/14/15) Surgical History (Last Reviewed 04/05/21 @ 08:56 by Pasquale Segura MD) Anesthesia History of arthroplasty of left shoulder (~2013) History of hip replacement History of surgery History of total right hip arthroplasty (~2009) Hx of arthroscopy of left knee Hx of lumbosacral spine surgery (~05/2015) Hx of spinal fusion (~1984) S/P cholecystectomy (~1993) S/P LASIK surgery of both eyes Status post appendectomy Status post tubal ligation Occupational Therapy Inpatient Evaluation/Re-Eval M1 PT/OT-IP Prior Functional Status Start: 04/05/21 08:50 Freq: NEEDED Status: Active Protocol: Document 04/05/21 10:40 [facility] (Rec: 04/05/21 13:47 [facility] [id number]) Medical Review Prior Functional Status Medical History Reviewed Yes Communication Pt presents with increased confusion but is able to make her needs known. Mobility and Gait Pt has limited mobility at baseline. Per her spouse, she spends the majority of her time in the bed which is adjustable. She uses a FWW or 4WW to ambulate in the house. She depends on a manual w/c which she does not self-propel when she leaves the house. Pt states that she furniture cruises in the house often. Activities of Daily Living and IADL's Pt's spouse provides assist for getting in and out of the walk-in tub. She manages dressing and toileting without assist. Spouse does all the driving, cooking, shopping, and manages her medications but he admits the medications are not locked up. Prior Functional Level (Other details) Pt has chronic back pain and is opioid dependent. She is also on psychiatric medications. Social History Household Members spouse Living Arrangements House Number of Floors (Floors) One Floor Number of Stairs To Enter/Railing? 3 ELIZABETH with R rail ascending. Spouse assist with stairs. 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 She lives with her spouse in [place]. Their supportive daughter also lives nearby. M2 OT-IP Current Condition Start: 04/05/21 13:22 Freq: Status: Active Protocol: Document 04/05/21 10:40 [facility] (Rec: 04/05/21 13:47 [facility] [id number]) Occupational Therapy Current Condition Current Condition Evaluation Date 04/05/21 Treatment Diagnosis Metabolic encephalopathy Diagnosis Onset Date 04/03/21 M3 OT- IP Subjective and Pain Start: 04/05/21 13:22 Freq: Status: Active Protocol: Document 04/05/21 10:40 [facility] (Rec: 04/05/21 13:47 [facility] [id number]) OT- Subjective Occupational Therapy Visit Type Type Initial Evaluation Visit Start Time 10:40 Visit Stop Time 11:14 Total Visit Minutes 34 Occupational Therapy Visit Comments Patient Comments Pt's present in the room. Pt requesting pain medications for her migraine. Pt's nurse notified. Patient/Caregiver Goals TO go home. OT Pain Assessment Pain When Pain Assessed At Rest Pain Present Pain Present Pain Reported Location Head Intensity 9 Scale Used Numeric (0 - 10) M4 OT- IP ADL's Start: 04/05/21 13:22 Freq: Status: Active Protocol: Document 04/05/21 10:40 [facility] (Rec: 04/05/21 13:47 [facility] [id number]) OT [id number] Comments OT Self-Feeding Comments Not at meal time. OT ADL-Grooming Comments OT Grooming Comments Pt able to wash her hands while standing at the sink. OT ADL-Oral Care Comments Oral Care Comments Not performed. OT ADL-Dressing General Eval Lower Body Dressing Ability Standby Assistance Comments OT Dressing Comments Pt able to prabhjot/doff her socks while seated on the edge of the bed. OT ADL-Toileting General Evaluation Toileting Ability Standby Assistance OT ADL-Bathing Comments OT Bathing Comments Per assists pt to get into the walk in tub and assists pt for all bathing needs. M5 OT- IP IADL's Start: 04/05/21 13:22 Freq: Status: Active Protocol: Document 04/05/21 10:40 [facility] (Rec: 04/05/21 13:47 [facility] [id number]) OT-Instrumental Activities of Daily Living Home Safety Awareness Awareness of Need for Assistance at Home Decreased Awareness Ability to Problem Solve Emergency Able to Problem Solve Situations Medication Management Medication Management Comments At this time due to pt's decreased STM, would be best for her to assist with all her medication needs. Pt in agreement. Educated pt's to have pt write in down on a piece of paper that she has agreed to let him do her medications needs so that he can show her to remind her that she agreed when she forgets. Pt does admit that she has poor short term memory . Money Management Money Management Caregiver Provides Assistance Meal Preparation Meal Preparation Caregiver Provides Assist Hiv/Aids Care Nurse Hiv/Aids Care Nurse Caregiver Provides Assist Driving Driving Caregiver Provides Assist M6 OT- IP Functional Cognition Start: 04/05/21 13:22 Freq: Status: Active Protocol: Document 04/05/21 10:40 [facility] (Rec: 04/05/21 13:47 [facility] [id number]) Cognitive Factors Limiting Selfcare Function Cognitive Ability Level of Alertness Alert,Confusional State Patient Orientation Name,Year,Place Attention Span Ability Capable of Focused Attention, Unable to Sustain Attention Ability to Follow Commands Able to Follow One Step Commands with Increased Time, Able to Follow One Step Commands with Repetition Memory Description Short Term Impaired,Working Impaired Safety Awareness Underestimates Need for Assistance Problem Solving Ability Needs Assist to Identify Solutions Executive Function Ability Unable to Filter Distractions, Unable to Make Plans,Unable to Organize Plans,Unable to Remember Details Cognitive Tests SLUMS Pt scored 11/30 on the SLUMS which implies dementia. Pt not able to state the day of the week, not able to do subtraction of 100-23, only able to state 6 animals in one minute, able to recall 2/5 objects after time passes, not able to states 3 or 4 digit number backwards, not able to draw the numbers or hour hands correctly on a clock, and able to answer 2/4 questions right after paragraph read. Cognitive Comments Cognitive Assessment Comments Pt able to answer all home safety situations without any issues. Pt is also very hard of hearing which may also affect pt's score on the SLUMS . OT- Vision and Hearing OT- Hearing Assessment OT- Hearing Assessment Hearing Impaired OT- Vision Assessment Visual Acuity WFL Vision Assessment Comments Pt does not have her hearing aid in the hospital. M7 OT- IP Mobility and Balance Start: 04/05/21 13:22 Freq: Status: Active Protocol: Document 04/05/21 10:40 [facility] (Rec: 04/05/21 13:47 [facility] [id number]) OT- Bed Mobility Assessment Rolling Type of Rolling Roll to Left Level of Assistance Standby Assistance Supine to Sit Supine to Sit Assist Standby Assistance Sit to Supine Sit to Supine Assist Standby Assistance OT-Transfer Assessment Sit to and From Stand Sit to and from Stand Contact Guard Assistance Transfers Transfer Ability Contact Guard Assistance, Minimal Assistance,1 Person Assistance Technique Transfer Destination Bed,Toilet Transfer Technique Stand Step Pivot Devices Transfer Assistive Devices None,Gait Belt Comments Mobility Comments Pt insistent on not using a device and states that she furniture cruises at home. Pt tends to hold to surfaces to assist with her balance and would benefit from use of FWW now. Pt ENRIKE at times due to near loss of balance while transferring to the commode. OT- Balance Assessment Sitting Balance and Reactions Static Sitting Balance Ability Good Dynamic Sitting Balance Ability Good Standing Balance and Reactions Static Standing Balance Ability Fair Dynamic Standing Balance Ability Poor M8 OT- IP Objective Assessments Start: 04/05/21 13:22 Freq: Status: Active Protocol: Document 04/05/21 10:40 [facility] (Rec: 04/05/21 13:47 [facility] [id number]) OT Gross Range of Motion Upper Extremity Range of Motion Assessment Bilaterally Impaired ROM Impairments Due to pt' having migraines states she can not raise up her arms when it happens L>R. OT Strength Comments Strength Comments Not formally tested due to her migraine, at least 3-/5 per observation of bed mobility needs. OT- Coordination Assessment Upper Extremity Finger to Nose Test Within Functional Limits OT-Muscle Tone Assessment Muscle Tone WNL Yes M9 OT- IP Assessment and Plan Start: 04/05/21 13:22 Freq: Status: Active Protocol: Document 04/05/21 10:40 [facility] (Rec: 04/05/21 13:47 [facility] [id number]) OT Summary Assessment and Plan Potential Rehabilitation Potential Good Analytic Complexity at Evaluation Moderate Summary OT Impairments Pain,Strength,Balance, Functional Cognition, Functional Mobility,Grooming, Dressing,Toileting,Bathing, Toilet Transfers,Shower Transfers,Activity Tolerance Progress Towards Goals Slow Progress due to Medical Issues,Slow Progress due to Activity Tolerance,Slow Progress due to Cognition Assessment Summary Pt MOD complexity and main barriers are steps, now needing assist for all needs due to decreased balance, safety awareness of her needs, and decreased functional cognition. If going home, pt' s would have to provide 24/7 assist for pt. Pt insistent on going home and open to having home health at this time. Pt to go home with 24/7 when medically stable. Pt would benefit from skilled rehab as she is a high fall risk at this time, but her feels that he can manage her at home. Goals Grooming Goal Independent Dressing Goal Independent Toileting Goal Independent Bathing Goal Moderate Assistance Toilet Transfer Goal Independent Patient/Caregiver Education Goal Caregiver Independent Assisting Patient Days to Meet Goals 7 Frequency of Treatment Frequency Of Treatment Once a Day Treatment Plan OT Treatment Plan ADL Training,Functional Cognition Training,Functional Mobility,Patient/Family Education,Discharge Planning Other Treatment Recommendations and Next caregiver training Treatment Focus Discharge Recommendations OT Discharge Recommendations Home with 24/7 Assist Available,Home Health,SNF Rehab,Home vs SNF Other Discharge Recommendations Pt insisting on going home. Transportation Needs at Discharge Private Vehicle,Wheelchair/ Cabulance
[2021-04-05] MEDS: SUMAtriptan 25 MG TABLET 100 MG PO (13:06)
--- NOTE | 2021-04-05 14:18 | PM.CN ---
History of Present Illness Consult details Date Patient Seen: 04/05/21 Time Patient Seen: 12:35 Chief complaint: Confusion Reason for consult: Medication recommendations Requesting provider: Pasquale Segura Narrative: CC: ?I can not hear you? [this is consult for medication recommendations] Patient seen at bedside today together with her with her consent. History is obtained from both parties. HOSPITAL COURSE: Admitted 04/03/21 with altered mental status, agitated and confused in the emergency room and initially in the hospital. Admitted for acute metabolic encephalopathy of unknown etiology. QTC was elevated on admission to 475, so QTC prolonging agents were decreased on admission, specifically desipramine from 100 mg to 50 mg and escitalopram from 30 mg to 20 mg. Quetiapine maintained at 100 mg at bedtime. Patient is briefly known to myself via eConsult & BHIP; today's visit is my first visit with patient directly. COLLATERAL FROM STAFF: Discussed with nursing and Dr. Segura prior to seeing patient. Agitated, confused, disoriented and hallucinating on admission. Orientation has been improving, appears closer to her baseline as of this morning. INTERVIEW: Patient identifies being hard of hearing so asks for repetition on questioning and I proceeded by speaking loudly. When asked about events leading to admission, patient reports having to talk through this with everyone at the hospital so many times, I asked her to talk with her as well. She reports difficulty with her medication, states she has been on the same medication for 30 years and there must be something better for her out there. Reports trying to see a psychiatrist for 2 years. I asked about meeting with KIMBERLYN Vasquez recently, she states it is probably not a good fit has been mentions concern about age of that provider. I discussed very limited access across the board for behavioral health right now. can give a little more details on decompensation over the past couple of weeks with acute mental status change prior to admission. Confused, hallucinating, disoriented. When patient was unable to work a remote control like she typically would he knew there was something really wrong. He has seen dementia process in his mother and worries this is similar. Patient does remember hallucinating describes as very odd, like she was partly at the hospital and partly a fast food restaurant. Denies hallucinations that were frightening. Her reports at least 1 similar episode about a year ago in connection with UTI. Patient reports not sleeping well ?the way I got in here, I fell out of bed and broke my back?. Mentions significant pain. States that she manages her own medications at home, available to assist to an extent but not with her all the time. Does track oxycodone very carefully to avoid running out before the end of the month. Denies feeling unsafe in the hospital, no current SI, no current hallucinations PAST PSYCHIATRIC HISTORY: (see KIMBERLYN Vasquez's 03/12/21 evaluation, [address] Dr. Denise's 03/15/21 childcare director visit for additional history). Reports working with a psychologist and psychiatrist for several months, several years ago before moving to the area. Reports taking both desipramine and Lexapro for many years SUBSTANCE USE HISTORY: No concerns FAMILY HISTORY: Maternal grandmother with early onset dementia. Daughter with bipolar or borderline personality, per [facility] evaluation 03/12/21. SOCIAL HISTORY: , support from , active bc her [facility] evaluation 03/12/21. DEVELOPMENTAL HISTORY: Unable to assess due to limited time today, no clear developmental concerns. PCP: Dr. Segura SIGNIFICANT MEDICAL HISTORY: Chronic pain, hypertension, hypothyroidism, migraines MENTAL STATUS EXAM Appearance: Neatly groomed, casually dressed, appears stated age Behavior: Calm, cooperative, good eye contact, some psychomotor slowing, no tremor or involuntary movements observed Gait: Not observed sitting in bed Speech: Some lisp, loud volume at times Mood: not good Affect: slightly anxious, normal range Thought Process: concrete, perseverative Thought Content: Denies suicidal ideation, no evidence of homicidal ideation, denies hallucinations, no evidence of paranoia or delusions Attention: Attentive to interview Orientation: Oriented to person place and time Memory: Intact for interview, not formally tested Insight: Fair-limited Judgment: Fair-limited Meds Home Medications and Allergies Home Medications Medication Instructions Recorded Confirmed Type oxycodone 10 mg tablet 10 mg PO QID PRN #180 tab 03/16/20 03/17/21 Rx quetiapine 100 mg tablet (Seroquel) 100 mg PO BEDTIME #90 tab 03/16/20 03/17/21 Rx escitalopram oxalate 10 mg tablet 30 mg PO DAILY #270 tab 07/09/20 03/17/21 Rx risedronate 150 mg tablet 150 mg PO QMONTH #12 tab 08/10/20 03/17/21 Rx desipramine 50 mg tablet 100 mg PO DAILY #180 tab 11/12/20 03/17/21 Rx rizatriptan 10 mg tablet 10 mg PO .COMPLEX PRN #6 tab 11/24/20 03/17/21 Rx potassium chloride 8 mEq 8 meq PO BID #60 tab 12/01/20 03/17/21 Rx tablet,extended release metoprolol tartrate 25 mg tablet 25 mg PO BID #60 tab 12/10/20 03/17/21 Rx omeprazole 40 mg capsule,delayed 40 mg PO BID #60 cap 12/10/20 03/17/21 Rx release verapamil 180 mg 24 hr 180 mg PO DAILY #90 cap 12/10/20 03/17/21 Rx capsule,extended release valsartan 160 mg tablet 160 mg PO DAILY #90 tab 01/22/21 03/17/21 Rx nystatin 100,000 unit/gram topical 1 applic TOP BID PRN #60 gram 02/08/21 03/17/21 Rx powder (Nystop) benzonatate 100 mg capsule 100 mg PO TID PRN #60 cap 02/24/21 03/17/21 Rx (Tessalon Perles) diazepam 5 mg tablet 5 mg PO BID PRN #60 tab 02/24/21 03/17/21 Rx simvastatin 20 mg tablet See Rx Instructions .ROUTE 02/24/21 03/17/21 Rx .COMPLEX #90 tablet ondansetron HCl 8 mg tablet 8 mg PO QID PRN #30 tab 02/25/21 03/17/21 Rx Allergies Allergy/AdvReac Type Severity Reaction Status Date / Time adhesive Allergy Mild BLISTERS, Verified 03/17/21 18:58 PULL SKIN OFF codeine [CODEINE] AdvReac Severe nausea, Verified 03/17/21 18:58 triggers migraines hydrocodone [HYDROCODONE] AdvReac Severe triggers Verified 03/17/21 18:58 migraines morphine [MORPHINE] AdvReac Severe n&v, can Verified 03/17/21 18:58 take if premedicated trazodone AdvReac Severe nausea/altered Verified 03/17/21 18:58 mental status zolpidem [From Ambien] AdvReac Severe sleep Verified 03/17/21 18:58 eating, strange behavior alendronate sodium AdvReac Intermediate Stomach Verified 03/17/21 18:58 [From Fosamax] issues Exam Vital Signs (past 8 hours): - 04/05/21 08:53 04/05/21 12:00 Temperature 98.3 F Pulse Rate 62 Respiratory Rate 18 Blood Pressure 162/99 H Pulse Oximetry 98 96 Oxygen Delivery Method Room Air Oxygen Flow Rate 0 Objective Labs Result Diagrams: 04/05/21 04:58 04/05/21 04:58 Labs: Laboratory Results - last 24 hr 04/05/21 04/05/21 04:58 04:58 WBC 6.2 RBC 4.51 Hgb 12.1 Hct 37.2 MCV 82.4 MCH 26.8 MCHC 32.5 RDW 16.5 H Plt Count 290 Neut % (Auto) 51.8 Lymph % (Auto) 34.2 [place] % (Auto) 8.8 Eos % (Auto) 4.5 H Baso % (Auto) 0.7 Neut # (Auto) 3200 Lymph # (Auto) 2100 [place] # (Auto) 500 Eos # (Auto) 300 Baso # (Auto) 0 Sodium 137 Potassium 4.0 Chloride 105 Carbon Dioxide 25 BUN 5 L Creatinine 0.60 Estimated GFR > 60.0 BUN/Creatinine Ratio 8.3 Glucose 103 Calcium 9.6 Total Bilirubin 0.6 AST 26 ALT 17 Alkaline Phosphatase 83 Total Protein 6.5 Albumin 3.8 Globulin 2.7 Albumin/Globulin Ratio 1.4 [facility] Medical History Acquired hypothyroidism (02/10/11) Asthma Chronic migraine without aura without status migrainosus, not intractable Chronic pain syndrome Depression Depression Dorsalgia (07/28/15) Fibromyalgia (09/06/13) Gastroesophageal reflux disease without esophagitis (02/10/11) Generalized anxiety disorder HLD (hyperlipidemia) Hypertension Loosening of hardware in spine Osteoporosis (05/07/15) Recurrent major depressive disorder, in partial remission (02/10/11) Spinal stenosis at L4-L5 level Systemic lupus erythematosus (02/10/11) Tardive dyskinesia Uncomplicated opioid dependence (12/14/15) Surgical History Anesthesia History of arthroplasty of left shoulder (~2013) History of hip replacement History of surgery History of total right hip arthroplasty (~2009) Hx of arthroscopy of left knee Hx of lumbosacral spine surgery (~05/2015) Hx of spinal fusion (~1984) S/P cholecystectomy (~1993) S/P LASIK surgery of both eyes Status post appendectomy Status post tubal ligation Family History Father Family history of polycythemia Mother Family history of CHF (congestive heart failure) Social History marital status: number of children: 2 household members: spouse lives independently: Yes caregiver/support person: No housing: apartment pets and animals: Yes education level: college 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 status: other Previous 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 history: [employer] 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 leisure activities: other Tobacco & Substance Use Smoking Status: Never smoker Tobacco: How many years used: 0 quit status: quit date established second hand exposure: No alcohol intake: never substance use type: does not use Assessment & Plan Assessment and plan (1) Acute metabolic encephalopathy: Status: Acute (2) Depression: Qualifiers: Depression Type: major depressive disorder Major depression recurrence: recurrent Active/Remission status: currently active Major depression episode severity: moderate Qualified Code(s): F33.1 - Major depressive disorder, recurrent, moderate Status: Chronic (3) Delirium due to multiple etiologies: Status: Acute Plan: ASSESSMENT: Eliza Barclay is a 71-year-old female followed by Dr. Segura, recently referred to [facility] as part of overall plan to establish higher level of behavioral health care. Admitted 2 days ago for metabolic encephalopathy with unclear etiology, no clear infection or prompting factor medically. Appears that patient met criteria for hyperactive delirium upon admission, I suspect medications are the most significant factor in her delirium currently. I reviewed this with patient and her today, and outlined that both oxycodone and diazepam can contribute to confusion and cognitive changes. Regarding her outpatient psychotropic regimen, she is on multiple agents with potential for QTC prolongation, including at least desipramine, escitalopram, quetiapine, and ondansetron. Given elevated QTC on admission, need to work on simplification of her regimen. QTC initially improved with decreases in desipramine and escitalopram which is encouraging, as well as normal potassium and magnesium on admission. Quetiapine may offer some help in the context of delirium, so although this can be a FRUIT OR NUT PICKER depressant and have risk for QTC prolongation, I would continue 100 mg for now and focus on simplifying other medications as 1st step. Although desipramine is higher risk from both QTC and Beers criteria standpoint, it can also be much more effective than escitalopram for some patients. Since she has been maintained on desipramine for many years, I recommend continuing desipramine and stopping escitalopram as a 1st step. If not requiring benzodiazepines in the hospital, could significantly limit the amount that she has access to at home. Very long half life of diazepam decreases the risk for withdrawal, although will also delay the presentation of withdrawal symptoms. LOAN EXPEDITOR query run today suggests at least daily dosing of 5 mg, with 60 pills filled at least every 6 weeks for the past 4 months. Could monitor weekly upon discharge for withdrawal symptoms & use limited amount of diazepam to taper if needed. DIAGNOSES: Hyperactive delirium, multifactorial (medications, medical conditions) History of depression & anxiety Physiological dependence on opioids RECOMMENDATIONS: - Quetiapine: continue 100mg QHS for sleep/anxiety/mood - Desipramine: continue 50mg QHS for sleep/anxiety/mood - Escitalopram: decrease to 10mg for 1 week then stop; monitor for any worsening symptoms - Diazepam: monitor for benzodiazepine withdrawal symptoms (shaking, sweating, nausea) & consult Dr. Denise if these present. If no withdrawal, I suggest to either stop or limit quantity to 5 pills per month. - Consider alternatives to chronic oxycodone treatment; could connect with [facility] to consider buprenorphine - As outpatient, continue brief psychotherapy with KIMBERLYN Vasquez in [facility] - Dr. Denise will work with Psychiatry Clinic team on referral to clinic Thank you for involving me in this patient's care. I will plan to continue working with Dr. Segura & the [facility] team as outpatient. Please contact me with questions or concerns at [phone] if additional hospital consultation is needed. Time Spent With Patient Time with patient: less than 30 minutes
--- NOTE | 2021-04-05 15:08 | CM.DPC ---
DCP/continued: Reviewed chart. Patient seen by therapy today. Current recommendation is for patient to return home with home health. COMPUTER OPERATIONS MANAGER left F2F in red folder/chart for MD to sign. Per therapy patient did fairly well with ambulation with FWW. Therapy confirms that patient is not bed bound as previously mentioned by spouse. Patient also seen by Dr. Denise today, she reports that patient is followed in outpatient setting by Jaxon Vasquez at [facility]. P: Anticipate home with home health when stable. CM team following closely. ANYI
[2021-04-05] MEDS: QUETIAPINE 100 MG TABLET PO (21:13)
[2021-04-06 05:09] VITALS: BP 144/84; PULSE 69; RESP 18; TEMP 36.3; O2SAT 97
[2021-04-06 05:10] LABS: Add Manual Diff / Slide Review NO; Basophils Absolute Auto 100 /uL (0-100); Basophils Percent Auto 0.7 % (0-2); Eosinophils Absolute Auto 300 /uL (0-450); Eosinophils Percent Auto 3.7 % (2-4); Hemoglobin 12.5 g/dL (12.0-16.0); Lymphocytes Absolute Auto 1800 /uL (1100-4500); Lymphocytes Percent Auto 23.4 % (25-40); Mean Corpuscular HGB Conc 32.1 % (30-36); Mean Corpuscular Hemoglobin 26.6 PG (26-34); Mean Corpuscular Volume 82.8 fL (80-100); Monocytes Absolute Auto 700 /uL (0-900); Monocytes Percent Auto 8.8 % (3-14); Neutrophils Absolute Auto 5000 /uL (1500-7000); Neutrophils Percent Auto 63.4 % (50-75); Platelet Count 295 X10^3/uL (150-400); Red Blood Cell Count 4.72 X10^6/uL (4.0-5.2); Red Cell Distribution Width 16.5 % (11.6-14.8); White Blood Cell Count 7.9 X10^3/uL (4.5-11.0)
[2021-04-06 05:16] LABS: Alanine Aminotransferase 17 IU/L (<35); Albumin 3.9 g/dL (3.5-5.0); Albumin Globulin Ratio 1.3 (1.0-2.8); Alkaline Phosphatase 87 U/L (38-126); Aspartate Aminotransferase 24 IU/L (14-36); BUN Creatinine Ratio 9.7 (6-22); Bilirubin Total 0.5 mg/dL (0.2-1.3); Blood Urea Nitrogen 6 mg/dL (7-17); Calcium 9.9 mg/dL (8.4-10.2); Carbon Dioxide 29 mmol/L (22-32); Chloride 105 mmol/L (98-107); Estimated Glomerular Filt Rate > 60.0 mL/min (>60); Globulin 2.9 g/dL (1.7-4.1); Glucose 109 mg/dL (80-110); HEMOLYSIS < 15 (0-50); Potassium 3.6 mmol/L (3.4-5.1); Sodium 140 mmol/L (137-145); Total Protein 6.8 g/dL (6.3-8.2)
--- NOTE | 2021-04-06 08:13 | P.DS_ITS ---
History of Present Illness History of Present Illness Date Patient Seen: 04/06/21 Time Patient Seen: 08:13 Chief complaint: Confusion Narrative: This 71 year-old female patient of Dr. Segura' is admitted from the ED for acute metabolic encephalopathy of unknown etiology.? ? History is obtained from her and the chart as she is unable to give any history.? She is pulling at her lines and EKG leads and completely removing everything at time of interview.? She is writhing around on the bed. ? is at the bedside and reports that this is an acute change.? She was in her usual state of health approximately 1 week ago and then started becoming more confused. ? They reported this to their primary care office and labs and urine drawn 5 days prior to presentation were essentially unremarkable. ? Today in the ED, they are also essentially unremarkable with vital signs significant only for an elevated blood pressure although she did miss her morning medications.? Yesterday, she started chasing her around the house and was out of it.? reports that there are no other sick family members.? denies any recent medication changes, travel, or new foods but it does appear that her oxycodone may have been reduced from 15 mg PO 4-5 times daily to 10 mg PO qid in the last 2 weeks. They live in a new house with no recent move.? has not noticed any chest pain, shortness of breath, fevers, chills, nausea, vomiting, diarrhea, constipation, or urinary symptoms.? Upon chart review, it does appear that she has been under the recent care of Dr. Denise (03/15/21)? and there is concern about polypharmacy of her psychiatric medications and a high MME of 105. ? She has a history of polypharmacy resulting in metabolic encephalopathy with multiple inpatient hospitalizations for the same, most recently 12/15. ? Usually, her manages her medications? but if he is gone or for some reason, she takes the wrong medication, she has a history of becoming delirious. ? She is opioid dependent due to chronic back pain with spinal stenosis and, as mentioned above, it does appear that her oxycodone was recently decreased from 15 mg p.o. 4-5 times daily to 10 mg PO q.i.d.? She also takes diazepam 5 mg p.o. b.i.d..? She is on quetiapine 100 mg p.o. q.h.s., desipiramine 100 mg p.o. q.day, and escitalopram [address] q.[address].? Dr. Denise noted at her last visit that these could all prolong the QT interval.? Her QTc is in in the 99th percentile today at 475; it was previously 461 on 12/21/19 during her last admission. {from Dr. Landis's H&P 04/03/21} Discharge Providers Provider Date of admission: 04/03/21 10:10 Discharge Date: 04/06/21 Primary care physician: Pasquale Segura MD Consults: 04/03/21 12:47 Consult to Discharge Planning Routine Comment: 04/05/21 07:36 Consult to Occupational Therapy Evaluate & Treat Comment: Physician Instructions: Evaluate and treat Consult to Physical Therapy Evaluate & Treat Comment: Physician Instructions: Evaluate and Treat 04/05/21 10:17 Consult to Physician Routine Comment: Consulting Provider: Frieda Denise Reason for consultation: encephalopathy Has provider been notified: Yes Discharge provider: Pasquale Segura MD Summary Hospital Course Discharge Diagnosis: 1. Encephalopathy likely secondary to polypharmacy 2. Prolonged QT secondary to polypharmacy, corrected 3. Generalized anxiety disorder 4. Depression, active 5. Chronic back pain 6. Chronic migraine headaches 7. Essential hypertension 8. Acquired hypothyroidism 9. Fibromyalgia 10. GERD without esophagitis 11. Spinal stenosis in lumbar spine 12. Osteoporosis 13. Tardive dyskinesia Hospital Course: Patient was admitted as outlined above with significantly altered mental status. She was evaluated for signs and evidence of infection which was not found. She was evaluated for signs and evidence of vascular LINE PATROLMAN process causing her altered mental status which was also not discovered Therefore similar to her presentation in November was felt to have a polypharmacy medication reaction/interaction causing her altered mental status. Medications were changed doses reduced etcetera and over the course of 72 hours plus-minus she had dramatic improvement in her mental status to the point where in the 18- 24 hours prior to discharge she had return to her normal mental status Medications were adjusted she required very little in the way of oxycodone for pain relief for her back pain although she was of course much less active here in the hospital. She had her other medications altered as noted on her discha e medication list. She was seen in consultation by Psychiatry in effort to help with medication management and to suggestions were made and greatly appreciated Patient was somewhat hypertensive and her antihypertensive therapy was altered somewhat a prior to discharge Patient was felt to be back to baseline. She was evaluated by skilled therapies well and felt to be appropriate for continued management in the home setting the assistance of her spouse who is willing to take her home and provide primary caregiver services Exam Vital Signs (past 8 hours): - 04/06/21 05:09 Temperature 97.4 F L Pulse Rate 69 Respiratory Rate 18 Blood Pressure 144/84 H Pulse Oximetry 97 Fraction of Inspired Oxygen 21 Oxygen Delivery Method Room Air Oxygen Flow Rate 0 Objective Labs Result Diagrams: 04/06/21 04:50 04/06/21 04:50 Labs: Laboratory Results - last 24 hr 04/06/21 04/06/21 04:50 04:50 WBC 7.9 RBC 4.72 Hgb 12.5 Hct 39.0 MCV 82.8 MCH 26.6 MCHC 32.1 RDW 16.5 H Plt Count 295 Neut % (Auto) 63.4 Lymph % (Auto) 23.4 L [place] % (Auto) 8.8 Eos % (Auto) 3.7 Baso % (Auto) 0.7 Neut # (Auto) 5000 Lymph # (Auto) 1800 [place] # (Auto) 700 Eos # (Auto) 300 Baso # (Auto) 100 Sodium 140 Potassium 3.6 Chloride 105 Carbon Dioxide 29 BUN 6 L Creatinine 0.62 Estimated GFR > 60.0 BUN/Creatinine Ratio 9.7 Glucose 109 Calcium 9.9 Total Bilirubin 0.5 AST 24 ALT 17 Alkaline Phosphatase 87 Total Protein 6.8 Albumin 3.9 Globulin 2.9 Albumin/Globulin Ratio 1.3 [facility] Medical History Acquired hypothyroidism (02/10/11) Asthma Chronic migraine without aura without status migrainosus, not intractable Chronic pain syndrome Depression Depression Dorsalgia (07/28/15) Fibromyalgia (09/06/13) Gastroesophageal reflux disease without esophagitis (02/10/11) Generalized anxiety disorder HLD (hyperlipidemia) Hypertension Loosening of hardware in spine Osteoporosis (05/07/15) Recurrent major depressive disorder, in partial remission (02/10/11) Spinal stenosis at L4-L5 level Systemic lupus erythematosus (02/10/11) Tardive dyskinesia Uncomplicated opioid dependence (12/14/15) Surgical History Anesthesia History of arthroplasty of left shoulder (~2013) History of hip replacement History of surgery History of total right hip arthroplasty (~2009) Hx of arthroscopy of left knee Hx of lumbosacral spine surgery (~05/2015) Hx of spinal fusion (~1984) S/P cholecystectomy (~1993) S/P LASIK surgery of both eyes Status post appendectomy Status post tubal ligation Family History Father Family history of polycythemia Mother Family history of CHF (congestive heart failure) Social History marital status: number of children: 2 household members: spouse lives independently: Yes caregiver/support person: No housing: apartment pets and animals: Yes education level: college 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 status: other Previous 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 history: [employer] bc/roman catholic: Buddhism leisure activities: other Smoking Status: Never smoker Tobacco: How many years used: 0 quit status: quit date established second hand exposure: No alcohol intake: never substance use type: does not use Discharge Plan Discharge Plan Patient Disposition: Home Discharge orders & Medications Prescriptions: Continued risedronate 150 mg tablet 150 mg PO QMONTH Qty: 12 RF: 3 rizatriptan 10 mg tablet 10 mg PO .COMPLEX PRN (Reason: migraine headache) Qty: 6 RF: 11 potassium chloride 8 mEq tablet extended release 8 meq PO BID Qty: 60 RF: 11 nystatin [Nystop] 100,000 unit/gram powder 1 applic TOP BID PRN (Reason: Yeast infection) Qty: 60 RF: 3 benzonatate [Tessalon Perles] 100 mg capsule 100 mg PO TID PRN (Reason: cough) Qty: 60 RF: 1 simvastatin 20 mg tablet See Rx Instructions .ROUTE .COMPLEX Qty: 90 RF: 1 ondansetron HCl 8 mg tablet 8 mg PO QID PRN (Reason: nausea and vomiting) Qty: 30 RF: 0 Hold Instructions: drug interaction quetiapine [Seroquel] 100 mg tablet 100 mg PO BEDTIME Qty: 90 RF: 3 Hold Instructions: drug interaction verapamil 180 mg capsule,ext rel. pellets 24 hr 180 mg PO DAILY Qty: 90 RF: 1 omeprazole 40 mg capsule,delayed release(DR/EC) 40 mg PO BID Qty: 60 RF: 3 valsartan 160 mg tablet 160 mg PO DAILY Qty: 90 RF: 3 Changed desipramine 50 mg tablet 50 mg PO DAILY Qty: 180 RF: 1 escitalopram oxalate 10 mg tablet 10 mg PO DAILY Qty: 270 RF: 3 metoprolol tartrate 25 mg tablet 25 mg PO TID Qty: 90 RF: 3 oxycodone 10 mg tablet 10 mg PO BID Qty: 180 RF: 0 Discontinued diazepam 5 mg tablet 5 mg PO BID PRN (Reason: sleep/anxiety) Qty: 60 RF: 0 Follow up/Referrals: Pasquale Segura MD [Primary Care Provider] - 1 Week Discharge Health Status Multidrug resistant organism: No MDRO Diet/Activity/Treatments Diet: Diet as Tolerated Discharge Data Primary Care Provider: Pasquale Segura Quality VTE Deep Vein Thrombosis/Pulmonary Embolism Present on Admission: No
[2021-04-06 08:50] VITALS: BP 145/104; PULSE 77; RESP 15; TEMP 36.6; O2SAT 98
[2021-04-06 09:01] VITALS: O2SAT 96
[2021-04-06] MEDS: METOPROLOL IR 25 MG TABLET PO (09:10)
[2021-04-06] MEDS: VERAPAMIL SR 180 MG TABLET PO (09:10)
[2021-04-06] MEDS: ESCITALOPRAM 10 MG TABLET PO (09:10)
[2021-04-06] MEDS: VALSARTAN 80 MG TABLET 160 MG PO (09:10)
[2021-04-06] MEDS: SUMAtriptan 25 MG TABLET 100 MG PO (09:10)
[2021-04-06] MEDS: NYSTATIN POWDER 15GM 1 APPLIC TOP (09:11)
--- NOTE | 2021-04-06 12:07 | CM.DPC ---
D/C plan continued: Reviewed chart. Patient much clearer today. Per provider notes it is suspected that patient took medication inappropriately causing her confused state over the last few days. SENIOR JAVA SOFTWARE DEVELOPER met with patient and spouse this AM. Both aware and agreeable to d/c home. Provider did not order home health and patient and spouse agreeable to follow up with provider in office if they feel HH needed. At this time neither feel like HH necessary. P: Home today. ANYI
--- NOTE | 2021-04-06 12:12 | PC.NURSE ---
Discharge Note Patient A&O, VSS, no complaints of pain/discomfort. Discharge packet reviewed with patient and . Review of new medication regimen and doses reviewed along with next administration time. Patient and also reminded of scheduled follow-up appointment with doctor Segura. All questions/concerns addressed. All belongings packed and given to patient along with discharge packet. Patient taken down via wheelchair to POV.
== END 2021-04-06 12:00 | disposition home or self-care (01) | DRG 92 ==
LOC: ED 09:32 → AC 04-04 00:28
PROVIDERS: Emergency Medicine; Admitting Provider Student in an Organized Health Care Education/Training Program; Emergency Provider Emergency Medicine; PCP Internal Medicine; Referring Provider Emergency Medicine; Visit Provider Internal Medicine
DX: G92.8 Other toxic encephalopathy (principal); F11.20 Opioid dependence, uncomplicated; F33.9 Major depressive disorder, recurrent, unspecified; T40.2X5A Adverse effect of other opioids, initial encounter; G89.29 Other chronic pain; G24.01 Drug induced subacute dyskinesia; E86.0 Dehydration; I45.81 Long QT syndrome; F41.1 Generalized anxiety disorder; I10 Essential (primary) hypertension; E03.9 Hypothyroidism, unspecified; G47.00 Insomnia, unspecified; B37.9 Candidiasis, unspecified; G43.909 Migraine, unspecified, not intractable, without status migrainosus; M81.0 Age-related osteoporosis without current pathological fracture; Z20.822 Contact with and (suspected) exposure to COVID-19
CPT/HCPCS: 36415; 70450; 70496; 70498; 71045; 80053; 80305; 80320; 81001; 82550; 83605; 83735; 83880; 84100; 84145; 84443; 84484; 85025; 87040; 87635; 93005; 93010; 94762; 96360; 96361; 97162; 97166; 97530; 99233; 99238; 99284; C9803; J3480; J7050; Q9967

== ENCOUNTER → 2021-04-15 15:06 | Outpatient (CLI) | payer MEDICARE, SELFPAY ==
[2021-04-03 18:41] VITALS: BMI 30.5
--- NOTE | 2021-04-15 15:08 | DI.RAD.S_ITS ---
PROCEDURE: XR SHOULDER LT MIN 2V INDICATIONS: shoulder pain TECHNIQUE: 3 views of the shoulder were acquired. COMPARISON: None. FINDINGS: Bones: Patient is status post prior reverse left shoulder arthroplasty with anatomic left shoulder alignment. No fractures or dislocations. No gross hardware loosening or failure. No suspicious bony lesions. Visualized ribs appear intact. Soft tissues: No suspicious soft tissue calcifications. IMPRESSION: Prior reverse shoulder arthroplasty with anatomic left shoulder alignment. No fracture or dislocation. No gross hardware complication. Dictated by: Harinder Chery M.D. on 04/15/2021 at 16:48 Approved by: Harinder Chery M.D. on 04/15/2021 at 16:49
--- NOTE | 2021-04-15 15:08 | DI.RAD.S_ITS ---
PROCEDURE: XR CERVICAL SPINE 2V OR 3V INDICATIONS: neck pain TECHNIQUE: 4 view(s) of the cervical spine were acquired. COMPARISON: None. FINDINGS: Bones: No acute fracture. Multilevel degenerative endplate sclerosis and spurring. Diffuse facet arthropathy. Straightening of the normal lordotic curvature. Moderate narrowing of the C4-C5 and C5-C6 disc spaces. Soft tissues: No prevertebral soft tissue swelling. IMPRESSION: Multilevel cervical spondylosis and diffuse facet arthropathy, most pronounced at C4-C5 and C5-C6. Dictated by: Marcos Rosario M.D. on 04/15/2021 at 17:29 Approved by: Marcos Rosario M.D. on 04/15/2021 at 17:30
== END ==
PROVIDERS: PCP Internal Medicine; Referring Provider Internal Medicine; Visit Provider Internal Medicine
DX: M47.812 Spondylosis without myelopathy or radiculopathy, cervical region (principal); M25.512 Pain in left shoulder
CPT/HCPCS: 72040; 73030

== ENCOUNTER → 2021-11-04 15:49 | Outpatient (CLI) | payer MEDICARE, SELFPAY ==
[2021-04-03 18:41] VITALS: BMI 30.5
== END ==
PROVIDERS: PCP Internal Medicine; Visit Provider Internal Medicine
DX: K13.70 Unspecified lesions of oral mucosa (principal)
CPT/HCPCS: 87252

== ENCOUNTER 2022-01-27 06:54 | Emergency (ER) | payer MEDICARE, SELFPAY ==
[2021-04-03 18:41] VITALS: BMI 30.5
[2022-01-27 07:01] VITALS: BP 183/80; PULSE 75; O2SAT 94
[2022-01-27 07:05] VITALS: BP 183/89; PULSE 70; RESP 18; TEMP 36.6; O2SAT 97; BMI 28.5
--- NOTE | 2022-01-27 07:16 | DI.RAD.S_ITS ---
PROCEDURE: XR CHEST 2V INDICATIONS: fall 3 days ago TECHNIQUE: 2 views of the chest were acquired. COMPARISON: [facility], , XR CHEST 1V, 04/03/2021, 5:34. FINDINGS: Surgical changes and devices: Status post left shoulder arthroplasty. Spinal cord stimulator leads project over the level of the mid chest, stable. Findings compatible with prior vertebroplasty of the upper lumbar spine. Surgical clips in right upper quadrant compatible with prior cholecystectomy. Lungs and pleura: Lungs are clear. No pleural effusions or pneumothorax. Mediastinum: Mediastinal contours are normal. Heart size is normal. Bones and chest wall: No suspicious bony abnormalities. Soft tissues appear unremarkable. IMPRESSION: No acute cardiopulmonary abnormalities or focal airspace disease. Dictated by: Vinicio Law M.D. on 01/27/2022 at 7:32 Approved by: Vinicio Law M.D. on 01/27/2022 at 7:34
--- NOTE | 2022-01-27 07:30 | ED.BACK ---
HPI - Back Pain/Injury General Chief Complaint: Back Pain/Injury Stated Complaint: POSSIBLE BROKEN RIBS Time Seen by Provider: 01/27/22 07:07 History of Present Illness HPI Narrative: Patient is a 71-year-old female history of chronic back pain hypertension hyperlipidemia presenting with left-sided rib pain after fall 2 nights ago. She says it hurts every time she breathes and moves. She is wheelchair-bound due to her ongoing back pain. she denies hitting her head or losing consciousness. She is not on any antiplatelet or anticoagulation medication. Related Data Home Medications Medication Instructions Recorded Confirmed hydromorphone 4 mg tablet 4 mg PO Q4H PRN 08/31/21 11/04/21 valacyclovir 500 mg tablet 500 mg PO DAILY 08/31/21 11/04/21 Previous Rx's Medication Instructions Recorded risedronate 150 mg tablet 150 mg PO QMONTH #12 tabs 08/10/20 potassium chloride 8 mEq 8 meq PO BID #60 tabs 12/01/20 tablet,extended release nystatin 100,000 unit/gram topical 1 applic topical BID PRN Yeast 02/08/21 powder (Nystop) infection #60 grams desipramine 50 mg tablet 50 mg PO DAILY #180 tabs 05/14/21 valsartan 160 mg tablet 160 mg PO BID #180 tabs 05/14/21 amlodipine 10 mg tablet 10 mg PO DAILY #90 tabs 06/29/21 gabapentin 100 mg capsule 100 mg PO BEDTIME #90 caps 06/29/21 trazodone 100 mg tablet 100 mg PO BEDTIME #90 tabs 06/29/21 benzonatate 100 mg capsule 100 mg PO TID PRN cough #60 caps 06/30/21 rizatriptan 10 mg tablet 10 mg PO .COMPLEX PRN migraine 07/30/21 headache #6 tabs Disabled Parking #1 ea 09/09/21 omeprazole 40 mg capsule,delayed 40 mg PO BID #180 caps 09/24/21 release metoprolol tartrate 25 mg tablet 50 mg PO BID #360 tabs 09/28/21 simvastatin 20 mg tablet 20 mg PO DAILY #90 tabs 11/02/21 pilocarpine HCl 5 mg tablet 5 mg PO QID #368 tabs 01/05/22 sertraline 50 mg tablet 100 mg PO DAILY #60 tabs 01/05/22 valbenazine 40 mg (7)-80 mg (21) See Rx Instructions PO PER PKG DIR 01/18/22 capsules in a dose pack #28 ea promethazine 25 mg tablet 25 mg PO QID PRN nausea and 01/26/22 vomiting #60 tabs Allergies Allergy/AdvReac Type Severity Reaction Status Date / Time adhesive Allergy Mild BLISTERS, Verified 11/04/21 15:38 PULL SKIN OFF codeine [CODEINE] AdvReac Severe nausea, Verified 11/04/21 15:38 triggers migraines morphine [MORPHINE] AdvReac Severe n&v, can Verified 11/04/21 15:38 take if premedicated zolpidem [From Ambien] AdvReac Severe sleep Verified 11/04/21 15:38 eating, strange behavior alendronate sodium AdvReac Intermediate Stomach Verified 11/04/21 15:38 [From Fosamax] issues Review of Systems Review of Systems Narrative: GENERAL: Denies chills,fever HEENT: Denies throat pain RESPIRATORY: Denies dyspnea, cough, wheezing CARDIOVASCULAR: Denies chest pain, palpitations GASTROINTESTINAL: Denies nausea, vomiting MUSCULOSKELETAL: See HPI SKIN: No rash, no laceration, no pruritus NEUROLOGIC: Denies weakness, dizziness, headache, numbness 8 point review of systems is negative except for those stated above and HPI Patient History Medical History Acquired hypothyroidism (02/10/11) Asthma Chronic migraine without aura without status migrainosus, not intractable Chronic pain syndrome Depression Depression Dorsalgia (07/28/15) Fibromyalgia (09/06/13) Gastroesophageal reflux disease without esophagitis (02/10/11) Generalized anxiety disorder HLD (hyperlipidemia) Hypertension Loosening of hardware in spine Osteoporosis (05/07/15) Recurrent major depressive disorder, in partial remission (02/10/11) Spinal stenosis at L4-L5 level Systemic lupus erythematosus (02/10/11) Tardive dyskinesia Uncomplicated opioid dependence (12/14/15) Surgical History Anesthesia History of arthroplasty of left shoulder (~2013) History of hip replacement History of surgery History of total right hip arthroplasty (~2009) Hx of arthroscopy of left knee Hx of lumbosacral spine surgery (~05/2015) Hx of spinal fusion (~1984) S/P cholecystectomy (~1993) S/P LASIK surgery of both eyes Status post appendectomy Status post tubal ligation Family History Father Family history of polycythemia Mother Family history of CHF (congestive heart failure) Social History marital status: number of children: 2 household members: spouse lives independently: Yes caregiver/support person: No housing: apartment pets and animals: Yes education level: college 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 status: other Previous 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 history: [employer] 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: [employer] leisure activities: other Smoking Status: Former smoker Tobacco: How many years used: 0 quit status: quit date established second hand exposure: No alcohol intake: never substance use type: does not use Smoking Status: Former smoker alcohol intake frequency: 0-2 drinks per day Substance Use Type: does not use Exam Initial Vital Signs Initial Vital Signs: Vital Signs Pulse Rate 75 01/27/22 07:01 Blood Pressure 183/80 H 01/27/22 07:01 Pulse Oximetry 94 01/27/22 07:01 GENERAL: Alert 71-year-old female HEENT: Head atraumatic,EOMI, pupils reactive, face symmetric, [moist] mucous membranes CARDIOVASCULAR: Regular rate and rhythm without murmurs, rubs or gallops. RESPIRATORY: Breath sounds equal bilaterally, no wheezes rales or rhonchi. Tender left EXTREMITIES: Normal range of motion, no clubbing or edema. Neurovascularly intact NEUROLOGICAL: Alert and oriented x4. SKIN: Warm, dry, no laceration, no petechiae, no rashes or lesions. Course Orders Ordered: ED Orders 01/27/22 07:16 Chest [XR chest 2V] Stat 01/27/22 07:37 XR ribs LT 2V Stat Vital Signs Vital signs: Vital Signs - 8 hr 01/27/22 07:05 01/27/22 07:01 01/27/22 07:01 Temperature 98 F Pulse Rate 70 75 Respiratory Rate 18 Blood Pressure 183/89 H 183/80 H Pulse Oximetry 97 94 Oxygen Delivery Method Room Air 01/27/22 07:33 01/27/22 08:00 01/27/22 08:30 Temperature Pulse Rate 72 63 64 Respiratory Rate Blood Pressure Pulse Oximetry 95 94 96 Oxygen Delivery Method 01/27/22 09:00 Temperature Pulse Rate 63 Respiratory Rate Blood Pressure Pulse Oximetry 95 Oxygen Delivery Method MDM - Back Pain/Injury Imaging Data Chest x-ray: Radiologist's Impression: Signed Patient: Melanie Barclay MR#: [id number] : 1950 Acct:[id number] Age/Sex: 71 / F Date of Service: 01/27/22 Loc: ED Accession Number: [id number] ?? Procedure: XR chest 2V Ordering Provider: Emilee Elizalde D.O. PROCEDURE:? XR CHEST 2V ? INDICATIONS:? fall 3 days ago ? TECHNIQUE:? 2 views of the chest were acquired.? ? COMPARISON:? [facility], , XR CHEST 1V, 04/03/2021, 5:34. ? FINDINGS:? ? Surgical changes and devices:? Status post left shoulder arthroplasty.? Spinal cord stimulator leads project over the level of the mid chest, stable.? Findings compatible with prior vertebroplasty of the upper lumbar spine. Surgical clips in right upper quadrant compatible with prior cholecystectomy. ? Lungs and pleura:? Lungs are clear.? No pleural effusions or pneumothorax.? ? Mediastinum:? Mediastinal contours are normal.? Heart size is normal.? ? Bones and chest wall:? No suspicious bony abnormalities.? Soft tissues appear unremarkable.? ? IMPRESSION:? No acute cardiopulmonary abnormalities or focal airspace disease. ? Dictated by: Vinicio Law M.D. on 01/27/2022 at 7:32 ? ? rib: Radiologist's Impression: XRay Report Signed Patient: Melanie Barclay MR#: [id number] : 1950 Acct:[id number] Age/Sex: 71 / F Date of Service: 01/27/22 Loc: ED Accession Number: [id number] ?? Procedure: XR ribs LT 2V Ordering Provider: Emilee Elizalde D.O. PROCEDURE:? XR RIBS LT 2V ? INDICATIONS:? fall pain ? TECHNIQUE:? 2 views of the left ribs were acquired.? ? COMPARISON:? [facility], , XR CHEST 2V, 01/27/2022, 7:26. ? FINDINGS:? ? Surgical changes and devices:? Left shoulder arthroplasty.? ? Bones and chest wall:? Acute mildly displaced fracture of the left lateral 5th rib, possibly also the lateral 4th rib.? No suspicious bony lesions.? Overlying soft tissues appear unremarkable.? ? Lungs and pleura:? The visualized lung appears clear.? No pleural effusions or pneumothorax are visible.? ? IMPRESSION:? Acute mildly displaced fracture of the left lateral 5th rib, possibly also the lateral 4th rib.? No pneumothorax visualized. ? ? Dictated by: David Montana M.D. on 01/27/2022 at 8:24 ? ? Approved by: David Montana M.D. on 01/27/2022 at 8:30 ? MDM Narrative Medical decision making narrative: Patient fell 2 nights ago without any head injury no anti-platelet or anticoagulation medication. X-ray does confirm left-sided rib fractures 5. And probably for as well. She has taught how to use incentive spirometer. She has dilaudid at home for pain control she is offered more pain medication here in the ED but declined at this time. Discharge Plan Departure Patient Disposition: Home Clinical Impression: Fracture, rib Instructions: DI for Rib Fracture Activity Restrictions/Additional Instructions: *You have been diagnosed with rib fractures on left 5 and 4 *What to do: At this time try pillow to help splint your pain. Incentive spirometer 10 times an hour while awake *Continue to take medications as directed Continue to take her Dilaudid as scheduled for pain Tylenol 650 mg every 4-6 hours *Follow up with your primary care provider in 2-3 days or call [phone] *Return to ER if you should have increasing pain shortness of breath fever or any new, worsening or concerning symptoms Prescriptions: No Action sertraline 50 mg tablet 100 mg PO DAILY Qty: 60 3RF risedronate 150 mg tablet 150 mg PO QMONTH Qty: 12 3RF Rx Instructions: administer at least 30 minutes before the first food or drink of the day other than water. potassium chloride 8 mEq tablet extended release 8 meq PO BID Qty: 60 11RF nystatin [Nystop] 100,000 unit/gram powder 1 applic TOP BID PRN (Reason: Yeast infection) Qty: 60 3RF benzonatate 100 mg capsule 100 mg PO TID PRN (Reason: cough) Qty: 60 1RF rizatriptan 10 mg tablet 10 mg PO .COMPLEX PRN (Reason: migraine headache) Qty: 6 11RF Rx Instructions: 1 at onset, may repeat after 2 hours. (DME) Disabled Parking See Rx Instructions .ROUTE .MEDSUPPLY Qty: 1 0RF Rx Instructions: Patient qualifies for disabled parking as per the attached form. omeprazole 40 mg capsule,delayed release(DR/EC) 40 mg PO BID Qty: 180 1RF simvastatin 20 mg tablet 20 mg PO DAILY Qty: 90 1RF pilocarpine HCl 5 mg tablet 5 mg PO QID Qty: 368 3RF valbenazine 40 mg (7)- 80 mg (21) capsule,dose pack See Rx Instructions PO PER PKG DIR Qty: 28 0RF Rx Instructions: PO PER PKG DIR promethazine 25 mg tablet 25 mg PO QID PRN (Reason: nausea and vomiting) Qty: 60 0RF desipramine 50 mg tablet 50 mg PO DAILY Qty: 180 1RF valsartan 160 mg tablet 160 mg PO BID Qty: 180 3RF valacyclovir 500 mg tablet 500 mg PO DAILY hydromorphone 4 mg tablet 4 mg PO Q4H PRN Label Comments: TAKE 1 TABLET BY MOUTH EVERY 4 HOURS NEEDED metoprolol tartrate 25 mg tablet 50 mg PO BID Qty: 360 3RF gabapentin 100 mg capsule 100 mg PO BEDTIME Qty: 90 3RF trazodone 100 mg tablet 100 mg PO BEDTIME Qty: 90 3RF amlodipine 10 mg tablet 10 mg PO DAILY Qty: 90 3RF Referrals: Pasquale Segura MD [Primary Care Provider] - Visit Report Forms: Patient Portal/API
[2022-01-27 07:33] VITALS: PULSE 72; O2SAT 95
--- NOTE | 2022-01-27 07:37 | DI.RAD.S_ITS ---
PROCEDURE: XR RIBS LT 2V INDICATIONS: fall pain TECHNIQUE: 2 views of the left ribs were acquired. COMPARISON: [facility], CR, XR CHEST 2V, 01/27/2022, 7:26. FINDINGS: Surgical changes and devices: Left shoulder arthroplasty. Bones and chest wall: Acute mildly displaced fracture of the left lateral 5th rib, possibly also the lateral 4th rib. No suspicious bony lesions. Overlying soft tissues appear unremarkable. Lungs and pleura: The visualized lung appears clear. No pleural effusions or pneumothorax are visible. IMPRESSION: Acute mildly displaced fracture of the left lateral 5th rib, possibly also the lateral 4th rib. No pneumothorax visualized. Dictated by: David Montana M.D. on 01/27/2022 at 8:24 Approved by: David Montana M.D. on 01/27/2022 at 8:30
[2022-01-27 08:00] VITALS: PULSE 63; O2SAT 94
[2022-01-27 08:30] VITALS: PULSE 64; O2SAT 96
[2022-01-27 09:00] VITALS: PULSE 63; O2SAT 95
== END 2022-01-27 09:14 | disposition home or self-care (01) ==
PROVIDERS: Emergency Provider Emergency Medicine; PCP Internal Medicine
DX: S22.42XA Multiple fractures of ribs, left side, initial encounter for closed fracture (principal); W19.XXXA Unspecified fall, initial encounter
CPT/HCPCS: 71046; 71100; 99281; 99283

== ENCOUNTER → 2022-04-05 13:03 | Outpatient (CLI) | payer MEDICARE, SELFPAY ==
[2021-04-03 18:41] VITALS: BMI 30.5
--- NOTE | 2022-04-05 13:05 | DI.MG.S_ITS ---
BILATERAL DIGITAL SCREENING MAMMOGRAM 3D/2D WITH CAD: 04/05/2022 CLINICAL: Routine screening. Comparison is made to exams dated: 09/23/2016 mammogram, 02/27/2014 mammogram, and 05/11/2017 mammogram - [facility]. Both breasts are almost entirely fatty (category a/<25% glandular tissue). Current study was also evaluated with a Computer Aided Detection (CAD) system. No significant masses, calcifications, or other findings are seen in either breast. There has been no significant interval change. IMPRESSION: NEGATIVE There is no mammographic evidence of malignancy. A 1 year screening mammogram is recommended. Based on the Tyrer Cuzick model (a risk assessment model) the patient's lifetime risk is 2.2% and her 10 year risk is 1.8%. According to the ACR, ACS, and NCCN guidelines, an annual breast MRI exam along with mammogram is recommended if the patient's lifetime risk is 20% or greater. This exam was interpreted at Station ID: [id number]. NOTE: For mammograms, a report in lay terms will be sent to the patient. Approximately 15% of breast malignancies will not be visualized mammographically. In the management of a palpable breast mass, a negative mammogram must not discourage biopsy of a clinically suspicious lesion. Electronically Signed By: David olsen/kaiden:04/05/2022 15:52:26 letter sent: Normal Exam ACR BI-RADS Category 1: Negative [id number]
== END ==
PROVIDERS: PCP Internal Medicine; Referring Provider Internal Medicine; Visit Provider Internal Medicine
DX: Z12.31 Encounter for screening mammogram for malignant neoplasm of breast (principal)
CPT/HCPCS: 77063; 77067

== ENCOUNTER 2022-05-19 08:45 | Emergency (ER) | payer MEDICARE, SELFPAY ==
[2021-04-03 18:41] VITALS: BMI 30.5
[2022-05-19 09:06] VITALS: BP 167/77; PULSE 77; RESP 16; TEMP 37.2; O2SAT 96; BMI 29.2
== END 2022-05-19 09:52 | disposition left against medical advice (07) ==
PROVIDERS: Emergency Provider Emergency Medicine; PCP Internal Medicine
CPT/HCPCS: 99281

== ENCOUNTER 2022-05-19 16:22 | Inpatient (IN) | payer MEDICARE, SELFPAY ==
[2021-04-03 18:41] VITALS: BMI 30.5
[2022-05-19 16:23] VITALS: PULSE 79; O2SAT 94
[2022-05-19 16:24] VITALS: BP 192/99; PULSE 76; RESP 20; TEMP 37.6; O2SAT 94; BMI 28.1
[2022-05-19 16:30] VITALS: BP 188/91; PULSE 78; O2SAT 93
--- NOTE | 2022-05-19 16:49 | DI.RAD.S_ITS ---
PROCEDURE: XR CHEST 1V INDICATIONS: confusion TECHNIQUE: One view of the chest was acquired. COMPARISON: [facility], CR, XR CHEST 2V, 01/27/2022, 7:26. FINDINGS: Surgical changes and devices: Prior left shoulder arthroplasty is again seen. Cord stimulator leads are seen projecting in mid thoracic spine. Lungs and pleura: Extensive hazy airspace opacities are seen scattered throughout bilateral lung dominguez. No pleural effusions or pneumothorax. Mediastinum: Tortuous thoracic aorta is seen. Heart size is enlarged. Bones and chest wall: No suspicious bony lesions. Overlying soft tissues appear unremarkable. IMPRESSION: Finding is suggestive of bilateral multilobar infiltrates worse on the left side. Follow-up until resolution is recommended. No pleural effusion or pneumothorax. Dictated by: Harinder Chery M.D. on 05/19/2022 at 18:09 Approved by: Harinder Chery M.D. on 05/19/2022 at 18:10
[2022-05-19 17:00] VITALS: BP 197/85; PULSE 74; O2SAT 94
--- NOTE | 2022-05-19 17:03 | DI.CT.S_ITS ---
PROCEDURE: CT HEAD/BRAIN WO CON INDICATIONS: altered mental status TECHNIQUE: Noncontrast 4.5 mm thick angled axial sections acquired from the foramen magnum to the vertex, with coronal and sagittal reformats. For radiation dose reduction, the following was used: automated exposure control, adjustment of mA and/or kV according to patient size. COMPARISON: [facility], CT, CT HEAD/BRAIN WO CON, 04/03/2021, 6:06. FINDINGS: Image quality: Excellent. CSF spaces: Basal cisterns are patent. No extra-axial fluid collections. The ventricles are symmetric in size and shape. Brain: No intracranial bleeds or masses. There is cerebral volume loss for age, with resultant ventricular and sulcal prominence. There are periventricular and deep white matter chronic small vessel ischemic changes. There is intracranial internal carotid artery atherosclerosis. Skull and face: Calvarium and visualized facial bones appear intact, without suspicious lesions. Sinuses: Visualized sinuses and mastoids are clear. IMPRESSION: No CT evidence of acute intracranial abnormalities. No significant changes from previous study. Dictated by: Harinder Chery M.D. on 05/19/2022 at 18:13 Approved by: Harinder Chery M.D. on 05/19/2022 at 18:13
[2022-05-19 17:37] LABS: Appearance Urine UA CLEAR; Bilirubin Urine UA 1+ (NEGATIVE); Color Urine UA ORANGE; Glucose Urine UA NEGATIVE (Negative); Ketones Urine UA 2+ (NEGATIVE); Leukocyte Esterase Urine UA NEGATIVE (NEGATIVE); Nitrite Urine UA NEGATIVE (Negative); Occult Blood Urine UA TRACE-LYSED (Negative); Protein Urine UA 2+ (Negative); Specific Gravity Urine UA 1.025 (1.000-1.035); Urobilinogen Urine UA 0.2 E.U./dL (0.2)
[2022-05-19 17:43] LABS: pH Urine UA 5.5 (4.5-8.0)
[2022-05-19 17:45] LABS: RBC Urine 1-5/HPF (0-5/HPF); WBC Urine 1-5/HPF (0-5/HPF)
[2022-05-19 17:46] LABS: Amorphous Sediment Urine 1+; Bacteria Urine None Seen; Culture Indicated Urine Cult Not Indicated; Mucus Urine 2+ (Negative)
[2022-05-19 17:46] LABS: Creatine Kinase 772 U/L (30-135); Lipase 794 U/L (23-300)
[2022-05-19 17:47] LABS: Ictotest Urine Positive (Negative)
[2022-05-19 17:48] LABS: Acetaminophen < 10 ug/mL (10-30); Alanine Aminotransferase 33 IU/L (<35); Albumin 3.4 g/dL (3.5-5.0); Albumin Globulin Ratio 1.1 (1.0-2.8); Alkaline Phosphatase 92 U/L (38-126); Aspartate Aminotransferase 79 IU/L (14-36); Bilirubin Total 0.8 mg/dL (0.2-1.3); Bilirubin Unconjugated 0.3 mg/dL (0.0-1.1); Blood Urea Nitrogen 13 mg/dL (7-17); Calcium 9.5 mg/dL (8.4-10.2); Carbon Dioxide 21 mmol/L (22-32); Chloride 105 mmol/L (98-107); Estimated Glomerular Filt Rate > 60 mL/min (>60); Ethanol (ETOH) < 10 mg/dL; Globulin 3.1 g/dL (1.7-4.1); Glucose 97 mg/dL (80-110); HEMOLYSIS < 15 (0-50); Potassium 3.5 mmol/L (3.4-5.1); Salicylate < 1.0 mg/dL (<20); Sodium 141 mmol/L (137-145); Total Protein 6.5 g/dL (6.3-8.2)
[2022-05-19 17:59] LABS: Troponin I 0.051 ng/mL (0.01-0.034)
[2022-05-19 18:01] LABS: CKMB % Relative Index 1.1 % (1.5-5.0); Creatine Kinase MB 8.21 ng/mL (<2.37)
[2022-05-19 18:03] LABS: Procalcitonin 0.11 ng/mL (<0.5)
--- NOTE | 2022-05-19 18:32 | ED.GENADULT ---
HPI - General Adult General Chief complaint: Urogenital-Female Stated complaint: Fever, UTI Time Seen by Provider: 05/19/22 17:02 Source: patient and EMS Mode of arrival: EMS Limitations: no limitations History of Present Illness HPI narrative: Patient is a 72-year-old female who is here with her . She is brought in by EMS. They were here in the emergency department earlier today where they arrived by private vehicle. They were checked into the emergency department for less than an hour when they left without being seen. There here for evaluation of fevers, uncontrollable shaking, potential UTI, dehydration. Patient has multiple chronic medical issues. Is seen by mental health. Patient's states that for the past week she is had increasing issues with uncontrollable shaking which is specifically worsened over the past 24 hours. He also states that she has been eating or drinking. Is dehydrated. Patient does have a history of tardive dyskinesia. This was after she was on Seroquel. She is since been stopped however the end of February she had a increase in her SSRI which the states has helped her depression. Review of the prior medical notes shows that the shaking from the tardive dyskinesia actually has not completely resolved. She is on an anti parkinsonian medication because of this. She does not have a history of Parkinson's disease. She is a history of chronic pain, fibromyalgia, high blood pressure. Does have prescriptions for oral Dilaudid and also baclofen. Other than the change in her SSRI more than 1.5 months ago she is no other changes in medicine. Here in the emergency department the patient states that she is not having chest pain. No shortness of breath. No cough. No abdominal pain. No change in urine or bowel habits. No skin rashes. She states that the shaking that she is having she can not control. She does not feel particularly anxious. Does not have a headache. She reports she is feeling very tired and has not been able to eat or drink much. Related Data Home Medications Medication Instructions Recorded Confirmed hydromorphone 4 mg tablet 4 mg PO Q4H PRN 08/31/21 11/04/21 valacyclovir 500 mg tablet 500 mg PO DAILY 08/31/21 11/04/21 Previous Rx's Medication Instructions Recorded risedronate 150 mg tablet 150 mg PO QMONTH #12 tabs 08/10/20 valsartan 160 mg tablet 160 mg PO BID #180 tabs 05/14/21 amlodipine 10 mg tablet 10 mg PO DAILY #90 tabs 06/29/21 gabapentin 100 mg capsule 100 mg PO BEDTIME #90 caps 06/29/21 trazodone 100 mg tablet 100 mg PO BEDTIME #90 tabs 06/29/21 benzonatate 100 mg capsule 100 mg PO TID PRN cough #60 caps 06/30/21 rizatriptan 10 mg tablet 10 mg PO .COMPLEX PRN migraine 07/30/21 headache #6 tabs Disabled Parking #1 ea 09/09/21 simvastatin 20 mg tablet 20 mg PO DAILY #90 tabs 11/02/21 pilocarpine HCl 5 mg tablet 5 mg PO QID #368 tabs 01/05/22 nystatin 100,000 unit/gram topical 1 applic topical BID PRN Yeast 03/11/22 powder (Nystop) infection #60 grams potassium chloride 8 mEq 8 meq PO BID #60 tabs 03/11/22 tablet,extended release metoprolol tartrate 25 mg tablet 50 mg PO BID #360 tabs 03/14/22 amantadine HCl 100 mg tablet See Rx Instructions .Route 03/28/22 .COMPLEX #270 tabs sertraline 50 mg tablet 150 mg PO DAILY #90 tabs 03/28/22 omeprazole 40 mg capsule,delayed 40 mg PO BID #180 caps 04/18/22 release promethazine 25 mg tablet 25 mg PO QID PRN nausea and 05/05/22 vomiting #60 tabs Allergies Allergy/AdvReac Type Severity Reaction Status Date / Time adhesive Allergy Mild BLISTERS, Verified 05/19/22 09:06 PULL SKIN OFF codeine [CODEINE] AdvReac Severe nausea, Verified 05/19/22 09:06 triggers migraines morphine [MORPHINE] AdvReac Severe n&v, can Verified 05/19/22 09:06 take if premedicated zolpidem [From Ambien] AdvReac Severe sleep Verified 05/19/22 09:06 eating, strange behavior alendronate sodium AdvReac Intermediate Stomach Verified 05/19/22 09:06 [From Fosamax] issues Review of Systems Review of Systems ROS Unobtainable: All systems reviewed & are unremarkable except as noted in HPI and below Patient History Medical History Acquired hypothyroidism (02/10/11) Asthma Chronic migraine without aura without status migrainosus, not intractable Chronic pain syndrome Depression Depression Dorsalgia (07/28/15) Fibromyalgia (09/06/13) Gastroesophageal reflux disease without esophagitis (02/10/11) Generalized anxiety disorder HLD (hyperlipidemia) Hypertension Loosening of hardware in spine Osteoporosis (05/07/15) Recurrent major depressive disorder, in partial remission (02/10/11) Spinal stenosis at L4-L5 level Systemic lupus erythematosus (02/10/11) Tardive dyskinesia Uncomplicated opioid dependence (12/14/15) Surgical History Anesthesia History of arthroplasty of left shoulder (~2013) History of hip replacement History of surgery History of total right hip arthroplasty (~2009) Hx of arthroscopy of left knee Hx of lumbosacral spine surgery (~05/2015) Hx of spinal fusion (~1984) S/P cholecystectomy (~1993) S/P LASIK surgery of both eyes Status post appendectomy Status post tubal ligation Family History Father Family history of polycythemia Mother Family history of CHF (congestive heart failure) Social History marital status: number of children: 2 household members: spouse lives independently: Yes caregiver/support person: No housing: apartment pets and animals: Yes education level: college 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 status: other Previous 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 history: [employer] bc/temple: [employer] leisure activities: other Smoking Status: Former smoker Tobacco: How many years used: 0 quit status: quit date established second hand exposure: No alcohol intake: never substance use type: does not use Smoking Status: Former smoker alcohol intake frequency: 0-2 drinks per day Substance Use Type: does not use Exam Initial Vital Signs Initial Vital Signs: Vital Signs Pulse Rate 79 05/19/22 16:23 Pulse Oximetry 94 05/19/22 16:23 Const General: cooperative and No ill appearing HENMT Head: normal to inspection and normocephalic Mouth: No moist mucous membranes (Very Dry mucous membranes) Eyes Other: No nystagmus noted Resp Effort & Inspection: normal respiratory effort Auscultation: clear to auscultation bilaterally Cardio Rate: regular rate Rhythm: regular rhythm GI Inspection: normal to inspection and non-distended Palpation: soft and No tender Skin Other: She does have what appear to be bruises on her left chest/breast reason and also in her right upper arm. Neuro Other: Patient is able to move all 4 extremities. She can move them to command but also has involuntary movements. These seem to be somewhat sporadic and not rhythmic. They include both flexion and extension. It also includes moving her head from [id number]. She does have some difficulty lifting her legs up off the bed. She states she can not control the movements however with putting in an IV she can hold her arm still for short period of time. Does not have any lip smacking. No clonus. No rigidity. Alert oriented x3. Speech is normal. No sensory deficits. Extrem General: normal to inspection and capillary refill normal Psych Appearance: disheveled Speech and Movement: speech and movement normal Mood: congruent mood and not anxious Affect: normal affect, No sad, No hostile and No irritable affect Attitude: cooperative Scores GCS Yuriy coma scale eye opening: Spontaneous [place] coma scale verbal response: Orientated Yuriy coma scale motor response: Obey commands [place] coma scale total score: 15 Course Orders Ordered: ED Orders 05/19/22 16:49 XR chest 1V Stat EKG-12 Lead Stat 05/19/22 17:03 CT head/brain wo con Stat 05/19/22 17:12 Ictotest Urine Stat UA Complete [Urinalysis and Microscopic] Stat Urine Drug Screen, Rapid Stat 05/19/22 17:20 Acetaminophen Stat Comprehensive Metabolic Panel Stat Ethanol (ETOH) Stat Hepatic (Liver) Panel Stat Lipase Stat Procalcitonin Stat Salicylate Stat Troponin & CK Cardiac Panel Stat 05/19/22 18:37 Complete Blood Count AUTO DIFF Stat Covid-19 + FLU A/B + RSV - PCR Stat Lactate (Lactic Acid) Stat Prothrombin Time INR Stat Sodium Chloride (Normal Saline 0.9%) 1,000 mls @ 150 mls/hr IV CONT BETTIE Last Admin: 05/19/22 19:11 Dose: Not Given Documented By: NR Discontinued Medications Sodium Chloride (Normal Saline 0.9%) 1,000 mls @ 1,000 mls/hr IV BOLUS ONE Stop: 05/19/22 18:10 Lorazepam (Lorazepam 2 Mg/Ml Inj) 1 mg IV NOW ONE Stop: 05/19/22 18:38 Last Admin: 05/19/22 19:11 Dose: 1 mg Documented By: NR Vital Signs Vital signs: Vital Signs - 8 hr 05/19/22 16:24 05/19/22 16:23 05/19/22 16:30 Temperature 99.6 F Pulse Rate 76 79 Respiratory Rate 20 Blood Pressure 192/99 H 188/91 H Pulse Oximetry 94 94 Oxygen Delivery Method Room Air 05/19/22 16:30 05/19/22 17:00 05/19/22 17:00 Temperature Pulse Rate 78 74 Respiratory Rate Blood Pressure 197/85 H Pulse Oximetry 93 94 Oxygen Delivery Method Medical Decision Making Lab Data Lab results reviewed: Yes I reviewed the patient's lab results. Result diagrams: 05/19/22 18:37 05/19/22 17:20 Labs: Lab Results 05/19/22 05/19/22 05/19/22 Range/Units 17:12 17:12 17:20 WBC (4.5-11.0) X10^3/uL RBC (4.0-5.2) X10^6/uL Hgb (12.0-16.0) g/dL Hct (36-46) % MCV (80-100) fL MCH (26-34) PG MCHC (30-36) % RDW (11.6-14.8) % Plt Count (150-400) X10^3/uL Neut % (Auto) (50-75) % Lymph % (Auto) (25-40) % [place] % (Auto) (3-14) % Eos % (Auto) (2-4) % Baso % (Auto) (0-2) % Neut # (Auto) (1340-1434) /uL Lymph # (Auto) (6638-0061) /uL [place] # (Auto) (0-900) /uL Eos # (Auto) (0-450) /uL Baso # (Auto) (0-100) /uL PT (10.1-12.7) SECONDS INR (0.9-1.3) Sodium (137-145) mmol/L Potassium (3.4-5.1) mmol/L Chloride (98-107) mmol/L Carbon Dioxide (22-32) mmol/L BUN (7-17) mg/dL Creatinine (0.52-1.04) mg/dL Estimated GFR (>60) mL/min BUN/Creatinine Ratio (6-22) Glucose (80-110) mg/dL Lactate (0.7-2.1) mmol/L Calcium (8.4-10.2) mg/dL Total Bilirubin (0.2-1.3) mg/dL Conjugated Bilirubin (0.0-0.3) md/dL Unconjugated Bilirubin (0.0-1.1) mg/dL AST (14-36) IU/L ALT (<35) IU/L Alkaline Phosphatase (38-126) U/L Total Creatine Kinase 772 H (30-135) U/L CK-MB (CK-2) 8.21 H (<2.37) ng/mL CK-MB (CK-2) Rel Index 1.1 L (1.5-5.0) % Troponin I 0.051 H (0.01-0.034) ng/mL Total Protein (6.3-8.2) g/dL Albumin (3.5-5.0) g/dL Globulin (1.7-4.1) g/dL Albumin/Globulin Ratio (1.0-2.8) Lipase 794 H (23-300) U/L Procalcitonin 0.11 (<0.5) ng/mL Urine Color [place] Urine Appearance Clear Urine pH 5.5 (4.5-8.0) Ur Specific [place] 1.025 (1.000-1.035) Urine Protein 2+ H (Negative) Urine Glucose (UA) Negative (Negative) g/dL Urine Ketones 2+ H (NEGATIVE) Urine Occult Blood Trace-lysed (Negative) Urine Nitrate Negative (Negative) Urine Bilirubin 1+ H (NEGATIVE) Ur Bilirubin Confirm Positive H (Negative) Urine Urobilinogen 0.2 (0.2) E.U./dL Ur Leukocyte Esterase Negative (NEGATIVE) Urine RBC 1-5/hpf (0-5/HPF) Urine WBC 1-5/hpf (0-5/HPF) Amorphous Sediment 1+ Urine Bacteria None seen (None) Urine Mucus 2+ H (Negative) Ur Culture Indicated? Cult not indicated Salicylates (<20) mg/dL U Opiates 300ng/mL cut Positive H (Negative) Ur Oxycodone Screen Negative (Negative) Urine Methadone Screen Negative (Negative) Acetaminophen (10-30) ug/mL Ur Barbiturates Screen Negative (Negative) U Tricyclic Antidepress Positive H (Negative) Ur Phencyclidine Scrn Negative (Negative) Ur Amphetamines Screen Negative (Negative) U Methamphetamines Scrn Negative (Negative) Ur MDMA Scrn (Ecstasy) Negative (Negative) U Benzodiazepines Scrn Negative (Negative) Urine Cocaine Screen Negative (Negative) U Marijuana (THC) Screen Negative (Negative) Ethyl Alcohol ( - 10) mg/dL SARS-CoV-2 (PCR) (Negative) Influenza A (RT-PCR) (NEGATIVE) Influenza B (RT-PCR) (NEGATIVE) RSV (PCR) (Negative) 05/19/22 05/19/22 05/19/22 Range/Units 17:20 18:37 18:37 WBC 15.5 H (4.5-11.0) X10^3/uL RBC 3.57 L (4.0-5.2) X10^6/uL Hgb 9.9 L (12.0-16.0) g/dL Hct 30.4 L (36-46) % MCV 85.0 (80-100) fL MCH 27.7 (26-34) PG MCHC 32.6 (30-36) % RDW 16.1 H (11.6-14.8) % Plt Count 342 (150-400) X10^3/uL Neut % (Auto) 85.7 H (50-75) % Lymph % (Auto) 5.9 L (25-40) % [place] % (Auto) 7.8 (3-14) % Eos % (Auto) 0.0 L (2-4) % Baso % (Auto) 0.6 (0-2) % Neut # (Auto) 74104 H (6918-9120) /uL Lymph # (Auto) 900 L (8923-3026) /uL [place] # (Auto) 1200 H (0-900) /uL Eos # (Auto) 0 (0-450) /uL Baso # (Auto) 100 (0-100) /uL PT 18.5 H (10.1-12.7) SECONDS INR 1.6 H (0.9-1.3) Sodium 141 (137-145) mmol/L Potassium 3.5 (3.4-5.1) mmol/L Chloride 105 (98-107) mmol/L Carbon Dioxide 21 L (22-32) mmol/L BUN 13 (7-17) mg/dL Creatinine 0.52 (0.52-1.04) mg/dL Estimated GFR > 60 (>60) mL/min BUN/Creatinine Ratio 25.0 H (6-22) Glucose 97 (80-110) mg/dL Lactate (0.7-2.1) mmol/L Calcium 9.5 (8.4-10.2) mg/dL Total Bilirubin 0.8 (0.2-1.3) mg/dL Conjugated Bilirubin 0.0 (0.0-0.3) md/dL Unconjugated Bilirubin 0.3 (0.0-1.1) mg/dL AST 79 H (14-36) IU/L ALT 33 (<35) IU/L Alkaline Phosphatase 92 (38-126) U/L Total Creatine Kinase (30-135) U/L CK-MB (CK-2) (<2.37) ng/mL CK-MB (CK-2) Rel Index (1.5-5.0) % Troponin I (0.01-0.034) ng/mL Total Protein 6.5 (6.3-8.2) g/dL Albumin 3.4 L (3.5-5.0) g/dL Globulin 3.1 (1.7-4.1) g/dL Albumin/Globulin Ratio 1.1 (1.0-2.8) Lipase (23-300) U/L Procalcitonin (<0.5) ng/mL Urine Color Urine Appearance Urine pH (4.5-8.0) Ur Specific [place] (1.000-1.035) Urine Protein (Negative) Urine Glucose (UA) (Negative) g/dL Urine Ketones (NEGATIVE) Urine Occult Blood (Negative) Urine Nitrate (Negative) Urine Bilirubin (NEGATIVE) Ur Bilirubin Confirm (Negative) Urine Urobilinogen (0.2) E.U./dL Ur Leukocyte Esterase (NEGATIVE) Urine RBC (0-5/HPF) Urine WBC (0-5/HPF) Amorphous Sediment Urine Bacteria (None) Urine Mucus (Negative) Ur Culture Indicated? Salicylates < 1.0 (<20) mg/dL U Opiates 300ng/mL cut (Negative) Ur Oxycodone Screen (Negative) Urine Methadone Screen (Negative) Acetaminophen < 10 (10-30) ug/mL Ur Barbiturates Screen (Negative) U Tricyclic Antidepress (Negative) Ur Phencyclidine Scrn (Negative) Ur Amphetamines Screen (Negative) U Methamphetamines Scrn (Negative) Ur MDMA Scrn (Ecstasy) (Negative) U Benzodiazepines Scrn (Negative) Urine Cocaine Screen (Negative) U Marijuana (THC) Screen (Negative) Ethyl Alcohol < 10 ( - 10) mg/dL SARS-CoV-2 (PCR) (Negative) Influenza A (RT-PCR) (NEGATIVE) Influenza B (RT-PCR) (NEGATIVE) RSV (PCR) (Negative) 05/19/22 05/19/22 Range/Units 18:37 18:37 WBC (4.5-11.0) X10^3/uL RBC (4.0-5.2) X10^6/uL Hgb (12.0-16.0) g/dL Hct (36-46) % MCV (80-100) fL MCH (26-34) PG MCHC (30-36) % RDW (11.6-14.8) % Plt Count (150-400) X10^3/uL Neut % (Auto) (50-75) % Lymph % (Auto) (25-40) % [place] % (Auto) (3-14) % Eos % (Auto) (2-4) % Baso % (Auto) (0-2) % Neut # (Auto) (1022-4603) /uL Lymph # (Auto) (2872-1046) /uL [place] # (Auto) (0-900) /uL Eos # (Auto) (0-450) /uL Baso # (Auto) (0-100) /uL PT (10.1-12.7) SECONDS INR (0.9-1.3) Sodium (137-145) mmol/L Potassium (3.4-5.1) mmol/L Chloride (98-107) mmol/L Carbon Dioxide (22-32) mmol/L BUN (7-17) mg/dL Creatinine (0.52-1.04) mg/dL Estimated GFR (>60) mL/min BUN/Creatinine Ratio (6-22) Glucose (80-110) mg/dL Lactate 1.3 (0.7-2.1) mmol/L Calcium (8.4-10.2) mg/dL Total Bilirubin (0.2-1.3) mg/dL Conjugated Bilirubin (0.0-0.3) md/dL Unconjugated Bilirubin (0.0-1.1) mg/dL AST (14-36) IU/L ALT (<35) IU/L Alkaline Phosphatase (38-126) U/L Total Creatine Kinase (30-135) U/L CK-MB (CK-2) (<2.37) ng/mL CK-MB (CK-2) Rel Index (1.5-5.0) % Troponin I (0.01-0.034) ng/mL Total Protein (6.3-8.2) g/dL Albumin (3.5-5.0) g/dL Globulin (1.7-4.1) g/dL Albumin/Globulin Ratio (1.0-2.8) Lipase (23-300) U/L Procalcitonin (<0.5) ng/mL Urine Color Urine Appearance Urine pH (4.5-8.0) Ur Specific [place] (1.000-1.035) Urine Protein (Negative) Urine Glucose (UA) (Negative) g/dL Urine Ketones (NEGATIVE) Urine Occult Blood (Negative) Urine Nitrate (Negative) Urine Bilirubin (NEGATIVE) Ur Bilirubin Confirm (Negative) Urine Urobilinogen (0.2) E.U./dL Ur Leukocyte Esterase (NEGATIVE) Urine RBC (0-5/HPF) Urine WBC (0-5/HPF) Amorphous Sediment Urine Bacteria (None) Urine Mucus (Negative) Ur Culture Indicated? Salicylates (<20) mg/dL U Opiates 300ng/mL cut (Negative) Ur Oxycodone Screen (Negative) Urine Methadone Screen (Negative) Acetaminophen (10-30) ug/mL Ur Barbiturates Screen (Negative) U Tricyclic Antidepress (Negative) Ur Phencyclidine Scrn (Negative) Ur Amphetamines Screen (Negative) U Methamphetamines Scrn (Negative) Ur MDMA Scrn (Ecstasy) (Negative) U Benzodiazepines Scrn (Negative) Urine Cocaine Screen (Negative) U Marijuana (THC) Screen (Negative) Ethyl Alcohol ( - 10) mg/dL SARS-CoV-2 (PCR) Negative (Negative) Influenza A (RT-PCR) Flu a negative (NEGATIVE) Influenza B (RT-PCR) Flu b negative (NEGATIVE) RSV (PCR) Negative (Negative) Imaging Data Chest x-ray: Radiologist's Impression: [address] [address] XRay Report Signed Patient: Mleanie Barclay MR#: [id number] : 1950 Acct:[id number] Age/Sex: 72 / F Date of Service: 05/19/22 Loc: ED Accession Number: [id number] ?? Procedure: XR chest 1V Ordering Provider: Eugenia Tavares D.O. PROCEDURE:? XR CHEST 1V ? INDICATIONS:? confusion ? TECHNIQUE:? One view of the chest was acquired.? ? COMPARISON:? [facility], CR, XR CHEST 2V, 01/27/2022, 7:26. ? FINDINGS:? ? Surgical changes and devices:? Prior left shoulder arthroplasty is again seen.? Cord stimulator leads are seen projecting in mid thoracic spine. ? Lungs and pleura:? Extensive hazy airspace opacities are seen scattered throughout bilateral lung dominguez.? No pleural effusions or pneumothorax.? ? Mediastinum:? Tortuous thoracic aorta is seen.? Heart size is enlarged. ? Bones and chest wall:? No suspicious bony lesions.? Overlying soft tissues appear unremarkable.? ? IMPRESSION:? Finding is suggestive of bilateral multilobar infiltrates worse on the left side.? Follow-up until resolution is recommended.? No pleural effusion or pneumothorax.? ? ? Dictated by: Harinder Chery M.D. on 05/19/2022 at 18:09 ? ? Approved by: Harinder Chery M.D. on 05/19/2022 at 18:10? CT scan - head: Radiologist's Impression: [address] [address] [address] Scan Report Signed Patient: Melanie Barclay MR#: [id number] : 1950 Acct:[id number] Age/Sex: 72 / F Date of Service: 05/19/22 Loc: ED Accession Number: [id number] ?? Procedure: CT head/brain wo con Ordering Provider: Eugenia Tavares D.O. PROCEDURE:? CT HEAD/BRAIN WO CON ? INDICATIONS:? altered mental status ? TECHNIQUE:? Noncontrast 4.5 mm thick angled axial sections acquired from the foramen magnum to the vertex, with coronal and sagittal reformats.? For radiation dose reduction, the following was used:? automated exposure control, adjustment of mA and/or kV according to patient size.? ? COMPARISON:? [facility], CT, CT HEAD/BRAIN WO CON, 04/03/2021, 6:06. ? FINDINGS:? Image quality:? Excellent.? ? CSF spaces:? Basal cisterns are patent.? No extra-axial fluid collections.? The ventricles are symmetric in size and shape.? ? Brain:? No intracranial bleeds or masses.? There is cerebral volume loss for age, with resultant ventricular and sulcal prominence.? There are periventricular and deep white matter chronic small vessel ischemic changes.? There is intracranial internal carotid artery atherosclerosis.? ? Skull and face:? Calvarium and visualized facial bones appear intact, without suspicious lesions.? ? Sinuses:? Visualized sinuses and mastoids are clear.? ? IMPRESSION:? No CT evidence of acute intracranial abnormalities.? No significant changes from previous study. ? ? Dictated by: Harinder Chery M.D. on 05/19/2022 at 18:13 ? ? Approved by: Harinder Chery M.D. on 05/19/2022 at 18:13?? ECG Data Attestation: I personally reviewed and interpreted this ECG as follows: Interpretation: Sinus rhythm Ventricular rate is 74 Right axis deviation Nonspecific ST T wave changes Normal QTC MDM Narrative Medical decision making narrative: Patient was afebrile. Does have a leukocytosis however this could very well be from dehydration and stress reaction given her movements she presents with. Her chest x-ray shows bilateral focal findings however her COVID is negative. Flu is negative. She has no cough. Her lungs are clear. Not tachypneic. Not hypoxic. I feel that pneumonia is unlikely. Also do not have another source of infection. The bruising on her skin does not give the appearance of cellulitis. Her urinalysis shows no signs of UTI. She has no signs of meningitis. She is no abdominal pain. No antibiotics administered in the emergency department. She does have an elevation in her CK. Most likely from all of the movements. Her troponin is also indeterminate although her EKG shows no ST elevations and she describes no chest pain no shortness of breath. She was given Ativan and this did seem to calm her down quite a bit. I have concern that this may be psychogenic or tardive dyskinesia given her history. She is not on a medication that would classically caused tardive dyskinesia. She is on an SSRI however does not fit classically into serotonin syndrome. She is clinically dehydrated with very dry mucous membranes. I did discuss the case with Dr. Jordan who is on-call for the patient's primary doctor. We will admit for further evaluation and treatment. Did discuss the need for admission with the patient. They expressed understanding and agreement as well. Discharge Plan Departure Patient Disposition: Admitted as Observation Clinical Impression: Tremor, Dehydration, Leukocytosis, Elevated troponin Admit Date/Time: 05/19/22 19:39 Admit Provider: Tree Jordan
[2022-05-19 18:55] LABS: INR 1.6 (0.9-1.3); Prothrombin Time 18.5 SECONDS (10.1-12.7)
[2022-05-19 18:56] LABS: Add Manual Diff / Slide Review NO; Basophils Absolute Auto 100 /uL (0-100); Basophils Percent Auto 0.6 % (0-2); Eosinophils Absolute Auto 0 /uL (0-450); Hematocrit 30.4 % (36-46); Hemoglobin 9.9 g/dL (12.0-16.0); Lymphocytes Absolute Auto 900 /uL (1100-4500); Lymphocytes Percent Auto 5.9 % (25-40); Mean Corpuscular HGB Conc 32.6 % (30-36); Mean Corpuscular Hemoglobin 27.7 PG (26-34); Monocytes Absolute Auto 1200 /uL (0-900); Monocytes Percent Auto 7.8 % (3-14); Neutrophils Absolute Auto 13300 /uL (1500-7000); Neutrophils Percent Auto 85.7 % (50-75); Platelet Count 342 X10^3/uL (150-400); Red Blood Cell Count 3.57 X10^6/uL (4.0-5.2); Red Cell Distribution Width 16.1 % (11.6-14.8); White Blood Cell Count 15.5 X10^3/uL (4.5-11.0)
[2022-05-19 18:59] LABS: Lactate (Lactic Acid) 1.3 mmol/L (0.7-2.1)
[2022-05-19] MEDS: LORazepam 2 MG/ML INJ 1 MG IV (19:11)
--- NOTE | 2022-05-19 19:24 | PC.NURSE ---
normal saline 1,000ml given from EMS bag.
[2022-05-19 19:25] LABS: Influenza A - CEPHEID Flu A NEGATIVE (NEGATIVE); Influenza B - CEPHEID Flu B NEGATIVE (NEGATIVE); Respiratory Syncytial Virus Negative (Negative)
[2022-05-19 19:26] LABS: COVID-19 CEPHEID 4-PLEX PCR Negative (Negative)
[2022-05-19 20:20] LABS: UR Morphine/Opiate cutoff 300 Positive (Negative); Ur Creatinine Normal (Normal); Ur Specific Gravity Normal (Normal); Urine Amphetamines Negative (Negative); Urine Barbiturates Negative (Negative); Urine Benzodiazepines Negative (Negative); Urine Cocaine Negative (Negative); Urine MDMA Negative (Negative); Urine Methadone Negative (Negative); Urine Methamphetamines Negative (Negative); Urine Phencyclidine Negative (Negative); Urine Tetrahydrocannabinol Negative (Negative); Urine pH Normal (Normal)
[2022-05-19 20:21] LABS: Urine Oxycodone Negative (Negative); Urine Tricyclic Antidepressant Positive (Negative)
[2022-05-19 22:50] VITALS: BP 192/73; PULSE 89; RESP 21; TEMP 37.2; O2SAT 95
[2022-05-20] MEDS: METOPROLOL IR 50 MG TABLET PO ×3 (00:05→21:12)
[2022-05-20] MEDS: LORazepam 2 MG/ML INJ 0.5 MG IV (00:05)
[2022-05-20] MEDS: SODIUM CHLORIDE 0.9% 1,000 ML 125 ML IV ×3 (00:05→16:47)
[2022-05-20] MEDS: AMLODIPINE 5 MG TABLET 10 MG PO ×2 (00:06→08:26)
[2022-05-20] MEDS: HYDROMORPHONE 4 MG TABLET PO ×3 (00:06→13:14)
[2022-05-20 00:15] VITALS: BMI 26.6
[2022-05-20 04:35] VITALS: BP 181/79; PULSE 71; RESP 20; TEMP 37.1; O2SAT 95
[2022-05-20 04:43] LABS: Add Manual Diff / Slide Review NO; Basophils Absolute Auto 100 /uL (0-100); Basophils Percent Auto 0.5 % (0-2); Eosinophils Absolute Auto 100 /uL (0-450); Eosinophils Percent Auto 0.4 % (2-4); Hematocrit 30.1 % (36-46); Hemoglobin 9.6 g/dL (12.0-16.0); Lymphocytes Absolute Auto 1500 /uL (1100-4500); Lymphocytes Percent Auto 11.5 % (25-40); Mean Corpuscular HGB Conc 31.8 % (30-36); Mean Corpuscular Hemoglobin 26.9 PG (26-34); Mean Corpuscular Volume 84.6 fL (80-100); Monocytes Absolute Auto 1000 /uL (0-900); Neutrophils Absolute Auto 10400 /uL (1500-7000); Neutrophils Percent Auto 79.6 % (50-75); Platelet Count 363 X10^3/uL (150-400); Red Blood Cell Count 3.55 X10^6/uL (4.0-5.2); Red Cell Distribution Width 16.3 % (11.6-14.8)
[2022-05-20 04:44] LABS: Alanine Aminotransferase 32 IU/L (<35); Albumin 3.3 g/dL (3.5-5.0); Alkaline Phosphatase 81 U/L (38-126); Aspartate Aminotransferase 62 IU/L (14-36); BUN Creatinine Ratio 23.9 (6-22); Bilirubin Total 0.8 mg/dL (0.2-1.3); Blood Urea Nitrogen 11 mg/dL (7-17); Calcium 8.9 mg/dL (8.4-10.2); Carbon Dioxide 24 mmol/L (22-32); Chloride 107 mmol/L (98-107); Creatine Kinase 365 U/L (30-135); Estimated Glomerular Filt Rate > 60 mL/min (>60); Globulin 3.2 g/dL (1.7-4.1); Glucose 105 mg/dL (80-110); HEMOLYSIS < 15 (0-50); Potassium 3.3 mmol/L (3.4-5.1); Sodium 142 mmol/L (137-145); Total Protein 6.5 g/dL (6.3-8.2)
[2022-05-20 04:54] LABS: Troponin I 0.063 ng/mL (0.01-0.034)
[2022-05-20 08:00] VITALS: BP 179/77; PULSE 80; RESP 16; TEMP 37.4; O2SAT 92
[2022-05-20 09:39] LABS: HEMOLYSIS 17 (0-50); Iron 17 ug/dL (37-170)
[2022-05-20 09:50] LABS: Total Iron Binding Capacity 298 ug/dL (265-497)
[2022-05-20 09:51] LABS: Percent Iron Saturation 6 % (15-50); Transferrin 219 mg/dL (206-381)
--- NOTE | 2022-05-20 10:07 | P.HP_ITS ---
History of Present Illness History of Present Illness Date Patient Seen: 05/20/22 Chief complaint: Fever, UTI Narrative: Pt is a 72yo woman with anxiety and depression followed by psychiatry, hypertension, fibromyalgia, GERD, SLE, opioid dependence, and tardive dyskinesia who presented with acute shaking. The pt reports that yesterday morning she was shaking uncontrollably, as if I was having a seizure. She was alert and conversant the entire time. This persisted for several hours. Her brought her to the ED, however they left prior to being seen due to waiting an hour. She continued shaking at home, and they returned to the ED for evaluation. The pt reports that her shaking has been increasing for the past 3- 4 days, but had acutely worsened yesterday. She denies any fevers, but does report that she soaked through the sheets in bed 3 nights ago. She denies any history of seizures, but does have a history of tardive dyskinisia that is being followed by psychiatry. It is thought to be due to her prior use of Seroquel. She continues on Sertraline, which has improved her mood. The also reports having a very sore throat and low back pain starting 2 days ago. She states the back pain comes and goes at baseline. She denies any issues with swallowing. She had a mild, intermittent cough for a day or two, but this seems to have resolved overnight. She denies any recent chest pain, SOB, melena, hematochezia. She does states that she felt that her cognition was off yesterday. She does not feel this was due to anxiety. She denies any recent falls at home, but does state it was difficult to walk yesterday due to the shaking. She has not been eating or drinking much for the last 2-3 days due to feeling generally fatigued. Patient History Medical History Acquired hypothyroidism (02/10/11) Asthma Chronic migraine without aura without status migrainosus, not intractable Chronic pain syndrome Depression Depression Dorsalgia (07/28/15) Fibromyalgia (09/06/13) Gastroesophageal reflux disease without esophagitis (02/10/11) Generalized anxiety disorder HLD (hyperlipidemia) Hypertension Loosening of hardware in spine Osteoporosis (05/07/15) Recurrent major depressive disorder, in partial remission (02/10/11) Spinal stenosis at L4-L5 level Systemic lupus erythematosus (02/10/11) Tardive dyskinesia Uncomplicated opioid dependence (12/14/15) Surgical History Anesthesia History of arthroplasty of left shoulder (~2013) History of hip replacement History of surgery History of total right hip arthroplasty (~2009) Hx of arthroscopy of left knee Hx of lumbosacral spine surgery (~05/2015) Hx of spinal fusion (~1984) S/P cholecystectomy (~1993) S/P LASIK surgery of both eyes Status post appendectomy Status post tubal ligation Family & Social History Family History Father Family history of polycythemia Mother Family history of CHF (congestive heart failure) Social History: household members spouse Prior Living Arrangements House lives independently Yes caregiver/support person No Safety & Behavioral: Feels Safe in Current Yes Environment Been Physically Hurt or No Threatened By a Person Tobacco & Substance use: Smoking Status Former smoker alcohol intake never alcohol intake frequency 0-2 drinks per day Substance Use Type does not use Meds Home Medications and Allergies Home Medications Medication Instructions Recorded Confirmed Type risedronate 150 mg tablet 150 mg PO QMONTH #12 tabs 08/10/20 05/19/22 Rx amlodipine 10 mg tablet 10 mg PO DAILY #90 tabs 06/29/21 05/19/22 Rx trazodone 100 mg tablet 100 mg PO BEDTIME #90 tabs 06/29/21 05/19/22 Rx benzonatate 100 mg capsule 100 mg PO TID PRN cough #60 caps 06/30/21 05/19/22 Rx rizatriptan 10 mg tablet 10 mg PO .COMPLEX PRN migraine 07/30/21 05/19/22 Rx headache #6 tabs hydromorphone 4 mg tablet 4 mg PO Q4H PRN Pain, Moderate 08/31/21 05/19/22 History Disabled Parking #1 ea 09/09/21 09/29/21 Rx simvastatin 20 mg tablet 20 mg PO DAILY #90 tabs 11/02/21 05/19/22 Rx pilocarpine HCl 5 mg tablet 5 mg PO QID #368 tabs 01/05/22 05/19/22 Rx potassium chloride 8 mEq 8 meq PO BID #60 tabs 03/11/22 05/19/22 Rx tablet,extended release metoprolol tartrate 25 mg tablet 50 mg PO BID #360 tabs 03/14/22 05/19/22 Rx amantadine HCl 100 mg tablet See Rx Instructions .Route 03/28/22 05/19/22 Rx .COMPLEX #270 tabs sertraline 50 mg tablet 150 mg PO DAILY #90 tabs 03/28/22 05/19/22 Rx omeprazole 40 mg capsule,delayed 40 mg PO BID #180 caps 04/18/22 05/19/22 Rx release promethazine 25 mg tablet 25 mg PO QID PRN nausea and 05/05/22 05/19/22 Rx vomiting #60 tabs baclofen 5 mg tablet 5 mg PO TID 05/19/22 05/19/22 History Allergies Allergy/AdvReac Type Severity Reaction Status Date / Time adhesive Allergy Mild BLISTERS, Verified 05/19/22 09:06 PULL SKIN OFF codeine [CODEINE] AdvReac Severe nausea, Verified 05/19/22 09:06 triggers migraines morphine [MORPHINE] AdvReac Severe n&v, can Verified 05/19/22 09:06 take if premedicated zolpidem [From Ambien] AdvReac Severe sleep Verified 05/19/22 09:06 eating, strange behavior alendronate sodium AdvReac Intermediate Stomach Verified 05/19/22 09:06 [From Fosamax] issues Exam Vital Signs (past 8 hours): - 05/20/22 04:35 05/20/22 08:00 Temperature 98.7 F 99.4 F Pulse Rate 71 80 Respiratory Rate 20 16 Blood Pressure 181/79 H 179/77 H Pulse Oximetry 95 92 Oxygen Flow Rate 0 0 Oxygen Delivery Method Room Air Oxygen Flow Rate 0 Narrative Exam Narrative: Gen: NAD, laying comfortably in bed, frequent full body movements in disjointed fashion HEENT: OP with significant erythema, no exudates Neck: mild posterior chain LAD, no anterior chain LAD, no JVD CV: RRR, grade 2/6 systolic murmur Resp: clear to auscultation bilaterally, no wheezes or crackles Abd: soft, nontender, nondistended Ext: no edema Neuro: A&O x 3 Objective Labs Result Diagrams: 05/20/22 04:16 05/20/22 04:16 Labs: Laboratory Results - last 24 hr 05/19/22 05/19/22 05/19/22 17:12 17:12 17:20 WBC RBC Hgb Hct MCV MCH MCHC RDW Plt Count Neut % (Auto) Lymph % (Auto) [place] % (Auto) Eos % (Auto) Baso % (Auto) Neut # (Auto) Lymph # (Auto) [place] # (Auto) Eos # (Auto) Baso # (Auto) PT INR Sodium Potassium Chloride Carbon Dioxide BUN Creatinine Estimated GFR BUN/Creatinine Ratio Glucose Lactate Calcium Iron TIBC % Saturation Transferrin Total Bilirubin Conjugated Bilirubin Unconjugated Bilirubin AST ALT Alkaline Phosphatase Total Creatine Kinase 772 H CK-MB (CK-2) 8.21 H CK-MB (CK-2) Rel Index 1.1 L Troponin I 0.051 H Total Protein Albumin Globulin Albumin/Globulin Ratio Lipase 794 H Procalcitonin 0.11 Urine Color [place] Urine Appearance Clear Urine pH 5.5 Ur Specific [place] 1.025 Urine Protein 2+ H Urine Glucose (UA) Negative Urine Ketones 2+ H Urine Occult Blood Trace-lysed Urine Nitrate Negative Urine Bilirubin 1+ H Ur Bilirubin Confirm Positive H Urine Urobilinogen 0.2 Ur Leukocyte Esterase Negative Urine RBC 1-5/hpf Urine WBC 1-5/hpf Amorphous Sediment 1+ Urine Bacteria None seen Urine Mucus 2+ H Ur Culture Indicated? Cult not indicated Salicylates U Opiates 300ng/mL cut Positive H Ur Oxycodone Screen Negative Urine Methadone Screen Negative Acetaminophen Ur Barbiturates Screen Negative U Tricyclic Antidepress Positive H Ur Phencyclidine Scrn Negative Ur Amphetamines Screen Negative U Methamphetamines Scrn Negative Ur MDMA Scrn (Ecstasy) Negative U Benzodiazepines Scrn Negative Urine Cocaine Screen Negative U Marijuana (THC) Screen Negative Ethyl Alcohol SARS-CoV-2 (PCR) Influenza A (RT-PCR) Influenza B (RT-PCR) RSV (PCR) 05/19/22 05/19/22 05/19/22 17:20 18:37 18:37 WBC 15.5 H RBC 3.57 L Hgb 9.9 L Hct 30.4 L MCV 85.0 MCH 27.7 MCHC 32.6 RDW 16.1 H Plt Count 342 Neut % (Auto) 85.7 H Lymph % (Auto) 5.9 L [place] % (Auto) 7.8 Eos % (Auto) 0.0 L Baso % (Auto) 0.6 Neut # (Auto) 83325 H Lymph # (Auto) 900 L [place] # (Auto) 1200 H Eos # (Auto) 0 Baso # (Auto) 100 PT 18.5 H INR 1.6 H Sodium 141 Potassium 3.5 Chloride 105 Carbon Dioxide 21 L BUN 13 Creatinine 0.52 Estimated GFR > 60 BUN/Creatinine Ratio 25.0 H Glucose 97 Lactate Calcium 9.5 Iron TIBC % Saturation Transferrin Total Bilirubin 0.8 Conjugated Bilirubin 0.0 Unconjugated Bilirubin 0.3 AST 79 H ALT 33 Alkaline Phosphatase 92 Total Creatine Kinase CK-MB (CK-2) CK-MB (CK-2) Rel Index Troponin I Total Protein 6.5 Albumin 3.4 L Globulin 3.1 Albumin/Globulin Ratio 1.1 Lipase Procalcitonin Urine Color Urine Appearance Urine pH Ur Specific [place] Urine Protein Urine Glucose (UA) Urine Ketones Urine Occult Blood Urine Nitrate Urine Bilirubin Ur Bilirubin Confirm Urine Urobilinogen Ur Leukocyte Esterase Urine RBC Urine WBC Amorphous Sediment Urine Bacteria Urine Mucus Ur Culture Indicated? Salicylates < 1.0 U Opiates 300ng/mL cut Ur Oxycodone Screen Urine Methadone Screen Acetaminophen < 10 Ur Barbiturates Screen U Tricyclic Antidepress Ur Phencyclidine Scrn Ur Amphetamines Screen U Methamphetamines Scrn Ur MDMA Scrn (Ecstasy) U Benzodiazepines Scrn Urine Cocaine Screen U Marijuana (THC) Screen Ethyl Alcohol < 10 SARS-CoV-2 (PCR) Influenza A (RT-PCR) Influenza B (RT-PCR) RSV (PCR) 05/19/22 05/19/22 05/20/22 18:37 18:37 04:16 WBC 13.0 H RBC 3.55 L Hgb 9.6 L Hct 30.1 L MCV 84.6 MCH 26.9 MCHC 31.8 RDW 16.3 H Plt Count 363 Neut % (Auto) 79.6 H Lymph % (Auto) 11.5 L [place] % (Auto) 8.0 Eos % (Auto) 0.4 L Baso % (Auto) 0.5 Neut # (Auto) 87281 H Lymph # (Auto) 1500 [place] # (Auto) 1000 H Eos # (Auto) 100 Baso # (Auto) 100 PT INR Sodium Potassium Chloride Carbon Dioxide BUN Creatinine Estimated GFR BUN/Creatinine Ratio Glucose Lactate 1.3 Calcium Iron TIBC % Saturation Transferrin Total Bilirubin Conjugated Bilirubin Unconjugated Bilirubin AST ALT Alkaline Phosphatase Total Creatine Kinase CK-MB (CK-2) CK-MB (CK-2) Rel Index Troponin I Total Protein Albumin Globulin Albumin/Globulin Ratio Lipase Procalcitonin Urine Color Urine Appearance Urine pH Ur Specific [place] Urine Protein Urine Glucose (UA) Urine Ketones Urine Occult Blood Urine Nitrate Urine Bilirubin Ur Bilirubin Confirm Urine Urobilinogen Ur Leukocyte Esterase Urine RBC Urine WBC Amorphous Sediment Urine Bacteria Urine Mucus Ur Culture Indicated? Salicylates U Opiates 300ng/mL cut Ur Oxycodone Screen Urine Methadone Screen Acetaminophen Ur Barbiturates Screen U Tricyclic Antidepress Ur Phencyclidine Scrn Ur Amphetamines Screen U Methamphetamines Scrn Ur MDMA Scrn (Ecstasy) U Benzodiazepines Scrn Urine Cocaine Screen U Marijuana (THC) Screen Ethyl Alcohol SARS-CoV-2 (PCR) Negative Influenza A (RT-PCR) Flu a negative Influenza B (RT-PCR) Flu b negative RSV (PCR) Negative 05/20/22 05/20/22 04:16 04:16 WBC RBC Hgb Hct MCV MCH MCHC RDW Plt Count Neut % (Auto) Lymph % (Auto) [place] % (Auto) Eos % (Auto) Baso % (Auto) Neut # (Auto) Lymph # (Auto) [place] # (Auto) Eos # (Auto) Baso # (Auto) PT INR Sodium 142 Potassium 3.3 L Chloride 107 Carbon Dioxide 24 BUN 11 Creatinine 0.46 L Estimated GFR > 60 BUN/Creatinine Ratio 23.9 H Glucose 105 Lactate Calcium 8.9 Iron 17 L TIBC 298 % Saturation 6 L Transferrin 219 Total Bilirubin 0.8 Conjugated Bilirubin Unconjugated Bilirubin AST 62 H ALT 32 Alkaline Phosphatase 81 Total Creatine Kinase 365 H D CK-MB (CK-2) CK-MB (CK-2) Rel Index Troponin I 0.063 H Total Protein 6.5 Albumin 3.3 L Globulin 3.2 Albumin/Globulin Ratio 1.0 Lipase Procalcitonin Urine Color Urine Appearance Urine pH Ur Specific [place] Urine Protein Urine Glucose (UA) Urine Ketones Urine Occult Blood Urine Nitrate Urine Bilirubin Ur Bilirubin Confirm Urine Urobilinogen Ur Leukocyte Esterase Urine RBC Urine WBC Amorphous Sediment Urine Bacteria Urine Mucus Ur Culture Indicated? Salicylates U Opiates 300ng/mL cut Ur Oxycodone Screen Urine Methadone Screen Acetaminophen Ur Barbiturates Screen U Tricyclic Antidepress Ur Phencyclidine Scrn Ur Amphetamines Screen U Methamphetamines Scrn Ur MDMA Scrn (Ecstasy) U Benzodiazepines Scrn Urine Cocaine Screen U Marijuana (THC) Screen Ethyl Alcohol SARS-CoV-2 (PCR) Influenza A (RT-PCR) Influenza B (RT-PCR) RSV (PCR) Assessment & Plan Assessment & Plan narrative: Pt is a 72yo woman with anxiety and depression followed by psychiatry, hypertension, fibromyalgia, GERD, SLE, opioid dependence, and tardive dyskinesia who presented with acute shaking. No apparent cause for shaking found at this time. CXR did show possible pneumonia, however pt afebrile, normal oxygen saturation, no significant cough or SOB, and lung sounds are clear. No UTI in the ED, and no GI symptoms. Shaking is not consistent with seizure activity due to pts level of awareness when occurring. Does seem to have resolved at this point in time, back to normal TD movements. 1) Acute dehydration: Not severe enough to affect kidney function, however did appear clinically dry at admission with u/a suggestive as well. - Continue mIVF for now - Encourage PO intake 2) Elevated CK: Most likely due to tardive dyskinesia coupled with dehydrati on. Improving overnight. - Continue to trend 2) Elevated troponin: Pt asymptomatic with normal EKG in the ED. Possibly due to demand from anemia, however anemia not severe. Troponin certainly is not doubling at this time. - Continue to trend until stable/trending down 3) Hypokalemia: Mild - Potassium replacement today - Continue to trend 4) Iron deficiency anemia: New finding. Recent EGD through GI in March was reassuring, with mild inflammation noted. Potentially contributing to fatigue. - Continue to trend - Start iron supplement - Stool occult blood today 5) Hypertension: Blood pressure is elevated. - Continue home Metoprolol - Unclear if pt was on Amlodipine at home, will restart 6) Anxiety/Depression: Stable - Continue home Sertraline 7) Chronic pain: - Continue home Dilaudid 8) Tardive dyskinisia: - Continue home Amantadine 9) GERD: - Continue home Pantoprazole FEN: Regular DVT ppx: Lovenox Code: Full Dispo: Pending improvement in CK, trending of labs. Anticipate stable for d/c tomorrow. Time Spent With Patient Critical Care time: I spent a total of [] minutes of critical care time on this patient's care today; this time is exclusive of procedural time.
[2022-05-20 11:00] VITALS: BP 169/72; PULSE 62; RESP 16; TEMP 37.5; O2SAT 92
--- NOTE | 2022-05-20 11:31 | CM.DANOTE ---
Initial Discharge Assessment Note: Case reviewed, met with patient in her room. Introduced self and role. Payer: Medicare [facility] PCP: Pasquale Segura 72 yo A/O female admitted with fevers, shaking, possible UTI, dehydration. multiple chronic medical issues, including significant tardive dyskinesia, causing extra-pyramidal symptoms constantly. She complains of mouth/tongue and throat pain. She states her Pasquale is her primary caregiver, they live in their own home in [place]. She uses a walker or wheelchair. Plan: Follow for needs. When medically cleared, return home under 's care. HANNAH Discharge Planning/Care Management CM Discharge Assessment Start: 05/20/22 11:24 Freq: Status: Active Protocol: Document 05/20/22 11:25 (Rec: 05/20/22 11:31 [id number]) Discharge Planning Assessment Assigned Head Of Digital Advertising & Integration Tammie Ritter RN/DCP Advance Directives? No History Provided By Patient,Medical Record Prior Living Arrangements House Household Members spouse Type of transporation used prior to Relies on Others admit Independent with ADL's No Is patient alert and oriented? Yes Needs Assistance With Bathing,Eating,Grooming,Meal Prep,Toileting,Managing Medications,Home Chores / Shopping Comment Tardive dyskinesia Caregiver for Another No Comment Home with spouse who is her caregiver Comment D/C plan pending per needs. Referrals Initiated None needed,Home Health If patient plan is home with home health Yes : Has signed face to face form been completed? Whiteboard Updated in Patient Room with Yes name and ext. # of Head Of Digital Advertising & Integration Review Status In Process Next Review Type Continued Stay Review
[2022-05-20] MEDS: POTASSIUM CHLORIDE 20 MEQ TAB 40 MEQ PO ×2 (13:15→16:47)
[2022-05-20] MEDS: IBUPROFEN 600 MG TABLET PO ×3 (13:15→22:04)
[2022-05-20] MEDS: BACLOFEN 10 MG TABLET 5 MG PO (13:16)
[2022-05-20] MEDS: SERTRALINE 50 MG TABLET 150 MG PO (13:16)
[2022-05-20] MEDS: FERROUS SULFATE 325 MG TABLET PO (13:17)
[2022-05-20] MEDS: BENZONATATE 100 MG CAPSULE PO (13:18)
--- NOTE | 2022-05-20 14:25 | PT.IIE ---
Surgical History (Last Reviewed 04/05/21 @ 08:56 by Pasquale Segura MD) Anesthesia History of arthroplasty of left shoulder (~2013) History of hip replacement History of surgery History of total right hip arthroplasty (~2009) Hx of arthroscopy of left knee Hx of lumbosacral spine surgery (~05/2015) Hx of spinal fusion (~1984) S/P cholecystectomy (~1993) S/P LASIK surgery of both eyes Status post appendectomy Status post tubal ligation Medical History (Last Reviewed 05/19/22 @ 20:52 by Kings Carroll DO) Acquired hypothyroidism (02/10/11) Asthma Chronic migraine without aura without status migrainosus, not intractable Chronic pain syndrome Depression Depression Dorsalgia (07/28/15) Fibromyalgia (09/06/13) Gastroesophageal reflux disease without esophagitis (02/10/11) Generalized anxiety disorder HLD (hyperlipidemia) Hypertension Loosening of hardware in spine Osteoporosis (05/07/15) Recurrent major depressive disorder, in partial remission (02/10/11) Spinal stenosis at L4-L5 level Systemic lupus erythematosus (02/10/11) Tardive dyskinesia Uncomplicated opioid dependence (12/14/15) Physical Therapy Inpatient Evaluation/Re-Eval M1 PT/OT-IP Prior Functional Status Start: 05/20/22 15:43 Freq: NEEDED Status: Active Protocol: Document 05/20/22 14:25 AB (Rec: 05/20/22 15:57 AB [id number]) Medical Review Prior Functional Status Medical History Reviewed Yes Communication able to make needs known; HYDABURG and with slight confusion and cognitve issues Mobility and Gait pt stated that she is able to walk far prior to admission; contacted pt's spouse to confirm and stated that pt only walks ~ 15 ft to the toilet using a 4WW but able to do it mod I; spouse most of the time with pt when going out of the house and assists pt. pt uses a manula w/c for long distance mobility; pt able to complete toileting needs and dressing by herself but spouse assists with shower needs Prior Functional Level (Other details) per family: pt's has tardive dyskinesia for a while but mostly on her mouth and dyskinesia on ther UE/LE is something new Social History Household Members spouse Living Arrangements House Number of Floors (Floors) One Floor Number of Stairs To Enter/Railing? 3 steps to enter R rail ascending Home Equipment Four Wheel Walker,Manual Wheelchair,Grab Bars In Shower Additional Social History Comment pt has a walk in tub shower pt has an adjustable bed M2 PT-IP Current Condition Start: 05/20/22 15:43 Freq: NEEDED Status: Active Protocol: Document 05/20/22 14:25 AB (Rec: 05/20/22 15:57 AB [id number]) Physical Therapy Current Condition Current Condition Evaluation Date 05/20/22 Treatment Diagnosis dehydration; tardive dyskinesia; difficulty in walking Onset Date 05/19/22 M3 PT-IP Subjective Start: 05/20/22 15:43 Freq: NEEDED Status: Active Protocol: Document 05/20/22 14:25 AB (Rec: 05/20/22 15:57 AB [email or web address]) Subjective Physical Therapy Visit Type Type Initial Evaluation Visit Start Time 14:25 Visit Stop Time 15:30 Total Visit Minutes 65 Number of FACILITY TECHNICIAN Visits 0 Physical Therapy Visit Comments Patient Comments agreeable to do PT M4 PT-IP Mobility and Gait Start: 05/20/22 15:43 Freq: NEEDED Status: Active Protocol: Document 05/20/22 14:25 AB (Rec: 05/20/22 15:57 AB [id number]) PT-Bed Mobility Assessment Supine to Sit Supine to Sit Standby Assistance PT-Transfer Assessment Sit to and From Stand Sit to and from Stand Contact Guard Assistance,1 Person Assistance,Use of Upper Extremities Equipment Transfer Assistive Device Gait Belt,Front Wheeled Walker Orthotic/Prosthetic Devices or Brace: No Transfers Transfer Technique ambulated Transfer Ability Level of Assist Contact Guard Assistance, Minimal Assistance,1 Person Assistance,Use of Upper Extremities Comments Mobility Comments BP: 179/71 pt completed supine to sit SBA . able to sit on EOB SBA. completed sit to stand CGA and ambulated in room using FWW to the chair ~ 12 ft CGA to min A. assessed mobility using 4WW and pt requirimg CGA to min A ~ 25 ft with cues for safety and use of 4WW brakes. pt agreed to sit on the chair. stated that she is tired and refused further walking. pt initially stated that she was able to walk by herself and even walk the dog. Called spouse to confirm PLOF and clarified that pt only able to ambulate ~ 15 ft at home using 4WW. positioned pt on the chair. call light and table placed within reach. Gait Assessment Gait Gait Assistance Required: Contact Guard Assist,Minimum Assistance Distance (Feet) 25 Able to Maintain Weight Bearing Status Yes During Gait Assistive Devices Assistive Device Gait Belt,Front Wheeled Walker ,4 Wheeled Walker Orthotic/Prosthetic Devices or Brace: No Gait Deviations General Gait Pattern Decreased Stride Length, Decreased Feet Clearance Factors Limiting Gait Function Factors Limiting Gait Function Decreased Activity Tolerance, Decreased Strength,Difficulty Following Directions, Incoordination,Limited Range of Motion,Poor Balance,Poor Safety Awareness PT-Balance Assessment Sitting Balance and Reactions Static Sitting Balance Ability Good Dynamic Sitting Balance Ability Fair Standing Balance and Reactions Static Standing Balance Ability Fair Dynamic Standing Balance Ability Fair Device Used 4WW M5 PT-IP Objective Assessments Start: 05/20/22 15:43 Freq: NEEDED Status: Active Protocol: Document 05/20/22 14:25 AB (Rec: 05/20/22 15:57 AB [id number]) Orientation Orientation/Cognition Level of Alertness Confusional State Orientation Name Language Function Ability Hard of Hearing Safety Awareness Decreased Safety Awareness Memory Description Short Term Impaired Gross Range of Motion Lower Extremity ROM Assessment Within Functional Limits Strength Lower Extremity Strength Hip 4-/5 Knee 4-/5 Coordination Assessment Gross Coordination Gross Coordination Impaired Other Assessments Other Other Assessments (+) tremors due to dyskinesia M6 PT-IP Treatment Start: 05/20/22 15:43 Freq: NEEDED Status: Active Protocol: Document 05/20/22 14:25 AB (Rec: 05/20/22 15:57 AB [email or web address]) Physical Therapy Treatment Education Education Provided Safety M7 PT-IP Assessment and Plan Start: 05/20/22 15:43 Freq: NEEDED Status: Active Protocol: Document 05/20/22 14:25 AB (Rec: 05/20/22 15:57 AB [email or web address]) PT Summary Assessment and Plan Potential Rehabilitation Potential Fair Status of Condition at Evaluation Evolving Summary Impairments Pain,ROM,Strength,Balance, Coordination,Sensation,Tone, Cognition,Bed Mobility, Transfers,Gait,Activity Tolerance Assessment Summary pt requiring CGA to min A with mobility and will have her spouse to assist her at home. will continue to assess progress. will conduct caregiver training when appropriate as well as stair climbing training. Goals Bed Mobility Goal Independent Transfer Goal Independent,Four Wheeled Walker Gait Goal Independent,Four Wheel Walker Gait Distance 15 Other Goals up/down 3 steps R rail CGA Days to Meet Goals 10 Frequency of Treatment Frequency Of Treatment Once a Day Treatment Plan Physical Therapy Treatment Plan Bed Mobility Training,Transfer Training,Gait Training, Therapeutic Exercise,Balance Retraining,Discharge Planning, Hot or Cold Pack,Neuromuscular Re-ed,Coordination Retraining ,Manual Therapy Precautions Other Precautions falls Recommendations To Nursing Amount of Assist Needed 1 Person Assist Discharge Recommendations PT Discharge Recommendations Home with 19/12 Assist Available,Home Health Transportation Needs at Discharge Private Vehicle,Wheelchair/ Cabulance
[2022-05-20 15:00] LABS: Troponin I 0.049 ng/mL (0.01-0.034)
[2022-05-20] MEDS: Pilocarpine Hcl 5 mg tablet 5 EACH PO ×2 (16:48→21:12)
[2022-05-20 17:00] VITALS: BP 192/81; PULSE 74; RESP 16; TEMP 37.1; O2SAT 94
[2022-05-20 17:46] LABS: Strep Grp A by PCR Rapid Negative (Negative)
[2022-05-20] MEDS: ATORVASTATIN 20 MG TABLET 10 MG PO (21:12)
[2022-05-20] MEDS: POTASSIUM CHLORIDE 10 MEQ TAB PO (21:12)
[2022-05-20] MEDS: TRAZODONE 100 MG TABLET PO (21:12)
[2022-05-20] MEDS: AMANTADINE 100 MG CAPSULE 200 MG PO (21:12)
--- NOTE | 2022-05-20 21:59 | PC.NURSE ---
Patient is alert and oriented except to day of month and day of week. She is [place] and does not have hearing aids with her. Breath sounds CTA with last O2 sat of 94%. HRR but had elevated BP of 192/81. Denies nausea. BT present and reports having had BM earlier today. Indwelling catheter is patent; urine is clear, dark yellow. Is able to turn herself in bed. Gait not assessed at this time. Does have tremors in all extremities that are absent when asleep or when distracted. Denies pain. Bilateral calf SCD's applied. Fall risk score is high and bed alarm is activated.
[2022-05-20 22:15] VITALS: BP 180/79; PULSE 67; RESP 16; TEMP 35.9; O2SAT 94
[2022-05-21] MEDS: SODIUM CHLORIDE 0.9% 1,000 ML 125 ML IV (01:06)
[2022-05-21] MEDS: BACLOFEN 10 MG TABLET 5 MG PO ×2 (03:07→08:58)
[2022-05-21] MEDS: HYDROMORPHONE 4 MG TABLET PO ×2 (03:10→09:04)
[2022-05-21] MEDS: PROMETHAZINE 25 MG TABLET PO ×2 (03:35→08:58)
[2022-05-21] MEDS: IBUPROFEN 600 MG TABLET PO (04:36)
[2022-05-21 05:50] LABS: Add Manual Diff / Slide Review NO; Basophils Absolute Auto 0 /uL (0-100); Basophils Percent Auto 0.4 % (0-2); Eosinophils Absolute Auto 300 /uL (0-450); Eosinophils Percent Auto 3.3 % (2-4); Hematocrit 29.7 % (36-46); Hemoglobin 9.7 g/dL (12.0-16.0); Lymphocytes Absolute Auto 900 /uL (1100-4500); Lymphocytes Percent Auto 9.4 % (25-40); Mean Corpuscular HGB Conc 32.7 % (30-36); Mean Corpuscular Hemoglobin 27.5 PG (26-34); Mean Corpuscular Volume 83.9 fL (80-100); Monocytes Absolute Auto 700 /uL (0-900); Monocytes Percent Auto 7.2 % (3-14); Neutrophils Absolute Auto 7300 /uL (1500-7000); Neutrophils Percent Auto 79.7 % (50-75); Platelet Count 344 X10^3/uL (150-400); Red Blood Cell Count 3.54 X10^6/uL (4.0-5.2); Red Cell Distribution Width 16.7 % (11.6-14.8); White Blood Cell Count 9.2 X10^3/uL (4.5-11.0)
[2022-05-21 05:55] VITALS: BP 168/77; PULSE 69; RESP 18; TEMP 36.8; O2SAT 94
[2022-05-21 05:57] LABS: Magnesium 1.6 mg/dL (1.6-2.3)
[2022-05-21 05:58] LABS: Alanine Aminotransferase 34 IU/L (<35); Albumin 3.2 g/dL (3.5-5.0); Alkaline Phosphatase 88 U/L (38-126); Aspartate Aminotransferase 42 IU/L (14-36); BUN Creatinine Ratio 17.1 (6-22); Bilirubin Total 0.8 mg/dL (0.2-1.3); Blood Urea Nitrogen 6 mg/dL (7-17); Calcium 8.5 mg/dL (8.4-10.2); Carbon Dioxide 23 mmol/L (22-32); Chloride 108 mmol/L (98-107); Creatine Kinase 139 U/L (30-135); Estimated Glomerular Filt Rate > 60 mL/min (>60); Globulin 3.2 g/dL (1.7-4.1); Glucose 112 mg/dL (80-110); HEMOLYSIS < 15 (0-50); Potassium 3.5 mmol/L (3.4-5.1); Sodium 143 mmol/L (137-145); Total Protein 6.4 g/dL (6.3-8.2)
[2022-05-21 06:04] LABS: BUN Creatinine Ratio 14.7 (6-22); Blood Urea Nitrogen 5 mg/dL (7-17); Calcium 8.5 mg/dL (8.4-10.2); Carbon Dioxide 23 mmol/L (22-32); Chloride 108 mmol/L (98-107); Estimated Glomerular Filt Rate > 60 mL/min (>60); Glucose 111 mg/dL (80-110); HEMOLYSIS < 15 (0-50); Potassium 3.5 mmol/L (3.4-5.1); Sodium 142 mmol/L (137-145)
[2022-05-21] MEDS: POTASSIUM CHLORIDE 10 MEQ TAB PO (08:55)
[2022-05-21] MEDS: SERTRALINE 50 MG TABLET 150 MG PO (08:55)
[2022-05-21 09:00] VITALS: BP 183/87; PULSE 72; RESP 15; TEMP 36.7; O2SAT 94
[2022-05-21] MEDS: BENZONATATE 100 MG CAPSULE PO (09:00)
[2022-05-21] MEDS: PANTOPRAZOLE DR 40 MG TABLET PO (09:01)
[2022-05-21] MEDS: AMLODIPINE 5 MG TABLET 10 MG PO (09:01)
[2022-05-21] MEDS: METOPROLOL IR 50 MG TABLET 100 MG PO (09:01)
[2022-05-21] MEDS: FERROUS SULFATE 325 MG TABLET PO (09:02)
[2022-05-21] MEDS: ENOXAPARIN 40 MG/0.4 ML SYRINGE SUBCUT (09:09)
[2022-05-21] MEDS: AMANTADINE 100 MG CAPSULE PO (09:18)
[2022-05-21] MEDS: POTASSIUM CHLORIDE 20 MEQ TAB 40 MEQ PO (09:18)
[2022-05-21] MEDS: MAGNESIUM CHLORIDE 64 MG TABLET 128 MG PO (09:32)
--- NOTE | 2022-05-21 10:39 | PM.DS.1 ---
History of Present Illness History of Present Illness Date Patient Seen: 05/21/22 Chief complaint: Fever, UTI Narrative: Pt is a 72yo woman with anxiety and depression followed by psychiatry, hypertension, fibromyalgia, GERD, SLE, opioid dependence, and tardive dyskinesia who presented with acute shaking. The pt reports that yesterday morning she was shaking uncontrollably, as if I was having a seizure. She was alert and conversant the entire time. This persisted for several hours. Her brought her to the ED, however they left prior to being seen due to waiting an hour. She continued shaking at home, and they returned to the ED for evaluation. The pt reports that her shaking has been increasing for the past 3-4 days, but had acutely worsened yesterday. She denies any fevers, but does report that she soaked through the sheets in bed 3 nights ago. She denies any history of seizures, but does have a history of tardive dyskinisia that is being followed by psychiatry. It is thought to be due to her prior use of Seroquel. She continues on Sertraline, which has improved her mood. The also reports having a very sore throat and low back pain starting 2 days ago. She states the back pain comes and goes at baseline. She denies any issues with swallowing. She had a mild, intermittent cough for a day or two, but this seems to have resolved overnight. She denies any recent chest pain, SOB, melena, hematochezia. She does states that she felt that her cognition was off yesterday. She does not feel this was due to anxiety. She denies any recent falls at home, but does state it was difficult to walk yesterday due to the shaking. She has not been eating or drinking much for the last 2-3 days due to feeling generally fatigued. Discharge Providers Provider Date of admission: 05/19/22 19:39 Discharge Date: 05/21/22 Primary care physician: Pasquale Segura MD Consults: 05/20/22 13:34 Consult to Occupational Therapy Evaluate & Treat Comment: Physician Instructions: Evaluate and treat 05/20/22 13:35 Consult to Physical Therapy Evaluate & Treat Comment: Physician Instructions: Evaluate and Treat Discharge provider: Robina Rodríguez MD Summary Hospital Course Discharge Diagnosis: Acute dehydration Elevated CK Elevated troponin Hypokalemia Iron deficiency anemia Hypertension Anxiety/Depression Chronic pain Tardive dyskinisia GERD Hospital Course: The pt presented with acute dehydration and elevated CK and troponin. Her troponin stabilized, and the pt never had EKG changes or symptoms. She was hydrated with IVF, and her CK trended down appropriately. Her elevated CK was thought to be due to dehydration in the setting of TD. The pt was noted to have significant iron deficiency anemia, and was initiated on ferrous sulfate. Stool occult blood was pending at the time of this note. This will need f/u as an outpatient. The pts blood pressure was noted to be elevated, and her Metoprolol dosing was increased. The pt felt significantly improved and stable for discharge home. The importance of regular hydration was discussed with her and her in detail prior to discharge. Status at Discharge Cognitive/behavioral status at discharge: oriented Overall status at discharge: patient is back to baseline Exam Vital Signs (past 8 hours): - 05/21/22 05:55 05/21/22 05:55 Temperature 98.2 F Pulse Rate 69 Respiratory Rate 18 Blood Pressure 168/77 H Pulse Oximetry 94 Oxygen Flow Rate 0 Oxygen Delivery Method Room Air Oxygen Flow Rate 0 Narrative Exam Narrative: Gen:? NAD, laying comfortably in bed, frequent full body movements in disjointed fashion Neck:? mild posterior chain LAD, no anterior chain LAD, no JVD CV:? RRR, grade 2/6 systolic murmur Resp:? clear to auscultation bilaterally, no wheezes or crackles Abd: soft, nontender, nondistended Ext:? no edema Objective Labs Result Diagrams: 05/21/22 04:54 05/21/22 04:54 Labs: Laboratory Results - last 24 hr 05/20/22 05/20/22 05/21/22 14:25 15:20 04:54 WBC RBC Hgb Hct MCV MCH MCHC RDW Plt Count Neut % (Auto) Lymph % (Auto) [place] % (Auto) Eos % (Auto) Baso % (Auto) Neut # (Auto) Lymph # (Auto) [place] # (Auto) Eos # (Auto) Baso # (Auto) Sodium 142 Potassium 3.5 Chloride 108 H Carbon Dioxide 23 BUN 5 L Creatinine 0.34 L Estimated GFR > 60 BUN/Creatinine Ratio 14.7 Glucose 111 H Calcium 8.5 Magnesium Total Bilirubin AST ALT Alkaline Phosphatase Total Creatine Kinase Troponin I 0.049 H Total Protein Albumin Globulin Albumin/Globulin Ratio Group A Strep (PCR) Negative 05/21/22 05/21/22 05/21/22 04:54 04:54 04:54 WBC 9.2 RBC 3.54 L Hgb 9.7 L Hct 29.7 L MCV 83.9 MCH 27.5 MCHC 32.7 RDW 16.7 H Plt Count 344 Neut % (Auto) 79.7 H Lymph % (Auto) 9.4 L [place] % (Auto) 7.2 Eos % (Auto) 3.3 Baso % (Auto) 0.4 Neut # (Auto) 7300 H Lymph # (Auto) 900 L [place] # (Auto) 700 Eos # (Auto) 300 Baso # (Auto) 0 Sodium 143 Potassium 3.5 Chloride 108 H Carbon Dioxide 23 BUN 6 L Creatinine 0.35 L Estimated GFR > 60 BUN/Creatinine Ratio 17.1 Glucose 112 H Calcium 8.5 Magnesium 1.6 Total Bilirubin 0.8 AST 42 H ALT 34 Alkaline Phosphatase 88 Total Creatine Kinase 139 H D Troponin I Total Protein 6.4 Albumin 3.2 L Globulin 3.2 Albumin/Globulin Ratio 1.0 Group A Strep (PCR) [facility] Medical History Acquired hypothyroidism (02/10/11) Asthma Chronic migraine without aura without status migrainosus, not intractable Chronic pain syndrome Depression Depression Dorsalgia (07/28/15) Fibromyalgia (09/06/13) Gastroesophageal reflux disease without esophagitis (02/10/11) Generalized anxiety disorder HLD (hyperlipidemia) Hypertension Loosening of hardware in spine Osteoporosis (05/07/15) Recurrent major depressive disorder, in partial remission (02/10/11) Spinal stenosis at L4-L5 level Systemic lupus erythematosus (02/10/11) Tardive dyskinesia Uncomplicated opioid dependence (12/14/15) Surgical History Anesthesia History of arthroplasty of left shoulder (~2013) History of hip replacement History of surgery History of total right hip arthroplasty (~2009) Hx of arthroscopy of left knee Hx of lumbosacral spine surgery (~05/2015) Hx of spinal fusion (~1984) S/P cholecystectomy (~1993) S/P LASIK surgery of both eyes Status post appendectomy Status post tubal ligation Family History Father Family history of polycythemia Mother Family history of CHF (congestive heart failure) Social History marital status: number of children: 2 household members: spouse lives independently: Yes caregiver/support person: No housing: apartment pets and animals: Yes education level: college 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 status: other Previous 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 history: [employer]rastafari: [employer] leisure activities: other Smoking Status: Former smoker Tobacco: How many years used: 0 quit status: quit date established second hand exposure: No alcohol intake: never substance use type: does not use Discharge Plan Discharge Plan Patient Disposition: Home Discharge orders & Medications Prescriptions: New ferrous sulfate 325 mg (65 mg iron) Tablet 325 mg PO DAILY Qty: 30 0RF metoprolol tartrate 50 mg Tablet 100 mg PO BID Qty: 60 0RF Continued sertraline 50 mg tablet 150 mg PO DAILY Qty: 90 3RF risedronate 150 mg tablet 150 mg PO QMONTH Qty: 12 3RF Label Comments: states she must have taken it a month ago Rx Instructions: administer at least 30 minutes before the first food or drink of the day other than water. benzonatate 100 mg capsule 100 mg PO TID PRN (Reason: cough) Qty: 60 1RF rizatriptan 10 mg tablet 10 mg PO .COMPLEX PRN (Reason: migraine headache) Qty: 6 11RF Rx Instructions: 1 at onset, may repeat after 2 hours. (DME) Disabled Parking See Rx Instructions .ROUTE .MEDSUPPLY Qty: 1 0RF Rx Instructions: Patient qualifies for disabled parking as per the attached form. simvastatin 20 mg tablet 20 mg PO DAILY Qty: 90 1RF Label Comments: last night pilocarpine HCl 5 mg tablet 5 mg PO QID Qty: 368 3RF Label Comments: does not remember what time today she took this pill potassium chloride 8 mEq tablet extended release 8 meq PO BID Qty: 60 11RF amantadine HCl 100 mg tablet See Rx Instructions .ROUTE .COMPLEX Qty: 270 0RF Dose Instruction: TAKE 1 TABLET BY MOUTH EVERY MORNING AND 2 TABLETS EVERY EVENING Rx Instructions: TAKE 1 TABLET BY MOUTH EVERY MORNING AND 2 TABLETS EVERY EVENING omeprazole 40 mg capsule,delayed release(DR/EC) 40 mg PO BID Qty: 180 1RF promethazine 25 mg tablet 25 mg PO QID PRN (Reason: nausea and vomiting) Qty: 60 2RF hydromorphone 4 mg tablet 4 mg PO Q4H PRN (Reason: Pain, Moderate) Label Comments: TAKE 1 TABLET BY MOUTH EVERY 4 HOURS NEEDED. Pt. states she took it yesterday but does not remember what time. trazodone 100 mg tablet 100 mg PO BEDTIME Qty: 90 3RF amlodipine 10 mg tablet 10 mg PO DAILY Qty: 90 3RF Label Comments: Pt. states she does not take this anymore baclofen 5 mg Tablet 5 mg PO TID Discontinued metoprolol tartrate 25 mg tablet 50 mg PO BID Qty: 360 1RF Label Comments: last night Follow up/Referrals: Pasquale Segura MD [Primary Care Provider] - 1 Week Diet/Activity/Treatments Diet: Diet as Tolerated and Regular Visit Report/Discharge Packet Instructions: Creatine Kinase, Cardiac Troponin Visit Report Forms: Patient Portal/API, Stroke Signs & Symptoms Discharge Data Primary Care Provider: Pasquale Segura
--- NOTE | 2022-05-21 12:34 | PT.IPTN ---
Current Diagnoses Dehydration (05/19/22) Physical Therapy Treatment Note M2 PT-IP Current Condition Start: 05/20/22 15:43 Freq: NEEDED Status: Active Protocol: Document 05/20/22 14:25 AB (Rec: 05/20/22 15:57 AB [id number]) Physical Therapy Current Condition Current Condition Evaluation Date 05/20/22 Treatment Diagnosis dehydration; tardive dyskinesia; difficulty in walking Onset Date 05/19/22 M3 PT-IP Subjective Start: 05/20/22 15:43 Freq: NEEDED Status: Active Protocol: Document 05/21/22 12:04 LJ (Rec: 05/21/22 12:34 LJ [id number]) Subjective Physical Therapy Visit Type Type Treatment Note Visit Start Time 11:47 Visit Stop Time 12:02 Total Visit Minutes 15 Number of WEATHERIZATION OPERATIONS MANAGER Visits 1 Physical Therapy Visit Comments Patient Comments in room assisting pt with getting ready to DC. Pt agreeable to trial stairs. M4 PT-IP Mobility and Gait Start: 05/20/22 15:43 Freq: NEEDED Status: Active Protocol: Document 05/21/22 12:04 NEIL (Rec: 05/21/22 12:34 LJ [id number]) PT-Transfer Assessment Sit to and From Stand Sit to and from Stand Standby Assistance,Use of Upper Extremities Equipment Transfer Assistive Device Gait Belt Orthotic/Prosthetic Devices or Brace: No Transfers Transfer Technique ambulated Transfer Ability Level of Assist Standby Assistance,Use of Upper Extremities Comments Mobility Comments Pt seated on side of bed preparing to leave. assisting. Initially pt did not want to trial stairs but agreed to down hallway to PT stairs. Pt stood from side of bed and walked ~3' to WC SBA no FWW. Pt wheeled to stairs. Stood from WC SBA and again walked to steps ~3' SBA. climbed stairs safely using both rails and sat back into WC. Taken kennedy to chair and pt refused ambulation in room. She returned to bed independently. Pt was left in room with all needs within reach. Gait Assessment Gait Gait Assistance Required: Standby Assistance Distance (Feet) 6 Able to Maintain Weight Bearing Status Yes During Gait Assistive Devices Assistive Device None Orthotic/Prosthetic Devices or Brace: No Gait Deviations General Gait Pattern Decreased Stride Length, Decreased Feet Clearance Factors Limiting Gait Function Factors Limiting Gait Function Decreased Activity Tolerance, Decreased Strength,Difficulty Following Directions, Incoordination,Limited Range of Motion,Poor Balance,Poor Safety Awareness Stair Climbing Assessment Evaluation Level of Assist On Stairs Standby Assistance Devices Stair Climbing Assistive Devices Left Railing,Right Railing Technique/Endurance Stair Climbing Direction Ascend and Descend Stair Climbing Technique Step to Step Number of Steps Climbed 3 Stair Climbing Set # Repetitions (reps) 1 Comments Stair Climbing Comments Pt up/down stairs safely using bilat rails with step-to pattern M5 PT-IP Objective Assessments Start: 05/20/22 15:43 Freq: NEEDED Status: Active Protocol: Document 05/20/22 14:25 AB (Rec: 05/20/22 15:57 AB [email or web address]) Orientation Orientation/Cognition Level of Alertness Confusional State Orientation Name Language Function Ability Hard of Hearing Safety Awareness Decreased Safety Awareness Memory Description Short Term Impaired Gross Range of Motion Lower Extremity ROM Assessment Within Functional Limits Strength Lower Extremity Strength Hip 4-/5 Knee 4-/5 Coordination Assessment Gross Coordination Gross Coordination Impaired Other Assessments Other Other Assessments (+) tremors due to dyskinesia M6 PT-IP Treatment Start: 05/20/22 15:43 Freq: NEEDED Status: Active Protocol: Document 05/21/22 12:04 NEIL (Rec: 05/21/22 12:34 LJ [id number]) Physical Therapy Treatment Education Education Provided Safety M7 PT-IP Assessment and Plan Start: 05/20/22 15:43 Freq: NEEDED Status: Active Protocol: Document 05/21/22 12:04 NEIL (Rec: 05/21/22 12:34 LJ [id number]) PT Summary Assessment and Plan Potential Rehabilitation Potential Good Status of Condition at Evaluation Evolving Summary Impairments Pain,ROM,Strength,Balance, Coordination,Sensation,Tone, Cognition,Bed Mobility, Transfers,Gait,Activity Tolerance Progress Towards Goals Progressing Toward Goals Assessment Summary Pt in room getting ready to discharge. Initially refused stair training but agreed so they could go home. Pt requiring less assistance. refused CG training. Pt returned to room and got back into bed independently. Pt DC today. Goals Bed Mobility Goal Independent Transfer Goal Independent,Four Wheeled Walker Gait Goal Independent,Four Wheel Walker Gait Distance 15 Other Goals up/down 3 steps R rail CGA Frequency of Treatment Frequency Of Treatment Once a Day Treatment Plan Physical Therapy Treatment Plan Bed Mobility Training,Transfer Training,Gait Training, Therapeutic Exercise,Balance Retraining,Discharge Planning, Hot or Cold Pack,Neuromuscular Re-ed,Coordination Retraining ,Manual Therapy Precautions Other Precautions falls Recommendations To Nursing Amount of Assist Needed 1 Person Assist Discharge Recommendations PT Discharge Recommendations Home with 24/ Assist Available,Home Health Transportation Needs at Discharge Private Vehicle,Wheelchair/ Cabulance
[2022-05-21 13:00] VITALS: BP 153/70; PULSE 65; RESP 15; TEMP 36.8; O2SAT 95
--- NOTE | 2022-05-21 17:49 | PC.NURSE ---
Discharge: Pt feels ready to d/c to home. Seen by md and given d/c instructions. Seen by PT and passed home safety check. Spouse was with pt when this occurred. Pt's home medication returned. Pt's richards d/c and she has voided 300mls yellow uop. Spouse and pt feel like she is ready to d/c to home. Tolerated diet and fluids w/out problems. Some nausea this am which resolved. D/c packet given and understood. Rx has been esent. Questions answered. Pt d/c to home via auto w/spouse.
== END 2022-05-21 13:08 | disposition home or self-care (01) | DRG 641 ==
LOC: ED 18:03 → AC 19:42
PROVIDERS: Emergency Medicine; Family Medicine; Admitting Provider Family Medicine; Emergency Provider Emergency Medicine; PCP Internal Medicine; Visit Provider Family Medicine
DX: E86.0 Dehydration (principal); G24.01 Drug induced subacute dyskinesia; E87.6 Hypokalemia; D50.9 Iron deficiency anemia, unspecified; I10 Essential (primary) hypertension; F32.A Depression, unspecified; F41.9 Anxiety disorder, unspecified; G89.29 Other chronic pain; K21.9 Gastro-esophageal reflux disease without esophagitis; E78.5 Hyperlipidemia, unspecified; R77.8 Other specified abnormalities of plasma proteins; R74.8 Abnormal levels of other serum enzymes; Z87.891 Personal history of nicotine dependence; Z20.822 Contact with and (suspected) exposure to COVID-19
CPT/HCPCS: 0241U; 36415; 70450; 71045; 80048; 80053; 80076; 80305; 80320; 80329; 81001; 82550; 82553; 83540; 83550; 83605; 83690; 83735; 84145; 84484; 85025; 85610; 87651; 93005; 96374; 97140; 97162; 97530; 99222; 99238; 99284; G0480; J1650; J2060

== ENCOUNTER 2022-05-28 08:01 | Inpatient (IN) | payer MEDICARE, SELFPAY ==
[2022-05-28] VITALS (78 sets, daily range): BP systolic 103–211; BP diastolic 49–140; PULSE 46–64; RESP 17–46; TEMP 35.8–36.8; O2SAT 89–100; BMI 28.3
--- NOTE | 2022-05-28 08:02 | DI.CT.S_ITS ---
PROCEDURE: CT ANGIO HEAD AND NECK INDICATIONS: unresponsive TECHNIQUE: After the administration of intravenous contrast, 1 mm thick sections acquired from the aortic arch through the [place] of [place]. Post-contrast 4.5 mm thick sections then re-acquired from the foramen magnum to the vertex. 3-dimensional [id number] (MIP) and/or volume rendering reformats were acquired of the central intracranial vasculature and neck separately. For radiation dose reduction, the following was used: automated exposure control, adjustment of mA and/or kV according to patient size. COMPARISON: [facility], CT, CT ANGIO HEAD AND NECK, 04/03/2021, 8:10. FINDINGS: Image quality: Excellent. HEAD CT ANGIOGRAPHY: Anterior circulation: Intracranial internal carotid arteries are normal in size and flow. The flow within the paired anterior cerebral arteries is normal and symmetric. The flow within the middle cerebral arteries is normal and symmetric. The anterior communicating artery is seen. No aneurysms are seen. Posterior circulation: Visualized portions of the vertebral arteries demonstrate normal caliber, and join to form a normal appearing basilar artery. Flow within the posterior cerebral arteries is normal and symmetric. No aneurysms are seen. NECK CT ANGIOGRAPHY: Carotid system: The great vessels demonstrate a conventional anatomy as they arise from the aortic arch. The origins of the common carotid arteries appear patent. Mild atherosclerotic plaque at the origin of the left common carotid without stenosis. The common carotid arteries demonstrate normal caliber and courses. The bifurcation regions are both widely patent. The internal carotid arteries demonstrate normal calibers and courses. Posterior circulation: The origins of the vertebral arteries both appear widely patent. The more superior extracranial portions of both vertebral arteries also demonstrate normal courses and calibers. They join to form a normal appearing basilar artery. Soft tissues: Heterogenous thyroid is remains stable from the prior Bones: No suspicious bony lesions. Visualized cervical spine appears normally aligned. Degenerative disc disease and arthropathy in the cervical spine is also stable. IMPRESSION: Study is limited by motion artifact. Within this limitation, no evidence of large vessel occlusion, hemodynamically significant stenosis, aneurysm or vascular malformation noted in the head and neck Any quantitative measurements of stenosis were performed using NASCET criteria. Approved by: Mike Arias M.D. on 05/28/2022 at 8:20
--- NOTE | 2022-05-28 08:02 | DI.CT.S_ITS ---
PROCEDURE: CT STROKE INDICATIONS: unresponsive TECHNIQUE: Noncontrast 4.5 mm thick angled axial sections acquired from the foramen magnum to the vertex, with coronal reformats. For radiation dose reduction, the following was used: automated exposure control, adjustment of mA and/or kV according to patient size. COMPARISON: None. FINDINGS: Image quality: Severe motion artifact. CSF spaces: Basal cisterns are patent. No extra-axial fluid collections. The ventricles are symmetric in size and shape. Brain: No obvious acute intracranial hemorrhage or large territory infarct. No mass effect or midline shift. Skull and face: Calvarium and visualized facial bones appear intact, without suspicious lesions. Sinuses: Visualized sinuses and mastoids are clear. IMPRESSION: Severely motion degraded exam with no obvious acute finding. This study fulfills neurological imaging criteria for inclusion or exclusion of acute stroke therapies based on available published neurological guidelines. Dictated by: Tree Cano M.D. on 05/28/2022 at 9:04 Approved by: Tree Cano M.D. on 05/28/2022 at 9:05
[2022-05-28] MEDS: LORazepam 2 MG/ML INJ IV (08:05)
[2022-05-28] MEDS: HYDROMORPHONE 1 MG INJ 2 MG IV (08:11)
--- NOTE | 2022-05-28 08:15 | DI.RAD.S_ITS ---
PROCEDURE: XR CHEST 1V INDICATIONS: unresposive intubated TECHNIQUE: One view of the chest was acquired. COMPARISON: [facility], , XR CHEST 1V, 05/19/2022, 17:56. FINDINGS: Surgical changes and devices: Endotracheal tube good position 3.7 cm above the qamar. Left shoulder arthroplasty in place. Thoracic epidural stimulator with pulse generator noted. Vertebroplasty changes in upper lumbar spine. Generalized decrease in osseous mineralization noted. Lungs and pleura: There is hyperinflation and chronic interstitial changes without focal infiltrate, pleural effusion or pneumothorax. Mediastinum: Mediastinal contours appear normal. Heart size is enlarged. Bones and chest wall: No suspicious bony lesions. Overlying soft tissues appear unremarkable. IMPRESSION: Endotracheal tube in good position. Hyperinflation and chronic interstitial changes without pneumothorax Approved by: Mike Arias M.D. on 05/28/2022 at 9:16
--- NOTE | 2022-05-28 08:22 | ED.WEAKNESS ---
HPI - Weakness General Chief complaint: Altered Mental Status Stated complaint: unresponsive? stroke last nov Time Seen by Provider: 05/28/22 08:02 History of Present Illness HPI Narrative: Patient is a 72-year-old female history of hypertension, followed by Psychiatry, fibromyalgia, GERD, SLE, opiate dependence, tardive dyskinesia presents today unresponsive. She was admitted to the hospital May 19 through May 21 for dehydration says that he was unable to wake her up morning. EMS found her unresponsive and unable to protect her airway. She was given 2 mg Narcan with out any response. She did receive her normal Dilaudid dose last night. During her admission she was found to have elevation of CPK and troponin with hypokalemia. It appears that troponin peaked at 0.063 and then trended downward. CPK peaked at 772 and then trended downward. Creatinine was never elevated. Family at bedside reports that she was in extreme amount of pain yesterday. She has ongoing mouth ulcers for which he takes Dilaudid for. She is also prescribed baclofen. Family not sure if she took extra medications yesterday. However they did count her baclofen and there appears to be about 50 tablets missing. Related Data Home Medications Medication Instructions Recorded Confirmed baclofen 5 mg tablet 5 mg PO TID 05/19/22 05/28/22 amantadine HCl 100 mg tablet 100 mg PO QAM 05/28/22 05/28/22 amantadine HCl 100 mg tablet 200 mg PO QPM 05/28/22 05/28/22 hydromorphone 4 mg tablet 4 mg PO Q4HR PRN Pain (Scale Score 05/28/22 05/28/22 7-10) metoprolol tartrate 50 mg tablet 50 mg PO DAILY 05/28/22 05/28/22 potassium chloride 8 mEq 8 meq PO DAILY 05/28/22 05/28/22 tablet,extended release valsartan 160 mg tablet 160 mg PO BID 05/28/22 05/28/22 Previous Rx's Medication Instructions Recorded risedronate 150 mg tablet 150 mg PO QMONTH #12 tabs 08/10/20 amlodipine 10 mg tablet 10 mg PO DAILY #90 tabs 06/29/21 trazodone 100 mg tablet 100 mg PO BEDTIME #90 tabs 06/29/21 benzonatate 100 mg capsule 100 mg PO TID PRN cough #60 caps 06/30/21 rizatriptan 10 mg tablet 10 mg PO .COMPLEX PRN migraine 07/30/21 headache #6 tabs simvastatin 20 mg tablet 20 mg PO DAILY #90 tabs 11/02/21 pilocarpine HCl 5 mg tablet 5 mg PO QID #368 tabs 01/05/22 sertraline 50 mg tablet 150 mg PO DAILY #90 tabs 03/28/22 omeprazole 40 mg capsule,delayed 40 mg PO BID #180 caps 04/18/22 release ferrous sulfate 325 mg (65 mg 325 mg PO DAILY #30 tabs 05/21/22 iron) tablet Allergies Allergy/AdvReac Type Severity Reaction Status Date / Time adhesive Allergy Mild BLISTERS, Verified 05/28/22 09:26 PULL SKIN OFF codeine [CODEINE] AdvReac Severe nausea, Verified 05/28/22 09:26 triggers migraines morphine [MORPHINE] AdvReac Severe n&v, can Verified 05/28/22 09:26 take if premedicated zolpidem [From Ambien] AdvReac Severe sleep Verified 05/28/22 09:26 eating, strange behavior alendronate sodium AdvReac Intermediate Stomach Verified 05/28/22 09:26 [From Fosamax] issues Review of Systems Review of Systems ROS Unobtainable: Unobtainable due to medical condition Patient History Medical History Acquired hypothyroidism (02/10/11) Asthma Chronic migraine without aura without status migrainosus, not intractable Chronic pain syndrome Depression Depression Dorsalgia (07/28/15) Fibromyalgia (09/06/13) Gastroesophageal reflux disease without esophagitis (02/10/11) Generalized anxiety disorder HLD (hyperlipidemia) Hypertension Loosening of hardware in spine Osteoporosis (05/07/15) Recurrent major depressive disorder, in partial remission (02/10/11) Spinal stenosis at L4-L5 level Systemic lupus erythematosus (02/10/11) Tardive dyskinesia Uncomplicated opioid dependence (12/14/15) Surgical History Anesthesia History of arthroplasty of left shoulder (~2013) History of hip replacement History of surgery History of total right hip arthroplasty (~2009) Hx of arthroscopy of left knee Hx of lumbosacral spine surgery (~05/2015) Hx of spinal fusion (~1984) S/P cholecystectomy (~1993) S/P LASIK surgery of both eyes Status post appendectomy Status post tubal ligation Family History Father Family history of polycythemia Mother Family history of CHF (congestive heart failure) Social History marital status: number of children: 2 household members: spouse lives independently: Yes caregiver/support person: No housing: apartment pets and animals: Yes education level: college 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 status: other Previous 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 history: [employer] 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 leisure activities: other Smoking Status: Former smoker Tobacco: How many years used: 0 quit status: quit date established second hand exposure: No alcohol intake: never substance use type: does not use Smoking Status: Former smoker alcohol intake frequency: 0-2 drinks per day Substance Use Type: does not use Exam Initial Vital Signs Initial Vital Signs: Vital Signs Pulse Rate 59 L 05/28/22 08:19 Pulse Oximetry 100 05/28/22 08:19 Oxygen Delivery Method 05/28/22 08:19 Gen.: Intubated seems be jerking all extremities HEENT: No head injury pupils are equal Neck: No JVD Lungs: Clear bilaterally no respiratory distress Cardiac: Regular rate no murmurs Abdomen: Soft nontender Extremities: No gross bony deformity Neurologic: twitching, moving extremities, not responsive Course Orders Ordered: ED Orders 05/28/22 10:55 Acetaminophen Stat Complete Blood Count AUTO DIFF Stat Comprehensive Metabolic Panel Stat ETOH [Ethanol (ETOH)] Stat Lactate (Lactic Acid) Stat NT-proBNP (BNP-Adult 18+) Stat Partial Thromboplastin Time Stat Procalcitonin Stat Prolactin Stat Prothrombin Time INR Stat Salicylate Stat Troponin & CK Cardiac Panel Stat 05/28/22 10:58 ABG [Arterial Blood Gas] Stat Chlorhexidine Gluconate (Chlorhexidine Gluconate 15 Ml Cup) 15 ml PO Q6HR BETTIE Last Admin: 05/28/22 18:15 Dose: 15 ml Documented By: TIN Enoxaparin Sodium (Enoxaparin 40 Mg/0.4 Ml Syringe) 40 mg SUBCUT DAILY COUNTS INCLUDE 234 BEDS AT THE [facility] Famotidine (Famotidine 20 Mg/2 Ml Vial) 20 mg IV BID BETTIE Hydromorphone HCl (Hydromorphone 0.5 Mg Inj) 2 mg IV Q4H PRN PRN Reason: Pain, Moderate (4-6) Dextrose/Sodium Chloride (Dextrose 5%-0.9% Ns) 1,000 mls @ 100 mls/hr IV CONT BETTIE Propofol (Propofol) 1,000 mg in 100 mls @ 2.245 mls/hr IV TITRATE BETTIE; Protocol Last Admin: 05/28/22 18:16 Dose: 10 mcg/kg/min, 4.491 mls/hr Documented By: TIN Remdesivir 100 mg/ Sodium (Chloride) 250 mls @ 250 mls/hr IV 1700 BETTIE Stop: 06/01/22 17:59 Naloxone HCl (Naloxone 0.4 Mg/Ml Vial) 0.2 mg IV Q2MIN PRN PRN Reason: Opiate Reversal Discontinued Medications Chlorhexidine Gluconate (Chlorhexidine Gluconate 15 Ml Cup) 15 ml PO Q6HR BETTIE Fentanyl (Fentanyl 100 Mcg/2 Ml Inj) 50 mcg IV Q1HR PRN PRN Reason: Pain, Severe (7-10) Hydromorphone HCl (Hydromorphone 1 Mg Inj) 2 mg IV NOW ONE Stop: 05/28/22 10:12 Last Admin: 05/28/22 08:11 Dose: 2 mg Documented By: KAREN Sodium Chloride (Normal Saline 0.9%) 1,000 mls @ 200 mls/hr IV CONT BETTIE Last Infusion: 05/28/22 18:07 Dose: 0 mls/hr Documented By: Admin: 05/28/22 14:10 Dose: 200 mls/hr Documented By: Infusion: 05/28/22 13:35 Dose: 200 mls/hr Documented By: Admin: 05/28/22 08:35 Dose: 200 mls/hr Documented By: MLAmirah Propofol (Propofol) 1,000 mg in 100 mls @ 2.245 mls/hr IV TITRATE BETTIE; Protocol Last Titration: 05/28/22 17:55 Dose: 10 mcg/kg/min, 4.491 mls/hr Documented By: Admin: 05/28/22 08:36 Dose: 10 mcg/kg/min, 4.491 mls/hr Documented By: MLM Fentanyl 1,000 mcg/ Dextrose 250 mls @ 13.098 mls/hr IV TITRATE BETTIE; Protocol Last Admin: 05/28/22 17:02 Dose: Not Given Documented By: MLAmirah Lorazepam 20 mg/ Sodium (Chloride) 110 mls @ 4.116 mls/hr IV TITRATE BETTIE; Protocol Last Admin: 05/28/22 17:01 Dose: Not Given Documented By: MLM Remdesivir 200 mg/ Sodium (Chloride) 250 mls @ 250 mls/hr IV NOW ONE Stop: 05/28/22 17:46 Last Admin: 05/28/22 18:15 Dose: 250 mls/hr Documented By: TIN Lorazepam (Lorazepam 2 Mg/Ml Inj) 2 mg IV NOW ONE Stop: 05/28/22 10:12 Last Admin: 05/28/22 08:05 Dose: 2 mg Documented By: KAREN Propofol (Propofol 200 Mg/20 Ml Vial) 100 mg IV NOW ONE Stop: 05/28/22 08:29 Last Admin: 05/28/22 08:33 Dose: 100 mg Documented By: KAREN Vital Signs Vital signs: Vital Signs - 8 hr 05/28/22 12:00 05/28/22 12:00 05/28/22 12:30 Temperature 96.8 F L Pulse Rate 49 L Respiratory Rate 18 Blood Pressure 168/71 H 158/72 H Pulse Oximetry 99 Oxygen Delivery Method 05/28/22 12:30 05/28/22 13:00 05/28/22 13:01 Temperature 97.5 F L 98.1 F Pulse Rate 51 L 56 L Respiratory Rate 18 28 H Blood Pressure 172/78 H Pulse Oximetry 98 97 Oxygen Delivery Method 05/28/22 13:01 05/28/22 13:30 05/28/22 13:32 Temperature 98.1 F 98.1 F 98.1 F Pulse Rate 55 L 53 L 53 L Respiratory Rate 46 H 22 18 Blood Pressure Pulse Oximetry 97 95 96 Oxygen Delivery Method 05/28/22 13:32 05/28/22 14:00 05/28/22 14:00 Temperature 97.9 F Pulse Rate 51 L Respiratory Rate 18 Blood Pressure 125/64 106/53 L Pulse Oximetry 96 Oxygen Delivery Method 05/28/22 14:30 05/28/22 14:30 05/28/22 14:45 Temperature 97.9 F Pulse Rate 51 L Respiratory Rate 18 Blood Pressure 104/49 L 103/51 L Pulse Oximetry 98 Oxygen Delivery Method 05/28/22 14:45 05/28/22 15:00 05/28/22 15:00 Temperature 97.9 F 98.1 F Pulse Rate 51 L 51 L Respiratory Rate 18 18 Blood Pressure 104/51 L Pulse Oximetry 99 99 Oxygen Delivery Method Mechanical Ventilation 05/28/22 15:15 05/28/22 15:15 05/28/22 15:30 Temperature 98.1 F Pulse Rate 52 L Respiratory Rate 18 Blood Pressure 104/55 L 118/58 L Pulse Oximetry 99 Oxygen Delivery Method 05/28/22 15:30 05/28/22 15:45 05/28/22 15:45 Temperature 98.1 F 98.1 F Pulse Rate 52 L 52 L Respiratory Rate 18 18 Blood Pressure 132/62 Pulse Oximetry 100 100 Oxygen Delivery Method 05/28/22 16:00 05/28/22 16:00 05/28/22 16:15 Temperature 98.1 F Pulse Rate 53 L Respiratory Rate 18 Blood Pressure 135/64 135/63 Pulse Oximetry 100 Oxygen Delivery Method 05/28/22 16:15 Temperature 98.1 F Pulse Rate 54 L Respiratory Rate 19 Blood Pressure Pulse Oximetry 100 Oxygen Delivery Method MDM - Weakness Lab Data Result diagrams: 05/28/22 10:55 05/28/22 10:55 Labs: Lab Results 05/28/22 05/28/22 05/28/22 Range/Units 09:44 09:52 09:52 WBC (4.5-11.0) X10^3/uL RBC (4.0-5.2) X10^6/uL Hgb (12.0-16.0) g/dL Hct (36-46) % MCV (80-100) fL MCH (26-34) PG MCHC (30-36) % RDW (11.6-14.8) % Plt Count (150-400) X10^3/uL Neut % (Auto) (50-75) % Lymph % (Auto) (25-40) % [place] % (Auto) (3-14) % Eos % (Auto) (2-4) % Baso % (Auto) (0-2) % Neut # (Auto) (9875-7282) /uL Lymph # (Auto) (0557-3890) /uL [place] # (Auto) (0-900) /uL Eos # (Auto) (0-450) /uL Baso # (Auto) (0-100) /uL PT (10.1-12.7) SECONDS INR (0.9-1.3) APTT (26-36) SECONDS ABG pH (7.35-7.45) ABG pCO2 (35-45) mmHg ABG pO2 (80-100) mmHg ABG HCO3 (22-26) mmol/L ABG Total CO2 (21-31) mmol/L ABG O2 Saturation (95-100) % ABG Base Excess (-2-2) mmol/L FiO2 Sodium (137-145) mmol/L Potassium (3.4-5.1) mmol/L Chloride (98-107) mmol/L Carbon Dioxide (22-32) mmol/L BUN (7-17) mg/dL Creatinine (0.52-1.04) mg/dL Estimated GFR (>60) mL/min BUN/Creatinine Ratio (6-22) Glucose (80-110) mg/dL Lactate (0.7-2.1) mmol/L Calcium (8.4-10.2) mg/dL Total Bilirubin (0.2-1.3) mg/dL AST (14-36) IU/L ALT (<35) IU/L Alkaline Phosphatase (38-126) U/L Total Creatine Kinase (30-135) U/L CK-MB (CK-2) CK-MB (CK-2) Rel Index Troponin I (0.01-0.034) ng/mL NT-Pro-B Natriuret Pep (<125) pg/mL Total Protein (6.3-8.2) g/dL Albumin (3.5-5.0) g/dL Globulin (1.7-4.1) g/dL Albumin/Globulin Ratio (1.0-2.8) Procalcitonin (<0.5) ng/mL Prolactin (3.0-18.6) ng/mL Urine Color Yellow Urine Appearance Clear Urine pH 6.5 (4.5-8.0) Ur Specific [place] 1.010 (1.000-1.035) Urine Protein Negative (Negative) Urine Glucose (UA) Negative (Negative) g/dL Urine Ketones Trace H (NEGATIVE) Urine Occult Blood Negative (Negative) Urine Nitrate Negative (Negative) Urine Bilirubin Negative (NEGATIVE) Urine Urobilinogen 0.2 (0.2) E.U./dL Ur Leukocyte Esterase Negative (NEGATIVE) Urine RBC None seen (0-5/HPF) Urine WBC None seen (0-5/HPF) Urine Bacteria None seen (None) Ur Culture Indicated? Cult not indicated Salicylates (<20) mg/dL U Opiates 300ng/mL cut Positive H (Negative) Ur Oxycodone Screen Negative (Negative) Urine Methadone Screen Negative (Negative) Acetaminophen (10-30) ug/mL Ur Barbiturates Screen Negative (Negative) U Tricyclic Antidepress Negative (Negative) Ur Phencyclidine Scrn Negative (Negative) Ur Amphetamines Screen Negative (Negative) U Methamphetamines Scrn Negative (Negative) Ur MDMA Scrn (Ecstasy) Negative (Negative) U Benzodiazepines Scrn Negative (Negative) Urine Cocaine Screen Negative (Negative) U Marijuana (THC) Screen Negative (Negative) Ethyl Alcohol ( - 10) mg/dL Chlamy pneumoniae PCR Not detected (Not Detect) Adenovirus (PCR) Not detected (Not Detect) B. pertussis DNA (PCR) Not detected (Not Detecte) B.parapertussis DNA PCR Not detected (Not Detecte) Coronavirus OC43 (PCR) Not detected (Not Detect) Coronavirus HKU1 (PCR) Not detected (Not Detect) Coronavirus 229E (PCR) Not detected (Not Detect) SARS-CoV-2 (PCR) Detected H (Not Detecte) Coronavirus NL63 (PCR) Not detected (Not Detect) Human Metapneumovir PCR Not detected (Not Detect) Influenza Type A (PCR) Not detected (Not Detect) Influenza Type B (PCR) Not detected (Not Detect) M. pneumoniae (PCR) Not detected (Not Detect) Parainfluenza 1 (PCR) Not detected (Not Detect) Parainfluenza 2 (PCR) Not detected (Not Detect) Parainfluenza 3 (PCR) Not detected (Not Detect) Parainfluenza 4 (PCR) Not detected (Not Detect) RSV (PCR) Not detected (Not Detect) Entero/Rhino (PCR) Not detected (Not Detect) 05/28/22 05/28/22 05/28/22 Range/Units 10:55 10:55 10:55 WBC 10.2 (4.5-11.0) X10^3/uL RBC 4.20 (4.0-5.2) X10^6/uL Hgb 11.5 L (12.0-16.0) g/dL Hct 35.5 L (36-46) % MCV 84.6 (80-100) fL MCH 27.4 (26-34) PG MCHC 32.3 (30-36) % RDW 17.2 H (11.6-14.8) % Plt Count 423 H (150-400) X10^3/uL Neut % (Auto) 87.2 H (50-75) % Lymph % (Auto) 6.3 L (25-40) % [place] % (Auto) 4.5 (3-14) % Eos % (Auto) 1.3 L (2-4) % Baso % (Auto) 0.7 (0-2) % Neut # (Auto) 8900 H (1646-0354) /uL Lymph # (Auto) 600 L (0941-9808) /uL [place] # (Auto) 500 (0-900) /uL Eos # (Auto) 100 (0-450) /uL Baso # (Auto) 100 (0-100) /uL PT 13.3 H D (10.1-12.7) SECONDS INR 1.2 (0.9-1.3) APTT (26-36) SECONDS ABG pH (7.35-7.45) ABG pCO2 (35-45) mmHg ABG pO2 (80-100) mmHg ABG HCO3 (22-26) mmol/L ABG Total CO2 (21-31) mmol/L ABG O2 Saturation (95-100) % ABG Base Excess (-2-2) mmol/L FiO2 Sodium 140 (137-145) mmol/L Potassium 3.5 (3.4-5.1) mmol/L Chloride 105 (98-107) mmol/L Carbon Dioxide 24 (22-32) mmol/L BUN 10 (7-17) mg/dL Creatinine 0.54 (0.52-1.04) mg/dL Estimated GFR > 60 (>60) mL/min BUN/Creatinine Ratio 18.5 (6-22) Glucose 103 (80-110) mg/dL Lactate (0.7-2.1) mmol/L Calcium 9.1 (8.4-10.2) mg/dL Total Bilirubin 0.4 (0.2-1.3) mg/dL AST 36 (14-36) IU/L ALT 19 (<35) IU/L Alkaline Phosphatase 92 (38-126) U/L Total Creatine Kinase 75 (30-135) U/L CK-MB (CK-2) TNP CK-MB (CK-2) Rel Index TNP Troponin I 0.019 (0.01-0.034) ng/mL NT-Pro-B Natriuret Pep 1040 H (<125) pg/mL Total Protein 6.7 (6.3-8.2) g/dL Albumin 3.2 L (3.5-5.0) g/dL Globulin 3.5 (1.7-4.1) g/dL Albumin/Globulin Ratio 0.9 L (1.0-2.8) Procalcitonin 0.04 (<0.5) ng/mL Prolactin (3.0-18.6) ng/mL Urine Color Urine Appearance Urine pH (4.5-8.0) Ur Specific [place] (1.000-1.035) Urine Protein (Negative) Urine Glucose (UA) (Negative) g/dL Urine Ketones (NEGATIVE) Urine Occult Blood (Negative) Urine Nitrate (Negative) Urine Bilirubin (NEGATIVE) Urine Urobilinogen (0.2) E.U./dL Ur Leukocyte Esterase (NEGATIVE) Urine RBC (0-5/HPF) Urine WBC (0-5/HPF) Urine Bacteria (None) Ur Culture Indicated? Salicylates 1.2 (<20) mg/dL U Opiates 300ng/mL cut (Negative) Ur Oxycodone Screen (Negative) Urine Methadone Screen (Negative) Acetaminophen < 10 (10-30) ug/mL Ur Barbiturates Screen (Negative) U Tricyclic Antidepress (Negative) Ur Phencyclidine Scrn (Negative) Ur Amphetamines Screen (Negative) U Methamphetamines Scrn (Negative) Ur MDMA Scrn (Ecstasy) (Negative) U Benzodiazepines Scrn (Negative) Urine Cocaine Screen (Negative) U Marijuana (THC) Screen (Negative) Ethyl Alcohol < 10 ( - 10) mg/dL Chlamy pneumoniae PCR (Not Detect) Adenovirus (PCR) (Not Detect) B. pertussis DNA (PCR) (Not Detecte) B.parapertussis DNA PCR (Not Detecte) Coronavirus OC43 (PCR) (Not Detect) Coronavirus HKU1 (PCR) (Not Detect) Coronavirus 229E (PCR) (Not Detect) SARS-CoV-2 (PCR) (Not Detecte) Coronavirus NL63 (PCR) (Not Detect) Human Metapneumovir PCR (Not Detect) Influenza Type A (PCR) (Not Detect) Influenza Type B (PCR) (Not Detect) M. pneumoniae (PCR) (Not Detect) Parainfluenza 1 (PCR) (Not Detect) Parainfluenza 2 (PCR) (Not Detect) Parainfluenza 3 (PCR) (Not Detect) Parainfluenza 4 (PCR) (Not Detect) RSV (PCR) (Not Detect) Entero/Rhino (PCR) (Not Detect) 05/28/22 05/28/22 05/28/22 Range/Units 10:55 10:55 10:55 WBC (4.5-11.0) X10^3/uL RBC (4.0-5.2) X10^6/uL Hgb (12.0-16.0) g/dL Hct (36-46) % MCV (80-100) fL MCH (26-34) PG MCHC (30-36) % RDW (11.6-14.8) % Plt Count (150-400) X10^3/uL Neut % (Auto) (50-75) % Lymph % (Auto) (25-40) % [place] % (Auto) (3-14) % Eos % (Auto) (2-4) % Baso % (Auto) (0-2) % Neut # (Auto) (2827-9084) /uL Lymph # (Auto) (5306-5117) /uL [place] # (Auto) (0-900) /uL Eos # (Auto) (0-450) /uL Baso # (Auto) (0-100) /uL PT (10.1-12.7) SECONDS INR (0.9-1.3) APTT 26 (26-36) SECONDS ABG pH (7.35-7.45) ABG pCO2 (35-45) mmHg ABG pO2 (80-100) mmHg ABG HCO3 (22-26) mmol/L ABG Total CO2 (21-31) mmol/L ABG O2 Saturation (95-100) % ABG Base Excess (-2-2) mmol/L FiO2 Sodium (137-145) mmol/L Potassium (3.4-5.1) mmol/L Chloride (98-107) mmol/L Carbon Dioxide (22-32) mmol/L BUN (7-17) mg/dL Creatinine (0.52-1.04) mg/dL Estimated GFR (>60) mL/min BUN/Creatinine Ratio (6-22) Glucose (80-110) mg/dL Lactate 0.8 (0.7-2.1) mmol/L Calcium (8.4-10.2) mg/dL Total Bilirubin (0.2-1.3) mg/dL AST (14-36) IU/L ALT (<35) IU/L Alkaline Phosphatase (38-126) U/L Total Creatine Kinase (30-135) U/L CK-MB (CK-2) CK-MB (CK-2) Rel Index Troponin I (0.01-0.034) ng/mL NT-Pro-B Natriuret Pep (<125) pg/mL Total Protein (6.3-8.2) g/dL Albumin (3.5-5.0) g/dL Globulin (1.7-4.1) g/dL Albumin/Globulin Ratio (1.0-2.8) Procalcitonin (<0.5) ng/mL Prolactin 6.7 (3.0-18.6) ng/mL Urine Color Urine Appearance Urine pH (4.5-8.0) Ur Specific [place] (1.000-1.035) Urine Protein (Negative) Urine Glucose (UA) (Negative) g/dL Urine Ketones (NEGATIVE) Urine Occult Blood (Negative) Urine Nitrate (Negative) Urine Bilirubin (NEGATIVE) Urine Urobilinogen (0.2) E.U./dL Ur Leukocyte Esterase (NEGATIVE) Urine RBC (0-5/HPF) Urine WBC (0-5/HPF) Urine Bacteria (None) Ur Culture Indicated? Salicylates (<20) mg/dL U Opiates 300ng/mL cut (Negative) Ur Oxycodone Screen (Negative) Urine Methadone Screen (Negative) Acetaminophen (10-30) ug/mL Ur Barbiturates Screen (Negative) U Tricyclic Antidepress (Negative) Ur Phencyclidine Scrn (Negative) Ur Amphetamines Screen (Negative) U Methamphetamines Scrn (Negative) Ur MDMA Scrn (Ecstasy) (Negative) U Benzodiazepines Scrn (Negative) Urine Cocaine Screen (Negative) U Marijuana (THC) Screen (Negative) Ethyl Alcohol ( - 10) mg/dL Chlamy pneumoniae PCR (Not Detect) Adenovirus (PCR) (Not Detect) B. pertussis DNA (PCR) (Not Detecte) B.parapertussis DNA PCR (Not Detecte) Coronavirus OC43 (PCR) (Not Detect) Coronavirus HKU1 (PCR) (Not Detect) Coronavirus 229E (PCR) (Not Detect) SARS-CoV-2 (PCR) (Not Detecte) Coronavirus NL63 (PCR) (Not Detect) Human Metapneumovir PCR (Not Detect) Influenza Type A (PCR) (Not Detect) Influenza Type B (PCR) (Not Detect) M. pneumoniae (PCR) (Not Detect) Parainfluenza 1 (PCR) (Not Detect) Parainfluenza 2 (PCR) (Not Detect) Parainfluenza 3 (PCR) (Not Detect) Parainfluenza 4 (PCR) (Not Detect) RSV (PCR) (Not Detect) Entero/Rhino (PCR) (Not Detect) 05/28/22 Range/Units 10:58 WBC (4.5-11.0) X10^3/uL RBC (4.0-5.2) X10^6/uL Hgb (12.0-16.0) g/dL Hct (36-46) % MCV (80-100) fL MCH (26-34) PG MCHC (30-36) % RDW (11.6-14.8) % Plt Count (150-400) X10^3/uL Neut % (Auto) (50-75) % Lymph % (Auto) (25-40) % [place] % (Auto) (3-14) % Eos % (Auto) (2-4) % Baso % (Auto) (0-2) % Neut # (Auto) (5450-0184) /uL Lymph # (Auto) (6145-4473) /uL [place] # (Auto) (0-900) /uL Eos # (Auto) (0-450) /uL Baso # (Auto) (0-100) /uL PT (10.1-12.7) SECONDS INR (0.9-1.3) APTT (26-36) SECONDS ABG pH 7.41 (7.35-7.45) ABG pCO2 43.9 (35-45) mmHg ABG pO2 170 H (80-100) mmHg ABG HCO3 28 H (22-26) mmol/L ABG Total CO2 29 (21-31) mmol/L ABG O2 Saturation 100 (95-100) % ABG Base Excess 3.0 H (-2-2) mmol/L FiO2 45 Sodium (137-145) mmol/L Potassium (3.4-5.1) mmol/L Chloride (98-107) mmol/L Carbon Dioxide (22-32) mmol/L BUN (7-17) mg/dL Creatinine (0.52-1.04) mg/dL Estimated GFR (>60) mL/min BUN/Creatinine Ratio (6-22) Glucose (80-110) mg/dL Lactate (0.7-2.1) mmol/L Calcium (8.4-10.2) mg/dL Total Bilirubin (0.2-1.3) mg/dL AST (14-36) IU/L ALT (<35) IU/L Alkaline Phosphatase (38-126) U/L Total Creatine Kinase (30-135) U/L CK-MB (CK-2) CK-MB (CK-2) Rel Index Troponin I (0.01-0.034) ng/mL NT-Pro-B Natriuret Pep (<125) pg/mL Total Protein (6.3-8.2) g/dL Albumin (3.5-5.0) g/dL Globulin (1.7-4.1) g/dL Albumin/Globulin Ratio (1.0-2.8) Procalcitonin (<0.5) ng/mL Prolactin (3.0-18.6) ng/mL Urine Color Urine Appearance Urine pH (4.5-8.0) Ur Specific [place] (1.000-1.035) Urine Protein (Negative) Urine Glucose (UA) (Negative) g/dL Urine Ketones (NEGATIVE) Urine Occult Blood (Negative) Urine Nitrate (Negative) Urine Bilirubin (NEGATIVE) Urine Urobilinogen (0.2) E.U./dL Ur Leukocyte Esterase (NEGATIVE) Urine RBC (0-5/HPF) Urine WBC (0-5/HPF) Urine Bacteria (None) Ur Culture Indicated? Salicylates (<20) mg/dL U Opiates 300ng/mL cut (Negative) Ur Oxycodone Screen (Negative) Urine Methadone Screen (Negative) Acetaminophen (10-30) ug/mL Ur Barbiturates Screen (Negative) U Tricyclic Antidepress (Negative) Ur Phencyclidine Scrn (Negative) Ur Amphetamines Screen (Negative) U Methamphetamines Scrn (Negative) Ur MDMA Scrn (Ecstasy) (Negative) U Benzodiazepines Scrn (Negative) Urine Cocaine Screen (Negative) U Marijuana (THC) Screen (Negative) Ethyl Alcohol ( - 10) mg/dL Chlamy pneumoniae PCR (Not Detect) Adenovirus (PCR) (Not Detect) B. pertussis DNA (PCR) (Not Detecte) B.parapertussis DNA PCR (Not Detecte) Coronavirus OC43 (PCR) (Not Detect) Coronavirus HKU1 (PCR) (Not Detect) Coronavirus 229E (PCR) (Not Detect) SARS-CoV-2 (PCR) (Not Detecte) Coronavirus NL63 (PCR) (Not Detect) Human Metapneumovir PCR (Not Detect) Influenza Type A (PCR) (Not Detect) Influenza Type B (PCR) (Not Detect) M. pneumoniae (PCR) (Not Detect) Parainfluenza 1 (PCR) (Not Detect) Parainfluenza 2 (PCR) (Not Detect) Parainfluenza 3 (PCR) (Not Detect) Parainfluenza 4 (PCR) (Not Detect) RSV (PCR) (Not Detect) Entero/Rhino (PCR) (Not Detect) Imaging Data Chest x-ray: Radiologist Impression: XRay Report Signed Patient: Melanie Barclay MR#: [id number] : 1950 Acct:[id number] Age/Sex: 72 / F Date of Service: 05/28/22 Loc: ED Accession Number: [id number] ?? Procedure: XR chest 1V Ordering Provider: Botnick,Emilee D.O. PROCEDURE:? XR CHEST 1V ? INDICATIONS:? unresposive intubated ? TECHNIQUE:? One view of the chest was acquired.? ? COMPARISON:? [facility], CR, XR CHEST 1V, 05/19/2022, 17:56. ? FINDINGS:? ? Surgical changes and devices:? Endotracheal tube good position 3.7 cm above the qamar.? Left shoulder arthroplasty in place.? Thoracic epidural stimulator with pulse generator noted.? Vertebroplasty changes in upper lumbar spine. Generalized decrease in osseous mineralization noted. ? Lungs and pleura:? There is hyperinflation and chronic interstitial changes without focal infiltrate, pleural effusion or pneumothorax. ? Mediastinum:? Mediastinal contours appear normal.? Heart size is enlarged.? ? Bones and chest wall:? No suspicious bony lesions.? Overlying soft tissues appear unremarkable.? ? IMPRESSION:? ? Endotracheal tube in good position. ? Hyperinflation and chronic interstitial changes without pneumothorax ? ? Approved by: Mike Arias M.D. on 05/28/2022 at 9:16? CTA - brain/neck: Radiologist Impression: CT Scan Report Signed Patient: Melanie Barclay MR#: [id number] : 1950 Acct:[id number] Age/Sex: 72 / F Date of Service: 05/28/22 Loc: ED Accession Number: [id number] ?? Procedure: CT angio head and neck Ordering Provider: Emilee Elizalde D.O. PROCEDURE:? CT ANGIO HEAD AND NECK ? INDICATIONS:? unresponsive ? TECHNIQUE:? ? After the administration of intravenous contrast, 1 mm thick sections acquired from the aortic arch through the [place].? Post-contrast 4.5 mm thick sections then re-acquired from the foramen magnum to the vertex.? 3-dimensional pjvgocn-ikqqoakxe-rebebklnoo (MIP) and/or volume rendering reformats were acquired of the central intracranial vasculature and neck separately. For radiation dose reduction, the following was used:? automated exposure control, adjustment of mA and/or kV according to patient size.? ? COMPARISON:? [facility], CT, CT ANGIO HEAD AND NECK, 04/03/2021, 8:10. ? FINDINGS:? Image quality:? Excellent.? ? ? HEAD CT ANGIOGRAPHY:? Anterior circulation:? Intracranial internal carotid arteries are normal in size and flow.? The flow within the paired anterior cerebral arteries is normal and symmetric.? The flow within the middle cerebral arteries is normal and symmetric.? The anterior communicating artery is seen.? No aneurysms are seen.? ? Posterior circulation:? Visualized portions of the vertebral arteries demonstrate normal caliber, and join to form a normal appearing basilar artery.? Flow within the posterior cerebral arteries is normal and symmetric.? No aneurysms are seen.? ? NECK CT ANGIOGRAPHY:? Carotid system:? The great vessels demonstrate a conventional anatomy as they arise from the aortic arch.? The origins of the common carotid arteries appear patent.? Mild atherosclerotic plaque at the origin of the left common carotid without stenosis.? The common carotid arteries demonstrate normal caliber and courses.? The bifurcation regions are both widely patent.? The internal carotid arteries demonstrate normal calibers and courses.? ? Posterior circulation:? The origins of the vertebral arteries both appear widely patent.? The more superior extracranial portions of both vertebral arteries also demonstrate normal courses and calibers.? They join to form a normal appearing basilar artery.? ? Soft tissues:? Heterogenous thyroid is remains stable from the prior ? Bones:? No suspicious bony lesions.? Visualized cervical spine appears normally aligned.? Degenerative disc disease and arthropathy in the cervical spine is also stable. ? ? IMPRESSION:? ? Study is limited by motion artifact. ? Within this limitation, no evidence of large vessel occlusion, hemodynamically significant stenosis, aneurysm or vascular malformation noted in the head and neck ? Any quantitative measurements of stenosis were performed using NASCET criteria.? Approved by: Mike Arias M.D. on 05/28/2022 at 8:20? CT scan - head: Radiologist Impression: Signed Patient: Melanie Barclay MR#: [id number] : 1950 Acct:[id number] Age/Sex: 72 / F Date of Service: 05/28/22 Loc: ED Accession Number: [id number] ?? Procedure: CT Stroke Ordering Provider: Emilee Elizalde D.O. PROCEDURE:? CT STROKE ? INDICATIONS:? unresponsive ? TECHNIQUE:? Noncontrast 4.5 mm thick angled axial sections acquired from the foramen magnum to the vertex, with coronal reformats.? For radiation dose reduction, the following was used:? automated exposure control, adjustment of mA and/or kV according to patient size.? ? COMPARISON:? None. ? FINDINGS:? Image quality:? Severe motion artifact. ? CSF spaces:? Basal cisterns are patent.? No extra-axial fluid collections.? The ventricles are symmetric in size and shape.? ? Brain:? No obvious acute intracranial hemorrhage or large territory infarct.? No mass effect or midline shift. ? Skull and face:? Calvarium and visualized facial bones appear intact, without suspicious lesions.? ? Sinuses:? Visualized sinuses and mastoids are clear.? ? IMPRESSION:? Severely motion degraded exam with no obvious acute finding. ? This study fulfills neurological imaging criteria for inclusion or exclusion of acute stroke therapies based on available published neurological guidelines.? ? ? Dictated by: Tree Cano M.D. on 05/28/2022 at 9:04 ? ? Approved by: Tree Cano M.D. on 05/28/2022 at 9:05 ? ECG Data Interpretation: Sinus bradycardia rate 54 OH interval 146 QRS [address] changes no T-wave inversions MDM Narrative Medical decision making narrative: Patient found this morning unresponsive without changing any position overnight per her . Suspected overdose of baclofen secondary to severe mouth pain. CTs are negative for stroke. Blood work is surprisingly within normal limits however positive for COVID. However not hypoxic. Poison control contacted, at this time recommend supportive care only. Anticipate 24-48 hours of clearance for baclofen overdose. States that this is likely a classic baclofen overdose careful not to pronounced brain too early. Agree with a propofol drip. At risk for seizures. Patient on multiple wait lists ICU bed did open up here. I did talk with Dr. Segura her PCP who states that that she has done this before. Updated on poison control recommendations. She has remained stable. Discharge Plan Departure Patient Disposition: Admitted As Inpatient Clinical Impression: Baclofen overdose, Respiratory failure Admit Date/Time: 05/28/22 16:18 Admit Provider: Pasquale Segura
[2022-05-28] MEDS: propofoL 200 MG/20 ML VIAL 100 MG IV (08:33)
[2022-05-28] MEDS: SODIUM CHLORIDE 0.9% 1,000 ML 200 ML IV ×2 (08:35→14:10)
[2022-05-28] MEDS: propofoL 1,000 MG/100 ML VIAL 4.491 MG IV ×2 (08:36→18:16)
[2022-05-28 10:03] LABS: Appearance Urine UA CLEAR; Bilirubin Urine UA NEGATIVE (NEGATIVE); Color Urine UA YELLOW; Glucose Urine UA NEGATIVE (Negative); Ketones Urine UA TRACE (NEGATIVE); Leukocyte Esterase Urine UA NEGATIVE (NEGATIVE); Nitrite Urine UA NEGATIVE (Negative); Occult Blood Urine UA NEGATIVE (Negative); Protein Urine UA NEGATIVE (Negative); Urobilinogen Urine UA 0.2 E.U./dL (0.2)
[2022-05-28 10:06] LABS: pH Urine UA 6.5 (4.5-8.0)
[2022-05-28 10:13] LABS: Bacteria Urine None Seen; Culture Indicated Urine Cult Not Indicated; RBC Urine None Seen (0-5/HPF); Ur Creatinine Normal (Normal); Ur Specific Gravity Normal (Normal); Urine Cocaine Negative (Negative); Urine Tetrahydrocannabinol Negative (Negative); Urine pH Normal (Normal); WBC Urine None Seen (0-5/HPF)
[2022-05-28 10:14] LABS: UR Morphine/Opiate cutoff 300 Positive (Negative); Urine Amphetamines Negative (Negative); Urine Barbiturates Negative (Negative); Urine Benzodiazepines Negative (Negative); Urine MDMA Negative (Negative); Urine Methadone Negative (Negative); Urine Methamphetamines Negative (Negative); Urine Oxycodone Negative (Negative); Urine Phencyclidine Negative (Negative); Urine Tricyclic Antidepressant Negative (Negative)
[2022-05-28 11:08] LABS: Adenovirus Not Detected (Not Detect); B. parapertussis Not Detected (Not Detecte); Bordetella pertussis Not Detected (Not Detecte); Chlamydophila pneumoniae Not Detected (Not Detect); Coronavirus 229E Not Detected (Not Detect); Coronavirus HKU1 Not Detected (Not Detect); Coronavirus NL 63 Not Detected (Not Detect); Coronavirus OC43 Not Detected (Not Detect); Human Metapneumovirus Not Detected (Not Detect); Human Rhinovirus/Enterovirus Not Detected (Not Detect); Influenza A Not Detected (Not Detect); Influenza B Not Detected (Not Detect); Mycoplasma pneumoniae Not Detected (Not Detect); Parainfluenza Virus 1 Not Detected (Not Detect); Parainfluenza Virus 2 Not Detected (Not Detect); Parainfluenza Virus 3 Not Detected (Not Detect); Parainfluenza Virus 4 Not Detected (Not Detect); Respiratory Syncytial Virus Not Detected (Not Detect)
[2022-05-28 11:09] LABS: SARS- CoV-2 Detected (Not Detecte)
[2022-05-28 11:17] LABS: Add Manual Diff / Slide Review NO; Basophils Absolute Auto 100 /uL (0-100); Basophils Percent Auto 0.7 % (0-2); Eosinophils Absolute Auto 100 /uL (0-450); Eosinophils Percent Auto 1.3 % (2-4); Hematocrit 35.5 % (36-46); Hemoglobin 11.5 g/dL (12.0-16.0); Lymphocytes Absolute Auto 600 /uL (1100-4500); Lymphocytes Percent Auto 6.3 % (25-40); Mean Corpuscular HGB Conc 32.3 % (30-36); Mean Corpuscular Hemoglobin 27.4 PG (26-34); Mean Corpuscular Volume 84.6 fL (80-100); Monocytes Absolute Auto 500 /uL (0-900); Monocytes Percent Auto 4.5 % (3-14); Neutrophils Absolute Auto 8900 /uL (1500-7000); Neutrophils Percent Auto 87.2 % (50-75); Platelet Count 423 X10^3/uL (150-400); Red Cell Distribution Width 17.2 % (11.6-14.8); White Blood Cell Count 10.2 X10^3/uL (4.5-11.0)
--- NOTE | 2022-05-28 11:19 | PC.NURSE ---
lab requested new draw, unable to process original, resent at 1050. Family at bedside
[2022-05-28 11:22] LABS: Fractionated Inspired Oxygen 45; HCO3 ABG 28 mmol/L (22-26); Oxygen Saturation ABG 100 % (95-100); PCO2 ABG 43.9 mmHg (35-45); PO2 ABG 170 mmHg (80-100); TCO2 ABG 29 mmol/L (21-31); pH ABG 7.41 (7.35-7.45)
[2022-05-28 11:32] LABS: INR 1.2 (0.9-1.3); Prothrombin Time 13.3 SECONDS (10.1-12.7)
[2022-05-28 11:41] LABS: Acetaminophen < 10 ug/mL (10-30); Alanine Aminotransferase 19 IU/L (<35); Albumin 3.2 g/dL (3.5-5.0); Albumin Globulin Ratio 0.9 (1.0-2.8); Alkaline Phosphatase 92 U/L (38-126); Aspartate Aminotransferase 36 IU/L (14-36); BUN Creatinine Ratio 18.5 (6-22); Bilirubin Total 0.4 mg/dL (0.2-1.3); Blood Urea Nitrogen 10 mg/dL (7-17); Calcium 9.1 mg/dL (8.4-10.2); Carbon Dioxide 24 mmol/L (22-32); Chloride 105 mmol/L (98-107); Creatine Kinase 75 U/L (30-135); Estimated Glomerular Filt Rate > 60 mL/min (>60); Ethanol (ETOH) < 10 mg/dL; Globulin 3.5 g/dL (1.7-4.1); Glucose 103 mg/dL (80-110); HEMOLYSIS 18 (0-50); Potassium 3.5 mmol/L (3.4-5.1); Salicylate 1.2 mg/dL (<20); Sodium 140 mmol/L (137-145); Total Protein 6.7 g/dL (6.3-8.2)
[2022-05-28 11:53] LABS: Lactate (Lactic Acid) 0.8 mmol/L (0.7-2.1); NT-proBNP (BNP-Adult 18+) 1040 pg/mL (<125); Troponin I 0.019 ng/mL (0.01-0.034)
[2022-05-28 11:57] LABS: PTT Partial Thromboplastin Tim 26 SECONDS (26-36); Procalcitonin 0.04 ng/mL (<0.5)
[2022-05-28 11:58] LABS: Prolactin 6.7 ng/mL (3.0-18.6)
--- NOTE | 2022-05-28 13:37 | PC.NURSE ---
robert canada removed. Pt temp 98.1. warm blankets applied.
--- NOTE | 2022-05-28 16:23 | P.HP_ITS ---
History of Present Illness History of Present Illness Date Patient Seen: 05/28/22 Time Patient Seen: 16:23 Chief complaint: unresponsive? stroke last nov Narrative: 72-year-old female well known to me as I a.m. her PCP who was found by her spouse unresponsive this morning. She has chronic pain syndrome element of fibromyalgia and more recently significant severe mouth pain that has defied diagnosis (thought to be perhaps related to herpes virus infection or zoster previously but cultures negative). She apparently was having increasing symptoms yesterday and by all reports most likely took additional medication. She was found to be unable to protect her airway did not respond to Narcan was intubated. She is been very easy to ventilate she is been hemodynamically stable she is on propofol for sedation Family did go back and count her number of tablets in it appears she took a large overdose of baclofen (there are approximately 50+ tablets missing from her bottle). Poison control was contacted by the emergency department and they felt as though this was a classic presentation for baclofen overdose and may take up to 48 hours plus for that to completely resolve. Patient will likely be minimally responsive if at all and is at some risk of seizures secondary to the baclofen overdose. Intubation for airway protection and propofol for sedation and seizure prophylaxis makes sense overall Patient also tested positive for COVID. She tested negative when admitted just before [place]. She of course does not show evidence of any respiratory compromise is easy to ventilate on the ventilator etcetera. She was admitted here just before [place] for possible dehydration with some tonic clonic kind of motions either myoclonic jerks verses an exacerbation of her chronic tardive dyskinesia verses other. She improved significantly with IV hydration alone was discharged home after about 36 hours of admission. Per patient's spouse she is continue though to have increasing mouth symptoms been increasingly sort of disordered in her thinking very difficult to please and fairly agitated. This is kind of an exacerbation of her baseline status per spouse and my observations as well at least from time to time. As above patient being treated with chronic Dilaudid and baclofen for chronic back pain as well as this relatively new mouth pain. This oral pain is been fully evaluated locally, and at the [facility], and at the [facility]. Diagnosis is thus far not been found. At 1 point was thought as though she had herpes simplex virus on 1 culture but next culture was negative and there was some question about the original culture as she had an obvious cold sore at the time. Thus far only treatment that has been offered her has been the Dilaudid. She is been hesitant to eat because of the severe mouth pain and has had some significant weight loss because of that. She also has a diagnosis of fibromyalgia and chronic migraine disorder as well as severe depression and anxiety. She is followed by Psychiatry here locally as well. This began with her polypharmacy admission back little over year ago. Patient has had issues with polypharmacy previously with lots of significant side effects including probably the tardive dyskinesia secondary to either quetiapine that she uses for insomnia or metoclopramide she was using previously for chronic abdominal symptoms nausea associated with her migraine headache disorder. She is had other inadvertent medication overdoses, including admission to the hospital the end of 2020 although at that time she did not require intubation for airway protection. Medications were adjusted and she is done well since. Without consulting the full length the extent of her medical record both in the old EMR as well as the new EMR I seem to recall many episodes of similar presentations in the past with altered mental status to a mild degree all the way to yesenia encephalopathy although again I think this is the first time she is required intubation In any event since intubation she is been hemodynamically stable easy to ventilate and quite stable. She is admitted to the hospital for continued supportive care while waiting detoxification of presumed baclofen overdose Patient History Medical History Acquired hypothyroidism (02/10/11) Asthma Chronic migraine without aura without status migrainosus, not intractable Chronic pain syndrome Depression Depression Dorsalgia (07/28/15) Fibromyalgia (09/06/13) Gastroesophageal reflux disease without esophagitis (02/10/11) Generalized anxiety disorder HLD (hyperlipidemia) Hypertension Loosening of hardware in spine Osteoporosis (05/07/15) Recurrent major depressive disorder, in partial remission (02/10/11) Spinal stenosis at L4-L5 level Systemic lupus erythematosus (02/10/11) Tardive dyskinesia Uncomplicated opioid dependence (12/14/15) Surgical History Anesthesia History of arthroplasty of left shoulder (~2013) History of hip replacement History of surgery History of total right hip arthroplasty (~2009) Hx of arthroscopy of left knee Hx of lumbosacral spine surgery (~05/2015) Hx of spinal fusion (~1984) S/P cholecystectomy (~1993) S/P LASIK surgery of both eyes Status post appendectomy Status post tubal ligation Family & Social History Family History Father Family history of polycythemia Mother Family history of CHF (congestive heart failure) Social History: household members spouse lives independently Yes caregiver/support person No Tobacco & Substance use: Smoking Status Former smoker alcohol intake never alcohol intake frequency 0-2 drinks per day Substance Use Type does not use Meds Home Medications and Allergies Home Medications Medication Instructions Recorded Confirmed Type risedronate 150 mg tablet 150 mg PO QMONTH #12 tabs 08/10/20 05/28/22 Rx amlodipine 10 mg tablet 10 mg PO DAILY #90 tabs 06/29/21 05/28/22 Rx trazodone 100 mg tablet 100 mg PO BEDTIME #90 tabs 06/29/21 05/28/22 Rx benzonatate 100 mg capsule 100 mg PO TID PRN cough #60 caps 06/30/21 05/28/22 Rx rizatriptan 10 mg tablet 10 mg PO .COMPLEX PRN migraine 07/30/21 05/28/22 Rx headache #6 tabs simvastatin 20 mg tablet 20 mg PO DAILY #90 tabs 11/02/21 05/28/22 Rx pilocarpine HCl 5 mg tablet 5 mg PO QID #368 tabs 01/05/22 05/28/22 Rx sertraline 50 mg tablet 150 mg PO DAILY #90 tabs 03/28/22 05/28/22 Rx omeprazole 40 mg capsule,delayed 40 mg PO BID #180 caps 04/18/22 05/28/22 Rx release baclofen 5 mg tablet 5 mg PO TID 05/19/22 05/28/22 History ferrous sulfate 325 mg (65 mg 325 mg PO DAILY #30 tabs 05/21/22 05/28/22 Rx iron) tablet amantadine HCl 100 mg tablet 100 mg PO QAM 05/28/22 05/28/22 History amantadine HCl 100 mg tablet 200 mg PO QPM 05/28/22 05/28/22 History hydromorphone 4 mg tablet 4 mg PO Q4HR PRN Pain (Scale Score 05/28/22 05/28/22 History 7-10) metoprolol tartrate 50 mg tablet 50 mg PO DAILY 05/28/22 05/28/22 History potassium chloride 8 mEq 8 meq PO DAILY 05/28/22 05/28/22 History tablet,extended release valsartan 160 mg tablet 160 mg PO BID 05/28/22 05/28/22 History Allergies Allergy/AdvReac Type Severity Reaction Status Date / Time adhesive Allergy Mild BLISTERS, Verified 05/28/22 09:26 PULL SKIN OFF codeine [CODEINE] AdvReac Severe nausea, Verified 05/28/22 09:26 triggers migraines morphine [MORPHINE] AdvReac Severe n&v, can Verified 05/28/22 09:26 take if premedicated zolpidem [From Ambien] AdvReac Severe sleep Verified 05/28/22 09:26 eating, strange behavior alendronate sodium AdvReac Intermediate Stomach Verified 05/28/22 09:26 [From Fosamax] issues Review of Systems Review of Systems ROS: Yes unobtainable due to endotracheal tube Exam Vital Signs (past 8 hours): - 05/28/22 08:30 05/28/22 08:34 05/28/22 08:34 Temperature Pulse Rate 51 L 50 L Respiratory Rate 28 H 18 Blood Pressure 211/94 H Pulse Oximetry 100 100 Oxygen Delivery Method 05/28/22 08:36 05/28/22 08:36 05/28/22 08:40 Temperature Pulse Rate 48 L 47 L Respiratory Rate 18 18 Blood Pressure 158/71 H Pulse Oximetry 100 99 Oxygen Delivery Method 05/28/22 08:40 05/28/22 08:50 05/28/22 08:50 Temperature Pulse Rate 51 L Respiratory Rate 17 Blood Pressure 154/66 H 197/88 H Pulse Oximetry 99 Oxygen Delivery Method 05/28/22 09:00 05/28/22 09:01 05/28/22 09:01 Temperature Pulse Rate 47 L 49 L Respiratory Rate 20 21 Blood Pressure 196/86 H Pulse Oximetry 100 99 Oxygen Delivery Method 05/28/22 09:10 05/28/22 09:10 05/28/22 09:21 Temperature 96.8 F L Pulse Rate 50 L Respiratory Rate 22 Blood Pressure 171/76 H 201/85 H Pulse Oximetry 100 Oxygen Delivery Method 05/28/22 09:21 05/28/22 09:30 05/28/22 09:31 Temperature 96.8 F L 96.8 F L Pulse Rate 47 L 48 L Respiratory Rate 19 19 Blood Pressure 188/81 H Pulse Oximetry 100 99 Oxygen Delivery Method 05/28/22 09:31 05/28/22 09:40 05/28/22 09:40 Temperature 96.8 F L 96.8 F L Pulse Rate 49 L 48 L Respiratory Rate 20 20 Blood Pressure 178/73 H Pulse Oximetry 99 97 Oxygen Delivery Method 05/28/22 09:50 05/28/22 09:50 05/28/22 10:00 Temperature 96.8 F L Pulse Rate 48 L Respiratory Rate 18 Blood Pressure 178/74 H 172/79 H Pulse Oximetry 97 Oxygen Delivery Method 05/28/22 10:00 05/28/22 10:10 05/28/22 10:10 Temperature 96.8 F L 96.6 F L Pulse Rate 48 L 48 L Respiratory Rate 18 18 Blood Pressure 181/76 H Pulse Oximetry 100 100 Oxygen Delivery Method 05/28/22 10:19 05/28/22 10:20 05/28/22 10:20 Temperature 96.6 F L 96.6 F L Pulse Rate 47 L 47 L Respiratory Rate 18 18 Blood Pressure 161/63 H Pulse Oximetry 100 100 Oxygen Delivery Method 05/28/22 10:30 05/28/22 10:30 05/28/22 10:40 Temperature 96.6 F L Pulse Rate 47 L Respiratory Rate 18 Blood Pressure 144/67 H 138/62 Pulse Oximetry 100 Oxygen Delivery Method 05/28/22 10:40 05/28/22 10:50 05/28/22 10:50 Temperature 96.6 F L 96.6 F L Pulse Rate 46 L 47 L Respiratory Rate 18 18 Blood Pressure 132/59 L Pulse Oximetry 100 100 Oxygen Delivery Method 05/28/22 11:00 05/28/22 11:00 05/28/22 11:10 Temperature 96.4 F L Pulse Rate 48 L Respiratory Rate 18 Blood Pressure 141/65 H 150/64 H Pulse Oximetry 99 Oxygen Delivery Method 05/28/22 11:10 05/28/22 11:30 05/28/22 11:30 Temperature 96.4 F L 96.4 F L Pulse Rate 47 L 47 L Respiratory Rate 18 18 Blood Pressure 169/69 H Pulse Oximetry 99 99 Oxygen Delivery Method 05/28/22 12:00 05/28/22 12:00 05/28/22 12:30 Temperature 96.8 F L Pulse Rate 49 L Respiratory Rate 18 Blood Pressure 168/71 H 158/72 H Pulse Oximetry 99 Oxygen Delivery Method 05/28/22 12:30 05/28/22 13:00 05/28/22 13:01 Temperature 97.5 F L 98.1 F Pulse Rate 51 L 56 L Respiratory Rate 18 28 H Blood Pressure 172/78 H Pulse Oximetry 98 97 Oxygen Delivery Method 05/28/22 13:01 05/28/22 13:30 05/28/22 13:32 Temperature 98.1 F 98.1 F 98.1 F Pulse Rate 55 L 53 L 53 L Respiratory Rate 46 H 22 18 Blood Pressure Pulse Oximetry 97 95 96 Oxygen Delivery Method 05/28/22 13:32 05/28/22 14:00 05/28/22 14:00 Temperature 97.9 F Pulse Rate 51 L Respiratory Rate 18 Blood Pressure 125/64 106/53 L Pulse Oximetry 96 Oxygen Delivery Method 05/28/22 14:30 05/28/22 14:30 05/28/22 14:45 Temperature 97.9 F Pulse Rate 51 L Respiratory Rate 18 Blood Pressure 104/49 L 103/51 L Pulse Oximetry 98 Oxygen Delivery Method 05/28/22 14:45 05/28/22 15:00 05/28/22 15:00 Temperature 97.9 F 98.1 F Pulse Rate 51 L 51 L Respiratory Rate 18 18 Blood Pressure 104/51 L Pulse Oximetry 99 99 Oxygen Delivery Method Mechanical Ventilation 05/28/22 15:15 05/28/22 15:15 05/28/22 15:30 Temperature 98.1 F Pulse Rate 52 L Respiratory Rate 18 Blood Pressure 104/55 L 118/58 L Pulse Oximetry 99 Oxygen Delivery Method 05/28/22 15:30 Temperature 98.1 F Pulse Rate 52 L Respiratory Rate 18 Blood Pressure Pulse Oximetry 100 Oxygen Delivery Method Oxygen Delivery Method Mechanical Ventilation Objective ECG Impression: Sinus bradycardia without evidence of acute ischemia or other significant dysrhythmia, specifically no ST-T wave changes Imaging CT scan - head: Radiologist's impression: PROCEDURE:? CT STROKE ? INDICATIONS:? unresponsive ? TECHNIQUE:? Noncontrast 4.5 mm thick angled axial sections acquired from the foramen magnum to the vertex, with coronal reformats.? For radiation dose reduction, the following was used:? automated exposure control, adjustment of mA and/or kV according to patient size.? ? COMPARISON:? None. ? FINDINGS:? Image quality:? Severe motion artifact. ? CSF spaces:? Basal cisterns are patent.? No extra-axial fluid collections.? The ventricles are symmetric in size and shape.? ? Brain:? No obvious acute intracranial hemorrhage or large territory infarct.? No mass effect or midline shift. ? Skull and face:? Calvarium and visualized facial bones appear intact, without suspicious lesions.? ? Sinuses:? Visualized sinuses and mastoids are clear.? ? IMPRESSION:? Severely motion degraded exam with no obvious acute finding. CTA Head/Neck: Radiologist's impression: PROCEDURE:? CT ANGIO HEAD AND NECK ? INDICATIONS:? unresponsive ? TECHNIQUE:? ? After the administration of intravenous contrast, 1 mm thick sections acquired from the aortic arch through the [place] of [place].? Post-contrast 4.5 mm thick sections then re-acquired from the foramen magnum to the vertex.? 3-dimensional cmflbuh-ixqytneoq-qyigkwvgni (MIP) and/or volume rendering reformats were acquired of the central intracranial vasculature and neck separately. For radiation dose reduction, the following was used:? automated exposure control, adjustment of mA and/or kV according to patient size.? ? COMPARISON:? [facility], CT, CT ANGIO HEAD AND NECK, 04/03/2021, 8:10. ? FINDINGS:? Image quality:? Excellent.? ? ? HEAD CT ANGIOGRAPHY:? Anterior circulation:? Intracranial internal carotid arteries are normal in size and flow.? The flow within the paired anterior cerebral arteries is normal and symmetric.? The flow within the middle cerebral arteries is normal and symmetric.? The anterior communicating artery is seen.? No aneurysms are seen.? ? Posterior circulation:? Visualized portions of the vertebral arteries demonstra te normal caliber, and join to form a normal appearing basilar artery.? Flow within the posterior cerebral arteries is normal and symmetric.? No aneurysms are seen.? ? NECK CT ANGIOGRAPHY:? Carotid system:? The great vessels demonstrate a conventional anatomy as they arise from the aortic arch.? The origins of the common carotid arteries appear patent.? Mild atherosclerotic plaque at the origin of the left common carotid without stenosis.? The common carotid arteries demonstrate normal caliber and courses.? The bifurcation regions are both widely patent.? The internal carotid arteries demonstrate normal calibers and courses.? ? Posterior circulation:? The origins of the vertebral arteries both appear widely patent.? The more superior extracranial portions of both vertebral arteries also de monstrate normal courses and calibers.? They join to form a normal appearing basilar artery.? ? Soft tissues:? Heterogenous thyroid is remains stable from the prior ? Bones:? No suspicious bony lesions.? Visualized cervical spine appears normally aligned.? Degenerative disc disease and arthropathy in the cervical spine is also stable. ? ? IMPRESSION:? ? Study is limited by motion artifact. ? Within this limitation, no evidence of large vessel occlusion, hemodynamically significant stenosis, aneurysm or vascular malformation noted in the head and neck ? Chest x-ray: Radiologist's impression: [address] [id number] XRay Report Signed Patient: Melanie Barclay MR#: [id number] : 1950 Acct:[id number] Age/Sex: 72 / F Date of Service: 05/28/22 Loc: ED Accession Number: [id number] ?? Procedure: XR chest 1V Ordering Provider: Emilee Elizalde D.O. PROCEDURE:? XR CHEST 1V ? INDICATIONS:? unresposive intubated ? TECHNIQUE:? One view of the chest was acquired.? ? COMPARISON:? [facility], CR, XR CHEST 1V, 05/19/2022, 17:56. ? FINDINGS:? ? Surgical changes and devices:? Endotracheal tube good position 3.7 cm above the qamar.? Left shoulder arthroplasty in place.? Thoracic epidural stimulator with pulse generator noted.? Vertebroplasty changes in upper lumbar spine. Generalized decrease in osseous mineralization noted. ? Lungs and pleura:? There is hyperinflation and chronic interstitial changes without focal infiltrate, pleural effusion or pneumothorax. ? Mediastinum:? Mediastinal contours appear normal.? Heart size is enlarged.? ? Bones and chest wall:? No suspicious bony lesions.? Overlying soft tissues appear unremarkable.? ? IMPRESSION:? ? Endotracheal tube in good position. ? Hyperinflation and chronic interstitial changes without pneumothorax Labs Result Diagrams: 05/29/22 04:35 05/29/22 04:35 Labs: Laboratory Results - last 24 hr 05/28/22 05/28/22 05/28/22 09:44 09:52 09:52 WBC RBC Hgb Hct MCV MCH MCHC RDW Plt Count Neut % (Auto) Lymph % (Auto) [place] % (Auto) Eos % (Auto) Baso % (Auto) Neut # (Auto) Lymph # (Auto) [place] # (Auto) Eos # (Auto) Baso # (Auto) PT INR APTT ABG pH ABG pCO2 ABG pO2 ABG HCO3 ABG Total CO2 ABG O2 Saturation ABG Base Excess FiO2 Sodium Potassium Chloride Carbon Dioxide BUN Creatinine Estimated GFR BUN/Creatinine Ratio Glucose Lactate Calcium Total Bilirubin AST ALT Alkaline Phosphatase Total Creatine Kinase CK-MB (CK-2) CK-MB (CK-2) Rel Index Troponin I NT-Pro-B Natriuret Pep Total Protein Albumin Globulin Albumin/Globulin Ratio Procalcitonin Prolactin Urine Color Yellow Urine Appearance Clear Urine pH 6.5 Ur Specific [place] 1.010 Urine Protein Negative Urine Glucose (UA) Negative Urine Ketones Trace H Urine Occult Blood Negative Urine Nitrate Negative Urine Bilirubin Negative Urine Urobilinogen 0.2 Ur Leukocyte Esterase Negative Urine RBC None seen Urine WBC None seen Urine Bacteria None seen Ur Culture Indicated? Cult not indicated Salicylates U Opiates 300ng/mL cut Positive H Ur Oxycodone Screen Negative Urine Methadone Screen Negative Acetaminophen Ur Barbiturates Screen Negative U Tricyclic Antidepress Negative Ur Phencyclidine Scrn Negative Ur Amphetamines Screen Negative U Methamphetamines Scrn Negative Ur MDMA Scrn (Ecstasy) Negative U Benzodiazepines Scrn Negative Urine Cocaine Screen Negative U Marijuana (THC) Screen Negative Ethyl Alcohol Chlamy pneumoniae PCR Not detected Adenovirus (PCR) Not detected B. pertussis DNA (PCR) Not detected B.parapertussis DNA PCR Not detected Coronavirus OC43 (PCR) Not detected Coronavirus HKU1 (PCR) Not detected Coronavirus 229E (PCR) Not detected SARS-CoV-2 (PCR) Detected H Coronavirus NL63 (PCR) Not detected Human Metapneumovir PCR Not detected Influenza Type A (PCR) Not detected Influenza Type B (PCR) Not detected M. pneumoniae (PCR) Not detected Parainfluenza 1 (PCR) Not detected Parainfluenza 2 (PCR) Not detected Parainfluenza 3 (PCR) Not detected Parainfluenza 4 (PCR) Not detected RSV (PCR) Not detected Entero/Rhino (PCR) Not detected 05/28/22 05/28/22 05/28/22 10:55 10:55 10:55 WBC 10.2 RBC 4.20 Hgb 11.5 L Hct 35.5 L MCV 84.6 MCH 27.4 MCHC 32.3 RDW 17.2 H Plt Count 423 H Neut % (Auto) 87.2 H Lymph % (Auto) 6.3 L [place] % (Auto) 4.5 Eos % (Auto) 1.3 L Baso % (Auto) 0.7 Neut # (Auto) 8900 H Lymph # (Auto) 600 L [place] # (Auto) 500 Eos # (Auto) 100 Baso # (Auto) 100 PT 13.3 H D INR 1.2 APTT ABG pH ABG pCO2 ABG pO2 ABG HCO3 ABG Total CO2 ABG O2 Saturation ABG Base Excess FiO2 Sodium 140 Potassium 3.5 Chloride 105 Carbon Dioxide 24 BUN 10 Creatinine 0.54 Estimated GFR > 60 BUN/Creatinine Ratio 18.5 Glucose 103 Lactate Calcium 9.1 Total Bilirubin 0.4 AST 36 ALT 19 Alkaline Phosphatase 92 Total Creatine Kinase 75 CK-MB (CK-2) TNP CK-MB (CK-2) Rel Index TNP Troponin I 0.019 NT-Pro-B Natriuret Pep 1040 H Total Protein 6.7 Albumin 3.2 L Globulin 3.5 Albumin/Globulin Ratio 0.9 L Procalcitonin 0.04 Prolactin Urine Color Urine Appearance Urine pH Ur Specific [place] Urine Protein Urine Glucose (UA) Urine Ketones Urine Occult Blood Urine Nitrate Urine Bilirubin Urine Urobilinogen Ur Leukocyte Esterase Urine RBC Urine WBC Urine Bacteria Ur Culture Indicated? Salicylates 1.2 U Opiates 300ng/mL cut Ur Oxycodone Screen Urine Methadone Screen Acetaminophen < 10 Ur Barbiturates Screen U Tricyclic Antidepress Ur Phencyclidine Scrn Ur Amphetamines Screen U Methamphetamines Scrn Ur MDMA Scrn (Ecstasy) U Benzodiazepines Scrn Urine Cocaine Screen U Marijuana (THC) Screen Ethyl Alcohol < 10 Chlamy pneumoniae PCR Adenovirus (PCR) B. pertussis DNA (PCR) B.parapertussis DNA PCR Coronavirus OC43 (PCR) Coronavirus HKU1 (PCR) Coronavirus 229E (PCR) SARS-CoV-2 (PCR) Coronavirus NL63 (PCR) Human Metapneumovir PCR Influenza Type A (PCR) Influenza Type B (PCR) M. pneumoniae (PCR) Parainfluenza 1 (PCR) Parainfluenza 2 (PCR) Parainfluenza 3 (PCR) Parainfluenza 4 (PCR) RSV (PCR) Entero/Rhino (PCR) 05/28/22 05/28/22 05/28/22 10:55 10:55 10:55 WBC RBC Hgb Hct MCV MCH MCHC RDW Plt Count Neut % (Auto) Lymph % (Auto) [place] % (Auto) Eos % (Auto) Baso % (Auto) Neut # (Auto) Lymph # (Auto) [place] # (Auto) Eos # (Auto) Baso # (Auto) PT INR APTT 26 ABG pH ABG pCO2 ABG pO2 ABG HCO3 ABG Total CO2 ABG O2 Saturation ABG Base Excess FiO2 Sodium Potassium Chloride Carbon Dioxide BUN Creatinine Estimated GFR BUN/Creatinine Ratio Glucose Lactate 0.8 Calcium Total Bilirubin AST ALT Alkaline Phosphatase Total Creatine Kinase CK-MB (CK-2) CK-MB (CK-2) Rel Index Troponin I NT-Pro-B Natriuret Pep Total Protein Albumin Globulin Albumin/Globulin Ratio Procalcitonin Prolactin 6.7 Urine Color Urine Appearance Urine pH Ur Specific [place] Urine Protein Urine Glucose (UA) Urine Ketones Urine Occult Blood Urine Nitrate Urine Bilirubin Urine Urobilinogen Ur Leukocyte Esterase Urine RBC Urine WBC Urine Bacteria Ur Culture Indicated? Salicylates U Opiates 300ng/mL cut Ur Oxycodone Screen Urine Methadone Screen Acetaminophen Ur Barbiturates Screen U Tricyclic Antidepress Ur Phencyclidine Scrn Ur Amphetamines Screen U Methamphetamines Scrn Ur MDMA Scrn (Ecstasy) U Benzodiazepines Scrn Urine Cocaine Screen U Marijuana (THC) Screen Ethyl Alcohol Chlamy pneumoniae PCR Adenovirus (PCR) B. pertussis DNA (PCR) B.parapertussis DNA PCR Coronavirus OC43 (PCR) Coronavirus HKU1 (PCR) Coronavirus 229E (PCR) SARS-CoV-2 (PCR) Coronavirus NL63 (PCR) Human Metapneumovir PCR Influenza Type A (PCR) Influenza Type B (PCR) M. pneumoniae (PCR) Parainfluenza 1 (PCR) Parainfluenza 2 (PCR) Parainfluenza 3 (PCR) Parainfluenza 4 (PCR) RSV (PCR) Entero/Rhino (PCR) 05/28/22 10:58 WBC RBC Hgb Hct MCV MCH MCHC RDW Plt Count Neut % (Auto) Lymph % (Auto) [place] % (Auto) Eos % (Auto) Baso % (Auto) Neut # (Auto) Lymph # (Auto) [place] # (Auto) Eos # (Auto) Baso # (Auto) PT INR APTT ABG pH 7.41 ABG pCO2 43.9 ABG pO2 170 H ABG HCO3 28 H ABG Total CO2 29 ABG O2 Saturation 100 ABG Base Excess 3.0 H FiO2 45 Sodium Potassium Chloride Carbon Dioxide BUN Creatinine Estimated GFR BUN/Creatinine Ratio Glucose Lactate Calcium Total Bilirubin AST ALT Alkaline Phosphatase Total Creatine Kinase CK-MB (CK-2) CK-MB (CK-2) Rel Index Troponin I NT-Pro-B Natriuret Pep Total Protein Albumin Globulin Albumin/Globulin Ratio Procalcitonin Prolactin Urine Color Urine Appearance Urine pH Ur Specific [place] Urine Protein Urine Glucose (UA) Urine Ketones Urine Occult Blood Urine Nitrate Urine Bilirubin Urine Urobilinogen Ur Leukocyte Esterase Urine RBC Urine WBC Urine Bacteria Ur Culture Indicated? Salicylates U Opiates 300ng/mL cut Ur Oxycodone Screen Urine Methadone Screen Acetaminophen Ur Barbiturates Screen U Tricyclic Antidepress Ur Phencyclidine Scrn Ur Amphetamines Screen U Methamphetamines Scrn Ur MDMA Scrn (Ecstasy) U Benzodiazepines Scrn Urine Cocaine Screen U Marijuana (THC) Screen Ethyl Alcohol Chlamy pneumoniae PCR Adenovirus (PCR) B. pertussis DNA (PCR) B.parapertussis DNA PCR Coronavirus OC43 (PCR) Coronavirus HKU1 (PCR) Coronavirus 229E (PCR) SARS-CoV-2 (PCR) Coronavirus NL63 (PCR) Human Metapneumovir PCR Influenza Type A (PCR) Influenza Type B (PCR) M. pneumoniae (PCR) Parainfluenza 1 (PCR) Parainfluenza 2 (PCR) Parainfluenza 3 (PCR) Parainfluenza 4 (PCR) RSV (PCR) Entero/Rhino (PCR) Assessment & Plan Assessment & Plan narrative: 1. Unintentional overdose of baclofen (presumed)-patient intubated for airway protection. Continue to monitor wall patient self detoxify his medication. Continue supportive care. Will need to re-evaluate patient's overall medications/polypharmacy as an outpatient after discharge. Will also obtain assistance from Psychiatry as well 2. Respiratory-patient intubated and easily ventilated. She is well sedated with propofol. I will defer management of her ventilator and associated sedation etcetera including weaning and discontinuation of ventilatory support to the tele ICU title lawyer. 3. [id number] test positive for COVID-19. She is fully vaccinated. Perhaps that was the source of her increased musculoskeletal symptoms for which she took increase dose of baclofen. Patient is easy to ventilate. Do not believe there is any significant respiratory compromise. Patient given her age and comorbidities is at relatively high risk of complications regarding her COVID-19 infection. I would treated with Paxlovid as an outpatient and so will initiate remdesivir here as an inpatient parenterally. 4. GERD-patient with history of significant GERD. Would benefit from ongoing acid blocking agent and will initiate IV famotidine 5. Hypertension-patient not be able take any of her usual oral medications. For now specially with the sedation on board patient is not hypertensive. Continue to monitor 6. Fibromyalgia/chronic pain/chronic migraine/hypothyroidism/depression-patient unable take any of her usual oral medications. This should be relatively short duration of intubation while we await the baclofen metabolism. Okay to remain off her chronic medications for now 7. VTE prophylaxis-patient would certainly benefit from Lovenox which is been ordered 8. Code status-obviously patient is a full code as she is already intubated and spouse is fully on board with this. COVID-19 COVID-19 status: Positive Result date/Date tested (Pos, Neg/Pending): 05/28/22 Time Spent With Patient Critical Care time: I spent a total of 45 minutes of critical care time on this patient's care today; this time is exclusive of procedural time.
--- NOTE | 2022-05-28 18:06 | P.TELICUCN_ITS ---
History of Present Illness Consult details IF CAMERA ACTIVATED, patient seen via real-time interactive audiovisual communication: Camera activated Date Patient Seen: 05/28/22 Chief complaint: unresponsive? stroke last nov Reason for consult: Acute respiratory failure Requesting provider: Pasquale Segura Consent obtained for tele-senior chemical process engineer care: Yes Patient Location: ICU Provider location (State): [place] Other participants/roles: Bedside RN Narrative: Patient is a 72 year old female with history of chronic pain syndrome secondary to fibromyalgia who presents is admitted to ICU for baclofen overdose. By report, patient was noted to have increased pain symptoms and took additional baclofen tablets (50 tablets) for relieve. Today, family found her unresponsive and she wastaken to the ER. Narcan was attempted but unsuccessful which she was intubated. CT head showed no acute abnormality. CXR showed ETT above qamar w/ bibasilar reticular changes. Patient was tested positive for COVID-19. Poison control contacted and recommended supportive care. At the time of my camera assessment, patient is intubated and sedated. On propofol 20 mcg. Vent setting -> PEEP 5 and FiO2 35%. [facility] Medical History Acquired hypothyroidism (02/10/11) Asthma Chronic migraine without aura without status migrainosus, not intractable Chronic pain syndrome Depression Depression Dorsalgia (07/28/15) Fibromyalgia (09/06/13) Gastroesophageal reflux disease without esophagitis (02/10/11) Generalized anxiety disorder HLD (hyperlipidemia) Hypertension Loosening of hardware in spine Osteoporosis (05/07/15) Recurrent major depressive disorder, in partial remission (02/10/11) Spinal stenosis at L4-L5 level Systemic lupus erythematosus (02/10/11) Tardive dyskinesia Uncomplicated opioid dependence (12/14/15) Surgical History Anesthesia History of arthroplasty of left shoulder (~2013) History of hip replacement History of surgery History of total right hip arthroplasty (~2009) Hx of arthroscopy of left knee Hx of lumbosacral spine surgery (~05/2015) Hx of spinal fusion (~1984) S/P cholecystectomy (~1993) S/P LASIK surgery of both eyes Status post appendectomy Status post tubal ligation Family History Father Family history of polycythemia Mother Family history of CHF (congestive heart failure) Social History marital status: number of children: 2 household members: spouse lives independently: Yes caregiver/support person: No housing: apartment pets and animals: Yes education level: college 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 status: other 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: [employer] leisure activities: other Smoking Status: Former smoker Tobacco: How many years used: 0 quit status: quit date established second hand exposure: No alcohol intake: never substance use type: does not use Current Medications Current Medications Medications: Home Medications risedronate 150 mg tablet 150 mg PO QMONTH #12 tabs 08/10/20 [Rx Confirmed 05/28/22] amlodipine 10 mg tablet 10 mg PO DAILY #90 tabs 06/29/21 [Rx Confirmed 05/28/22] trazodone 100 mg tablet 100 mg PO BEDTIME #90 tabs 06/29/21 [Rx Confirmed 05/28/22] benzonatate 100 mg capsule 100 mg PO TID PRN cough #60 caps 06/30/21 [Rx Confirmed 05/28/22] rizatriptan 10 mg tablet 10 mg PO .COMPLEX PRN migraine headache #6 tabs 07/30/21 [Rx Confirmed 05/28/22] simvastatin 20 mg tablet 20 mg PO DAILY #90 tabs 11/02/21 [Rx Confirmed 05/28/22] pilocarpine HCl 5 mg tablet 5 mg PO QID #368 tabs 01/05/22 [Rx Confirmed 05/28/22] sertraline 50 mg tablet 150 mg PO DAILY #90 tabs 03/28/22 [Rx Confirmed 05/28/22] omeprazole 40 mg capsule,delayed release 40 mg PO BID #180 caps 04/18/22 [Rx Confirmed 05/28/22] baclofen 5 mg tablet 5 mg PO TID 05/19/22 [History Confirmed 05/28/22] ferrous sulfate 325 mg (65 mg iron) tablet 325 mg PO DAILY #30 tabs 05/21/22 [Rx Confirmed 05/28/22] amantadine HCl 100 mg tablet 100 mg PO QAM 05/28/22 [History Confirmed 05/28/22] amantadine HCl 100 mg tablet 200 mg PO QPM 05/28/22 [History Confirmed 05/28/22] hydromorphone 4 mg tablet 4 mg PO Q4HR PRN Pain (Scale Score 7-10) 05/28/22 [History Confirmed 05/28/22] metoprolol tartrate 50 mg tablet 50 mg PO DAILY 05/28/22 [History Confirmed 05/28/22] potassium chloride 8 mEq tablet,extended release 8 meq PO DAILY 05/28/22 [History Confirmed 05/28/22] valsartan 160 mg tablet 160 mg PO BID 05/28/22 [History Confirmed 05/28/22] Exam Vital Signs (past 8 hours): - 05/28/22 10:10 05/28/22 10:10 05/28/22 10:19 Temperature 96.6 F L 96.6 F L Pulse Rate 48 L 47 L Respiratory Rate 18 18 Blood Pressure 181/76 H Pulse Oximetry 100 100 Oxygen Delivery Method 05/28/22 10:20 05/28/22 10:20 05/28/22 10:30 Temperature 96.6 F L Pulse Rate 47 L Respiratory Rate 18 Blood Pressure 161/63 H 144/67 H Pulse Oximetry 100 Oxygen Delivery Method 05/28/22 10:30 05/28/22 10:40 05/28/22 10:40 Temperature 96.6 F L 96.6 F L Pulse Rate 47 L 46 L Respiratory Rate 18 18 Blood Pressure 138/62 Pulse Oximetry 100 100 Oxygen Delivery Method 05/28/22 10:50 05/28/22 10:50 05/28/22 11:00 Temperature 96.6 F L Pulse Rate 47 L Respiratory Rate 18 Blood Pressure 132/59 L 141/65 H Pulse Oximetry 100 Oxygen Delivery Method 05/28/22 11:00 05/28/22 11:10 05/28/22 11:10 Temperature 96.4 F L 96.4 F L Pulse Rate 48 L 47 L Respiratory Rate 18 18 Blood Pressure 150/64 H Pulse Oximetry 99 99 Oxygen Delivery Method 05/28/22 11:30 05/28/22 11:30 05/28/22 12:00 Temperature 96.4 F L Pulse Rate 47 L Respiratory Rate 18 Blood Pressure 169/69 H 168/71 H Pulse Oximetry 99 Oxygen Delivery Method 05/28/22 12:00 05/28/22 12:30 05/28/22 12:30 Temperature 96.8 F L 97.5 F L Pulse Rate 49 L 51 L Respiratory Rate 18 18 Blood Pressure 158/72 H Pulse Oximetry 99 98 Oxygen Delivery Method 05/28/22 13:00 05/28/22 13:01 05/28/22 13:01 Temperature 98.1 F 98.1 F Pulse Rate 56 L 55 L Respiratory Rate 28 H 46 H Blood Pressure 172/78 H Pulse Oximetry 97 97 Oxygen Delivery Method 05/28/22 13:30 05/28/22 13:32 05/28/22 13:32 Temperature 98.1 F 98.1 F Pulse Rate 53 L 53 L Respiratory Rate 22 18 Blood Pressure 125/64 Pulse Oximetry 95 96 Oxygen Delivery Method 05/28/22 14:00 05/28/22 14:00 05/28/22 14:30 Temperature 97.9 F Pulse Rate 51 L Respiratory Rate 18 Blood Pressure 106/53 L 104/49 L Pulse Oximetry 96 Oxygen Delivery Method 05/28/22 14:30 05/28/22 14:45 05/28/22 14:45 Temperature 97.9 F 97.9 F Pulse Rate 51 L 51 L Respiratory Rate 18 18 Blood Pressure 103/51 L Pulse Oximetry 98 99 Oxygen Delivery Method Mechanical Ventilation 05/28/22 15:00 05/28/22 15:00 05/28/22 15:15 Temperature 98.1 F Pulse Rate 51 L Respiratory Rate 18 Blood Pressure 104/51 L 104/55 L Pulse Oximetry 99 Oxygen Delivery Method 05/28/22 15:15 05/28/22 15:30 05/28/22 15:30 Temperature 98.1 F 98.1 F Pulse Rate 52 L 52 L Respiratory Rate 18 18 Blood Pressure 118/58 L Pulse Oximetry 99 100 Oxygen Delivery Method 05/28/22 15:45 05/28/22 15:45 05/28/22 16:00 Temperature 98.1 F Pulse Rate 52 L Respiratory Rate 18 Blood Pressure 132/62 135/64 Pulse Oximetry 100 Oxygen Delivery Method 05/28/22 16:00 05/28/22 16:15 05/28/22 16:15 Temperature 98.1 F 98.1 F Pulse Rate 53 L 54 L Respiratory Rate 18 19 Blood Pressure 135/63 Pulse Oximetry 100 100 Oxygen Delivery Method 05/28/22 16:30 05/28/22 16:30 Temperature 98.1 F Pulse Rate 54 L Respiratory Rate 22 Blood Pressure 145/67 H Pulse Oximetry 100 Oxygen Delivery Method Oxygen Delivery Method Mechanical Ventilation Narrative Exam Narrative: Intubated and sedated Objective Labs Result Diagrams: 05/28/22 10:55 05/28/22 10:55 Labs: Laboratory Results - last 24 hr 05/28/22 05/28/22 05/28/22 09:44 09:52 09:52 WBC RBC Hgb Hct MCV MCH MCHC RDW Plt Count Neut % (Auto) Lymph % (Auto) [place] % (Auto) Eos % (Auto) Baso % (Auto) Neut # (Auto) Lymph # (Auto) [place] # (Auto) Eos # (Auto) Baso # (Auto) PT INR APTT ABG pH ABG pCO2 ABG pO2 ABG HCO3 ABG Total CO2 ABG O2 Saturation ABG Base Excess FiO2 Sodium Potassium Chloride Carbon Dioxide BUN Creatinine Estimated GFR BUN/Creatinine Ratio Glucose Lactate Calcium Total Bilirubin AST ALT Alkaline Phosphatase Total Creatine Kinase CK-MB (CK-2) CK-MB (CK-2) Rel Index Troponin I NT-Pro-B Natriuret Pep Total Protein Albumin Globulin Albumin/Globulin Ratio Procalcitonin Prolactin Urine Color Yellow Urine Appearance Clear Urine pH 6.5 Ur Specific [place] 1.010 Urine Protein Negative Urine Glucose (UA) Negative Urine Ketones Trace H Urine Occult Blood Negative Urine Nitrate Negative Urine Bilirubin Negative Urine Urobilinogen 0.2 Ur Leukocyte Esterase Negative Urine RBC None seen Urine WBC None seen Urine Bacteria None seen Ur Culture Indicated? Cult not indicated Salicylates U Opiates 300ng/mL cut Positive H Ur Oxycodone Screen Negative Urine Methadone Screen Negative Acetaminophen Ur Barbiturates Screen Negative U Tricyclic Antidepress Negative Ur Phencyclidine Scrn Negative Ur Amphetamines Screen Negative U Methamphetamines Scrn Negative Ur MDMA Scrn (Ecstasy) Negative U Benzodiazepines Scrn Negative Urine Cocaine Screen Negative U Marijuana (THC) Screen Negative Ethyl Alcohol Chlamy pneumoniae PCR Not detected Adenovirus (PCR) Not detected B. pertussis DNA (PCR) Not detected B.parapertussis DNA PCR Not detected Coronavirus OC43 (PCR) Not detected Coronavirus HKU1 (PCR) Not detected Coronavirus 229E (PCR) Not detected SARS-CoV-2 (PCR) Detected H Coronavirus NL63 (PCR) Not detected Human Metapneumovir PCR Not detected Influenza Type A (PCR) Not detected Influenza Type B (PCR) Not detected M. pneumoniae (PCR) Not detected Parainfluenza 1 (PCR) Not detected Parainfluenza 2 (PCR) Not detected Parainfluenza 3 (PCR) Not detected Parainfluenza 4 (PCR) Not detected RSV (PCR) Not detected Entero/Rhino (PCR) Not detected 05/28/22 05/28/22 05/28/22 10:55 10:55 10:55 WBC 10.2 RBC 4.20 Hgb 11.5 L Hct 35.5 L MCV 84.6 MCH 27.4 MCHC 32.3 RDW 17.2 H Plt Count 423 H Neut % (Auto) 87.2 H Lymph % (Auto) 6.3 L [place] % (Auto) 4.5 Eos % (Auto) 1.3 L Baso % (Auto) 0.7 Neut # (Auto) 8900 H Lymph # (Auto) 600 L [place] # (Auto) 500 Eos # (Auto) 100 Baso # (Auto) 100 PT 13.3 H D INR 1.2 APTT ABG pH ABG pCO2 ABG pO2 ABG HCO3 ABG Total CO2 ABG O2 Saturation ABG Base Excess FiO2 Sodium 140 Potassium 3.5 Chloride 105 Carbon Dioxide 24 BUN 10 Creatinine 0.54 Estimated GFR > 60 BUN/Creatinine Ratio 18.5 Glucose 103 Lactate Calcium 9.1 Total Bilirubin 0.4 AST 36 ALT 19 Alkaline Phosphatase 92 Total Creatine Kinase 75 CK-MB (CK-2) TNP CK-MB (CK-2) Rel Index TNP Troponin I 0.019 NT-Pro-B Natriuret Pep 1040 H Total Protein 6.7 Albumin 3.2 L Globulin 3.5 Albumin/Globulin Ratio 0.9 L Procalcitonin 0.04 Prolactin Urine Color Urine Appearance Urine pH Ur Specific [place] Urine Protein Urine Glucose (UA) Urine Ketones Urine Occult Blood Urine Nitrate Urine Bilirubin Urine Urobilinogen Ur Leukocyte Esterase Urine RBC Urine WBC Urine Bacteria Ur Culture Indicated? Salicylates 1.2 U Opiates 300ng/mL cut Ur Oxycodone Screen Urine Methadone Screen Acetaminophen < 10 Ur Barbiturates Screen U Tricyclic Antidepress Ur Phencyclidine Scrn Ur Amphetamines Screen U Methamphetamines Scrn Ur MDMA Scrn (Ecstasy) U Benzodiazepines Scrn Urine Cocaine Screen U Marijuana (THC) Screen Ethyl Alcohol < 10 Chlamy pneumoniae PCR Adenovirus (PCR) B. pertussis DNA (PCR) B.parapertussis DNA PCR Coronavirus OC43 (PCR) Coronavirus HKU1 (PCR) Coronavirus 229E (PCR) SARS-CoV-2 (PCR) Coronavirus NL63 (PCR) Human Metapneumovir PCR Influenza Type A (PCR) Influenza Type B (PCR) M. pneumoniae (PCR) Parainfluenza 1 (PCR) Parainfluenza 2 (PCR) Parainfluenza 3 (PCR) Parainfluenza 4 (PCR) RSV (PCR) Entero/Rhino (PCR) 05/28/22 05/28/22 05/28/22 10:55 10:55 10:55 WBC RBC Hgb Hct MCV MCH MCHC RDW Plt Count Neut % (Auto) Lymph % (Auto) [place] % (Auto) Eos % (Auto) Baso % (Auto) Neut # (Auto) Lymph # (Auto) [place] # (Auto) Eos # (Auto) Baso # (Auto) PT INR APTT 26 ABG pH ABG pCO2 ABG pO2 ABG HCO3 ABG Total CO2 ABG O2 Saturation ABG Base Excess FiO2 Sodium Potassium Chloride Carbon Dioxide BUN Creatinine Estimated GFR BUN/Creatinine Ratio Glucose Lactate 0.8 Calcium Total Bilirubin AST ALT Alkaline Phosphatase Total Creatine Kinase CK-MB (CK-2) CK-MB (CK-2) Rel Index Troponin I NT-Pro-B Natriuret Pep Total Protein Albumin Globulin Albumin/Globulin Ratio Procalcitonin Prolactin 6.7 Urine Color Urine Appearance Urine pH Ur Specific [place] Urine Protein Urine Glucose (UA) Urine Ketones Urine Occult Blood Urine Nitrate Urine Bilirubin Urine Urobilinogen Ur Leukocyte Esterase Urine RBC Urine WBC Urine Bacteria Ur Culture Indicated? Salicylates U Opiates 300ng/mL cut Ur Oxycodone Screen Urine Methadone Screen Acetaminophen Ur Barbiturates Screen U Tricyclic Antidepress Ur Phencyclidine Scrn Ur Amphetamines Screen U Methamphetamines Scrn Ur MDMA Scrn (Ecstasy) U Benzodiazepines Scrn Urine Cocaine Screen U Marijuana (THC) Screen Ethyl Alcohol Chlamy pneumoniae PCR Adenovirus (PCR) B. pertussis DNA (PCR) B.parapertussis DNA PCR Coronavirus OC43 (PCR) Coronavirus HKU1 (PCR) Coronavirus 229E (PCR) SARS-CoV-2 (PCR) Coronavirus NL63 (PCR) Human Metapneumovir PCR Influenza Type A (PCR) Influenza Type B (PCR) M. pneumoniae (PCR) Parainfluenza 1 (PCR) Parainfluenza 2 (PCR) Parainfluenza 3 (PCR) Parainfluenza 4 (PCR) RSV (PCR) Entero/Rhino (PCR) 05/28/22 10:58 WBC RBC Hgb Hct MCV MCH MCHC RDW Plt Count Neut % (Auto) Lymph % (Auto) [place] % (Auto) Eos % (Auto) Baso % (Auto) Neut # (Auto) Lymph # (Auto) [place] # (Auto) Eos # (Auto) Baso # (Auto) PT INR APTT ABG pH 7.41 ABG pCO2 43.9 ABG pO2 170 H ABG HCO3 28 H ABG Total CO2 29 ABG O2 Saturation 100 ABG Base Excess 3.0 H FiO2 45 Sodium Potassium Chloride Carbon Dioxide BUN Creatinine Estimated GFR BUN/Creatinine Ratio Glucose Lactate Calcium Total Bilirubin AST ALT Alkaline Phosphatase Total Creatine Kinase CK-MB (CK-2) CK-MB (CK-2) Rel Index Troponin I NT-Pro-B Natriuret Pep Total Protein Albumin Globulin Albumin/Globulin Ratio Procalcitonin Prolactin Urine Color Urine Appearance Urine pH Ur Specific [place] Urine Protein Urine Glucose (UA) Urine Ketones Urine Occult Blood Urine Nitrate Urine Bilirubin Urine Urobilinogen Ur Leukocyte Esterase Urine RBC Urine WBC Urine Bacteria Ur Culture Indicated? Salicylates U Opiates 300ng/mL cut Ur Oxycodone Screen Urine Methadone Screen Acetaminophen Ur Barbiturates Screen U Tricyclic Antidepress Ur Phencyclidine Scrn Ur Amphetamines Screen U Methamphetamines Scrn Ur MDMA Scrn (Ecstasy) U Benzodiazepines Scrn Urine Cocaine Screen U Marijuana (THC) Screen Ethyl Alcohol Chlamy pneumoniae PCR Adenovirus (PCR) B. pertussis DNA (PCR) B.parapertussis DNA PCR Coronavirus OC43 (PCR) Coronavirus HKU1 (PCR) Coronavirus 229E (PCR) SARS-CoV-2 (PCR) Coronavirus NL63 (PCR) Human Metapneumovir PCR Influenza Type A (PCR) Influenza Type B (PCR) M. pneumoniae (PCR) Parainfluenza 1 (PCR) Parainfluenza 2 (PCR) Parainfluenza 3 (PCR) Parainfluenza 4 (PCR) RSV (PCR) Entero/Rhino (PCR) Assessment & Plan Assessment & Plan narrative: NEURO: # Acute encephalopathy -- Secondary to baclofen overdose -- CTH negative -- On propofol -- RASS goal -1 to 0 -- Early mobility # Baclofen overdose -- No reported suicidal attempt and attributed to uncontrolled symptoms -- Poison control contacted and recommended supportive care -- Minimize sedatives -- Need psych eval when extubated RESP: # Acute hypoxemia respiratory failure -- Intubated for airway protection -- CXR showed ETT above qamar -- Daily SAT and SBT -- HOB elevation -- Aspiration precaution -- Goal SpO2 > 88% CVS: -- Not in shock -- MAP goal > 65 ID: # COVID-19 -- Start decadron 6 mg PO daily X 10 days -- On airborne, contact, and droplet precautions HEME: # Anemia -- No signs of overt bleed -- Daily CBC -- Goal Hb > 7 ENDO: -- GOal BS < 180 D/w bedside RN and RT. Time Spent With Patient Critical Care time: I spent a total of 34 minutes of critical care time on this patient's care today; this time is exclusive of procedural time.
[2022-05-28] MEDS: CHLORHEXIDINE GLUCONATE 15 ML CUP PO (18:15)
[2022-05-28] MEDS: REMDESIVIR 200 MG in SODIUM CHLORIDE 0.9% 210 ML 250 MG IV (18:15)
--- NOTE | 2022-05-28 18:26 | PC.NURSE ---
Late entry: called poison control to discuss possible ingestion of baclofen. Pt filled 05/24/22. There are 54 pills missing if pt took appropriately on previous days. Reviewed clinical case, pt's current medications and presentation to ED. Poison control [facility] states that her clinical picture reflects one of a Baclofen OD. Advice is as follows and deferred to Dr. Elizalde. 1. Half life is very long. At least 24 - 48 hours. Pt's mental status should improved by 72 hours. Baclofen overdose can mimic brain . 2. 85% renally cleared. 3. Pt may have suffered anoxic injury and it will be difficult to evaluate. 4. Supportive care 5. Can cause seizures.
[2022-05-28] MEDS: DEXTROSE 5%-0.9% NS 1,000 ML 100 ML IV (20:13)
[2022-05-28] MEDS: FAMOTIDINE 20 MG/2 ML VIAL IV (20:18)
[2022-05-28 21:21] LABS: Mean Corpuscular HGB Conc 32.4 % (30-36); Mean Corpuscular Hemoglobin 27.5 PG (26-34); Mean Corpuscular Volume 84.6 fL (80-100); Platelet Count 332 X10^3/uL (150-400); Red Blood Cell Count 4.02 X10^6/uL (4.0-5.2); Red Cell Distribution Width 17.2 % (11.6-14.8); White Blood Cell Count 9.5 X10^3/uL (4.5-11.0)
[2022-05-28 21:22] LABS: Add Manual Diff / Slide Review YES
[2022-05-28 21:29] LABS: Alanine Aminotransferase 17 IU/L (<35); Albumin Globulin Ratio 0.9 (1.0-2.8); Alkaline Phosphatase 86 U/L (38-126); Aspartate Aminotransferase 26 IU/L (14-36); BUN Creatinine Ratio 16.9 (6-22); Bilirubin Total 0.4 mg/dL (0.2-1.3); Blood Urea Nitrogen 10 mg/dL (7-17); Carbon Dioxide 24 mmol/L (22-32); Chloride 108 mmol/L (98-107); Estimated Glomerular Filt Rate > 60 mL/min (>60); Globulin 3.2 g/dL (1.7-4.1); Glucose 103 mg/dL (80-110); HEMOLYSIS < 15 (0-50); Potassium 3.8 mmol/L (3.4-5.1); Sodium 143 mmol/L (137-145); Total Protein 6.2 g/dL (6.3-8.2)
[2022-05-28 22:04] LABS: Anisocytosis 2+; Neutrophils Absolute Manual 8170 /uL (3000-5900); Total Cells Counted 100
[2022-05-28] MEDS: propofoL 1,000 MG/100 ML VIAL 8.981 MG IV (23:50)
[2022-05-29] VITALS (73 sets, daily range): BP systolic 125–190; BP diastolic 58–106; PULSE 46–77; RESP 15–51; TEMP 36.2–37.1; O2SAT 94–100
[2022-05-29] MEDS: fentaNYL 100 MCG/2 ML INJ 25 MCG IV (02:04)
--- NOTE | 2022-05-29 02:49 | PM.EICU.INT ---
Teleintensivist Intervention Date/Time Was camera activated?: Yes Date Patient Seen: 05/29/22 Time Patient Seen: 02:49 Issue(s) Addressed Issue(s): Pain, Agitation, Sedation, Delirium Intervention(s) :: Start preceded gtt to seek RASS goal -1 to 0. D/w RN at bedside. Plan discussed with: Nurse
--- NOTE | 2022-05-29 02:57 | PC.NURSE ---
Pt became restless and agitated around 0200. Relationship Banker was called. Fentanyl 25 mcg PRN Q1H was ordered and given. Fentanyl had no effect. Pt still agitated and jerking, appearing to try and get up, but not opening eyes or following commands. Relationship Banker consulted. Ordered to turn propofol to maximum dose and precedex was ordered, titrating to a RASS of -1 to 0.
[2022-05-29] MEDS: dexmedeTOMIDine in 0.9 % NaCL 400 MCG/100 ML PLAST..BAG IV (03:06)
[2022-05-29 05:11] LABS: Add Manual Diff / Slide Review NO; Basophils Absolute Auto 100 /uL (0-100); Basophils Percent Auto 0.7 % (0-2); Eosinophils Absolute Auto 100 /uL (0-450); Eosinophils Percent Auto 0.6 % (2-4); Hematocrit 30.3 % (36-46); Hemoglobin 9.8 g/dL (12.0-16.0); Lymphocytes Absolute Auto 900 /uL (1100-4500); Lymphocytes Percent Auto 9.3 % (25-40); Mean Corpuscular HGB Conc 32.2 % (30-36); Mean Corpuscular Hemoglobin 27.2 PG (26-34); Mean Corpuscular Volume 84.3 fL (80-100); Monocytes Absolute Auto 600 /uL (0-900); Neutrophils Absolute Auto 7600 /uL (1500-7000); Neutrophils Percent Auto 82.4 % (50-75); Platelet Count 376 X10^3/uL (150-400); Red Cell Distribution Width 17.4 % (11.6-14.8); White Blood Cell Count 9.2 X10^3/uL (4.5-11.0)
[2022-05-29] MEDS: propofoL 1,000 MG/100 ML VIAL 8.981 MG IV (05:25)
[2022-05-29] MEDS: DEXTROSE 5%-0.9% NS 1,000 ML 100 ML IV ×2 (05:26→17:34)
[2022-05-29 05:53] LABS: BUN Creatinine Ratio 16.4 (6-22); Blood Urea Nitrogen 9 mg/dL (7-17); Calcium 8.5 mg/dL (8.4-10.2); Carbon Dioxide 24 mmol/L (22-32); Chloride 112 mmol/L (98-107); Estimated Glomerular Filt Rate > 60 mL/min (>60); Glucose 122 mg/dL (80-110); HEMOLYSIS < 15 (0-50); Potassium 3.1 mmol/L (3.4-5.1); Sodium 142 mmol/L (137-145)
[2022-05-29] MEDS: fentaNYL 1,000 MCG in DEXTROSE 5% IN WATER 230 ML 19.05 MCG IV (07:49)
[2022-05-29] MEDS: ENOXAPARIN 40 MG/0.4 ML SYRINGE SUBCUT (08:31)
[2022-05-29] MEDS: FAMOTIDINE 20 MG/2 ML VIAL IV ×2 (08:31→20:16)
--- NOTE | 2022-05-29 08:57 | PC.NURSE ---
patient extremely restless and unable to follow commands. kicking and thrashing in bed. Dr. Mary Grace perez.
--- NOTE | 2022-05-29 09:14 | P.TELICUPN_ITS ---
Subjective Subjective IF CAMERA ACTIVATED, patient seen via real-time interactive audiovisual communication: Camera activated Date Patient Seen: 05/29/22 Consent obtained for tele-tierce filler care: Yes Patient Location: ICU Provider location (State): [place] Other participants/roles: Bedside RN Interval history: Agitated overnight and not following commands. Failed SAT this morning. Restarted back on propofol and added fentanyl. Will need to restart back home psychotropic meds. Current Medications Current Medications Medications: Home Medications risedronate 150 mg tablet 150 mg PO QMONTH #12 tabs 08/10/20 [Rx Confirmed 05/28/22] amlodipine 10 mg tablet 10 mg PO DAILY #90 tabs 06/29/21 [Rx Confirmed 05/28/22] trazodone 100 mg tablet 100 mg PO BEDTIME #90 tabs 06/29/21 [Rx Confirmed 05/28/22] benzonatate 100 mg capsule 100 mg PO TID PRN cough #60 caps 06/30/21 [Rx Confirmed 05/28/22] rizatriptan 10 mg tablet 10 mg PO .COMPLEX PRN migraine headache #6 tabs 07/30/21 [Rx Confirmed 05/28/22] simvastatin 20 mg tablet 20 mg PO DAILY #90 tabs 11/02/21 [Rx Confirmed 05/28/22] pilocarpine HCl 5 mg tablet 5 mg PO QID #368 tabs 01/05/22 [Rx Confirmed 1 ] sertraline 50 mg tablet 150 mg PO DAILY #90 tabs 03/28/22 [Rx Confirmed 05/28/22] omeprazole 40 mg capsule,delayed release 40 mg PO BID #180 caps 04/18/22 [Rx Confirmed 05/28/22] baclofen 5 mg tablet 5 mg PO TID 05/19/22 [History Confirmed 05/28/22] ferrous sulfate 325 mg (65 mg iron) tablet 325 mg PO DAILY #30 tabs 05/21/22 [Rx Confirmed 05/28/22] amantadine HCl 100 mg tablet 100 mg PO QAM 05/28/22 [History Confirmed 05/28/22] amantadine HCl 100 mg tablet 200 mg PO QPM 05/28/22 [History Confirmed 05/28/22] hydromorphone 4 mg tablet 4 mg PO Q4HR PRN Pain (Scale Score 7-10) 05/28/22 [H istory Confirmed 05/28/22] metoprolol tartrate 50 mg tablet 50 mg PO DAILY 05/28/22 [History Confirmed 05/28/22] potassium chloride 8 mEq tablet,extended release 8 meq PO DAILY 05/28/22 [History Confirmed 05/28/22] valsartan 160 mg tablet 160 mg PO BID 05/28/22 [History Confirmed 05/28/22] Visit Medications (administered) Generic Name Dose Route Start Last Admin Trade Name Freq PRN Reason Stop Dose Admin Chlorhexidine Gluconate 15 ml 05/28/22 18:00 05/29/22 06:20 Chlorhexidine Gluconate 15 Ml Cup PO Not Given Q6HR BETTIE Enoxaparin Sodium 40 mg 05/29/22 09:00 05/29/22 08:31 Enoxaparin 40 Mg/0.4 Ml Syringe SUBCUT 40 mg DAILY BETTIE Administration Famotidine 20 mg 05/28/22 21:00 05/29/22 08:31 Famotidine 20 Mg/2 Ml Vial IV 20 mg BID BETTIE Administration Fentanyl 25 mcg 05/29/22 01:56 05/29/22 02:04 Fentanyl 100 Mcg/2 Ml Inj IV 25 mcg Q1H PRN Administration Pain, Severe (7-10) Dextrose/Sodium Chloride 1,000 mls @ 100 mls/hr 05/28/22 16:47 05/29/22 05:26 Dextrose 5%-0.9% Ns IV 100 mls/hr CONT BETTIE Administration Propofol 1,000 mg in 100 mls @ 2.245 mls/hr 05/28/22 16:47 05/29/22 06:45 Propofol IV 50 mcg/kg/min TITRATE BETTIE 22.453 mls/hr Titration Protocol 5 MCG/KG/MIN Fentanyl 1,000 mcg/ Dextrose 250 mls @ 13.335 mls/hr 05/29/22 07:15 05/29/22 07:49 IV 1 mcg/kg/hr TITRATE BETTIE 19.05 mls/hr Administration Protocol 0.7 MCG/KG/HR Objective Ventilator Parameters: Ventilator Settings FiO2 35 RT Vent Frequency 18 Ventilator Tidal Volume 390 Exhaled Vt/kg IBW 6 Positive End Expiratory 5 Pressure Inspiratory Phase Time 0.75 I:E Ratio 1:3.4 Patient Position HOB >= 30 degrees Labs Result Diagrams: 05/29/22 04:35 05/29/22 04:35 Labs: Laboratory Results - last 24 hr 05/28/22 05/28/22 05/28/22 09:44 09:52 09:52 WBC RBC Hgb Hct MCV MCH MCHC RDW Plt Count Neut % (Auto) Lymph % (Auto) [place] % (Auto) Eos % (Auto) Baso % (Auto) Neut # (Auto) Lymph # (Auto) [place] # (Auto) Eos # (Auto) Baso # (Auto) Total Counted Seg Neutrophils % Band Neutrophils % Lymphocytes % (Manual) Monocytes % (Manual) Basophils % (Manual) Neutrophils # (Manual) RBC Morphology Anisocytosis PT INR APTT ABG pH ABG pCO2 ABG pO2 ABG HCO3 ABG Total CO2 ABG O2 Saturation ABG Base Excess FiO2 Sodium Potassium Chloride Carbon Dioxide BUN Creatinine Estimated GFR BUN/Creatinine Ratio Glucose Lactate Calcium Total Bilirubin AST ALT Alkaline Phosphatase Total Creatine Kinase CK-MB (CK-2) CK-MB (CK-2) Rel Index Troponin I NT-Pro-B Natriuret Pep Total Protein Albumin Globulin Albumin/Globulin Ratio Procalcitonin Prolactin Urine Color Yellow Urine Appearance Clear Urine pH 6.5 Ur Specific [place] 1.010 Urine Protein Negative Urine Glucose (UA) Negative Urine Ketones Trace H Urine Occult Blood Negative Urine Nitrate Negative Urine Bilirubin Negative Urine Urobilinogen 0.2 Ur Leukocyte Esterase Negative Urine RBC None seen Urine WBC None seen Urine Bacteria None seen Ur Culture Indicated? Cult not indicated Salicylates U Opiates 300ng/mL cut Positive H Ur Oxycodone Screen Negative Urine Methadone Screen Negative Acetaminophen Ur Barbiturates Screen Negative U Tricyclic Antidepress Negative Ur Phencyclidine Scrn Negative Ur Amphetamines Screen Negative U Methamphetamines Scrn Negative Ur MDMA Scrn (Ecstasy) Negative U Benzodiazepines Scrn Negative Urine Cocaine Screen Negative U Marijuana (THC) Screen Negative Ethyl Alcohol Chlamy pneumoniae PCR Not detected Adenovirus (PCR) Not detected B. pertussis DNA (PCR) Not detected B.parapertussis DNA PCR Not detected Coronavirus OC43 (PCR) Not detected Coronavirus HKU1 (PCR) Not detected Coronavirus 229E (PCR) Not detected SARS-CoV-2 (PCR) Detected H Coronavirus NL63 (PCR) Not detected Human Metapneumovir PCR Not detected Influenza Type A (PCR) Not detected Influenza Type B (PCR) Not detected M. pneumoniae (PCR) Not detected Parainfluenza 1 (PCR) Not detected Parainfluenza 2 (PCR) Not detected Parainfluenza 3 (PCR) Not detected Parainfluenza 4 (PCR) Not detected RSV (PCR) Not detected Entero/Rhino (PCR) Not detected 05/28/22 05/28/22 05/28/22 10:55 10:55 10:55 WBC 10.2 RBC 4.20 Hgb 11.5 L Hct 35.5 L MCV 84.6 MCH 27.4 MCHC 32.3 RDW 17.2 H Plt Count 423 H Neut % (Auto) 87.2 H Lymph % (Auto) 6.3 L [place] % (Auto) 4.5 Eos % (Auto) 1.3 L Baso % (Auto) 0.7 Neut # (Auto) 8900 H Lymph # (Auto) 600 L [place] # (Auto) 500 Eos # (Auto) 100 Baso # (Auto) 100 Total Counted Seg Neutrophils % Band Neutrophils % Lymphocytes % (Manual) Monocytes % (Manual) Basophils % (Manual) Neutrophils # (Manual) RBC Morphology Anisocytosis PT 13.3 H D INR 1.2 APTT ABG pH ABG pCO2 ABG pO2 ABG HCO3 ABG Total CO2 ABG O2 Saturation ABG Base Excess FiO2 Sodium 140 Potassium 3.5 Chloride 105 Carbon Dioxide 24 BUN 10 Creatinine 0.54 Estimated GFR > 60 BUN/Creatinine Ratio 18.5 Glucose 103 Lactate Calcium 9.1 Total Bilirubin 0.4 AST 36 ALT 19 Alkaline Phosphatase 92 Total Creatine Kinase 75 CK-MB (CK-2) TNP CK-MB (CK-2) Rel Index TNP Troponin I 0.019 NT-Pro-B Natriuret Pep 1040 H Total Protein 6.7 Albumin 3.2 L Globulin 3.5 Albumin/Globulin Ratio 0.9 L Procalcitonin 0.04 Prolactin Urine Color Urine Appearance Urine pH Ur Specific [place] Urine Protein Urine Glucose (UA) Urine Ketones Urine Occult Blood Urine Nitrate Urine Bilirubin Urine Urobilinogen Ur Leukocyte Esterase Urine RBC Urine WBC Urine Bacteria Ur Culture Indicated? Salicylates 1.2 U Opiates 300ng/mL cut Ur Oxycodone Screen Urine Methadone Screen Acetaminophen < 10 Ur Barbiturates Screen U Tricyclic Antidepress Ur Phencyclidine Scrn Ur Amphetamines Screen U Methamphetamines Scrn Ur MDMA Scrn (Ecstasy) U Benzodiazepines Scrn Urine Cocaine Screen U Marijuana (THC) Screen Ethyl Alcohol < 10 Chlamy pneumoniae PCR Adenovirus (PCR) B. pertussis DNA (PCR) B.parapertussis DNA PCR Coronavirus OC43 (PCR) Coronavirus HKU1 (PCR) Coronavirus 229E (PCR) SARS-CoV-2 (PCR) Coronavirus NL63 (PCR) Human Metapneumovir PCR Influenza Type A (PCR) Influenza Type B (PCR) M. pneumoniae (PCR) Parainfluenza 1 (PCR) Parainfluenza 2 (PCR) Parainfluenza 3 (PCR) Parainfluenza 4 (PCR) RSV (PCR) Entero/Rhino (PCR) 05/28/22 05/28/22 05/28/22 10:55 10:55 10:55 WBC RBC Hgb Hct MCV MCH MCHC RDW Plt Count Neut % (Auto) Lymph % (Auto) [place] % (Auto) Eos % (Auto) Baso % (Auto) Neut # (Auto) Lymph # (Auto) [place] # (Auto) Eos # (Auto) Baso # (Auto) Total Counted Seg Neutrophils % Band Neutrophils % Lymphocytes % (Manual) Monocytes % (Manual) Basophils % (Manual) Neutrophils # (Manual) RBC Morphology Anisocytosis PT INR APTT 26 ABG pH ABG pCO2 ABG pO2 ABG HCO3 ABG Total CO2 ABG O2 Saturation ABG Base Excess FiO2 Sodium Potassium Chloride Carbon Dioxide BUN Creatinine Estimated GFR BUN/Creatinine Ratio Glucose Lactate 0.8 Calcium Total Bilirubin AST ALT Alkaline Phosphatase Total Creatine Kinase CK-MB (CK-2) CK-MB (CK-2) Rel Index Troponin I NT-Pro-B Natriuret Pep Total Protein Albumin Globulin Albumin/Globulin Ratio Procalcitonin Prolactin 6.7 Urine Color Urine Appearance Urine pH Ur Specific [place] Urine Protein Urine Glucose (UA) Urine Ketones Urine Occult Blood Urine Nitrate Urine Bilirubin Urine Urobilinogen Ur Leukocyte Esterase Urine RBC Urine WBC Urine Bacteria Ur Culture Indicated? Salicylates U Opiates 300ng/mL cut Ur Oxycodone Screen Urine Methadone Screen Acetaminophen Ur Barbiturates Screen U Tricyclic Antidepress Ur Phencyclidine Scrn Ur Amphetamines Screen U Methamphetamines Scrn Ur MDMA Scrn (Ecstasy) U Benzodiazepines Scrn Urine Cocaine Screen U Marijuana (THC) Screen Ethyl Alcohol Chlamy pneumoniae PCR Adenovirus (PCR) B. pertussis DNA (PCR) B.parapertussis DNA PCR Coronavirus OC43 (PCR) Coronavirus HKU1 (PCR) Coronavirus 229E (PCR) SARS-CoV-2 (PCR) Coronavirus NL63 (PCR) Human Metapneumovir PCR Influenza Type A (PCR) Influenza Type B (PCR) M. pneumoniae (PCR) Parainfluenza 1 (PCR) Parainfluenza 2 (PCR) Parainfluenza 3 (PCR) Parainfluenza 4 (PCR) RSV (PCR) Entero/Rhino (PCR) 05/28/22 05/28/22 05/28/22 10:58 21:13 21:13 WBC 9.5 RBC 4.02 Hgb 11.0 L Hct 34.0 L MCV 84.6 MCH 27.5 MCHC 32.4 RDW 17.2 H Plt Count 332 Neut % (Auto) Not Reportable Lymph % (Auto) Not Reportable [place] % (Auto) Not Reportable Eos % (Auto) Not Reportable Baso % (Auto) Not Reportable Neut # (Auto) Lymph # (Auto) Not Reportable [place] # (Auto) Not Reportable Eos # (Auto) Baso # (Auto) Not Reportable Total Counted 100 Seg Neutrophils % 83.0 H Band Neutrophils % 3.0 Lymphocytes % (Manual) 8.0 L Monocytes % (Manual) 5.0 Basophils % (Manual) 1.0 Neutrophils # (Manual) 8170 H RBC Morphology See below Anisocytosis 2+ H PT INR APTT ABG pH 7.41 ABG pCO2 43.9 ABG pO2 170 H ABG HCO3 28 H ABG Total CO2 29 ABG O2 Saturation 100 ABG Base Excess 3.0 H FiO2 45 Sodium 143 Potassium 3.8 Chloride 108 H Carbon Dioxide 24 BUN 10 Creatinine 0.59 Estimated GFR > 60 BUN/Creatinine Ratio 16.9 Glucose 103 Lactate Calcium 9.0 Total Bilirubin 0.4 AST 26 ALT 17 Alkaline Phosphatase 86 Total Creatine Kinase CK-MB (CK-2) CK-MB (CK-2) Rel Index Troponin I NT-Pro-B Natriuret Pep Total Protein 6.2 L Albumin 3.0 L Globulin 3.2 Albumin/Globulin Ratio 0.9 L Procalcitonin Prolactin Urine Color Urine Appearance Urine pH Ur Specific [place] Urine Protein Urine Glucose (UA) Urine Ketones Urine Occult Blood Urine Nitrate Urine Bilirubin Urine Urobilinogen Ur Leukocyte Esterase Urine RBC Urine WBC Urine Bacteria Ur Culture Indicated? Salicylates U Opiates 300ng/mL cut Ur Oxycodone Screen Urine Methadone Screen Acetaminophen Ur Barbiturates Screen U Tricyclic Antidepress Ur Phencyclidine Scrn Ur Amphetamines Screen U Methamphetamines Scrn Ur MDMA Scrn (Ecstasy) U Benzodiazepines Scrn Urine Cocaine Screen U Marijuana (THC) Screen Ethyl Alcohol Chlamy pneumoniae PCR Adenovirus (PCR) B. pertussis DNA (PCR) B.parapertussis DNA PCR Coronavirus OC43 (PCR) Coronavirus HKU1 (PCR) Coronavirus 229E (PCR) SARS-CoV-2 (PCR) Coronavirus NL63 (PCR) Human Metapneumovir PCR Influenza Type A (PCR) Influenza Type B (PCR) M. pneumoniae (PCR) Parainfluenza 1 (PCR) Parainfluenza 2 (PCR) Parainfluenza 3 (PCR) Parainfluenza 4 (PCR) RSV (PCR) Entero/Rhino (PCR) 05/29/22 05/29/22 04:35 04:35 WBC 9.2 RBC 3.60 L Hgb 9.8 L Hct 30.3 L MCV 84.3 MCH 27.2 MCHC 32.2 RDW 17.4 H Plt Count 376 Neut % (Auto) 82.4 H Lymph % (Auto) 9.3 L [place] % (Auto) 7.0 Eos % (Auto) 0.6 L Baso % (Auto) 0.7 Neut # (Auto) 7600 H Lymph # (Auto) 900 L [place] # (Auto) 600 Eos # (Auto) 100 Baso # (Auto) 100 Total Counted Seg Neutrophils % Band Neutrophils % Lymphocytes % (Manual) Monocytes % (Manual) Basophils % (Manual) Neutrophils # (Manual) RBC Morphology Anisocytosis PT INR APTT ABG pH ABG pCO2 ABG pO2 ABG HCO3 ABG Total CO2 ABG O2 Saturation ABG Base Excess FiO2 Sodium 142 Potassium 3.1 L Chloride 112 H Carbon Dioxide 24 BUN 9 Creatinine 0.55 Estimated GFR > 60 BUN/Creatinine Ratio 16.4 Glucose 122 H Lactate Calcium 8.5 Total Bilirubin AST ALT Alkaline Phosphatase Total Creatine Kinase CK-MB (CK-2) CK-MB (CK-2) Rel Index Troponin I NT-Pro-B Natriuret Pep Total Protein Albumin Globulin Albumin/Globulin Ratio Procalcitonin Prolactin Urine Color Urine Appearance Urine pH Ur Specific [place] Urine Protein Urine Glucose (UA) Urine Ketones Urine Occult Blood Urine Nitrate Urine Bilirubin Urine Urobilinogen Ur Leukocyte Esterase Urine RBC Urine WBC Urine Bacteria Ur Culture Indicated? Salicylates U Opiates 300ng/mL cut Ur Oxycodone Screen Urine Methadone Screen Acetaminophen Ur Barbiturates Screen U Tricyclic Antidepress Ur Phencyclidine Scrn Ur Amphetamines Screen U Methamphetamines Scrn Ur MDMA Scrn (Ecstasy) U Benzodiazepines Scrn Urine Cocaine Screen U Marijuana (THC) Screen Ethyl Alcohol Chlamy pneumoniae PCR Adenovirus (PCR) B. pertussis DNA (PCR) B.parapertussis DNA PCR Coronavirus OC43 (PCR) Coronavirus HKU1 (PCR) Coronavirus 229E (PCR) SARS-CoV-2 (PCR) Coronavirus NL63 (PCR) Human Metapneumovir PCR Influenza Type A (PCR) Influenza Type B (PCR) M. pneumoniae (PCR) Parainfluenza 1 (PCR) Parainfluenza 2 (PCR) Parainfluenza 3 (PCR) Parainfluenza 4 (PCR) RSV (PCR) Entero/Rhino (PCR) Exam Vital Signs (past 8 hours): - 05/29/22 01:15 05/29/22 01:15 05/29/22 01:31 Temperature Pulse Rate 56 L 56 L Respiratory Rate 18 18 Blood Pressure 142/65 H Pulse Oximetry 100 99 Oxygen Delivery Method 05/29/22 01:31 05/29/22 01:46 05/29/22 01:46 Temperature Pulse Rate 63 Respiratory Rate 33 H Blood Pressure 190/74 H 185/79 H Pulse Oximetry 100 Oxygen Delivery Method 05/29/22 02:00 05/29/22 02:00 05/29/22 02:16 Temperature Pulse Rate 60 Respiratory Rate 19 Blood Pressure 153/69 H 190/104 H Pulse Oximetry 99 Oxygen Delivery Method 05/29/22 02:16 05/29/22 02:25 05/29/22 02:25 Temperature Pulse Rate 64 62 Respiratory Rate 24 44 H Blood Pressure 163/106 H Pulse Oximetry 99 Oxygen Delivery Method 05/29/22 02:30 05/29/22 02:30 05/29/22 03:00 Temperature Pulse Rate 60 59 L Respiratory Rate 19 18 Blood Pressure 168/70 H Pulse Oximetry 99 98 Oxygen Delivery Method 05/29/22 03:00 05/29/22 03:02 05/29/22 04:00 Temperature Pulse Rate 60 Respiratory Rate 18 Blood Pressure 157/71 H Pulse Oximetry 98 Oxygen Delivery Method Mechanical Ventilation 05/29/22 03:30 05/29/22 03:30 05/29/22 03:33 Temperature Pulse Rate 59 L 60 Respiratory Rate 18 18 Blood Pressure 186/80 H Pulse Oximetry 100 100 Oxygen Delivery Method 05/29/22 03:33 05/29/22 04:00 05/29/22 04:00 Temperature 98.8 F Pulse Rate 55 L Respiratory Rate 18 Blood Pressure 181/81 H 163/71 H Pulse Oximetry 99 Oxygen Delivery Method 05/29/22 04:04 05/29/22 04:30 05/29/22 04:30 Temperature Pulse Rate 56 L 52 L Respiratory Rate 18 18 Blood Pressure 137/64 Pulse Oximetry 99 97 Oxygen Delivery Method 05/29/22 05:01 05/29/22 05:01 05/29/22 05:02 Temperature Pulse Rate 51 L 51 L Respiratory Rate 35 H 34 H Blood Pressure 171/75 H Pulse Oximetry 100 100 Oxygen Delivery Method 05/29/22 05:02 05/29/22 05:30 05/29/22 05:30 Temperature Pulse Rate 49 L Respiratory Rate 28 H Blood Pressure 163/72 H 145/65 H Pulse Oximetry 99 Oxygen Delivery Method 05/29/22 06:00 05/29/22 06:00 05/29/22 06:05 Temperature Pulse Rate 49 L 49 L Respiratory Rate 28 H 23 Blood Pressure 171/72 H Pulse Oximetry 100 100 Oxygen Delivery Method 05/29/22 06:30 05/29/22 07:00 05/29/22 07:01 Temperature Pulse Rate 63 61 62 Respiratory Rate 38 H 51 H 40 H Blood Pressure Pulse Oximetry 99 98 98 Oxygen Delivery Method 05/29/22 07:01 05/29/22 07:30 05/29/22 07:30 Temperature Pulse Rate 56 L Respiratory Rate 18 Blood Pressure 175/76 H 143/67 H Pulse Oximetry 97 Oxygen Delivery Method 05/29/22 08:00 05/29/22 08:00 05/29/22 08:00 Temperature 98 F Pulse Rate 48 L Respiratory Rate 18 Blood Pressure 125/58 L Pulse Oximetry 94 Oxygen Delivery Method Mechanical Ventilation 05/29/22 08:30 05/29/22 08:30 05/29/22 08:30 Temperature Pulse Rate 47 L 47 L Respiratory Rate 18 18 Blood Pressure 142/64 H Pulse Oximetry 94 94 Oxygen Delivery Method 05/29/22 09:00 Temperature Pulse Rate 48 L Respiratory Rate 18 Blood Pressure Pulse Oximetry 94 Oxygen Delivery Method Oxygen Delivery Method Mechanical Ventilation Narrative Exam Narrative: Intubated and sedated Assessment & Plan Assessment & Plan narrative: NEURO: # Acute encephalopathy -- Secondary to baclofen overdose and delirium -- CTH negative -- Failed SAT -- On propofol and fentanyl -- Recommend restarting back home psychotropic meds -- RASS goal -1 to 0 -- Early mobility # Baclofen overdose -- No reported suicidal attempt and attributed to uncontrolled symptoms? -- Poison control contacted and recommended supportive care -- Daily SAT as above -- Need psych eval when extubated RESP: # Acute hypoxemia respiratory failure -- Intubated for airway protection -- Meeting goals of oxygenation and ventilation -- Daily SAT and SBT -- HOB elevation -- Aspiration precaution -- Goal SpO2 > 88% CVS: -- Not in shock -- MAP goal > 65 ID: # COVID-19 -- On decadron 6 mg PO daily X 10 days -- On airborne, contact, and droplet precautions HEME: # Anemia -- No signs of overt bleed -- Daily CBC -- Goal Hb > 7 ENDO: -- GOal BS < 180 D/w RN at bedside. Time Spent With Patient Critical Care time: I spent a total of 32 minutes of critical care time on this patient's care today; this time is exclusive of procedural time.
[2022-05-29] MEDS: propofoL 1,000 MG/100 ML VIAL 17.962 MG IV ×3 (09:20→20:18)
[2022-05-29] MEDS: DEXAMETHASONE 10 MG/ML VIAL 6 MG IV (09:30)
[2022-05-29 10:04] LABS: PCO2 ABG 29.8 mmHg (35-45); PO2 ABG 74 mmHg (80-100); pH ABG 7.49 (7.35-7.45)
[2022-05-29 10:05] LABS: Fractionated Inspired Oxygen 35; HCO3 ABG 23 mmol/L (22-26); Oxygen Saturation ABG 96 % (95-100); TCO2 ABG 24 mmol/L (21-31)
--- NOTE | 2022-05-29 10:29 | PM.PN.1 ---
Subjective Subjective Date Patient Seen: 05/29/22 Time Patient Seen: 10:29 Interval history: Patient remains intubated and nonresponsive, she is continuing on parental sedation as per tele electrical contacts adjuster. Was somewhat agitated overnight without sedation. Has been started on Precedex as of this morning Vital signs have remained stable. ABG okay. She is a bit hypokalemic Exam Vital Signs (past 8 hours): - 05/29/22 02:30 05/29/22 02:30 05/29/22 03:00 Temperature Pulse Rate 60 59 L Respiratory Rate 19 18 Blood Pressure 168/70 H Pulse Oximetry 99 98 Oxygen Delivery Method 05/29/22 03:00 05/29/22 03:02 05/29/22 04:00 Temperature Pulse Rate 60 Respiratory Rate 18 Blood Pressure 157/71 H Pulse Oximetry 98 Oxygen Delivery Method Mechanical Ventilation 05/29/22 03:30 05/29/22 03:30 05/29/22 03:33 Temperature Pulse Rate 59 L 60 Respiratory Rate 18 18 Blood Pressure 186/80 H Pulse Oximetry 100 100 Oxygen Delivery Method 05/29/22 03:33 05/29/22 04:00 05/29/22 04:00 Temperature 98.8 F Pulse Rate 55 L Respiratory Rate 18 Blood Pressure 181/81 H 163/71 H Pulse Oximetry 99 Oxygen Delivery Method 05/29/22 04:04 05/29/22 04:30 05/29/22 04:30 Temperature Pulse Rate 56 L 52 L Respiratory Rate 18 18 Blood Pressure 137/64 Pulse Oximetry 99 97 Oxygen Delivery Method 05/29/22 05:01 05/29/22 05:01 05/29/22 05:02 Temperature Pulse Rate 51 L 51 L Respiratory Rate 35 H 34 H Blood Pressure 171/75 H Pulse Oximetry 100 100 Oxygen Delivery Method 05/29/22 05:02 05/29/22 05:30 05/29/22 05:30 Temperature Pulse Rate 49 L Respiratory Rate 28 H Blood Pressure 163/72 H 145/65 H Pulse Oximetry 99 Oxygen Delivery Method 05/29/22 06:00 05/29/22 06:00 05/29/22 06:05 Temperature Pulse Rate 49 L 49 L Respiratory Rate 28 H 23 Blood Pressure 171/72 H Pulse Oximetry 100 100 Oxygen Delivery Method 05/29/22 06:30 05/29/22 07:00 05/29/22 07:01 Temperature Pulse Rate 63 61 62 Respiratory Rate 38 H 51 H 40 H Blood Pressure Pulse Oximetry 99 98 98 Oxygen Delivery Method 05/29/22 07:01 05/29/22 07:30 05/29/22 07:30 Temperature Pulse Rate 56 L Respiratory Rate 18 Blood Pressure 175/76 H 143/67 H Pulse Oximetry 97 Oxygen Delivery Method 05/29/22 08:00 05/29/22 08:00 05/29/22 08:00 Temperature 98 F Pulse Rate 48 L Respiratory Rate 18 Blood Pressure 125/58 L Pulse Oximetry 94 Oxygen Delivery Method Mechanical Ventilation 05/29/22 08:30 05/29/22 08:30 05/29/22 08:30 Temperature Pulse Rate 47 L 47 L Respiratory Rate 18 18 Blood Pressure 142/64 H Pulse Oximetry 94 94 Oxygen Delivery Method 05/29/22 09:00 05/29/22 09:00 05/29/22 09:30 Temperature Pulse Rate 48 L Respiratory Rate 18 Blood Pressure 148/67 H 152/67 H Pulse Oximetry 94 Oxygen Delivery Method 05/29/22 09:30 05/29/22 10:00 05/29/22 10:00 Temperature Pulse Rate 47 L 47 L Respiratory Rate 18 16 Blood Pressure 153/69 H Pulse Oximetry 95 96 Oxygen Delivery Method Oxygen Delivery Method Mechanical Ventilation Objective Labs Result Diagrams: 05/29/22 04:35 05/29/22 04:35 Labs: Laboratory Results - last 24 hr 05/28/22 05/28/22 05/28/22 09:44 10:55 10:55 WBC 10.2 RBC 4.20 Hgb 11.5 L Hct 35.5 L MCV 84.6 MCH 27.4 MCHC 32.3 RDW 17.2 H Plt Count 423 H Neut % (Auto) 87.2 H Lymph % (Auto) 6.3 L [place] % (Auto) 4.5 Eos % (Auto) 1.3 L Baso % (Auto) 0.7 Neut # (Auto) 8900 H Lymph # (Auto) 600 L [place] # (Auto) 500 Eos # (Auto) 100 Baso # (Auto) 100 Total Counted Seg Neutrophils % Band Neutrophils % Lymphocytes % (Manual) Monocytes % (Manual) Basophils % (Manual) Neutrophils # (Manual) RBC Morphology Anisocytosis PT 13.3 H D INR 1.2 APTT ABG pH ABG pCO2 ABG pO2 ABG HCO3 ABG Total CO2 ABG O2 Saturation ABG Base Excess FiO2 Sodium Potassium Chloride Carbon Dioxide BUN Creatinine Estimated GFR BUN/Creatinine Ratio Glucose Lactate Calcium Total Bilirubin AST ALT Alkaline Phosphatase Total Creatine Kinase CK-MB (CK-2) CK-MB (CK-2) Rel Index Troponin I NT-Pro-B Natriuret Pep Total Protein Albumin Globulin Albumin/Globulin Ratio Procalcitonin Prolactin Salicylates Acetaminophen Ethyl Alcohol Chlamy pneumoniae PCR Not detected Adenovirus (PCR) Not detected B. pertussis DNA (PCR) Not detected B.parapertussis DNA PCR Not detected Coronavirus OC43 (PCR) Not detected Coronavirus HKU1 (PCR) Not detected Coronavirus 229E (PCR) Not detected SARS-CoV-2 (PCR) Detected H Coronavirus NL63 (PCR) Not detected Human Metapneumovir PCR Not detected Influenza Type A (PCR) Not detected Influenza Type B (PCR) Not detected M. pneumoniae (PCR) Not detected Parainfluenza 1 (PCR) Not detected Parainfluenza 2 (PCR) Not detected Parainfluenza 3 (PCR) Not detected Parainfluenza 4 (PCR) Not detected RSV (PCR) Not detected Entero/Rhino (PCR) Not detected 05/28/22 05/28/22 05/28/22 10:55 10:55 10:55 WBC RBC Hgb Hct MCV MCH MCHC RDW Plt Count Neut % (Auto) Lymph % (Auto) [place] % (Auto) Eos % (Auto) Baso % (Auto) Neut # (Auto) Lymph # (Auto) [place] # (Auto) Eos # (Auto) Baso # (Auto) Total Counted Seg Neutrophils % Band Neutrophils % Lymphocytes % (Manual) Monocytes % (Manual) Basophils % (Manual) Neutrophils # (Manual) RBC Morphology Anisocytosis PT INR APTT 26 ABG pH ABG pCO2 ABG pO2 ABG HCO3 ABG Total CO2 ABG O2 Saturation ABG Base Excess FiO2 Sodium 140 Potassium 3.5 Chloride 105 Carbon Dioxide 24 BUN 10 Creatinine 0.54 Estimated GFR > 60 BUN/Creatinine Ratio 18.5 Glucose 103 Lactate 0.8 Calcium 9.1 Total Bilirubin 0.4 AST 36 ALT 19 Alkaline Phosphatase 92 Total Creatine Kinase 75 CK-MB (CK-2) TNP CK-MB (CK-2) Rel Index TNP Troponin I 0.019 NT-Pro-B Natriuret Pep 1040 H Total Protein 6.7 Albumin 3.2 L Globulin 3.5 Albumin/Globulin Ratio 0.9 L Procalcitonin 0.04 Prolactin Salicylates 1.2 Acetaminophen < 10 Ethyl Alcohol < 10 Chlamy pneumoniae PCR Adenovirus (PCR) B. pertussis DNA (PCR) B.parapertussis DNA PCR Coronavirus OC43 (PCR) Coronavirus HKU1 (PCR) Coronavirus 229E (PCR) SARS-CoV-2 (PCR) Coronavirus NL63 (PCR) Human Metapneumovir PCR Influenza Type A (PCR) Influenza Type B (PCR) M. pneumoniae (PCR) Parainfluenza 1 (PCR) Parainfluenza 2 (PCR) Parainfluenza 3 (PCR) Parainfluenza 4 (PCR) RSV (PCR) Entero/Rhino (PCR) 05/28/22 05/28/22 05/28/22 10:55 10:58 21:13 WBC 9.5 RBC 4.02 Hgb 11.0 L Hct 34.0 L MCV 84.6 MCH 27.5 MCHC 32.4 RDW 17.2 H Plt Count 332 Neut % (Auto) Not Reportable Lymph % (Auto) Not Reportable [place] % (Auto) Not Reportable Eos % (Auto) Not Reportable Baso % (Auto) Not Reportable Neut # (Auto) Lymph # (Auto) Not Reportable [place] # (Auto) Not Reportable Eos # (Auto) Baso # (Auto) Not Reportable Total Counted 100 Seg Neutrophils % 83.0 H Band Neutrophils % 3.0 Lymphocytes % (Manual) 8.0 L Monocytes % (Manual) 5.0 Basophils % (Manual) 1.0 Neutrophils # (Manual) 8170 H RBC Morphology See below Anisocytosis 2+ H PT INR APTT ABG pH 7.41 ABG pCO2 43.9 ABG pO2 170 H ABG HCO3 28 H ABG Total CO2 29 ABG O2 Saturation 100 ABG Base Excess 3.0 H FiO2 45 Sodium Potassium Chloride Carbon Dioxide BUN Creatinine Estimated GFR BUN/Creatinine Ratio Glucose Lactate Calcium Total Bilirubin AST ALT Alkaline Phosphatase Total Creatine Kinase CK-MB (CK-2) CK-MB (CK-2) Rel Index Troponin I NT-Pro-B Natriuret Pep Total Protein Albumin Globulin Albumin/Globulin Ratio Procalcitonin Prolactin 6.7 Salicylates Acetaminophen Ethyl Alcohol Chlamy pneumoniae PCR Adenovirus (PCR) B. pertussis DNA (PCR) B.parapertussis DNA PCR Coronavirus OC43 (PCR) Coronavirus HKU1 (PCR) Coronavirus 229E (PCR) SARS-CoV-2 (PCR) Coronavirus NL63 (PCR) Human Metapneumovir PCR Influenza Type A (PCR) Influenza Type B (PCR) M. pneumoniae (PCR) Parainfluenza 1 (PCR) Parainfluenza 2 (PCR) Parainfluenza 3 (PCR) Parainfluenza 4 (PCR) RSV (PCR) Entero/Rhino (PCR) 05/28/22 05/29/22 05/29/22 21:13 04:35 04:35 WBC 9.2 RBC 3.60 L Hgb 9.8 L Hct 30.3 L MCV 84.3 MCH 27.2 MCHC 32.2 RDW 17.4 H Plt Count 376 Neut % (Auto) 82.4 H Lymph % (Auto) 9.3 L [place] % (Auto) 7.0 Eos % (Auto) 0.6 L Baso % (Auto) 0.7 Neut # (Auto) 7600 H Lymph # (Auto) 900 L [place] # (Auto) 600 Eos # (Auto) 100 Baso # (Auto) 100 Total Counted Seg Neutrophils % Band Neutrophils % Lymphocytes % (Manual) Monocytes % (Manual) Basophils % (Manual) Neutrophils # (Manual) RBC Morphology Anisocytosis PT INR APTT ABG pH ABG pCO2 ABG pO2 ABG HCO3 ABG Total CO2 ABG O2 Saturation ABG Base Excess FiO2 Sodium 143 142 Potassium 3.8 3.1 L Chloride 108 H 112 H Carbon Dioxide 24 24 BUN 10 9 Creatinine 0.59 0.55 Estimated GFR > 60 > 60 BUN/Creatinine Ratio 16.9 16.4 Glucose 103 122 H Lactate Calcium 9.0 8.5 Total Bilirubin 0.4 AST 26 ALT 17 Alkaline Phosphatase 86 Total Creatine Kinase CK-MB (CK-2) CK-MB (CK-2) Rel Index Troponin I NT-Pro-B Natriuret Pep Total Protein 6.2 L Albumin 3.0 L Globulin 3.2 Albumin/Globulin Ratio 0.9 L Procalcitonin Prolactin Salicylates Acetaminophen Ethyl Alcohol Chlamy pneumoniae PCR Adenovirus (PCR) B. pertussis DNA (PCR) B.parapertussis DNA PCR Coronavirus OC43 (PCR) Coronavirus HKU1 (PCR) Coronavirus 229E (PCR) SARS-CoV-2 (PCR) Coronavirus NL63 (PCR) Human Metapneumovir PCR Influenza Type A (PCR) Influenza Type B (PCR) M. pneumoniae (PCR) Parainfluenza 1 (PCR) Parainfluenza 2 (PCR) Parainfluenza 3 (PCR) Parainfluenza 4 (PCR) RSV (PCR) Entero/Rhino (PCR) 05/29/22 09:48 WBC RBC Hgb Hct MCV MCH MCHC RDW Plt Count Neut % (Auto) Lymph % (Auto) [place] % (Auto) Eos % (Auto) Baso % (Auto) Neut # (Auto) Lymph # (Auto) [place] # (Auto) Eos # (Auto) Baso # (Auto) Total Counted Seg Neutrophils % Band Neutrophils % Lymphocytes % (Manual) Monocytes % (Manual) Basophils % (Manual) Neutrophils # (Manual) RBC Morphology Anisocytosis PT INR APTT ABG pH 7.49 H ABG pCO2 29.8 L ABG pO2 74 L ABG HCO3 23 ABG Total CO2 24 ABG O2 Saturation 96 ABG Base Excess 0.0 FiO2 35 Sodium Potassium Chloride Carbon Dioxide BUN Creatinine Estimated GFR BUN/Creatinine Ratio Glucose Lactate Calcium Total Bilirubin AST ALT Alkaline Phosphatase Total Creatine Kinase CK-MB (CK-2) CK-MB (CK-2) Rel Index Troponin I NT-Pro-B Natriuret Pep Total Protein Albumin Globulin Albumin/Globulin Ratio Procalcitonin Prolactin Salicylates Acetaminophen Ethyl Alcohol Chlamy pneumoniae PCR Adenovirus (PCR) B. pertussis DNA (PCR) B.parapertussis DNA PCR Coronavirus OC43 (PCR) Coronavirus HKU1 (PCR) Coronavirus 229E (PCR) SARS-CoV-2 (PCR) Coronavirus NL63 (PCR) Human Metapneumovir PCR Influenza Type A (PCR) Influenza Type B (PCR) M. pneumoniae (PCR) Parainfluenza 1 (PCR) Parainfluenza 2 (PCR) Parainfluenza 3 (PCR) Parainfluenza 4 (PCR) RSV (PCR) Entero/Rhino (PCR) [facility] Medical History Acquired hypothyroidism (02/10/11) Asthma Chronic migraine without aura without status migrainosus, not intractable Chronic pain syndrome Depression Depression Dorsalgia (07/28/15) Fibromyalgia (09/06/13) Gastroesophageal reflux disease without esophagitis (02/10/11) Generalized anxiety disorder HLD (hyperlipidemia) Hypertension Loosening of hardware in spine Osteoporosis (05/07/15) Recurrent major depressive disorder, in partial remission (02/10/11) Spinal stenosis at L4-L5 level Systemic lupus erythematosus (02/10/11) Tardive dyskinesia Uncomplicated opioid dependence (12/14/15) Surgical History Anesthesia History of arthroplasty of left shoulder (~2013) History of hip replacement History of surgery History of total right hip arthroplasty (~2009) Hx of arthroscopy of left knee Hx of lumbosacral spine surgery (~05/2015) Hx of spinal fusion (~1984) S/P cholecystectomy (~1993) S/P LASIK surgery of both eyes Status post appendectomy Status post tubal ligation Family History Father Family history of polycythemia Mother Family history of CHF (congestive heart failure) Social History marital status: number of children: 2 household members: spouse lives independently: Yes caregiver/support person: No housing: apartment pets and animals: Yes education level: college 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 status: other Previous 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 history: [employer] 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 Respiratory-patient continues to be intubated and still very easy to ventilate. Continued ventilator management as per tele ICU electrical contacts adjuster. Continue with sedation also as per electrical contacts adjuster 2. Electrolytes/nutrition-patient will receive (via nasogastric tube) oral potassium to replace her potassium and plan to recheck this and magnesium tomorrow. Patient should be relatively short term on the ventilator so do not anticipate needs for feeding via gastric tube at this point. 3. Mental health-patient would benefit from resumption of her oral psychotropic medications as per electrical contacts adjuster. I am in full agreement. Will get her back on her sertraline and her amantadine. Her trazodone was mostly as a sleeping aid and I am going to hold off on that for now. I certainly also agree patient would benefit from psychiatric consultation when extubated. Hopefully we can have her usual psychiatrist here see her 4. Hypertension-patient with history of hypertension. Minimally hypertensive at this time. She also minimally bradycardic. If blood pressure goes up and is persistently higher than could restart some oral antihypertensive therapy. Note: Greater than 30 minutes total time was spent on day of service, evaluating the patient on the floor, including examining the patient, discussing clinical course with clinical and nursing staff, reviewing clinical course in the computer, preparing documentation and writing orders for continued management of care, discussing status with family as appropriate, reviewing plans for the next 24 hours with both patient/family and nursing staff as appropriate. Time Spent With Patient Critical Care time: I spent a total of [] minutes of critical care time on this patient's care today; this time is exclusive of procedural time.
[2022-05-29] MEDS: AMANTADINE 100 MG CAPSULE PO (10:45)
[2022-05-29] MEDS: SERTRALINE 50 MG TABLET 150 MG PO (10:45)
[2022-05-29] MEDS: POTASSIUM CHLORIDE 20 MEQ/15 ML UDC 40 MEQ PO ×2 (10:45→20:16)
--- NOTE | 2022-05-29 11:10 | CM.DANOTE ---
DCP: Case received, EMR reviewed. Did not meet with patient in her room, for she is COVID positive, and intubated. Was able to call spouse, Pasquale, who is at bedside. Introduced self and role over the phone. Completed DCP assessment with information currently available. Patient came to the hospital via ambulance secondary to patient being found down, and unresponsive. Spouse had found her. Patient had been here at the hospital recently, as she was discharged on the Apr, for possible dehydration with some tonic clonic motions. Patient has history of chronic pain syndrome element of fibromyalgia, and severe mouth pain which may be related to herpes virus infection. Patient has also tested positive for COVID. Notes indicate unintentional overdose of baclofen presumed. Patient was intubated to protect her airway. Patient is currently followed by psychiatry as well. Was unable to meet with patient, as she is intubated, and positive for COVID. Spoke to spouse, Pasquale, who is at bedside, and patient's primary caregiver. Confirmed that she uses a FWW for short distances, and wheelchair for long distances. They have 3 steps to get into the home. Asked him if patient had home health, for notes from last visit indicated home health, but no documentation of what agency was ordered. Spouse denied that patient had any home health services. Spouse did not discuss patient's ingestion of medications at the time of the call, but may need to revisit this topic. Patient would benefit with home health, for med assess and management, but will depend upon how patient does post intubation. P: DCP to continue to follow closely. Will see how patient does post intubation, and will be available for resources that patient may need. Kelly Gray RN/Corporate Buyer Discharge Planning/Care Management CM Discharge Assessment Start: 05/29/22 11:05 Freq: Status: Active Protocol: Document 05/29/22 11:06 (Rec: 05/29/22 11:10 [id number]) Discharge Planning Assessment Assigned Editor Dictionary Kelly Gray RN/Corporate Buyer Advance Directives? No History Provided By Patient,Medical Record Prior Living Arrangements House Household Members spouse Type of transporation used prior to Relies on Others admit Is patient alert and oriented? Yes Needs Assistance With Bathing,Meal Prep,Home Chores / Shopping Caregiver for Another No DME Already Rented / Owned Wheelchair,FWW / Walker Patient/Family Preference Home with Home Health Barriers to Discharge Yes Comment Will need to be monitored for home if patient is not taking medications appropriately, and patient does have psych history. Discharge Plan Home Transportation Arrangement Spouse Referrals Initiated Other Additional Comment Patient is intubated, plan is not yet clear, but has supportive spouse at home, may likely need home health. If patient plan is home with home health There are some presigned face : Has signed face to face form been to face available. completed? Whiteboard Updated in Patient Room with No name and ext. # of Editor Dictionary Comment Patient is in isolation, COVID positive, and is intubated. Review Status In Process Next Review Type Continued Stay Review
--- NOTE | 2022-05-29 11:21 | DIET.CONS2 ---
Dietary Inpatient Consultation Note Admission Date: 05/28/2022 16:18 RD received consult for NPO on ventilator status. Per hospitalist note, pt will be on ventilator short-term with no current indication for nutrition support. RD to check in with team Monday morning for updated POC. Electronically Signed by: Morelia Jeronimo 05/29/22 11:21 Clinical Dietitian [address] [id number]
--- NOTE | 2022-05-29 12:07 | DI.RAD.S_ITS ---
PROCEDURE: XR CHEST FOR PICC 1V INDICATIONS: Picc placement COMPARISON: [facility], , XR CHEST 1V, 05/29/2022, 8:10. FINDINGS: PICC was placed by the intravenous therapy team from the right side. Fluoroscopic spot film demonstrates the tip of PICC projecting to the area of cavoatrial junction. IMPRESSION: Tip of PICC projects to the area of cavoatrial junction. Approved by: Mike Arias M.D. on 05/29/2022 at 11:43
[2022-05-29] MEDS: CHLORHEXIDINE GLUCONATE 15 ML CUP PO ×2 (12:52→18:26)
[2022-05-29] MEDS: REMDESIVIR 100 MG in SODIUM CHLORIDE 0.9% 230 ML 250 MG IV (16:35)
--- NOTE | 2022-05-29 16:47 | DI.RAD.S_ITS ---
PROCEDURE: XR CHEST 1V INDICATIONS: intubated TECHNIQUE: One view of the chest was acquired. COMPARISON: [facility], CR, XR CHEST 1V, 05/28/2022, 8:41. FINDINGS: Surgical changes and devices: Endotracheal tube tip good position 3.5 cm above the qamar. Nasogastric tube in the stomach. Epidural stimulator and pulse generator unchanged. Left shoulder prosthesis and lumbar spine vertebroplasty present. Lungs and pleura: There is hyperinflation and chronic interstitial changes without focal infiltrate, pleural effusion or pneumothorax. Elevated right hemidiaphragm present. Study limited by rotation Mediastinum: Mediastinal contours appear normal. Heart size is normal. Bones and chest wall: No suspicious bony lesions. Overlying soft tissues appear unremarkable. Generalized decrease in osseous mineralization noted. IMPRESSION: Nasogastric tube in the stomach. Endotracheal tube unchanged. Approved by: Mike Arias M.D. on 05/29/2022 at 8:53
[2022-05-29 17:02] LABS: Add Manual Diff / Slide Review NO; Basophils Absolute Auto 100 /uL (0-100); Basophils Percent Auto 0.7 % (0-2); Eosinophils Absolute Auto 0 /uL (0-450); Eosinophils Percent Auto 0.1 % (2-4); Hematocrit 29.4 % (36-46); Hemoglobin 9.7 g/dL (12.0-16.0); Lymphocytes Absolute Auto 300 /uL (1100-4500); Lymphocytes Percent Auto 4.5 % (25-40); Mean Corpuscular HGB Conc 33.1 % (30-36); Mean Corpuscular Hemoglobin 27.8 PG (26-34); Monocytes Absolute Auto 200 /uL (0-900); Neutrophils Absolute Auto 7100 /uL (1500-7000); Neutrophils Percent Auto 91.7 % (50-75); Platelet Count 304 X10^3/uL (150-400); Red Cell Distribution Width 17.6 % (11.6-14.8); White Blood Cell Count 7.8 X10^3/uL (4.5-11.0)
[2022-05-29 17:19] LABS: Alanine Aminotransferase 16 IU/L (<35); Albumin 2.6 g/dL (3.5-5.0); Albumin Globulin Ratio 0.8 (1.0-2.8); Alkaline Phosphatase 73 U/L (38-126); Aspartate Aminotransferase 24 IU/L (14-36); BUN Creatinine Ratio 19.1 (6-22); Bilirubin Total 0.3 mg/dL (0.2-1.3); Blood Urea Nitrogen 9 mg/dL (7-17); Calcium 8.6 mg/dL (8.4-10.2); Carbon Dioxide 23 mmol/L (22-32); Chloride 112 mmol/L (98-107); Estimated Glomerular Filt Rate > 60 mL/min (>60); Globulin 3.1 g/dL (1.7-4.1); Glucose 147 mg/dL (80-110); HEMOLYSIS 20 (0-50); Potassium 3.9 mmol/L (3.4-5.1); Sodium 143 mmol/L (137-145); Total Protein 5.7 g/dL (6.3-8.2)
[2022-05-29] MEDS: AMANTADINE 100 MG CAPSULE 200 MG PO (20:16)
--- NOTE | 2022-05-29 20:39 | PM.ICURNDS ---
- :: This patient was seen via real time interactive two-way audiovisual telecommunication.
[2022-05-29] MEDS: fentaNYL 1,000 MCG in DEXTROSE 5% IN WATER 230 ML 22.86 MCG IV (20:45)
[2022-05-30] VITALS (71 sets, daily range): BP systolic 107–210; BP diastolic 52–88; PULSE 47–103; RESP 3–42; TEMP 36.3–37.1; O2SAT 91–100
[2022-05-30] MEDS: CHLORHEXIDINE GLUCONATE 15 ML CUP PO ×3 (00:55→18:35)
[2022-05-30] MEDS: propofoL 1,000 MG/100 ML VIAL 17.962 MG IV (01:07)
[2022-05-30] MEDS: DEXTROSE 5%-0.9% NS 1,000 ML 100 ML IV ×4 (03:39→23:07)
[2022-05-30 05:01] LABS: BUN Creatinine Ratio 17.8 (6-22); Blood Urea Nitrogen 8 mg/dL (7-17); Calcium 8.6 mg/dL (8.4-10.2); Carbon Dioxide 21 mmol/L (22-32); Chloride 114 mmol/L (98-107); Estimated Glomerular Filt Rate > 60 mL/min (>60); Glucose 107 mg/dL (80-110); HEMOLYSIS 16 (0-50); Magnesium 1.7 mg/dL (1.6-2.3); Potassium 3.4 mmol/L (3.4-5.1); Sodium 143 mmol/L (137-145)
[2022-05-30] MEDS: propofoL 1,000 MG/100 ML VIAL 22.453 MG IV ×2 (06:26→09:53)
[2022-05-30] MEDS: fentaNYL 1,000 MCG in DEXTROSE 5% IN WATER 230 ML 38.1 MCG IV ×3 (06:45→21:13)
[2022-05-30] MEDS: DEXAMETHASONE 10 MG/ML VIAL 6 MG IV (08:01)
[2022-05-30] MEDS: ENOXAPARIN 40 MG/0.4 ML SYRINGE SUBCUT (08:01)
[2022-05-30] MEDS: FAMOTIDINE 20 MG/2 ML VIAL IV ×2 (08:01→20:04)
--- NOTE | 2022-05-30 09:21 | PM.PN.1 ---
Subjective Subjective Date Patient Seen: 05/30/22 Time Patient Seen: 09:22 Interval history: Patient seen and evaluated family at bedside and daughter here. Discussed with them current care. States patient has been a lot of pain. Assuming intentional overdose on baclofen. Which they would be in agreement with. Been stable overnight discussed care with nurse. A little bit hypertensive easily to ventilate. NG tube in place. Still having these tonic-clonic movement with movement to the right. Some agitation. Urine output has been good pulses good last ABG looks good. Chest x-ray was reviewed. Exam Vital Signs (past 8 hours): - 05/30/22 01:30 05/30/22 01:30 05/30/22 01:32 Temperature Pulse Rate 51 L 51 L Respiratory Rate 16 16 Blood Pressure 175/77 H Pulse Oximetry 99 99 Oxygen Delivery Method 05/30/22 01:33 05/30/22 01:33 05/30/22 02:00 Temperature Pulse Rate 52 L 50 L Respiratory Rate 16 16 Blood Pressure 166/79 H Pulse Oximetry 99 98 Oxygen Delivery Method 05/30/22 02:00 05/30/22 02:30 05/30/22 02:30 Temperature Pulse Rate 51 L Respiratory Rate 16 Blood Pressure 167/76 H 175/77 H Pulse Oximetry 99 Oxygen Delivery Method 05/30/22 02:52 05/30/22 03:00 05/30/22 03:00 Temperature Pulse Rate 49 L 50 L Respiratory Rate 17 16 Blood Pressure 177/79 H Pulse Oximetry 98 98 Oxygen Delivery Method 05/30/22 03:09 05/30/22 04:00 05/30/22 03:30 Temperature Pulse Rate 51 L 51 L Respiratory Rate 16 16 Blood Pressure Pulse Oximetry 99 98 Oxygen Delivery Method Mechanical Ventilation 05/30/22 03:30 05/30/22 03:37 05/30/22 03:37 Temperature Pulse Rate 52 L Respiratory Rate 16 Blood Pressure 180/81 H 175/81 H Pulse Oximetry 99 Oxygen Delivery Method 05/30/22 03:39 05/30/22 03:39 05/30/22 04:53 Temperature 97.8 F Pulse Rate 63 74 Respiratory Rate 23 30 H Blood Pressure 184/86 H Pulse Oximetry 98 97 Oxygen Delivery Method 05/30/22 05:08 05/30/22 05:08 05/30/22 05:31 Temperature Pulse Rate 81 Respiratory Rate 28 H Blood Pressure 210/88 H 195/84 H Pulse Oximetry 97 Oxygen Delivery Method 05/30/22 05:31 05/30/22 06:00 05/30/22 06:00 Temperature Pulse Rate 74 61 Respiratory Rate 25 H 16 Blood Pressure 172/77 H Pulse Oximetry 96 96 Oxygen Delivery Method 05/30/22 06:30 05/30/22 06:30 05/30/22 06:44 Temperature Pulse Rate 74 60 Respiratory Rate 18 16 Blood Pressure 199/84 H Pulse Oximetry 96 97 Oxygen Delivery Method 05/30/22 06:49 05/30/22 06:49 05/30/22 07:00 Temperature 97.4 F L Pulse Rate 77 69 Respiratory Rate 28 H 16 Blood Pressure 180/80 H 168/77 H Pulse Oximetry 98 97 Oxygen Delivery Method 05/30/22 07:00 05/30/22 07:30 05/30/22 07:30 Temperature Pulse Rate 61 71 Respiratory Rate 18 23 Blood Pressure 195/81 H Pulse Oximetry 97 97 Oxygen Delivery Method 05/30/22 07:59 05/30/22 08:00 Temperature 97.5 F L Pulse Rate 84 Respiratory Rate 26 H Blood Pressure 188/84 H 188/84 H Pulse Oximetry 97 Oxygen Delivery Method Oxygen Delivery Method Mechanical Ventilation Narrative Exam Narrative: Gen.: Tonic-clonic movement Movement and sedated HEENT: Pupils are reactive or mucosa is dry neck is supple Cardio: S1-S2 regular rate and rhythm Respiratory: Mechanical breath sounds with good aeration. Abdomen: Soft nontender Extremities: Full range of motion warm dry perfused Neurologic: Tonic-clonic motion in a rhythmic pattern Objective Labs Result Diagrams: 05/29/22 16:45 05/30/22 04:30 Labs: Laboratory Results - last 24 hr 05/29/22 05/29/22 05/29/22 09:48 16:45 16:45 WBC 7.8 RBC 3.50 L Hgb 9.7 L Hct 29.4 L MCV 84.0 MCH 27.8 MCHC 33.1 RDW 17.6 H Plt Count 304 Neut % (Auto) 91.7 H Lymph % (Auto) 4.5 L [place] % (Auto) 3.0 Eos % (Auto) 0.1 L Baso % (Auto) 0.7 Neut # (Auto) 7100 H Lymph # (Auto) 300 L [place] # (Auto) 200 Eos # (Auto) 0 Baso # (Auto) 100 ABG pH 7.49 H ABG pCO2 29.8 L ABG pO2 74 L ABG HCO3 23 ABG Total CO2 24 ABG O2 Saturation 96 ABG Base Excess 0.0 FiO2 35 Sodium 143 Potassium 3.9 Chloride 112 H Carbon Dioxide 23 BUN 9 Creatinine 0.47 L Estimated GFR > 60 BUN/Creatinine Ratio 19.1 Glucose 147 H Calcium 8.6 Magnesium Total Bilirubin 0.3 AST 24 ALT 16 Alkaline Phosphatase 73 Total Protein 5.7 L Albumin 2.6 L Globulin 3.1 Albumin/Globulin Ratio 0.8 L 05/30/22 04:30 WBC RBC Hgb Hct MCV MCH MCHC RDW Plt Count Neut % (Auto) Lymph % (Auto) [place] % (Auto) Eos % (Auto) Baso % (Auto) Neut # (Auto) Lymph # (Auto) [place] # (Auto) Eos # (Auto) Baso # (Auto) ABG pH ABG pCO2 ABG pO2 ABG HCO3 ABG Total CO2 ABG O2 Saturation ABG Base Excess FiO2 Sodium 143 Potassium 3.4 Chloride 114 H Carbon Dioxide 21 L BUN 8 Creatinine 0.45 L Estimated GFR > 60 BUN/Creatinine Ratio 17.8 Glucose 107 Calcium 8.6 Magnesium 1.7 Total Bilirubin AST ALT Alkaline Phosphatase Total Protein Albumin Globulin Albumin/Globulin Ratio [facility] Medical History Acquired hypothyroidism (02/10/11) Asthma Chronic migraine without aura without status migrainosus, not intractable Chronic pain syndrome Depression Depression Dorsalgia (07/28/15) Fibromyalgia (09/06/13) Gastroesophageal reflux disease without esophagitis (02/10/11) Generalized anxiety disorder HLD (hyperlipidemia) Hypertension Loosening of hardware in spine Osteoporosis (05/07/15) Recurrent major depressive disorder, in partial remission (02/10/11) Spinal stenosis at L4-L5 level Systemic lupus erythematosus (02/10/11) Tardive dyskinesia Uncomplicated opioid dependence (12/14/15) Surgical History Anesthesia History of arthroplasty of left shoulder (~2013) History of hip replacement History of surgery History of total right hip arthroplasty (~2009) Hx of arthroscopy of left knee Hx of lumbosacral spine surgery (~05/2015) Hx of spinal fusion (~1984) S/P cholecystectomy (~1993) S/P LASIK surgery of both eyes Status post appendectomy Status post tubal ligation Family History Father Family history of polycythemia Mother Family history of CHF (congestive heart failure) Social History marital status: number of children: 2 household members: spouse lives independently: Yes caregiver/support person: No housing: apartment pets and animals: Yes education level: college 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 status: other Previous 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 history: [employer]/hindu: 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 Acute encephalopathy Patient intubated. Patient with ongoing rhythmic tonic-clonic motions. Patient still sedated on Precedex. Question weaning trial if she will tolerate this. Certainly would recommend neurological consultation and Psychiatric consultation which are not readily available and transfer the patient is difficult during the current post pandemic hospital status. Psychiatry evaluation when and if patient is extubated. Patient has a component of encephalopathy. Respiratory patient mechanically ventilated due to overdose. Acute hypoxic respiratory failure Patient unable to protect her airway. Patient is on propofol and fentanyl. ABG chest x-ray reviewed. Tele laser technician consultation is on board and appreciated. Question if patient is stable enough and mentally cognition enough to extubate today. Continue per tele laser technician recommendation. Electrolyte nutrition. Patient's electrolytes are stable today. Recheck electrolytes tomorrow. Continue with IV fluids. Not on any oral nutrition at this point. Mental health patient with chronic pain. Restarted her sertraline yesterday. Restarted her amantadine. Through NG tube. Psychiatry evaluation once off mechanical ventilation. Hypertensive. Patient's blood pressure is higher. Will go ahead and start an oral antihypertensive medication today. COVID-19 on Decadron and remdesivir. Continue with droplet precautions Discussion with family today family goals are continue with mechanical ventilation leaning more towards comfort as per and daughter. Time Spent With Patient Critical Care time: I spent a total of [] minutes of critical care time on this patient's care today; this time is exclusive of procedural time.
[2022-05-30 09:42] LABS: Fractionated Inspired Oxygen 35; HCO3 ABG 23 mmol/L (22-26); Oxygen Saturation ABG 97 % (95-100); PCO2 ABG 36.1 mmHg (35-45); PO2 ABG 88 mmHg (80-100); TCO2 ABG 24 mmol/L (21-31); pH ABG 7.41 (7.35-7.45)
--- NOTE | 2022-05-30 09:48 | P.TELICUPN_ITS ---
Subjective Subjective IF CAMERA ACTIVATED, patient seen via real-time interactive audiovisual communication: Camera activated Consent obtained for tele-videogame designer care: Yes Patient Location: ICU Provider location (State): [place] Other participants/roles: Bedside RN and RT Interval history: Remains agitated despite being on propofol and fentanyl. Restarted back on home BP meds. Per RN report, there is intermittent jerking movement while on propofol raising concern for ?seizure. Current Medications Current Medications Medications: Home Medications risedronate 150 mg tablet 150 mg PO QMONTH #12 tabs 08/10/20 [Rx Confirmed 05/28/22] amlodipine 10 mg tablet 10 mg PO DAILY #90 tabs 06/29/21 [Rx Confirmed 05/28/22] trazodone 100 mg tablet 100 mg PO BEDTIME #90 tabs 06/29/21 [Rx Confirmed 05/28/22] benzonatate 100 mg capsule 100 mg PO TID PRN cough #60 caps 06/30/21 [Rx Confi rmed 05/28/22] rizatriptan 10 mg tablet 10 mg PO .COMPLEX PRN migraine headache #6 tabs 07/30/21 [Rx Confirmed 05/28/22] simvastatin 20 mg tablet 20 mg PO DAILY #90 tabs 11/02/21 [Rx Confirmed 2] pilocarpine HCl 5 mg tablet 5 mg PO QID #368 tabs 01/05/22 [Rx Confirmed 05/28/22] sertraline 50 mg tablet 150 mg PO DAILY #90 tabs 03/28/22 [Rx Confirmed 05/28/22] omeprazole 40 mg capsule,delayed release 40 mg PO BID #180 caps 04/18/22 [Rx Confirmed 05/28/22] baclofen 5 mg tablet 5 mg PO TID 05/19/22 [History Confirmed 05/28/22] ferrous sulfate 325 mg (65 mg iron) tablet 325 mg PO DAILY #30 tabs 05/21/22 [Rx Confirmed 05/28/22] amantadine HCl 100 mg tablet 100 mg PO QAM 05/28/22 [History Confirmed 05/28/22] amantadine HCl 100 mg tablet 200 mg PO QPM 05/28/22 [History Confirmed 05/28/22] hydromorphone 4 mg tablet 4 mg PO Q4HR PRN Pain (Scale Score 7-10) 05/28/22 [History Confirmed 05/28/22] metoprolol tartrate 50 mg tablet 50 mg PO DAILY 05/28/22 [History Confirmed 05/28/22] potassium chloride 8 mEq tablet,extended release 8 meq PO DAILY 05/28/22 [History Confirmed 05/28/22] valsartan 160 mg tablet 160 mg PO BID 05/28/22 [History Confirmed 05/28/22] Visit Medications (administered) Generic Name Dose Route Start Last Admin Trade Name Freq PRN Reason Stop Dose Admin Amantadine HCl 200 mg 05/29/22 21:00 05/29/22 20:16 Amantadine 100 Mg Capsule PO 200 mg BEDTIME BETTIE Administration Amantadine HCl 100 mg 05/29/22 10:45 05/29/22 10:45 Amantadine 100 Mg Capsule PO 100 mg DAILY BETTIE Administration Chlorhexidine Gluconate 15 ml 05/28/22 18:00 05/30/22 05:33 Chlorhexidine Gluconate 15 Ml Cup PO Not Given Q6HR BETTIE Dexamethasone 6 mg 05/29/22 09:30 05/30/22 08:01 Dexamethasone 10 Mg/Ml Vial IV 06/09/22 09:00 6 mg DAILY BETTIE Administration Enoxaparin Sodium 40 mg 05/29/22 09:00 05/30/22 08:01 Enoxaparin 40 Mg/0.4 Ml Syringe SUBCUT 40 mg DAILY BETTIE Administration Famotidine 20 mg 05/28/22 21:00 05/30/22 08:01 Famotidine 20 Mg/2 Ml Vial IV 20 mg BID BETTIE Administration Fentanyl 25 mcg 05/29/22 01:56 05/29/22 02:04 Fentanyl 100 Mcg/2 Ml Inj IV 25 mcg Q1H PRN Administration Pain, Severe (7-10) Dextrose/Sodium Chloride 1,000 mls @ 100 mls/hr 05/28/22 16:47 05/30/22 03:47 Dextrose 5%-0.9% Ns IV 100 mls/hr CONT BETTIE Administration Propofol 1,000 mg in 100 mls @ 2.245 mls/hr 05/28/22 16:47 05/30/22 06:26 Propofol IV 50 mcg/kg/min TITRATE BETTIE 22.453 mls/hr Administration Protocol 5 MCG/KG/MIN Remdesivir 100 mg/ Sodium 250 mls @ 250 mls/hr 05/29/22 17:00 05/29/22 18:58 Chloride IV 06/01/22 17:59 Infused 1700 BETTIE Infusion Fentanyl 1,000 mcg/ Dextrose 250 mls @ 13.335 mls/hr 05/29/22 07:15 05/30/22 06:45 IV 2 mcg/kg/hr TITRATE BETTIE 38.1 mls/hr Administration Protocol 0.7 MCG/KG/HR Potassium Chloride 40 meq 05/29/22 10:45 05/29/22 20:16 Potassium Chloride 20 Meq/15 Ml Udc PO 40 meq BID BETTIE Administration Sertraline HCl 150 mg 05/29/22 10:30 05/29/22 10:45 Sertraline 50 Mg Tablet PO 150 mg DAILY BETTIE Administration Objective Ventilator Parameters: Ventilator Settings FiO2 35 RT Vent Frequency 16 Ventilator Tidal Volume 390 Exhaled Vt/kg IBW 6 Positive End Expiratory 5 Pressure Inspiratory Phase Time 0.75 I:E Ratio 1:3.4 Patient Position HOB >= 30 degrees Labs Result Diagrams: 05/29/22 16:45 05/30/22 04:30 Labs: Laboratory Results - last 24 hr 05/29/22 05/29/22 05/29/22 09:48 16:45 16:45 WBC 7.8 RBC 3.50 L Hgb 9.7 L Hct 29.4 L MCV 84.0 MCH 27.8 MCHC 33.1 RDW 17.6 H Plt Count 304 Neut % (Auto) 91.7 H Lymph % (Auto) 4.5 L [place] % (Auto) 3.0 Eos % (Auto) 0.1 L Baso % (Auto) 0.7 Neut # (Auto) 7100 H Lymph # (Auto) 300 L [place] # (Auto) 200 Eos # (Auto) 0 Baso # (Auto) 100 ABG pH 7.49 H ABG pCO2 29.8 L ABG pO2 74 L ABG HCO3 23 ABG Total CO2 24 ABG O2 Saturation 96 ABG Base Excess 0.0 FiO2 35 Sodium 143 Potassium 3.9 Chloride 112 H Carbon Dioxide 23 BUN 9 Creatinine 0.47 L Estimated GFR > 60 BUN/Creatinine Ratio 19.1 Glucose 147 H Calcium 8.6 Magnesium Total Bilirubin 0.3 AST 24 ALT 16 Alkaline Phosphatase 73 Total Protein 5.7 L Albumin 2.6 L Globulin 3.1 Albumin/Globulin Ratio 0.8 L 05/30/22 05/30/22 04:30 09:27 WBC RBC Hgb Hct MCV MCH MCHC RDW Plt Count Neut % (Auto) Lymph % (Auto) [place] % (Auto) Eos % (Auto) Baso % (Auto) Neut # (Auto) Lymph # (Auto) [place] # (Auto) Eos # (Auto) Baso # (Auto) ABG pH 7.41 ABG pCO2 36.1 ABG pO2 88 ABG HCO3 23 ABG Total CO2 24 ABG O2 Saturation 97 ABG Base Excess -2.0 FiO2 35 Sodium 143 Potassium 3.4 Chloride 114 H Carbon Dioxide 21 L BUN 8 Creatinine 0.45 L Estimated GFR > 60 BUN/Creatinine Ratio 17.8 Glucose 107 Calcium 8.6 Magnesium 1.7 Total Bilirubin AST ALT Alkaline Phosphatase Total Protein Albumin Globulin Albumin/Globulin Ratio Exam Vital Signs (past 8 hours): - 05/30/22 02:00 05/30/22 02:00 05/30/22 02:30 Temperature Pulse Rate 50 L Respiratory Rate 16 Blood Pressure 167/76 H 175/77 H Pulse Oximetry 98 Oxygen Delivery Method 05/30/22 02:30 05/30/22 02:52 05/30/22 03:00 Temperature Pulse Rate 51 L 49 L Respiratory Rate 16 17 Blood Pressure 177/79 H Pulse Oximetry 99 98 Oxygen Delivery Method 05/30/22 03:00 05/30/22 03:09 05/30/22 04:00 Temperature Pulse Rate 50 L 51 L Respiratory Rate 16 16 Blood Pressure Pulse Oximetry 98 99 Oxygen Delivery Method Mechanical Ventilation 05/30/22 03:30 05/30/22 03:30 05/30/22 03:37 Temperature Pulse Rate 51 L Respiratory Rate 16 Blood Pressure 180/81 H 175/81 H Pulse Oximetry 98 Oxygen Delivery Method 05/30/22 03:37 05/30/22 03:39 05/30/22 03:39 Temperature 97.8 F Pulse Rate 52 L 63 Respiratory Rate 16 23 Blood Pressure 184/86 H Pulse Oximetry 99 98 Oxygen Delivery Method 05/30/22 04:53 05/30/22 05:08 05/30/22 05:08 Temperature Pulse Rate 74 81 Respiratory Rate 30 H 28 H Blood Pressure 210/88 H Pulse Oximetry 97 97 Oxygen Delivery Method 05/30/22 05:31 05/30/22 05:31 05/30/22 06:00 Temperature Pulse Rate 74 Respiratory Rate 25 H Blood Pressure 195/84 H 172/77 H Pulse Oximetry 96 Oxygen Delivery Method 05/30/22 06:00 05/30/22 06:30 05/30/22 06:30 Temperature Pulse Rate 61 74 Respiratory Rate 16 18 Blood Pressure 199/84 H Pulse Oximetry 96 96 Oxygen Delivery Method 05/30/22 06:44 05/30/22 06:49 05/30/22 06:49 Temperature 97.4 F L Pulse Rate 60 77 69 Respiratory Rate 16 28 H 16 Blood Pressure 180/80 H Pulse Oximetry 97 98 97 Oxygen Delivery Method 05/30/22 07:00 05/30/22 07:00 05/30/22 07:30 Temperature Pulse Rate 61 Respiratory Rate 18 Blood Pressure 168/77 H 195/81 H Pulse Oximetry 97 Oxygen Delivery Method 05/30/22 07:30 05/30/22 07:59 05/30/22 08:00 Temperature 97.5 F L Pulse Rate 71 84 Respiratory Rate 23 26 H Blood Pressure 188/84 H 188/84 H Pulse Oximetry 97 97 Oxygen Delivery Method 05/30/22 08:00 05/30/22 08:30 05/30/22 08:30 Temperature Pulse Rate 85 89 Respiratory Rate 24 30 H Blood Pressure 190/84 H Pulse Oximetry 96 95 Oxygen Delivery Method 05/30/22 09:00 05/30/22 09:00 Temperature Pulse Rate 93 H Respiratory Rate 42 H Blood Pressure 180/78 H Pulse Oximetry 96 Oxygen Delivery Method Oxygen Delivery Method Mechanical Ventilation Narrative Exam Narrative: Intubated and sedated. Assessment & Plan Assessment & Plan narrative: NEURO: # Acute encephalopathy -- Secondary to baclofen overdose, withdrawal, and delirium -- CTH negative -- Failed SAT due to agitation -- Recommend adding seroquel if QTc will tolerate -- If concern for seizure then will recommend obtainin neurology consultation for EEG -- On propofol and fentanyl -- RASS goal -1 to 0 -- Early mobility # Baclofen overdose -- No reported suicidal attempt and attributed to uncontrolled symptoms? -- Poison control contacted and recommended supportive care -- Need psych eval when extubated RESP: # Acute hypoxemia respiratory failure -- Intubated for airway protection -- Meeting goals of oxygenation and ventilation -- Failed SAT today -- Not a candidate for SBT until passed SAT -- HOB elevation -- Aspiration precaution -- Goal SpO2 > 88% CVS: # HTN -- Restarted back on lisinopril -- Recommend adding norvasc -- Goal SBP < 140 ID: # COVID-19 -- On decadron 6 mg PO daily X 10 days -- On airborne, contact, and droplet precautions GI: -- Recommend starting TF HEME: # Anemia -- No signs of overt bleed -- Daily CBC -- Goal Hb > 7 ENDO: -- Goal BS < 180 D/w RT and RN at bedside. Time Spent With Patient Critical Care time: I spent a total of 32 minutes of critical care time on this patient's care today; this time is exclusive of procedural time.
[2022-05-30] MEDS: POTASSIUM CHLORIDE 20 MEQ/15 ML UDC 40 MEQ PO ×2 (10:22→20:04)
[2022-05-30] MEDS: SERTRALINE 50 MG TABLET 150 MG PO (10:22)
[2022-05-30] MEDS: lisinopriL 20 MG TABLET PO (10:23)
[2022-05-30] MEDS: AMANTADINE 100 MG CAPSULE PO (10:24)
--- NOTE | 2022-05-30 10:44 | DIET.CONS2 ---
Dietary Inpatient Consultation Note Admission Date: 05/28/2022 16:[address] Jordan. Plan for SBT tomorrow, if fails, will consider initiation of enteral feeding plan as pt is full code. Electronically Signed by: Morelia Jeronimo 05/30/22 10:44 Clinical Dietitian [address] [address]
[2022-05-30 10:46] LABS: Triglycerides 163 mg/dL (35-150)
--- NOTE | 2022-05-30 13:12 | CM.DPC ---
DCP Cont: Per MD and RN, pt having tonic-clonic involuntary movements and difficult to sedate and possible seizure type activity and not medically appropriate to attempt extubation trial today. MD met bedside with spouse and Dtr bedside and currently wanting to continue with intubation but if no improvements would consider comfort measures. If pt able to successfully be extubated, then MD plans to still consult with her established Psychiatrist Dr. Nicole as still unclear if pt overdose was intentional vs unintentional. Plan: SW to follow closely for pt progress towards determining extubation vs possible comfort if pt does not improve. Oriana Petersen MSW
[2022-05-30] MEDS: propofoL 1,000 MG/100 ML VIAL 31.434 MG IV ×4 (13:21→22:53)
--- NOTE | 2022-05-30 15:05 | PC.NURSE ---
During short pause in propofol this morning, patient did not tolerate sedation vacation, quickly became more restless and agitated and hard to get sedated and comfortable again. Discussed plans with Dr. Jordan and Dr. Brody several times. Per Dr. Brody want to continue with increasing propofol for sedation up to 75 mcg/kg/min. Dosing confirmed with pharmacy and protocol. Patient tolerating and able to rest at this time.
[2022-05-30] MEDS: REMDESIVIR 100 MG in SODIUM CHLORIDE 0.9% 230 ML 250 MG IV (16:32)
--- NOTE | 2022-05-30 16:47 | DI.RAD.S_ITS ---
PROCEDURE: XR CHEST 1V INDICATIONS: Intubation TECHNIQUE: One view of the chest was acquired. COMPARISON: [facility], CR, XR CHEST FOR PICC 1V, 05/29/2022, 12:12. [facility], CR, XR CHEST 1V, 05/29/2022, 8:10. FINDINGS: Right upper extremity PICC terminates in appropriate position. Endotracheal tube and enteric tube are in appropriate position. Asymmetric elevation of the right hemidiaphragm. No definite pleural effusion or findings of pneumothorax. No acute airspace opacity. IMPRESSION: Appropriate position of endotracheal tube, enteric tube, and right upper extremity PICC. Dictated by: Tree Cano M.D. on 05/30/2022 at 10:26 Approved by: Tree Cano M.D. on 05/30/2022 at 10:28
[2022-05-30] MEDS: AMANTADINE 100 MG CAPSULE 200 MG PO (20:05)
--- NOTE | 2022-05-30 20:39 | DI.RAD.S_ITS ---
PROCEDURE: XR CHEST 1V INDICATIONS: Confirmation OG placement TECHNIQUE: One view of the chest was acquired. COMPARISON: [facility], CR, XR CHEST 1V, 05/30/2022, 6:06. FINDINGS: Surgical changes and devices: Orogastric tube extends into the distal stomach or proximal duodenum. Endotracheal tube redemonstrated with the tip approximately 3 cm from the qamar. Right upper extremity PICC line redemonstrated with the tip in the region of the cavoatrial junction. Epidural neurostimulator leads appear unchanged. Left shoulder prosthesis again noted. Lungs and pleura: There are persistent small bilateral pleural effusions, right greater than left. There are confluent right basilar opacities consistent with consolidation or atelectasis which appear decreased compared to the prior study. There are left basilar opacities which appear increased compared to the prior study also suggestive of atelectasis, versus consolidation. No evidence of pneumothorax. Mediastinum: Mediastinal contours appear unchanged. Heart size is normal. Bones and chest wall: No suspicious bony lesions. Overlying soft tissues appear unremarkable. IMPRESSION: 1. Orogastric tube tip demonstrated in the region of the gastric antrum or proximal duodenum. 2. Persistent small bilateral pleural effusions with associated bibasilar atelectasis or consolidation, with interval decrease on the right and interval increase on the left. Dictated by: Castro Loya M.D. on 05/30/2022 at 22:29 Approved by: Castro Loya M.D. on 05/30/2022 at 22:33
--- NOTE | 2022-05-30 20:57 | PM.ICURNDS ---
- :: This patient was seen via real time interactive two-way audiovisual telecommunication. patient currently omn propofol anf fentanyl, ? myoclonus. Patient otherwise is not purposeful. on GI and dvt ppx. SAT in am
[2022-05-30 23:13] LABS: Add Manual Diff / Slide Review NO; Basophils Absolute Auto 200 /uL (0-100); Basophils Percent Auto 1.4 % (0-2); Eosinophils Absolute Auto 100 /uL (0-450); Hematocrit 33.2 % (36-46); Hemoglobin 10.1 g/dL (12.0-16.0); Lymphocytes Absolute Auto 1800 /uL (1100-4500); Lymphocytes Percent Auto 15.6 % (25-40); Mean Corpuscular HGB Conc 30.3 % (30-36); Mean Corpuscular Hemoglobin 27.2 PG (26-34); Mean Corpuscular Volume 89.7 fL (80-100); Monocytes Absolute Auto 1300 /uL (0-900); Monocytes Percent Auto 10.6 % (3-14); Neutrophils Absolute Auto 8500 /uL (1500-7000); Neutrophils Percent Auto 71.4 % (50-75); Platelet Count 394 X10^3/uL (150-400); Red Cell Distribution Width 19.9 % (11.6-14.8); White Blood Cell Count 11.9 X10^3/uL (4.5-11.0)
[2022-05-30 23:15] LABS: Alanine Aminotransferase 16 IU/L (<35); Albumin 2.7 g/dL (3.5-5.0); Alkaline Phosphatase 79 U/L (38-126); Aspartate Aminotransferase 20 IU/L (14-36); BUN Creatinine Ratio 19.6 (6-22); Bilirubin Total 0.3 mg/dL (0.2-1.3); Blood Urea Nitrogen 9 mg/dL (7-17); Calcium 8.8 mg/dL (8.4-10.2); Carbon Dioxide 21 mmol/L (22-32); Chloride 114 mmol/L (98-107); Estimated Glomerular Filt Rate > 60 mL/min (>60); Globulin 2.8 g/dL (1.7-4.1); Glucose 105 mg/dL (80-110); HEMOLYSIS < 15 (0-50); Potassium 3.6 mmol/L (3.4-5.1); Sodium 141 mmol/L (137-145); Total Protein 5.5 g/dL (6.3-8.2)
[2022-05-31] VITALS (63 sets, daily range): BP systolic 95–174; BP diastolic 43–83; PULSE 43–74; RESP 16–32; TEMP 36.3–37; O2SAT 92–100
[2022-05-31] MEDS: CHLORHEXIDINE GLUCONATE 15 ML CUP PO ×5 (00:30→23:42)
[2022-05-31] MEDS: propofoL 1,000 MG/100 ML VIAL 26.943 MG IV ×4 (02:25→12:04)
[2022-05-31] MEDS: fentaNYL 1,000 MCG in DEXTROSE 5% IN WATER 230 ML 38.1 MCG IV ×3 (04:34→18:59)
[2022-05-31 04:44] LABS: Add Manual Diff / Slide Review NO; Basophils Absolute Auto 0 /uL (0-100); Basophils Percent Auto 0.3 % (0-2); Eosinophils Absolute Auto 200 /uL (0-450); Eosinophils Percent Auto 1.9 % (2-4); Hematocrit 29.6 % (36-46); Hemoglobin 9.5 g/dL (12.0-16.0); Lymphocytes Absolute Auto 2100 /uL (1100-4500); Lymphocytes Percent Auto 22.1 % (25-40); Mean Corpuscular Hemoglobin 27.4 PG (26-34); Mean Corpuscular Volume 85.6 fL (80-100); Monocytes Absolute Auto 1000 /uL (0-900); Monocytes Percent Auto 10.9 % (3-14); Neutrophils Absolute Auto 6000 /uL (1500-7000); Neutrophils Percent Auto 64.8 % (50-75); Platelet Count 281 X10^3/uL (150-400); Red Blood Cell Count 3.46 X10^6/uL (4.0-5.2); Red Cell Distribution Width 18.5 % (11.6-14.8); White Blood Cell Count 9.3 X10^3/uL (4.5-11.0)
[2022-05-31 04:51] LABS: Alanine Aminotransferase 16 IU/L (<35); Albumin 2.5 g/dL (3.5-5.0); Albumin Globulin Ratio 0.8 (1.0-2.8); Alkaline Phosphatase 73 U/L (38-126); Aspartate Aminotransferase 21 IU/L (14-36); BUN Creatinine Ratio 9.8 (6-22); Bilirubin Total 0.3 mg/dL (0.2-1.3); Blood Urea Nitrogen 4 mg/dL (7-17); Calcium 8.1 mg/dL (8.4-10.2); Carbon Dioxide 20 mmol/L (22-32); Chloride 113 mmol/L (98-107); Estimated Glomerular Filt Rate > 60 mL/min (>60); Globulin 3.1 g/dL (1.7-4.1); Glucose 103 mg/dL (80-110); HEMOLYSIS < 15 (0-50); Potassium 3.5 mmol/L (3.4-5.1); Sodium 139 mmol/L (137-145); Total Protein 5.6 g/dL (6.3-8.2)
--- NOTE | 2022-05-31 08:19 | PM.PN.1 ---
Subjective Subjective Date Patient Seen: 05/31/22 Time Patient Seen: 08:19 Interval history: Patient is essentially unchanged overall When propofol which is currently relatively high dose is been reduced at all patient gets a lot of her jerking/myoclonus which preceded her baclofen ingestions in fact is been going on on some level for months without clear diagnosis When propofol is increase she settles back down again when his decreased her heart rate goes up she seems to be uncomfortable although there is no purposeful movements or anything like that ongoing Family is quite concerned having decided that she most likely took 50+ pills in an intentional effort to end her life as she is been extremely miserable for the last several months and medicine has not been able to provide any diagnosis let alone any sort of treatment option. She is been unable to eat she is been unable to walk she has not left the house to do anything for extraordinarily long period of time other than doctor's visits etcetera. She is lost tremendous amount of weight and is not finding any hemal in any part of living over the last several months. They feel strongly that having been to the [facility] and failing to find a diagnosis or treatment option for her mouth and the sores there causing her to have difficulty speaking eating and even just sitting still and tolerating the discomfort was quite a devastating below to her psychologically Given that concerned there not convinced that we should continue with any sort of aggressive treatment to help her recover knowing that even if she should recover her quality of life is frankly miserable and they do not want to see that continued. She is reached a point at home where she really can not be cared for in the home setting if she does recover from this she would likely need to be cared for in a [facility]dc facility both short-term and long-term and that would be completely unacceptable. Patient's daughters have had yesenia discussions with her about alternate forms of feeding knowing that she was wasting away as she was unable to eat because of her mouth sores and she was extraordinarily clear and yesenia that she did not want any sort of artificial feeding no tube feeding nothing like that would be anything like acceptable to her. Spouse and daughter who is with her here today are very clear that even if she should survive this that would be something that would be probably appropriate to help her survive long-term and they would not agree to that given that previous discussion Exam Vital Signs (past 8 hours): - 05/31/22 00:30 05/31/22 00:30 05/31/22 00:59 Temperature Pulse Rate 44 L 44 L Respiratory Rate 16 16 Blood Pressure 118/59 L Pulse Oximetry 93 94 Oxygen Delivery Method 05/31/22 01:00 05/31/22 01:00 05/31/22 01:30 Temperature Pulse Rate 44 L Respiratory Rate 16 Blood Pressure 127/62 130/61 Pulse Oximetry 94 Oxygen Delivery Method 05/31/22 01:30 05/31/22 02:00 05/31/22 02:00 Temperature Pulse Rate 44 L 43 L Respiratory Rate 16 16 Blood Pressure 122/59 L Pulse Oximetry 95 94 Oxygen Delivery Method 05/31/22 02:30 05/31/22 02:30 05/31/22 02:58 Temperature Pulse Rate 47 L 44 L Respiratory Rate 16 16 Blood Pressure 150/69 H Pulse Oximetry 100 95 Oxygen Delivery Method 05/31/22 02:59 05/31/22 03:00 05/31/22 03:00 Temperature Pulse Rate 44 L 44 L Respiratory Rate 16 16 Blood Pressure 131/63 Pulse Oximetry 95 95 Oxygen Delivery Method 05/31/22 04:00 05/31/22 03:30 05/31/22 03:30 Temperature Pulse Rate 49 L Respiratory Rate 16 Blood Pressure 151/70 H Pulse Oximetry 100 Oxygen Delivery Method Mechanical Ventilation 05/31/22 04:00 05/31/22 04:00 05/31/22 04:12 Temperature 97.3 F L Pulse Rate 59 L Respiratory Rate 20 Blood Pressure 174/80 H 158/83 H Pulse Oximetry 97 Oxygen Delivery Method 05/31/22 04:12 05/31/22 04:22 05/31/22 04:30 Temperature Pulse Rate 62 64 Respiratory Rate 16 19 Blood Pressure 170/77 H Pulse Oximetry 97 97 Oxygen Delivery Method 05/31/22 04:30 05/31/22 05:00 05/31/22 05:00 Temperature Pulse Rate 65 63 Respiratory Rate 17 20 Blood Pressure 163/72 H Pulse Oximetry 97 96 Oxygen Delivery Method 05/31/22 05:30 05/31/22 05:30 05/31/22 06:00 Temperature Pulse Rate 65 Respiratory Rate 23 Blood Pressure 159/73 H 153/69 H Pulse Oximetry 96 Oxygen Delivery Method 05/31/22 06:00 05/31/22 06:22 05/31/22 06:30 Temperature Pulse Rate 64 63 Respiratory Rate 21 20 Blood Pressure 172/82 H Pulse Oximetry 96 96 Oxygen Delivery Method 05/31/22 06:30 05/31/22 07:00 05/31/22 07:00 Temperature Pulse Rate 71 63 Respiratory Rate 22 20 Blood Pressure 154/67 H Pulse Oximetry 96 96 Oxygen Delivery Method 05/31/22 07:30 05/31/22 07:30 05/31/22 08:00 Temperature Pulse Rate 62 Respiratory Rate 21 Blood Pressure 158/68 H 150/65 H Pulse Oximetry 96 Oxygen Delivery Method 05/31/22 08:00 Temperature Pulse Rate 63 Respiratory Rate 16 Blood Pressure Pulse Oximetry 96 Oxygen Delivery Method Oxygen Delivery Method Mechanical Ventilation Objective Labs Result Diagrams: 05/31/22 04:20 05/31/22 04:20 Labs: Laboratory Results - last 24 hr 05/30/22 05/30/22 05/30/22 04:30 09:27 16:40 WBC 11.9 H D RBC 3.70 L Hgb 10.1 L Hct 33.2 L MCV 89.7 D MCH 27.2 MCHC 30.3 RDW 19.9 H Plt Count 394 Neut % (Auto) 71.4 D Lymph % (Auto) 15.6 L [place] % (Auto) 10.6 Eos % (Auto) 1.0 L Baso % (Auto) 1.4 Neut # (Auto) 8500 H Lymph # (Auto) 1800 [place] # (Auto) 1300 H Eos # (Auto) 100 Baso # (Auto) 200 H ABG pH 7.41 ABG pCO2 36.1 ABG pO2 88 ABG HCO3 23 ABG Total CO2 24 ABG O2 Saturation 97 ABG Base Excess -2.0 FiO2 35 Sodium Potassium Chloride Carbon Dioxide BUN Creatinine Estimated GFR BUN/Creatinine Ratio Glucose Calcium Total Bilirubin AST ALT Alkaline Phosphatase Total Protein Albumin Globulin Albumin/Globulin Ratio Triglycerides 163 H 05/30/22 05/31/22 05/31/22 16:40 04:20 04:20 WBC 9.3 RBC 3.46 L Hgb 9.5 L Hct 29.6 L MCV 85.6 D MCH 27.4 MCHC 32.0 RDW 18.5 H Plt Count 281 Neut % (Auto) 64.8 Lymph % (Auto) 22.1 L [place] % (Auto) 10.9 Eos % (Auto) 1.9 L Baso % (Auto) 0.3 Neut # (Auto) 6000 Lymph # (Auto) 2100 [place] # (Auto) 1000 H Eos # (Auto) 200 Baso # (Auto) 0 ABG pH ABG pCO2 ABG pO2 ABG HCO3 ABG Total CO2 ABG O2 Saturation ABG Base Excess FiO2 Sodium 141 139 Potassium 3.6 3.5 Chloride 114 H 113 H Carbon Dioxide 21 L 20 L BUN 9 4 L Creatinine 0.46 L 0.41 L Estimated GFR > 60 > 60 BUN/Creatinine Ratio 19.6 9.8 Glucose 105 103 Calcium 8.8 8.1 L Total Bilirubin 0.3 0.3 AST 20 21 ALT 16 16 Alkaline Phosphatase 79 73 Total Protein 5.5 L 5.6 L Albumin 2.7 L 2.5 L Globulin 2.8 3.1 Albumin/Globulin Ratio 1.0 0.8 L Triglycerides PFSH Medical History Acquired hypothyroidism (02/10/11) Asthma Chronic migraine without aura without status migrainosus, not intractable Chronic pain syndrome Depression Depression Dorsalgia (07/28/15) Fibromyalgia (09/06/13) Gastroesophageal reflux disease without esophagitis (02/10/11) Generalized anxiety disorder HLD (hyperlipidemia) Hypertension Loosening of hardware in spine Osteoporosis (05/07/15) Recurrent major depressive disorder, in partial remission (02/10/11) Spinal stenosis at L4-L5 level Systemic lupus erythematosus (02/10/11) Tardive dyskinesia Uncomplicated opioid dependence (12/14/15) Surgical History Anesthesia History of arthroplasty of left shoulder (~2013) History of hip replacement History of surgery History of total right hip arthroplasty (~2009) Hx of arthroscopy of left knee Hx of lumbosacral spine surgery (~05/2015) Hx of spinal fusion (~1984) S/P cholecystectomy (~1993) S/P LASIK surgery of both eyes Status post appendectomy Status post tubal ligation Family History Father Family history of polycythemia Mother Family history of CHF (congestive heart failure) Social History marital status: number of children: 2 household members: spouse lives independently: Yes caregiver/support person: No housing: apartment pets and animals: Yes education level: college 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 status: other 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 Respiratory-patient is stable on ventilator and sedation. Still fairly easy to ventilate. I would encourage ongoing daily sedation trials maybe even twice daily sedation trials to reassess what her brain function might be without propofol on board. I would not be more aggressive with additional sedation at this point given that it seems likely the outcome here is going to be comfort care. We do not have the ability to do EEG or obtain a neurological consultation that [facility] so any decision making will have to be empiric based on her response or lack of response. 2. GI-patient probably should begin nutrition at this point. She came to the hospital fairly malnourished with some recent weight loss due to her very poor oral intake. However she is been very clear she would not want tube feeding long-term although this would be a short term process. However I think in the next 24-48 hours we will come to some greater decision process and family's very uncomfortable being more aggressive about treatment of sort. Therefore I am not suggesting we initiate any sort of nutrition at this point. 3. Hypertension-blood pressure just a bit elevated off and on. Overall fairly well controlled. Not going to anticipate any changes in treatment at this point 4. Code status-family requested that no additional aggressive interventions be made in treatment of patient. Therefore in the event of a cardiac arrest no attempts to resuscitate her should be made. At this point we will continue with ventilatory support as above 5. Mental health-does seem clear to family and more clear to me today that patient's ingestion of 50+ tablets must have been intentional. Last year she was admitted with I think was a more clear inadvertent medication overdose however this time it seem more clear. Whether not she realize she was taking baclofen or Dilaudid is not at all clear. Apparently the tablets are very similar in size and appearance. Obviously should she survive in any meaningful way she will need psychiatric evaluation and consultation. 5. Disposition-at this point given that poison control strongly felt like 3-4 days was inappropriate time frame to allow the baclofen to metabolize and the people would very much be nonfunctional from a brain function standpoint over that period of time I think continuing what were doing for another 24 hours makes sense. Today would be 3+ days since she was found and this evening may well be 4 days since she ingested the baclofen itself. If we get to tomorrow morning and things are essentially the same family would very much like to withdraw current levels of support including extubating her from the ventilator and focus on keeping her comfortable. If she is able to breathe on her own we would certainly support that but would not treat any sort of aspiration aspiration pneumonia aspiration pneumonitis etcetera. We would not anticipate artificial feeding and would discontinue artificial hydration at some point as well. If however her mental status improved significantly without the propofol on board were able to control her myoclonic or whatever the jerking symptoms are with other medications and she is able to participate in some fashion in decision making will certainly incorporate her wishes into overall level of care. It seems likely to me however will reach a place tomorrow where she is basically the same as she is today and we will electively extubate her. The difficult part will be managing her sedation with the obvious agitation and jerking resulting in elevated blood pressure heart rate etcetera. Will need to focus on comfort care at that point I think perhaps using some parental narcotics etcetera. Family would be very supportive of that kind of scenario if for the same place tomorrow that we are today overall. I would have to agree, knowing this patient for well over a decade as I have that she certainly has been very high functioning but is become quite miserable in the last 2-3 years and especially over the last 6 months. I agree that the lack of diagnosis and treatment options from multiple clinics providers evaluations including most recently the [facility] is really quite discouraging and her quality of life has greatly diminished. If she does somehow survive this event she would need to go to fdc I think long-term it may or may not require long-term artificial nutrition none of which I think would be consistent with her long-term wishes if we had the ability to ask her 6 months ago what she would like or not like. Family and that includes spouse and daughters are very much on the same page with that and while not wanting to do anything active to shorten her life span also do not want to do anything artificial to extend it in any sort of fashion. They feel strongly that current treatments artificially extending her life span and that we should discontinue supportive therapies although they recognize that the baclofen maybe part of what is going on now but frankly believe that in the and discontinuing artificial support including ventilation nutrition hydration and focusing on comfort only with resulted outcome almost certainly being her demise would be far more acceptable than continuing in any way shape or form which she is been through over the last several weeks. Note: Greater than 45 minutes total time was spent on day of service, evaluating the patient on the floor, including examining the patient, discussing clinical course with clinical and nursing staff, reviewing clinical course in the computer, preparing documentation and writing orders for continued management of care, discussing status with family as appropriate, reviewing plans for the next 24 hours with both patient/family and nursing staff as appropriate. Time Spent With Patient Critical Care time: I spent a total of [] minutes of critical care time on this patient's care today; this time is exclusive of procedural time.
[2022-05-31] MEDS: DEXTROSE 5%-0.9% NS 1,000 ML 100 ML IV ×2 (08:54→18:39)
[2022-05-31] MEDS: DEXAMETHASONE 10 MG/ML VIAL 6 MG IV (08:55)
[2022-05-31] MEDS: FAMOTIDINE 20 MG/2 ML VIAL IV ×2 (08:55→21:40)
[2022-05-31] MEDS: ENOXAPARIN 40 MG/0.4 ML SYRINGE SUBCUT (08:55)
--- NOTE | 2022-05-31 09:31 | DIET.CONS2 ---
Dietary Inpatient Consultation Note Admission Date: 05/28/2022 16:18 RD adjusted patient diet order per nursing as pt is NPO on ventilator. Per pts attending physician, artificial nutrition is not within goals of care for patient. Pt currently on 60mcg/kg/min propofol providing 800kcals/d in lipid kcals. RD signing off. Please reconsult if artificial nutrition indicated. Diet: 05/31/22 09:25 NPO Diet Diet Modifications: on ventilator NPO Type: Strict Electronically Signed by: Morelia Jeronimo 05/31/22 09:31 Clinical Dietitian [address] [id number]
--- NOTE | 2022-05-31 09:36 | PM.PN.EICU ---
Subjective Subjective IF CAMERA ACTIVATED, patient seen via real-time interactive audiovisual communication: Camera activated Date Patient Seen: 05/31/22 Consent obtained for tele-fashion buyer care: Yes Patient Location: ICU Provider location (State): [place] Other participants/roles: Bedside RN Interval history: No acute issues overnight. Remains encephalopathic and not following commands. On propofol and fentanyl. Per RN report, family is considering comfort measure if no improvement. Poison control recommended another day to see if mentation will improve. Current Medications Current Medications Medications: Home Medications risedronate 150 mg tablet 150 mg PO QMONTH #12 tabs 08/10/20 [Rx Confirmed 05/28/22] amlodipine 10 mg tablet 10 mg PO DAILY #90 tabs 06/29/21 [Rx Confirmed 05/28/22] trazodone 100 mg tablet 100 mg PO BEDTIME #90 tabs 06/29/21 [Rx Confirmed 05/28/22] benzonatate 100 mg capsule 100 mg PO TID PRN cough #60 caps 06/30/21 [Rx Confirmed 05/28/22] rizatriptan 10 mg tablet 10 mg PO .COMPLEX PRN migraine headache #6 tabs 07/30/21 [Rx Confirmed 05/28/22] simvastatin 20 mg tablet 20 mg PO DAILY #90 tabs 11/02/21 [Rx Confirmed 05/28/22] pilocarpine HCl 5 mg tablet 5 mg PO QID #368 tabs 01/05/22 [Rx Confirmed 05/28/22] sertraline 50 mg tablet 150 mg PO DAILY #90 tabs 03/28/22 [Rx Confirmed 05/28/22] omeprazole 40 mg capsule,delayed release 40 mg PO BID #180 caps 04/18/22 [Rx Confirmed 05/28/22] baclofen 5 mg tablet 5 mg PO TID 05/19/22 [History Confirmed 05/28/22] ferrous sulfate 325 mg (65 mg iron) tablet 325 mg PO DAILY #30 tabs 05/21/22 [Rx Confirmed 05/28/22] amantadine HCl 100 mg tablet 100 mg PO QAM 05/28/22 [History Confirmed 05/28/22] amantadine HCl 100 mg tablet 200 mg PO QPM 05/28/22 [History Confirmed 05/28/22] hydromorphone 4 mg tablet 4 mg PO Q4HR PRN Pain (Scale Score 7-10) 05/28/22 [History Confirmed 05/28/22] metoprolol tartrate 50 mg tablet 50 mg PO DAILY 05/28/22 [History Confirmed 05/28/22] potassium chloride 8 mEq tablet,extended release 8 meq PO DAILY 05/28/22 [History Confirmed 05/28/22] valsartan 160 mg tablet 160 mg PO BID 05/28/22 [History Confirmed 05/28/22] Visit Medications (administered) Generic Name Dose Route Start Last Admin Trade Name Freq PRN Reason Stop Dose Admin Amantadine HCl 200 mg 05/29/22 21:00 05/30/22 20:05 Amantadine 100 Mg Capsule PO 200 mg BEDTIME BETTIE Administration Amantadine HCl 100 mg 05/29/22 10:45 05/30/22 10:24 Amantadine 100 Mg Capsule PO 100 mg DAILY BETTIE Administration Chlorhexidine Gluconate 15 ml 05/28/22 18:00 05/31/22 06:21 Chlorhexidine Gluconate 15 Ml Cup PO 15 ml Q6HR BETTIE Administration Dexamethasone 6 mg 05/29/22 09:30 05/31/22 08:55 Dexamethasone 10 Mg/Ml Vial IV 06/09/22 09:00 6 mg DAILY BETTIE Administration Enoxaparin Sodium 40 mg 05/29/22 09:00 05/31/22 08:55 Enoxaparin 40 Mg/0.4 Ml Syringe SUBCUT 40 mg DAILY BETTIE Administration Famotidine 20 mg 05/28/22 21:00 05/31/22 08:55 Famotidine 20 Mg/2 Ml Vial IV 20 mg BID BETTIE Administration Fentanyl 25 mcg 05/29/22 01:56 05/29/22 02:04 Fentanyl 100 Mcg/2 Ml Inj IV 25 mcg Q1H PRN Administration Pain, Severe (7-10) Dextrose/Sodium Chloride 1,000 mls @ 100 mls/hr 05/28/22 16:47 05/31/22 08:54 Dextrose 5%-0.9% Ns IV 100 mls/hr CONT BETTIE Administration Propofol 1,000 mg in 100 mls @ 2.245 mls/hr 05/28/22 16:47 05/31/22 08:52 Propofol IV 60 mcg/kg/min TITRATE BETTIE 26.943 mls/hr Administration Protocol 5 MCG/KG/MIN Remdesivir 100 mg/ Sodium 250 mls @ 250 mls/hr 05/29/22 17:00 05/30/22 17:35 Chloride IV 06/01/22 17:59 Infused 1700 BETTIE Infusion Fentanyl 1,000 mcg/ Dextrose 250 mls @ 13.335 mls/hr 05/29/22 07:15 05/31/22 04:34 IV 2 mcg/kg/hr TITRATE BETTIE 38.1 mls/hr Administration Protocol 0.7 MCG/KG/HR Lisinopril 20 mg 05/30/22 09:45 05/30/22 10:23 Lisinopril 20 Mg Tablet PO 20 mg DAILY BETTIE Administration Potassium Chloride 40 meq 05/29/22 10:45 05/30/22 20:04 Potassium Chloride 20 Meq/15 Ml Udc PO 40 meq BID BETTIE Administration Quetiapine Fumarate 50 mg 05/30/22 10:44 05/30/22 20:06 Quetiapine 100 Mg Tablet PO Not Given BID BETTIE Sertraline HCl 150 mg 05/29/22 10:30 05/30/22 10:22 Sertraline 50 Mg Tablet PO 150 mg DAILY BETTIE Administration Objective Ventilator Parameters: Ventilator Settings FiO2 35 RT Vent Frequency 16 Ventilator Tidal Volume 390 Exhaled Vt/kg IBW 6 Positive End Expiratory 5 Pressure Inspiratory Phase Time 0.75 I:E Ratio 1:4.0 Patient Position HOB >= 30 degrees Labs Result Diagrams: 05/31/22 04:20 05/31/22 04:20 Labs: Laboratory Results - last 24 hr 05/30/22 05/30/22 05/30/22 04:30 09:27 16:40 WBC 11.9 H D RBC 3.70 L Hgb 10.1 L Hct 33.2 L MCV 89.7 D MCH 27.2 MCHC 30.3 RDW 19.9 H Plt Count 394 Neut % (Auto) 71.4 D Lymph % (Auto) 15.[address] [facility] % (Auto) 10.6 Eos % (Auto) 1.0 L Baso % (Auto) 1.4 Neut # (Auto) 8500 H Lymph # (Auto) 1800 [facility] # (Auto) 1300 H Eos # (Auto) 100 Baso # (Auto) 200 H ABG pH 7.41 ABG pCO2 36.1 ABG pO2 88 ABG HCO3 23 ABG Total CO2 24 ABG O2 Saturation 97 ABG Base Excess -2.0 FiO2 35 Sodium Potassium Chloride Carbon Dioxide BUN Creatinine Estimated GFR BUN/Creatinine Ratio Glucose Calcium Total Bilirubin AST ALT Alkaline Phosphatase Total Protein Albumin Globulin Albumin/Globulin Ratio Triglycerides 163 H 05/30/22 05/31/22 05/31/22 16:40 04:20 04:20 WBC 9.3 RBC 3.46 L Hgb 9.5 L Hct 29.6 L MCV 85.6 D MCH 27.4 MCHC 32.0 RDW 18.5 H Plt Count 281 Neut % (Auto) 64.8 Lymph % (Auto) 22.[address] [facility] % (Auto) 10.9 Eos % (Auto) 1.9 L Baso % (Auto) 0.3 Neut # (Auto) 6000 Lymph # (Auto) 2100 [facility] # (Auto) 1000 H Eos # (Auto) 200 Baso # (Auto) 0 ABG pH ABG pCO2 ABG pO2 ABG HCO3 ABG Total CO2 ABG O2 Saturation ABG Base Excess FiO2 Sodium 141 139 Potassium 3.6 3.5 Chloride 114 H 113 H Carbon Dioxide 21 L 20 L BUN 9 4 L Creatinine 0.46 L 0.41 L Estimated GFR > 60 > 60 BUN/Creatinine Ratio 19.6 9.8 Glucose 105 103 Calcium 8.8 8.1 L Total Bilirubin 0.3 0.3 AST 20 21 ALT 16 16 Alkaline Phosphatase 79 73 Total Protein 5.5 L 5.6 L Albumin 2.7 L 2.5 L Globulin 2.8 3.1 Albumin/Globulin Ratio 1.0 0.8 L Triglycerides Exam Vital Signs (past 8 hours): - 05/31/22 02:00 05/31/22 02:00 05/31/22 02:30 Temperature Pulse Rate 43 L Respiratory Rate 16 Blood Pressure 122/59 L 150/69 H Pulse Oximetry 94 Oxygen Delivery Method 05/31/22 02:30 05/31/22 02:58 05/31/22 02:59 Temperature Pulse Rate 47 L 44 L 44 L Respiratory Rate 16 16 16 Blood Pressure Pulse Oximetry 100 95 95 Oxygen Delivery Method 05/31/22 03:00 05/31/22 03:00 05/31/22 04:00 Temperature Pulse Rate 44 L Respiratory Rate 16 Blood Pressure 131/63 Pulse Oximetry 95 Oxygen Delivery Method Mechanical Ventilation 05/31/22 03:30 05/31/22 03:30 05/31/22 04:00 Temperature 97.3 F L Pulse Rate 49 L Respiratory Rate 16 Blood Pressure 151/70 H 174/80 H Pulse Oximetry 100 Oxygen Delivery Method 05/31/22 04:00 05/31/22 04:12 05/31/22 04:12 Temperature Pulse Rate 59 L 62 Respiratory Rate 20 16 Blood Pressure 158/83 H Pulse Oximetry 97 97 Oxygen Delivery Method 05/31/22 04:22 05/31/22 04:30 05/31/22 04:30 Temperature Pulse Rate 64 65 Respiratory Rate 19 17 Blood Pressure 170/77 H Pulse Oximetry 97 97 Oxygen Delivery Method 05/31/22 05:00 05/31/22 05:00 05/31/22 05:30 Temperature Pulse Rate 63 Respiratory Rate 20 Blood Pressure 163/72 H 159/73 H Pulse Oximetry 96 Oxygen Delivery Method 05/31/22 05:30 05/31/22 06:00 05/31/22 06:00 Temperature Pulse Rate 65 64 Respiratory Rate 23 21 Blood Pressure 153/69 H Pulse Oximetry 96 96 Oxygen Delivery Method 05/31/22 06:22 05/31/22 06:30 05/31/22 06:30 Temperature Pulse Rate 63 71 Respiratory Rate 20 22 Blood Pressure 172/82 H Pulse Oximetry 96 96 Oxygen Delivery Method 05/31/22 07:00 05/31/22 07:00 05/31/22 07:30 Temperature Pulse Rate 63 Respiratory Rate 20 Blood Pressure 154/67 H 158/68 H Pulse Oximetry 96 Oxygen Delivery Method 05/31/22 07:30 05/31/22 08:00 05/31/22 08:00 Temperature Pulse Rate 62 63 Respiratory Rate 21 16 Blood Pressure 150/65 H Pulse Oximetry 96 96 Oxygen Delivery Method 05/31/22 08:30 05/31/22 08:30 05/31/22 09:00 Temperature Pulse Rate 63 Respiratory Rate 16 Blood Pressure 150/66 H 142/67 H Pulse Oximetry 96 Oxygen Delivery Method 05/31/22 09:00 Temperature Pulse Rate 61 Respiratory Rate 16 Blood Pressure Pulse Oximetry 96 Oxygen Delivery Method Oxygen Delivery Method Mechanical Ventilation Narrative Exam Narrative: Intubated and sedated Assessment & Plan Assessment & Plan narrative: NEURO: # Acute encephalopathy -- Secondary to baclofen overdose, withdrawal, and delirium -- CTH negative -- Failed SAT due to agitation -- On seroquel -- Daily EKG to assess for QTc -- If concern for seizure then will recommend obtainin neurology consultation for EEG -- On propofol and fentanyl -- RASS goal -1 to 0 -- Early mobility # Baclofen overdose -- No reported suicidal attempt and attributed to uncontrolled symptoms? -- Poison control contacted and recommended supportive care -- Need psych eval when extubated RESP: # Acute hypoxemia respiratory failure -- Intubated for airway protection -- Meeting goals of oxygenation and ventilation -- Failed SAT today -- Not a candidate for SBT until passed SAT -- HOB elevation -- Aspiration precaution -- Goal SpO2 > 88% CVS: # HTN -- On lisinopril -- Goal SBP < 140 ID: # COVID-19 -- On decadron 6 mg PO daily X 10 days -- On airborne, contact, and droplet precautions HEME: # Anemia -- No signs of overt bleed -- Daily CBC -- Goal Hb > 7 ENDO: -- Goal BS < 180 D/w RN at bedside. Per discussion with RN, family is considering comfort care if pateint remains encephalopathic. Poison control recommended one additional day to see if her encephalopathy will improve. Time Spent With Patient Critical Care time: I spent a total of 32 minutes of critical care time on this patient's care today; this time is exclusive of procedural time.
[2022-05-31] MEDS: SERTRALINE 50 MG TABLET 150 MG PO (10:52)
[2022-05-31] MEDS: lisinopriL 20 MG TABLET PO (10:52)
[2022-05-31] MEDS: POTASSIUM CHLORIDE 20 MEQ/15 ML UDC 40 MEQ PO ×3 (10:57→21:40)
[2022-05-31] MEDS: AMANTADINE 100 MG CAPSULE PO (10:57)
[2022-05-31] MEDS: propofoL 1,000 MG/100 ML VIAL 24.698 MG IV (15:07)
--- NOTE | 2022-05-31 16:47 | DI.RAD.S_ITS ---
PROCEDURE: XR CHEST 1V INDICATIONS: intubated TECHNIQUE: One view of the chest was acquired. COMPARISON: Merged With [facility], CR, XR CHEST 1V, 05/30/2022, 21:18. FINDINGS: Surgical changes and devices: Left shoulder arthroplasty, right PICC line, endotracheal tube and neurostimulator are unchanged. Endotracheal tube is approximately 3.0 cm superior to the qamar. Lungs and pleura: Bibasilar opacities and blunting of the costophrenic angles are present slightly more prominent when compared to prior exam 0 snow doubly on the left. Increased interstitial markings are present. Mediastinum: Mediastinal contours appear normal. Heart size is enlarged. Bones and chest wall: No suspicious bony lesions. Overlying soft tissues appear unremarkable. IMPRESSION: Support lines as above. Bilateral effusions with bilateral pulmonary opacities as well as appearance of increased vascularity. Findings can be related to edema. However, areas of underlying pneumonia should be considered. Dictated by: Jen Park M.D. on 05/31/2022 at 17:27 Approved by: Jen Park M.D. on 05/31/2022 at 17:29
[2022-05-31] MEDS: REMDESIVIR 100 MG in SODIUM CHLORIDE 0.9% 230 ML 250 MG IV (17:50)
[2022-05-31] MEDS: propofoL 1,000 MG/100 ML VIAL 22.453 MG IV ×2 (19:40→23:42)
--- NOTE | 2022-05-31 20:50 | PM.ICURNDS ---
- :: This patient was seen via real time interactive two-way audiovisual telecommunication. patient condition remains essentiall unchaed. on my video eval she remains poorly resposnvie on the same vetn settings. Per report given to me, possible transition to comfort measures in AM. will contineu current management until then
[2022-05-31] MEDS: AMANTADINE 100 MG CAPSULE 200 MG PO (21:40)
[2022-05-31] MEDS: QUETIAPINE 100 MG TABLET 50 MG PO (21:41)
[2022-05-31] MEDS: SODIUM CHLORIDE 0.9% FLUSH 10 ML IV (21:41)
[2022-06-01] VITALS (25 sets, daily range): BP systolic 112–159; BP diastolic 53–74; PULSE 46–74; RESP 16–18; TEMP 36.6–36.9; O2SAT 86–98
[2022-06-01] MEDS: fentaNYL 1,000 MCG in DEXTROSE 5% IN WATER 230 ML 38.1 MCG IV (01:31)
[2022-06-01] MEDS: propofoL 1,000 MG/100 ML VIAL 17.962 MG IV (03:59)
[2022-06-01] MEDS: DEXTROSE 5%-0.9% NS 1,000 ML 100 ML IV (03:59)
[2022-06-01 04:47] LABS: Magnesium 1.4 mg/dL (1.6-2.3)
[2022-06-01] MEDS: CHLORHEXIDINE GLUCONATE 15 ML CUP PO (06:10)
--- NOTE | 2022-06-01 06:37 | PC.NURSE ---
[facility]ler Note-Patient remains on ventilator, FIO2 .35, TV 390, PEEP 5, RR 16, mostly rides vent. Fentanyl at 2mcg/kg/hr, decreased to 1.8mcg at 0630 d/t RASS -4, HR and BP trending down, see vitals. Propofol titrated 40-50mcg/kg/min, patient does wake and become agitated without it, does not follow commands, opens eyes but they are deviated to upper left, pupils 4mm at 2000, 7mm sluggish at 0400.
[2022-06-01] MEDS: fentaNYL 1,000 MCG in SODIUM CHLORIDE 0.9% 230 ML 34.29 MCG IV (07:54)
--- NOTE | 2022-06-01 08:44 | PM.PN.1 ---
Subjective Subjective Date Patient Seen: 06/01/22 Time Patient Seen: 08:44 Interval history: Yesterday pretty much a copy of the day before. Unable to really meaningfully reduce any sedation patient becomes somewhat agitated with non purposeful jerking movements etcetera. Family continues to maintain that she would not want to be kept alive in this situation and would like very much to withdraw supportive care at this point, specifically would like to discontinue support with the ventilator and extubate her. If patient is able to breathe on her own without the ventilator than questions of nutrition hydration would become paramount and if unable to ask the patient about that they would likely not want to continue artificial nutrition hydration support on any level. If she is unable to support herself from respiratory standpoint without the ventilator (in this case likely due to brain dysfunction secondary to her question inadvertent overdose) that obviously she will probably decline and Exam Vital Signs (past 8 hours): - 06/01/22 01:00 06/01/22 01:00 06/01/22 01:30 Temperature Pulse Rate 60 Respiratory Rate 16 Blood Pressure 155/70 H 157/72 H Pulse Oximetry 98 Oxygen Delivery Method Oxygen Flow Rate 06/01/22 01:30 06/01/22 02:00 06/01/22 02:00 Temperature Pulse Rate 60 57 L Respiratory Rate 16 Blood Pressure 155/70 H Pulse Oximetry 97 97 Oxygen Delivery Method Oxygen Flow Rate 35 06/01/22 02:30 06/01/22 02:48 06/01/22 02:48 Temperature Pulse Rate 64 60 Respiratory Rate 16 Blood Pressure 158/74 H Pulse Oximetry 98 98 Oxygen Delivery Method Oxygen Flow Rate 06/01/22 02:59 06/01/22 03:00 06/01/22 04:00 Temperature Pulse Rate 59 L Respiratory Rate 16 Blood Pressure 156/73 H Pulse Oximetry 98 Oxygen Delivery Method Mechanical Ventilation Oxygen Flow Rate 35 06/01/22 03:00 06/01/22 03:30 06/01/22 03:30 Temperature Pulse Rate 59 L 50 L Respiratory Rate 16 16 Blood Pressure 143/65 H Pulse Oximetry 98 95 Oxygen Delivery Method Oxygen Flow Rate 06/01/22 04:00 06/01/22 04:00 06/01/22 04:30 Temperature 98.5 F Pulse Rate 47 L Respiratory Rate 16 Blood Pressure 137/63 156/71 H Pulse Oximetry 93 Oxygen Delivery Method Oxygen Flow Rate 35 06/01/22 04:30 06/01/22 05:00 06/01/22 05:00 Temperature Pulse Rate 59 L 60 Respiratory Rate 16 16 Blood Pressure 159/73 H Pulse Oximetry 96 95 Oxygen Delivery Method Oxygen Flow Rate 35 06/01/22 05:30 06/01/22 05:30 06/01/22 06:00 Temperature Pulse Rate 48 L Respiratory Rate 16 Blood Pressure 123/59 L 116/56 L Pulse Oximetry 92 Oxygen Delivery Method Oxygen Flow Rate 35 06/01/22 06:00 06/01/22 07:00 06/01/22 07:00 Temperature Pulse Rate 46 L 48 L Respiratory Rate 16 16 Blood Pressure 140/64 Pulse Oximetry 92 93 Oxygen Delivery Method Oxygen Flow Rate 06/01/22 08:00 06/01/22 08:00 Temperature Pulse Rate 55 L Respiratory Rate 16 Blood Pressure 150/69 H Pulse Oximetry 98 Oxygen Delivery Method Oxygen Flow Rate Oxygen Delivery Method Mechanical Ventilation Oxygen Flow Rate 35 Objective Labs Result Diagrams: 05/31/22 04:20 05/31/22 04:20 Labs: Laboratory Results - last 24 hr 06/01/22 04:15 Magnesium 1.4 L PFSH Medical History Acquired hypothyroidism (02/10/11) Asthma Chronic migraine without aura without status migrainosus, not intractable Chronic pain syndrome Depression Depression Dorsalgia (07/28/15) Fibromyalgia (09/06/13) Gastroesophageal reflux disease without esophagitis (02/10/11) Generalized anxiety disorder HLD (hyperlipidemia) Hypertension Loosening of hardware in spine Osteoporosis (05/07/15) Recurrent major depressive disorder, in partial remission (02/10/11) Spinal stenosis at L4-L5 level Systemic lupus erythematosus (02/10/11) Tardive dyskinesia Uncomplicated opioid dependence (12/14/15) Surgical History Anesthesia History of arthroplasty of left shoulder (~2013) History of hip replacement History of surgery History of total right hip arthroplasty (~2009) Hx of arthroscopy of left knee Hx of lumbosacral spine surgery (~05/2015) Hx of spinal fusion (~1984) S/P cholecystectomy (~1993) S/P LASIK surgery of both eyes Status post appendectomy Status post tubal ligation Family History Father Family history of polycythemia Mother Family history of CHF (congestive heart failure) Social History marital status: number of children: 2 household members: spouse lives independently: Yes caregiver/support person: No housing: apartment pets and animals: Yes education level: college 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 status: other Previous 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 history: [employer] bc/baptism: Rastafarian leisure activities: other Smoking Status: Former smoker Tobacco: How many years used: 0 quit status: quit date established second hand exposure: No alcohol intake: never substance use type: does not use Assessment & Plan Assessment & Plan narrative: At this point I agree that patient is unlikely to have any meaningful recovery even if given a great deal of additional time. She certainly I agree as well would not want to be kept alive in this situation. I went back and reviewed her records as I have been her PCP for 20 years now and she has had multiple hospitalizations for inadvertent medication issues inadvertent overdose including other episodes where she required intubation for airway protection for several hours at a time nothing quite like this episode however. Altogether it still reinforce is my initial suspicion that I do not believe her overdose was an intentional attempt to end her life but was an intentional attempt to help herself feel better which is what is been involved in each and every 1 of the previous medication issues over the last 13 or 14 years or so since she was actually admitted and intubated in 2008 Given her quality of life recently, I fully support the concept that she would not want to be kept alive to return to anything like that quality of life, and therefore I think anything aggressive that we are doing to support her care should be discontinued given the family support for this discontinuation of care as well The more difficult part of this is I do not believe it to be appropriate to extubate her and discontinue ventilatory support while she is receiving propofol which is clearly a general anesthetic and, in and of itself, will result in decreased respiratory drive etcetera. However in a competing issue we want to focus on keeping her comfortable, and propofol is certainly very effective at doing that. I discussed with nursing staff and with the patient's family at length I would propose that we slowly discontinue propofol over period of time replacing it with continuous infusions of fentanyl (which she is already receiving) and lorazepam titrated as necessary to maintain a level of moderate to deep sedation. When propofol is significantly decreased (like at 50% of current doses or less) she should be extubated and oxygen therapy should be administered as necessary to maintain inappropriate oxygen saturation which I also to believe a comfort measure. We then could focus on continuing with keeping her comfortable with the use of lorazepam and fentanyl. Discussed with family that those drugs both while they have a sedating effect and have a suppression of respiratory drive in the brain they are nothing like propofol and I think if we want to fully assess her underlying brain function give her every chance to breathe on her own basically we need to discontinue propofol and find ways to keep her sedated with other medication. If she is able to breathe on her own then that would introduce other questions depending on her level of consciousness may may not be able to ask her about artificial nutrition hydration and treatment of aspiration or aspiration pneumonia. If she however is unable to obtain a level of consciousness that allows for those questions to be asked and answered than family would be empowered with answering those questions which would be no artificial support no artificial nutrition hydration no treatment of aspiration events or pneumonias etcetera If of course she is unable to breathe on her own and or has no level of consciousness even when medications are discontinued or titrated to a level of comfort than of course she will likely decline and on her own which is actually the more probable outcome here and family is well aware of that. In the end, I am comfortable with discontinuing ventilatory support, discontinuing her basic general anesthesia with propofol, but attempting to provide comfort care in the form of IV fentanyl continuously infused as well as IV lorazepam continuously infused even at the risk of hastening patient's demise as I think given her quality of life and her lack of ability to recover from this incident that comfort care is entirely appropriate option for the care management of this patient at this time even if it results in as the outcome. I think that is entirely appropriate after above consultations with family and based on my prior knowledge of patient and her clinical status over the last 2 decades. Orders have been placed for lorazepam and fentanyl infusions and for reduction in propofol and eventual extubation etcetera Above plans were discussed at length with nursing staff as well Note: Greater than 45 minutes total time was spent on day of service, evaluating the patient on the floor, including examining the patient, discussing clinical course with clinical and nursing staff, reviewing clinical course in the computer, preparing documentation and writing orders for continued management of care, discussing status with family as appropriate, reviewing plans for the next 24 hours with both patient/family and nursing staff as appropriate. Time Spent With Patient Critical Care time: I spent a total of [] minutes of critical care time on this patient's care today; this time is exclusive of procedural time.
[2022-06-01] MEDS: propofoL 1,000 MG/100 ML VIAL 19.464 MG IV (09:21)
[2022-06-01] MEDS: LORazepam 20 MG in SODIUM CHLORIDE 0.9% 90 ML 5 MG IV (09:25)
--- NOTE | 2022-06-01 10:25 | P.TELICUPN_ITS ---
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 Current Medications Current Medications Medications: Home Medications risedronate 150 mg tablet 150 mg PO QMONTH #12 tabs 08/10/20 [Rx Confirmed 05/28/22] amlodipine 10 mg tablet 10 mg PO DAILY #90 tabs 06/29/21 [Rx Confirmed 05/28/22] trazodone 100 mg tablet 100 mg PO BEDTIME #90 tabs 06/29/21 [Rx Confirmed 05/28/22] benzonatate 100 mg capsule 100 mg PO TID PRN cough #60 caps 06/30/21 [Rx Confirmed 05/28/22] rizatriptan 10 mg tablet 10 mg PO .COMPLEX PRN migraine headache #6 tabs 07/30/21 [Rx Confirmed 05/28/22] simvastatin 20 mg tablet 20 mg PO DAILY #90 tabs 11/02/21 [Rx Confirmed 05/28/22] pilocarpine HCl 5 mg tablet 5 mg PO QID #368 tabs 01/05/22 [Rx Confirmed 05/28/22] sertraline 50 mg tablet 150 mg PO DAILY #90 tabs 03/28/22 [Rx Confirmed 05/28/22] omeprazole 40 mg capsule,delayed release 40 mg PO BID #180 caps 04/18/22 [Rx Confirmed 05/28/22] baclofen 5 mg tablet 5 mg PO TID 05/19/22 [History Confirmed 05/28/22] ferrous sulfate 325 mg (65 mg iron) tablet 325 mg PO DAILY #30 tabs 05/21/22 [Rx Confirmed 05/28/22] amantadine HCl 100 mg tablet 100 mg PO QAM 05/28/22 [History Confirmed 05/28/22] amantadine HCl 100 mg tablet 200 mg PO QPM 05/28/22 [History Confirmed 05/28/22] hydromorphone 4 mg tablet 4 mg PO Q4HR PRN Pain (Scale Score 7-10) 05/28/22 [History Confirmed 05/28/22] metoprolol tartrate 50 mg tablet 50 mg PO DAILY 05/28/22 [History Confirmed 05/28/22] potassium chloride 8 mEq tablet,extended release 8 meq PO DAILY 05/28/22 [History Confirmed 05/28/22] valsartan 160 mg tablet 160 mg PO BID 05/28/22 [History Confirmed 05/28/22] Visit Medications (administered) Generic Name Dose Route Start Last Admin Trade Name Freq PRN Reason Stop Dose Admin Amantadine HCl 200 mg 05/29/22 21:00 05/31/22 21:40 Amantadine 100 Mg Capsule PO 200 mg BEDTIME BETTIE Administration Amantadine HCl 100 mg 05/29/22 10:45 05/31/22 10:57 Amantadine 100 Mg Capsule PO 100 mg DAILY BETTIE Administration Chlorhexidine Gluconate 15 ml 05/28/22 18:00 06/01/22 06:10 Chlorhexidine Gluconate 15 Ml Cup PO 15 ml Q6HR BETTIE Administration Dexamethasone 6 mg 05/29/22 09:30 05/31/22 08:55 Dexamethasone 10 Mg/Ml Vial IV 06/09/22 09:00 6 mg DAILY BETTIE Administration Enoxaparin Sodium 40 mg 05/29/22 09:00 05/31/22 08:55 Enoxaparin 40 Mg/0.4 Ml Syringe SUBCUT 40 mg DAILY BETTIE Administration Famotidine 20 mg 05/28/22 21:00 05/31/22 21:40 Famotidine 20 Mg/2 Ml Vial IV 20 mg BID BETTIE Administration Fentanyl 25 mcg 05/29/22 01:56 05/29/22 02:04 Fentanyl 100 Mcg/2 Ml Inj IV 25 mcg Q1H PRN Administration Pain, Severe (7-10) Dextrose/Sodium Chloride 1,000 mls @ 100 mls/hr 05/28/22 16:47 06/01/22 03:59 Dextrose 5%-0.9% Ns IV 100 mls/hr CONT BETTIE Administration Remdesivir 100 mg/ Sodium 250 mls @ 250 mls/hr 05/29/22 17:00 05/31/22 20:26 Chloride IV 06/01/22 17:59 Infused 1700 BETTIE Infusion Fentanyl 1,000 mcg/ Sodium 250 mls @ 13.335 mls/hr 06/01/22 07:45 06/01/22 07:54 Chloride IV 06/01/22 15:00 1.8 mcg/kg/hr TITRATE BETTIE 34.29 mls/hr Administration Protocol 0.7 MCG/KG/HR Lorazepam 20 mg/ Sodium 100 mls @ 5 mls/hr 06/01/22 08:45 06/01/22 09:38 Chloride IV 0 mls/hr TITRATE BETTIE 0 mls/hr Titration Protocol Propofol 1,000 mg in 100 mls @ 2.433 mls/hr 06/01/22 09:15 06/01/22 09:26 Propofol IV 20 mcg/kg/min TITRATE BETTIE 9.732 mls/hr Titration Protocol 5 MCG/KG/MIN Lisinopril 20 mg 05/30/22 09:45 05/31/22 10:52 Lisinopril 20 Mg Tablet PO 20 mg DAILY BETTIE Administration Potassium Chloride 40 meq 05/29/22 10:45 05/31/22 21:40 Potassium Chloride 20 Meq/15 Ml Udc PO 40 meq BID BETTIE Administration Quetiapine Fumarate 50 mg 05/30/22 10:44 05/31/22 21:41 Quetiapine 100 Mg Tablet PO 50 mg BID BETTIE Administration Sertraline HCl 150 mg 05/29/22 10:30 05/31/22 10:52 Sertraline 50 Mg Tablet PO 150 mg DAILY BETTIE Administration Sodium Chloride 10 ml 05/31/22 21:00 05/31/22 21:41 Sodium Chloride 0.9% Flush IV 10 ml BID BETTIE Administration Objective Ventilator Parameters: Ventilator Settings FiO2 35 RT Vent Frequency 16 Ventilator Tidal Volume 390 Exhaled Vt/kg IBW 6 Positive End Expiratory 5 Pressure Inspiratory Phase Time 0.75 I:E Ratio 1:4 Patient Position HOB >= 30 degrees Labs Result Diagrams: 05/31/22 04:20 05/31/22 04:20 Labs: Laboratory Results - last 24 hr 06/01/22 04:15 Magnesium 1.4 L Exam Vital Signs (past 8 hours): - 06/01/22 02:30 06/01/22 02:48 06/01/22 02:48 Temperature Pulse Rate 64 60 Respiratory Rate 16 Blood Pressure 158/74 H Pulse Oximetry 98 98 Oxygen Delivery Method Oxygen Flow Rate 06/01/22 02:59 06/01/22 03:00 06/01/22 04:00 Temperature Pulse Rate 59 L Respiratory Rate 16 Blood Pressure 156/73 H Pulse Oximetry 98 Oxygen Delivery Method Mechanical Ventilation Oxygen Flow Rate 35 06/01/22 03:00 06/01/22 03:30 06/01/22 03:30 Temperature Pulse Rate 59 L 50 L Respiratory Rate 16 16 Blood Pressure 143/65 H Pulse Oximetry 98 95 Oxygen Delivery Method Oxygen Flow Rate 06/01/22 04:00 06/01/22 04:00 06/01/22 04:30 Temperature 98.5 F Pulse Rate 47 L Respiratory Rate 16 Blood Pressure 137/63 156/71 H Pulse Oximetry 93 Oxygen Delivery Method Oxygen Flow Rate 35 06/01/22 04:30 06/01/22 05:00 06/01/22 05:00 Temperature Pulse Rate 59 L 60 Respiratory Rate 16 16 Blood Pressure 159/73 H Pulse Oximetry 96 95 Oxygen Delivery Method Oxygen Flow Rate 35 06/01/22 05:30 06/01/22 05:30 06/01/22 06:00 Temperature Pulse Rate 48 L Respiratory Rate 16 Blood Pressure 123/59 L 116/56 L Pulse Oximetry 92 Oxygen Delivery Method Oxygen Flow Rate 35 06/01/22 06:00 06/01/22 07:00 06/01/22 07:00 Temperature Pulse Rate 46 L 48 L Respiratory Rate 16 16 Blood Pressure 140/64 Pulse Oximetry 92 93 Oxygen Delivery Method Oxygen Flow Rate 06/01/22 08:00 06/01/22 08:00 06/01/22 09:00 Temperature Pulse Rate 55 L Respiratory Rate 16 Blood Pressure 150/69 H 159/72 H Pulse Oximetry 98 Oxygen Delivery Method Oxygen Flow Rate 06/01/22 09:00 06/01/22 08:00 06/01/22 10:00 Temperature Pulse Rate 62 Respiratory Rate 16 Blood Pressure 154/69 H Pulse Oximetry 98 Oxygen Delivery Method Mechanical Ventilation Oxygen Flow Rate 06/01/22 10:00 Temperature Pulse Rate 64 Respiratory Rate 16 Blood Pressure Pulse Oximetry 98 Oxygen Delivery Method Oxygen Flow Rate Oxygen Delivery Method Mechanical Ventilation Oxygen Flow Rate 35 Assessment & Plan Assessment & Plan narrative: Patient to be transitioned to Comfort Care today. Primary physician, Dr. Segrua has already discussed this with family. Patient is currently on Propofol drip and Fentanyl drip, intubated - plans for extubation per report. Recommendations: - Continue fentanyl drip. Would have additional Fentanyl bolus orders available as needed. - Stop Propofol drip. Start Lorazepam drip. - Titrate both Lorazepam, Fentanyl to achieve a RASS of approximately 0 to -1. - Once comfortable without Propofol drip, would extubate - Just prior to extubation would consider additional Fentanyl or Lorazepam bolus. - Once extubated, would titrate Fentanyl as needed for pain, air hunger, dyspnea - Consider scopolamine patch for secretions. - Would discontinue other medications, lab draws Please contact Tele-ICU if we can be of assistance. Time Spent With Patient Critical Care time: I spent a total of [] minutes of critical care time on this patient's care today; this time is exclusive of procedural time.
[2022-06-01] MEDS: fentaNYL 100 MCG/2 ML INJ IV ×5 (12:21→16:52)
--- NOTE | 2022-06-01 12:21 | RT ---
PT EXTUBATED TO COMFORT CARE PER WRITTEN ORDER BY DR. LEIGH. PT PLACED ON 2 LPM N/C. FAMILY IN ROOM.
[2022-06-01] MEDS: LORazepam 2 MG/ML INJ 4 MG IV ×4 (12:59→18:12)
--- NOTE | 2022-06-01 13:26 | PC.NURSE ---
1215 - patient extubated with RT and family at bedside. agonal breathing present, PRN ativan and fentanyl given per JUL. daughter remains at bedside.
[2022-06-01] MEDS: LORazepam 20 MG in SODIUM CHLORIDE 0.9% 90 ML 10 MG IV ×2 (14:02→16:04)
[2022-06-01] MEDS: fentaNYL 1,000 MCG in DEXTROSE 5% IN WATER 230 ML 40.55 MCG IV ×2 (15:42→22:17)
[2022-06-01] MEDS: LORazepam 20 MG in SODIUM CHLORIDE 0.9% 90 ML 25 MG IV (18:40)
--- NOTE | 2022-06-01 18:42 | PC.NURSE ---
Late entry: [id number] - [id number], lorazepam gtt incorrectly charted as 10mL/hr, was infusing at 25mL/hr for severe agitation and thrashing
[2022-06-01] MEDS: SODIUM CHLORIDE 0.9% FLUSH 10 ML IV (22:48)
[2022-06-01] MEDS: LORazepam 20 MG in SODIUM CHLORIDE 0.9% 90 ML IV (23:25)
[2022-06-02] MEDS: LORazepam 2 MG/ML INJ 4 MG IV ×8 (00:52→16:06)
[2022-06-02] MEDS: fentaNYL 100 MCG/2 ML INJ IV ×3 (02:17→16:06)
[2022-06-02] MEDS: fentaNYL 1,000 MCG in DEXTROSE 5% IN WATER 230 ML 40.55 MCG IV ×3 (05:23→18:37)
--- NOTE | 2022-06-02 06:26 | PC.NURSE ---
Commissary Manager Note-Patient is comfort care, unresponsive, does not have gag reflex during sx with hillary. RR 30s, SpO2 mostly 80s, occasionally 70s, HRR 80s, does increase to 160s for 1-5 minutes. Fentanyl gtt at 2mcg/kg/hr, Ativan 2-4mg/hr with additional IVP per prn. Daughter at bedside.
[2022-06-02] MEDS: LORazepam 20 MG in SODIUM CHLORIDE 0.9% 90 ML 10 MG IV (07:02)
[2022-06-02 08:00] VITALS: BP 130/60; PULSE 78; TEMP 36.4; O2SAT 87
[2022-06-02] MEDS: FAMOTIDINE 20 MG/2 ML VIAL IV ×2 (08:11→21:21)
[2022-06-02] MEDS: SCOPOLAMINE 1 PATCH TOP (08:11)
--- NOTE | 2022-06-02 08:25 | PM.PN.1 ---
Subjective Subjective Date Patient Seen: 06/02/22 Time Patient Seen: 08:26 Interval history: Patient was able to be extubated while maintaining comfort yesterday about noon. She did have an initial modest slowing of her respiratory rate with some hypoxia but rebounded and has persisted with a respiratory rate in the 15 range with oxygen saturation ranging from high 70s to low 90s off of any supplemental oxygen ever sense She is been maintained on modestly high doses of lorazepam continuous infusion as well as fentanyl that more modest doses continuous infusion There is no evidence of any purposeful active brain function as we weaned off the propofol in the process of extubating her etcetera. She did demonstrate agitation thrashing etcetera like she had whenever the propofol was lowered previously. Family is been present continuously accept right around the time of extubation. They are comfortable with continuing to keep her comfortable with whatever medications he takes lorazepam fentanyl morphine they keep asking about etcetera. Do not believe she would want to be kept alive artificially with hydration nutrition etcetera. With her oral ulcers she is had significant weight loss and probably best be served by having a feeding tube placed etcetera we had these long discussions over the course the last couple days and they are continuing there believe that she should be kept comfortable and allowed to pass Exam Vital Signs (past 8 hours): Oxygen Delivery Method Room Air Oxygen Flow Rate 35 Objective Labs Result Diagrams: 05/31/22 04:20 05/31/22 04:20 [facility] Medical History Acquired hypothyroidism (02/10/11) Asthma Chronic migraine without aura without status migrainosus, not intractable Chronic pain syndrome Depression Depression Dorsalgia (07/28/15) Fibromyalgia (09/06/13) Gastroesophageal reflux disease without esophagitis (02/10/11) Generalized anxiety disorder HLD (hyperlipidemia) Hypertension Loosening of hardware in spine Osteoporosis (05/07/15) Recurrent major depressive disorder, in partial remission (02/10/11) Spinal stenosis at L4-L5 level Systemic lupus erythematosus (02/10/11) Tardive dyskinesia Uncomplicated opioid dependence (12/14/15) Surgical History Anesthesia History of arthroplasty of left shoulder (~2013) History of hip replacement History of surgery History of total right hip arthroplasty (~2009) Hx of arthroscopy of left knee Hx of lumbosacral spine surgery (~05/2015) Hx of spinal fusion (~1984) S/P cholecystectomy (~1993) S/P LASIK surgery of both eyes Status post appendectomy Status post tubal ligation Family History Father Family history of polycythemia Mother Family history of CHF (congestive heart failure) Social History marital status: number of children: 2 household members: spouse lives independently: Yes caregiver/support person: No housing: apartment pets and animals: Yes education level: college 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 status: other 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 She had normal pulmonary function to begin with she was intubated merely for airway protection and altered mental status. Difficult to clearly assess the level of brain function given the severe agitation etcetera that have occurred when sedation has been lightened. Patient's quality of life was essentially 0 which is probably why she took the baclofen that she did take whether intentionally or unintentionally overdosing is not clear but effort to make herself feel better is clear I believe as does family I think entirely appropriate at this point to continue to focus on comfort care only with no additional support whatsoever in this includes no oxygen no IV fluids medications only as needed for comfort such as scopolamine patch which was requested by nursing staff this morning and of course the lorazepam and fentanyl. Patient had significant GI issues with morphine previously therefore I am hesitant to use a morphine drip, but we may cautiously try that in the future as unfortunately the fentanyl drip while very effective for keeping patient comfortable requires her to maintain a presence in the ICU and we may well need an ICU bed for other patients at this institution although for the moment will continue the course with fentanyl and not tried to switch to morphine. I expect more likely than not patient will slowly become more apneic and hypoxic and sometime in the next 48-72 hours or so Discussed all the above with family at length as well as nursing staff Note: Greater than 45 minutes total time was spent on day of service, evaluating the patient on the floor, including examining the patient, discussing clinical course with clinical and nursing staff, reviewing clinical course in the computer, preparing documentation and writing orders for continued management of care, discussing status with family as appropriate, reviewing plans for the next 24 hours with both patient/family and nursing staff as appropriate. Time Spent With Patient Critical Care time: I spent a total of [] minutes of critical care time on this patient's care today; this time is exclusive of procedural time.
[2022-06-02] MEDS: SODIUM CHLORIDE 0.9% FLUSH 10 ML IV ×2 (09:00→21:22)
[2022-06-02] MEDS: LORazepam 20 MG in SODIUM CHLORIDE 0.9% 90 ML 15 MG IV ×2 (16:07→20:45)
[2022-06-03] MEDS: LORazepam 2 MG/ML INJ 4 MG IV (01:27)
[2022-06-03] MEDS: fentaNYL 1,000 MCG in DEXTROSE 5% IN WATER 230 ML 40.55 MCG IV ×4 (01:27→22:55)
[2022-06-03] MEDS: LORazepam 20 MG in SODIUM CHLORIDE 0.9% 90 ML 15 MG IV ×2 (03:26→10:16)
--- NOTE | 2022-06-03 06:52 | PC.NURSE ---
Client Hr Manager Note-Patient continues to be unresponsive, RR 24-28, SpO2 85-90%, HR 80s mostly, no tachycardia noted, UOP 500ml. Fentanyl and Ativan infusions same as previous.
--- NOTE | 2022-06-03 07:24 | P.PN_ITS ---
Subjective Subjective Date Patient Seen: 06/03/22 Time Patient Seen: 07:24 Interval history: Patient basically unchanged. Still sedated on fentanyl and lorazepam continuous infusions. Respiratory pattern seems stable. Oxygen saturation high 80s off any supplemental oxygen Exam Vital Signs (past 8 hours): - 06/03/22 01:30 Oxygen Delivery Method Room Air Oxygen Delivery Method Room Air Oxygen Flow Rate 0 Objective Labs Result Diagrams: 05/31/22 04:20 05/31/22 04:20 [facility] Medical History Acquired hypothyroidism (02/10/11) Asthma Chronic migraine without aura without status migrainosus, not intractable Chronic pain syndrome Depression Depression Dorsalgia (07/28/15) Fibromyalgia (09/06/13) Gastroesophageal reflux disease without esophagitis (02/10/11) Generalized anxiety disorder HLD (hyperlipidemia) Hypertension Loosening of hardware in spine Osteoporosis (05/07/15) Recurrent major depressive disorder, in partial remission (02/10/11) Spinal stenosis at L4-L5 level Systemic lupus erythematosus (02/10/11) Tardive dyskinesia Uncomplicated opioid dependence (12/14/15) Surgical History Anesthesia History of arthroplasty of left shoulder (~2013) History of hip replacement History of surgery History of total right hip arthroplasty (~2009) Hx of arthroscopy of left knee Hx of lumbosacral spine surgery (~05/2015) Hx of spinal fusion (~1984) S/P cholecystectomy (~1993) S/P LASIK surgery of both eyes Status post appendectomy Status post tubal ligation Family History Father Family history of polycythemia Mother Family history of CHF (congestive heart failure) Social History marital status: number of children: 2 household members: spouse lives independently: Yes caregiver/support person: No housing: apartment pets and animals: Yes education level: college 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 status: other 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 Continue to maintain comfort with IV lorazepam and IV fentanyl (fentanyl because patient had significant nausea vomit ing to parental morphine previously). Off the ventilator her respiratory pattern is been stable. She is not receiving any supplemental nutrition or hydration. Did come into the hospital somewhat malnourished because of her oral ulcerations and discomfort with eating. However she did receive IV fluids while intubated and so is probably well hydrated up until we discontinued that at time of extubation on the 01 of June. In addition given the current rate of infusion she is receiving about 50 cc/hour to maintain the fentanyl and lorazepam drips. I have talked with nursing staff will see if we can reduce doses further concentrate the medications etcetera. Continue with comfort care measures only at this time. At this point is seems as likely as not patient will due to dehydration sometime in the next several days although she may have a respiratory issue as well given the mild hypoxia etcetera. Time Spent With Patient Critical Care time: I spent a total of [] minutes of critical care time on this patient's care today; this time is exclusive of procedural time.
[2022-06-03] MEDS: FAMOTIDINE 20 MG/2 ML VIAL IV ×2 (08:35→20:48)
--- NOTE | 2022-06-03 15:11 | CM.DPC ---
DCP Cont: Per MD, pt was switched to Comfort Measures and successfully extubated on 06/01/22 and anticipated to quickly but pt has stabilized some in her respirations and remains unresponsive and currently on IV continuous infusions of lorazepam and fentanyl (pt did not react well to morphine) and needs sedation due to her clonic tonic involuntary movements. Spouse and adult Dtr Temitope ([phone]) have been bedside regularly and aware MD anticipates pt is imminent although the infusions might provide some hydration and prolong her end of life care. KATIE called [facility] and confirmed that they would not be able to manage IV infusions at home but would typically request a switch to sublingual or rectal medications to manage in the home setting and currently [facility] does not anticipate an opening for 3-4 days (Mon or likely) but Colleen recommends sending referral to review in case pt remains stable through the weekend. KATIE faxed referral to [facility] to review. SW called [facility] and they confirm they would not be able to accept pt with those two continuous infusions and pt would need to be stable overnight on sublingual or oral meds. SW contacted [facility] and they also can only manage sublingual comfort meds as well. SW [facility] to inquire about the IV infusions for sedation/comfort as well. Family currently not bedside but typically available by phone. Plan: SW to follow in the AM with MD if pt does not this evening towards determining any options for med changes in case pt is stable enough to d/c for comfort measures in a facility or at home. KIMBERLYN Ferro
[2022-06-03] MEDS: LORazepam 20 MG in SODIUM CHLORIDE 0.9% 90 ML 10 MG IV (17:31)
[2022-06-03 20:00] VITALS: BP 197/84; PULSE 88; RESP 31; TEMP 37.4; O2SAT 82
[2022-06-03] MEDS: SODIUM CHLORIDE 0.9% FLUSH 10 ML IV (20:48)
--- NOTE | 2022-06-03 21:22 | PC.NURSE ---
2121- Pasquale patients notified of heart rate fluctuations and declining condition. Will monitor.
[2022-06-04] MEDS: LORazepam 20 MG in SODIUM CHLORIDE 0.9% 90 ML 10 MG IV (03:04)
[2022-06-04] MEDS: fentaNYL 1,000 MCG in DEXTROSE 5% IN WATER 230 ML 40.55 MCG IV (05:23)
[2022-06-04] MEDS: MORPHINE 4 MG/ML INJ (11:10)
--- NOTE | 2022-06-04 12:13 | P.DN_ITS ---
Discharge Summary History of Illness Narrative: 72-year-old female well known to me as I a.m. her PCP who was found by her spouse unresponsive this morning.? She has chronic pain syndrome element of fibromyalgia and more recently significant severe mouth pain that has defied diagnosis (thought to be perhaps related to herpes virus infection or zoster previously but cultures negative).? She apparently was having increasing symptoms yesterday and by all reports most likely took additional medication.? She was found to be unable to protect her airway did not respond to Narcan was intubated.? She is been very easy to ventilate she is been hemodynamically stable she is on propofol for sedation Family did go back and count her number of tablets in it appears she took a large overdose of baclofen (there are approximately 50+ tablets missing from her bottle).? Poison control was contacted by the emergency department and they felt as though this was a classic presentation for baclofen overdose and may take up to 48 hours plus for that to completely resolve.? Patient will likely be minimally responsive if at all and is at some risk of seizures secondary to the baclofen overdose.? Intubation for airway protection and propofol for sedation and seizure prophylaxis makes sense overall Patient also tested positive for COVID.? She tested negative when admitted just before [place].? She of course does not show evidence of any respiratory compromise is easy to ventilate on the ventilator etcetera.? She was admitted here just before [place] for possible dehydration with some tonic clonic kind of motions either myoclonic jerks verses an exacerbation of her chronic tardive dyskinesia verses other.? She improved significantly with IV hydration alone was discharged home after about 36 hours of admission.? Per patient's spouse she is continue though to have increasing mouth symptoms been increasingly sort of disordered in her thinking very difficult to please and fairly agitated.? This is kind of an exacerbation of her baseline status per spouse and my observations as well at least from time to time. As above patient being treated with chronic Dilaudid and baclofen for chronic back pain as well as this relatively new mouth pain.? This oral pain is been fully evaluated locally, and at the [facility], and at the [facility].? Diagnosis is thus far not been found.? At 1 point was thought as though she had herpes simplex virus on 1 culture but next culture was negative and there was some question about the original culture as she had an obvious cold sore at the time.? Thus far only treatment that has been offered her has been the Dilaudid.? She is been hesitant to eat because of the severe mouth pain and has had some significant weight loss because of that.? She also has a diagnosis of fibromyalgia and chronic migraine disorder as well as severe depression and anxiety.? She is followed by Psychiatry here locally as well.? This began with her polypharmacy admission back little over year ago. Patient has had issues with polypharmacy previously with lots of significant side effects including probably the tardive dyskinesia secondary to either quetiapine that she uses for insomnia or metoclopramide she was using previously for chronic abdominal symptoms nausea associated with her migraine headache disorder. She is had other inadvertent medication overdoses, including admission to the hospital the end of 2020 although at that time she did not require intubation for airway protection.? Medications were adjusted and she is done well since.? Without consulting the full length the extent of her medical record both in the old EMR as well as the new EMR I seem to recall many episodes of similar presentations in the past with altered mental status to a mild degree all the way to yesenia encephalopathy although again I think this is the first time she is required intubation In any event since intubation she is been hemodynamically stable easy to vent ilate and quite stable.? 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 She was intubated for airway support due to acute encephalopathy. Remdesivir and Decadron were initiated due to her testing positive for COVID. She was initiated on Precedex due to agitation. It was determined that the pt had taken approximately 50 tablets of Baclofen, and the pts family questioned if this was intentional to end her life due to a significant decline in her quality of life recently and no diagnoses being found. She had not been able to eat or drink easily, and not really left the home except for doctor's appts. The pt was showing no significant improvement on the ventilator. The decision was ultimately made to transition her to comfort care. She was extubated, and transitioned to IV Fentanyl and Ativan. The pt remained comfortable. She at 11:48am on 06/04/22 with her family present at bedside. Objective Labs Result Diagrams: 05/31/22 04:20 05/31/22 04:20
--- NOTE | 2022-06-04 12:38 | CM.DPC ---
Addendum entered by KIMBERLYN Ferro 06/04/22 14:38: ADD: Per RN, around 1150 pt with Dtr bedside and spouse arrived shortly after and [facility] contacted and they collected pt's body. SW updated [facility] to take pt off their list for review. BF Original Note: DCP Ongoing Comfort Care with [facility] Per MD, pt remains on comfort care with continuous IV lorazepam and fentanyl but heart rate increased overnight and has maintained and nursing staff shifted pt to her right and per SW discussion with MD, RN, and pharmacy plan is to do morphine pushes today for more aggressive comfort measures as pt remains non-responsive with no gag reflex or responding to any stimuli. MD anticipates pt to within 24 hours with this switch in care plan. SW confirmed with [facility], [facility], and [facility] that they cannot take pt's IV management for comfort and pt likely would not have enough secretions for sublingual. [facility] reviewing in case pt remains throughout the weekend and somehow a medication plan can be determined to get pt off the continuous IV management for d/c, but unlikely. Plan: SW to follow for plan of pt to in the next 24 hours and if somehow remains stable then SW to follow with MD to determine if any way pt's meds could be switched to sublingual or rectal for [facility] or for SNF under Com[facility]. KIMBERLYN Ferro
--- NOTE | 2022-06-04 12:55 | PC.NURSE ---
Day shift note: Daughter Temitope at bedside prior to pt expiring at 1148, family including arrived at bedside shortly after pt passed. Dr Rodríguez, notified and [facility] contacted. Paco arrived for picking supervisor at 1244, no further pt contact.
== END 2022-06-04 12:44 | disposition expired | DRG 917 ==
LOC: ED 16:09 → AC 16:19 → ICU 16:37
PROVIDERS: Internal Medicine Pulmonary Disease; Admitting Provider Internal Medicine; Emergency Provider Emergency Medicine; PCP Internal Medicine; Referring Provider Emergency Medicine; Visit Provider Internal Medicine
DX: T42.8X1A Poisoning by antiparkinsonism drugs and other central muscle-tone depressants, accidental (unintentional), initial encounter (principal); J96.01 Acute respiratory failure with hypoxia; U07.1 COVID-19; G93.40 Encephalopathy, unspecified; K21.9 Gastro-esophageal reflux disease without esophagitis; I10 Essential (primary) hypertension; G89.29 Other chronic pain; M79.7 Fibromyalgia; E03.9 Hypothyroidism, unspecified; F32.A Depression, unspecified; Z51.5 Encounter for palliative care; Z87.891 Personal history of nicotine dependence
CPT/HCPCS: 36415; 36592; 36600; 70450; 70496; 70498; 71045; 80048; 80053; 80305; 80320; 80329; 81001; 82550; 82805; 83605; 83735; 83880; 84145; 84146; 84478; 84484; 85007; 85025; 85610; 85730; 87040; 87070; 87205; 87633; 93005; 93010; 94002; 94003; 94799; 96374; 96375; 99223; 99233; 99238; 99285; 99291; 99292; G0480; J1100; J1170; J1650; J2060; J2270; J2704; J3010; Q9967